=== PATIENT | male | born 1945 | race Caucasian/White ===

== ENCOUNTER 2016-08-15 07:04 | Emergency (ER) | payer OTHER ==
[2016-08-15] MEDS ORDERED: ASPIRIN PO STA (07:27)
[2016-08-15] MEDS ORDERED: NITROGLYCERIN SL PRN (07:27)
--- NOTE | 2016-08-15 07:35 | PROVIDER DOCUMENTATION ---
HPI-Chest Pain - General Chief Complaint: Chest Pain Stated Complaint: CP Time Seen by Provider: 08/15/16 07:07 Source: patient Allergies/Adverse Reactions: Patient Allergies Allergy/AdvReac Type Severity Reaction Status Date / Time No Known Allergies Allergy Verified 11/19/13 16:05 Home Medications: Home Medication List Medication Instructions Recorded Confirmed Last Taken Type Aspirin 81 mg PO DAILY 01/25/13 08/15/16 08/15/16 05:00 History Bupropion [Wellbutrin] 150 mg PO DAILY 01/25/13 08/15/16 08/15/16 05:00 History Meloxicam [Mobic] 7.5 mg PO DAILY 01/25/13 08/15/16 08/15/16 05:00 History Omeprazole 20 mg PO DAILY 01/25/13 08/15/16 08/15/16 05:00 History PRAVAstatin [Pravachol] 40 mg PO DAILY 01/25/13 08/15/16 08/15/16 05:00 History Bisacodyl [Dulcolax] 10 mg [place] QHS #2 supp 08/15/16 Unknown Rx Magnesium Citrate 295 ml PO ONCE #1 solution 08/15/16 Unknown Rx Multivitamin [Multivitamins] 1 cap PO DAILY 08/15/16 08/15/16 08/15/16 05:00 History Polyethylene Glycol 3350 [Miralax] 17 gm PO DAILY PRN PRN #90 08/15/16 Unknown Rx powd.pack - History of Present Illness-CP Nature of Presenting Problem: Pt awoke with chest pain, "pressure like a vise" on his chest 8 at 5:30 AM that went away on his ride in on the ambulance after about 1 hour. he has had ASA, but no nitroglycerin Review of Systems - Adult - REVIEW OF SYSTEMS - ADULT Constitutional: denies: chills, fever Eyes: denies: discharge, blurred vision Ears, Nose, Mouth & Throat: denies: ear discharge, sinus problem, throat swelling Cardiovascular: reports: chest pain. denies: heart murmur, irregular heart rate , orthopnea, poor circulation Respiratory: denies: chronic cough, cough, shortness of breath Gastrointestinal: denies: abdominal pain, diarrhea, nausea, vomiting Genitourinary: denies: dysuria, hesitency, urinary retention, urgency Musculoskeletal: denies: bone pain, frequent leg cramps, joint swelling Integumentary: denies: itching, rash Neurological: denies: dizziness/vertigo, paresthesia, syncope Psychiatric: reports: no symptoms reported Endocrine: denies: goiter, cold intolerance, heat intolerance Hematologic/Lymphatic: denies: low blood count, lymphedema Allergic/Immunologic: denies: eczema, hay fever, hives Past History - Adult - PAST MEDICAL HISTORY-ADULT Review of Records: reports: Nursing Assessment Review, Medications Reviewed Cardiovascular: reports: hyperlipidemia Gastrointestinal: reports: GERD - PRIOR SURGERIES/PROCEDURES Surgical/Procedure History: reports: appendectomy, cholecystectomy, hernia repair, other (colon post due to rupture) - IMMUNIZATION STATUS Childhood Immunizations: See Nurse Assessment Flu Vaccine: See Nurse Assessment Physical Exam-General - CONSTITUTIONAL General Appearance: appears well, alert, no apparent distress - EYES Eyes: PERRL/EOMI, pink conjunctivae, fundi clear, no AV nicking - HEAD, EARS, NOSE, MOUTH & THROAT HENMT: normocephalic/atraumatic, moist mucous membranes, normal ENT inspection - NECK Neck: non-tender, full range of motion, supple, normal inspection - RESPIRATORY Respiratory: chest non-tender, lungs clear, normal breath sounds, no pleuratic chest pain, no respiratory distress, no accessory muscle use - CARDIOVASCULAR Cardiovascular: normal peripheral pulses, regular rate, rhythm, no edema, no gallop, no JVD, no murmur - CHEST (BREASTS) Chest/Breast: no tenderness - GASTROINTESTINAL (ABDOMEN) Abdominal Exam: normal bowel sounds, non tender, soft, no organomegaly - LYMPHATIC Lymphatic: no adenopathy - MUSCULOSKELETAL Back Exam: normal inspection, no CVA tenderness, no vertebral tenderness Extremity: normal range of motion, non-tender, normal gait - SKIN Integumentary: normal color, normal turgor, warm/dry - PSYCHIATRIC Psych/Mental Status: normal mood/affect, normal thought content, normal thought process, oriented x 3 Progress - PLAN OF CARE/RESULTS Progress/Plan/Lab Results: Pt continued to have episodic severe stomach/chest pain that would disappear after GI cocktail, or nothing after only a minute. he admits to constipation maybe a BM every 2-4 days and never daily for years. No obvious constipation on abdominal film Laboratory Tests 08/15/16 08/15/16 08/15/16 07:24 07:24 07:24 WBC RBC Hgb Hct MCV MCH MCHC RDW Std Deviation Plt Count MPV Immature Gran % (Auto) Neut % (Auto) Lymph % (Auto) [place] % (Auto) Eos % (Auto) Baso % (Auto) Immature Gran # (Auto) Neut # (Auto) Lymph # (Auto) [place] # (Auto) Eos # (Auto) Baso # (Auto) PT 11.2 INR 1.10 PTT (Actin FS) 28.5 D-Dimer 0.25 Sodium 140 Potassium 3.8 Chloride 103 Carbon Dioxide 22 L Anion Gap 15 BUN 16 Creatinine 1.0 Estimated GFR/1.73 m2 > 60 BUN/Creatinine Ratio 16 Glucose 117 H Calculated Osmolality 282 Calcium 8.8 Magnesium 1.9 Total Bilirubin 0.87 AST 17 ALT 15 Alkaline Phosphatase 103 Creatine Kinase Troponin T Wsr-U-Hzgkwxhkdbd Pept Total Protein 7.1 Albumin 3.7 Globulin 3.4 Albumin/Globulin Ratio 1.1 08/15/16 08/15/16 08/15/16 07:24 07:24 07:24 WBC RBC Hgb Hct MCV MCH MCHC RDW Std Deviation Plt Count MPV Immature Gran % (Auto) Neut % (Auto) Lymph % (Auto) [place] % (Auto) Eos % (Auto) Baso % (Auto) Immature Gran # (Auto) Neut # (Auto) Lymph # (Auto) [place] # (Auto) Eos # (Auto) Baso # (Auto) PT INR PTT (Actin FS) D-Dimer Sodium Potassium Chloride Carbon Dioxide Anion Gap BUN Creatinine Estimated GFR/1.73 m2 BUN/Creatinine Ratio Glucose Calculated Osmolality Calcium Magnesium Total Bilirubin AST ALT Alkaline Phosphatase Creatine Kinase 117 Troponin T < 0.010 Koa-G-Ktzibhrctix Pept 125 Total Protein Albumin Globulin Albumin/Globulin Ratio 08/15/16 08/15/16 08/15/16 07:24 10:26 10:26 WBC 13.24 H RBC 4.50 L Hgb 13.7 L Hct 41.2 L MCV 91.6 MCH 30.4 MCHC 33.3 RDW Std Deviation 13.9 Plt Count 381 MPV 9.7 Immature Gran % (Auto) 0.2 Neut % (Auto) 72.6 Lymph % (Auto) 15.0 L [place] % (Auto) 8.4 Eos % (Auto) 3.5 Baso % (Auto) 0.3 Immature Gran # (Auto) 0.02 Neut # (Auto) 9.61 H Lymph # (Auto) 1.99 Lea # (Auto) 1.11 H Eos # (Auto) 0.47 Baso # (Auto) 0.04 PT INR PTT (Actin FS) D-Dimer Sodium Potassium Chloride Carbon Dioxide Anion Gap BUN Creatinine Estimated GFR/1.73 m2 BUN/Creatinine Ratio Glucose Calculated Osmolality Calcium Magnesium Total Bilirubin AST ALT Alkaline Phosphatase Creatine Kinase 121 Troponin T 0.084 D Caq-Y-Rvygpkjkwnk Pept Total Protein Albumin Globulin Albumin/Globulin Ratio Orders Category Date Time Status Cardiac Monitoring DIRECTED Care 08/15/16 07:27 Active Saline Loc NOW Care 08/15/16 07:27 Active ABDOMEN FLAT/UPRIGHT [RAD] Stat Exams 08/15/16 11:50 Taken CHEST-2 VIEWS [RAD] Stat Exams 08/15/16 07:27 Draft CBC WITH ELECTRONIC DIFF [HEME] Stat Lab 08/15/16 07:24 Completed CK PROFILE [SP CHEM] Stat Lab 08/15/16 07:24 Completed CK PROFILE [SP CHEM] Stat Lab 08/15/16 10:26 Completed COMPREHENSIVE METABOLIC PANEL [CHEM] Stat Lab 08/15/16 07:24 Completed D-DIMER [CHEM] Stat Lab 08/15/16 07:24 Completed MAGNESIUM [CHEM] Stat Lab 08/15/16 07:24 Completed PRO B-NATRIURETIC PEPTIDE Stat Lab 08/15/16 07:24 Completed PROTIME WITH INR [COAG] Stat Lab 08/15/16 07:24 Completed PTT [COAG] Stat Lab 08/15/16 07:24 Completed TROPONIN T Stat Lab 08/15/16 07:24 Completed TROPONIN T Stat Lab 08/15/16 10:26 Completed Aspirin Med 08/15/16 07:27 Discontinued 325 mg PO STAT STA Lido/Yun Alk/Al&mg Hydrox [G.i. Cocktail] Med 08/15/16 12:23 Discontinued 30 ml .ROUTE .STK-MED ONE Lido/Yun Alk/Al&mg Hydrox [G.i. Cocktail] Med 08/15/16 12:22 Discontinued 30 ml PO NOW ONE Nitroglycerin Sl [Nitroglycerin] Med 08/15/16 07:27 Active 0.4 mg SL Q5M PRN PRN EKG [EKG] Stat Ther 08/15/16 07:27 Draft EKG [EKG] Stat Ther 08/15/16 10:20 Draft Vital Signs Temp Pulse Resp BP Pulse Ox 08/15/16 10:32 78 23 138/78 95 08/15/16 08:10 78 21 138/78 95 08/15/16 07:09 98.0 F 85 20 144/72 96 No Known Allergies Allergy (Verified 11/19/13 16:05) Aspirin 81 mg PO DAILY 01/25/13 Bupropion [Wellbutrin] 150 mg PO DAILY 01/25/13 Meloxicam [Mobic] 7.5 mg PO DAILY 01/25/13 Omeprazole 20 mg PO DAILY 01/25/13 PRAVAstatin [Pravachol] 40 mg PO DAILY 01/25/13 Multivitamin [Multivitamins] 1 cap PO DAILY 08/15/16 Laboratory 08/15/16 08/15/16 08/15/16 10:26 10:26 07:24 WBC 13.24 H RBC 4.50 L Hgb 13.7 L Hct 41.2 L MCV 91.6 MCH 30.4 MCHC 33.3 RDW Std Deviation 13.9 Plt Count 381 MPV 9.7 Immature Gran % (Auto) 0.2 Neut % (Auto) 72.6 Lymph % (Auto) 15.0 L [place] % (Auto) 8.4 Eos % (Auto) 3.5 Baso % (Auto) 0.3 Immature Gran # (Auto) 0.02 Neut # (Auto) 9.61 H Lymph # (Auto) 1.99 Lea # (Auto) 1.11 H Eos # (Auto) 0.47 Baso # (Auto) 0.04 PT INR PTT (Actin FS) D-Dimer Sodium Potassium Chloride Carbon Dioxide Anion Gap BUN Creatinine Estimated GFR/1.73 m2 BUN/Creatinine Ratio Glucose Calculated Osmolality Calcium Magnesium Total Bilirubin AST ALT Alkaline Phosphatase Creatine Kinase 121 Troponin T 0.084 D Zbl-P-Zmujkdbprsm Pept Total Protein Albumin Globulin Albumin/Globulin Ratio 08/15/16 08/15/16 08/15/16 07:24 07:24 07:24 WBC RBC Hgb Hct MCV MCH MCHC RDW Std Deviation Plt Count MPV Immature Gran % (Auto) Neut % (Auto) Lymph % (Auto) [place] % (Auto) Eos % (Auto) Baso % (Auto) Immature Gran # (Auto) Neut # (Auto) Lymph # (Auto) [place] # (Auto) Eos # (Auto) Baso # (Auto) PT INR PTT (Actin FS) D-Dimer Sodium Potassium Chloride Carbon Dioxide Anion Gap BUN Creatinine Estimated GFR/1.73 m2 BUN/Creatinine Ratio Glucose Calculated Osmolality Calcium Magnesium Total Bilirubin AST ALT Alkaline Phosphatase Creatine Kinase 117 Troponin T < 0.010 Nny-H-Hieepachfxs Pept 125 Total Protein Albumin Globulin Albumin/Globulin Ratio 08/15/16 08/15/16 08/15/16 07:24 07:24 07:24 WBC RBC Hgb Hct MCV MCH MCHC RDW Std Deviation Plt Count MPV Immature Gran % (Auto) Neut % (Auto) Lymph % (Auto) [place] % (Auto) Eos % (Auto) Baso % (Auto) Immature Gran # (Auto) Neut # (Auto) Lymph # (Auto) [place] # (Auto) Eos # (Auto) Baso # (Auto) PT 11.2 INR 1.10 PTT (Actin FS) 28.5 D-Dimer 0.25 Sodium 140 Potassium 3.8 Chloride 103 Carbon Dioxide 22 L Anion Gap 15 BUN 16 Creatinine 1.0 Estimated GFR/1.73 m2 > 60 BUN/Creatinine Ratio 16 Glucose 117 H Calculated Osmolality 282 Calcium 8.8 Magnesium 1.9 Total Bilirubin 0.87 AST 17 ALT 15 Alkaline Phosphatase 103 Creatine Kinase Troponin T Flw-B-Ntmcaumnqro Pept Total Protein 7.1 Albumin 3.7 Globulin 3.4 Albumin/Globulin Ratio 1.1 Departure - Departure Time of Disposition Order: 13:01 DIAGNOSIS: Abdominal gas pain Constipation Qualifiers: Constipation type: unspecified constipation type Qualified Code(s): K59.00 - Constipation, unspecified Disposition: HOME 01 Certified Medical Emergency: Emergent Condition: Stable Additional Instructions: see you own doctor to arrange evaluation of you heart. In the meantime, try to stabilize your bowel pattern ED Follow Up Instructions: You have been treated by a care provider in the Emergency Department. These instructions are being provided to you so you can have an understanding of how to care for yourself upon discharge. Upon discharge from the Emergency Department, you are responsible for making arrangements for follow-up care by a physician of your choice. Take all prescribed medications as directed. Return to the Emergency Department immediately for any new or worsening symptoms. You may call the Physician Referral phone number at [phone] to obtain a list of Physicians who are taking new patients. Prescriptions: Bisacodyl [Dulcolax] 10 mg TN QHS #2 supp Magnesium Citrate 295 ml PO ONCE #1 solution Polyethylene Glycol 3350 [Miralax] 17 gm PO DAILY PRN PRN #90 powd.pack PRN Reason: Constipation Referrals: Oumou Riley MD [Primary Care Provider] -
[2016-08-15 07:58] LABS: AGAP 15; ALBUMIN 3.7 g/dL (3.5-5.0); ALKALINE PHOSPHATASE 103 U/L (32-122); BUN 16 mg/dL (8-22); CALCIUM 8.8 mg/dL (8.8-10.2); CHLORIDE 103 mmol/L (98-107); COSMO 282; GOT 17 U/L (10-34); GPT 15 U/L (10-44); MAGNESIUM 1.9 mg/dL (1.5-2.7); POTASSIUM 3.8 mmol/L (3.5-5.1); SODIUM 140 mmol/L (136-145); TCO2 22 mmol/L (25-35); TOTAL BILIRUBIN 0.87 mg/dL (0.20-1.00); TOTAL PROTEIN 7.1 g/dL (6.3-8.3)
[2016-08-15 08:01] LABS: INR 1.1; PROTIME 11.2 Seconds (9.2-11.7); PTT 28.5 Seconds (22.0-36.0)
--- NOTE | 2016-08-15 08:56 | ED EKG INTERP ---
EKG Interpretation - EKG Time of EKG reading by physician:: 07:09 EKG Read and Signed by:: William Alexander EKG Interpretation (*Must complete 3 of following elements*): Normal Rate: 82 Rhythm: nsr [place]: normal QRS: normal [place] Interval: normal ST Wave: normal
--- NOTE | 2016-08-15 08:58 | Diag Imaging Result Document ---
PROCEDURE NAME: CHEST-2 VIEWS - 08/15/2016 PA AND LATERAL RADIOGRAPHS OF THE CHEST: COMPARISON: 01/25/2013. FINDINGS: The lungs are grossly clear. There is no definite pleural fluid collection. Cardiac silhouette and central vasculature are grossly unremarkable. There is thoracic spondylosis. IMPRESSION: No definite acute chest pathology.
[2016-08-15 10:10] LABS: MANUAL DIFF NEEDED? NO
[2016-08-15 10:14] LABS: BASO% 0.3 % (0.0-0.8); EOS# 0.47 X1000 (0.0-0.7); EOS% 3.5 % (0.0-10.0); HEMATOCRIT 41.2 % (42.0-52.0); HEMOGLOBIN 13.7 g/dL (14.0-18.0); IMM GRAN# 0.02 X1000 (0.0-0.04); IMM GRAN% 0.2 % (0.0-0.5); LYMPH# 1.99 X1000 (1.2-3.4); MCH 30.4 PG (27-31); MCHC 33.3 g/dL (33-37); MCV 91.6 FL (81-99); MONO# 1.11 X1000 (0.11-0.59); MONO% 8.4 % (1.7-9.3); MPV 9.7 FL (7.4-10.4); NEUT% 72.6 % (42.2-75.2); PLT 381 X1000 (130-400)
--- NOTE | 2016-08-15 10:55 | ED EKG INTERP ---
EKG Interpretation - EKG Time of EKG reading by physician:: 10:24 EKG Read and Signed by:: William Alexander EKG Interpretation (*Must complete 3 of following elements*): Abnormal Rate: 79 Rhythm: NSR [place]: normal ST Wave: normal Comments: inferior infarct
--- NOTE | 2016-08-15 11:20 | EKG Report ---
Test Performed on : 08/15/2016 07:09:25 AM Test Reason : Chest Pain Blood Pressure : / mmHG Vent. Rate : 082 BPM Atrial Rate : 082 BPM P-R Int : 168 ms QRS Dur : 088 ms QT Int : 378 ms P-R-T Axes : 097 011 053 degrees QTc Int : 441 ms Normal sinus rhythm. Normal ECG When compared with ECG of 17-APR-2010 10:51, premature supraventricular complexes. are no longer present Unconfirmed Result
--- NOTE | 2016-08-15 11:22 | EKG Report ---
Test Performed on : 08/15/2016 10:24:50 AM Test Reason : REPEAT Blood Pressure : / mmHG Vent. Rate : 079 BPM Atrial Rate : 079 BPM P-R Int : 168 ms QRS Dur : 084 ms QT Int : 390 ms P-R-T Axes : 084 003 046 degrees QTc Int : 447 ms Normal sinus rhythm. Inferior infarct , age undetermined Abnormal ECG When compared with ECG of 15-AUG-2016 07:09, (Unconfirmed) No significant change was found Unconfirmed Result
--- NOTE | 2016-08-15 12:07 | ED EKG INTERP ---
EKG Interpretation - EKG Time of EKG reading by physician:: 11:46 EKG Read and Signed by:: William Alexander EKG Interpretation (*Must complete 3 of following elements*): Normal Rate: 82 Rhythm: nsr [place]: normal QRS: normal [place] Interval: normal ST Wave: normal
[2016-08-15] MEDS ORDERED: G.I. COCKTAIL PO ONE (12:22)
[2016-08-15] MEDS ORDERED: G.I. COCKTAIL ONE (12:23)
--- NOTE | 2016-08-15 12:46 | ED EKG INTERP ---
EKG Interpretation - EKG Time of EKG reading by physician:: 12:17 EKG Read and Signed by:: William Alexander EKG Interpretation (*Must complete 3 of following elements*): Normal Rate: 84 Rhythm: sinus rhythm w/premature supraventricular complexes [place]: normal QRS: normal [place] Interval: normal ST Wave: normal
[2016-08-15 13:33] VITALS: BP 136/70
--- NOTE | 2016-08-15 13:41 | Diag Imaging Result Document ---
PROCEDURE NAME: ABDOMEN FLAT/UPRIGHT - 08/15/2016 X-RAY ABDOMEN, 2 VIEWS: COMPARISON: 01/25/2013. FINDINGS: Stable extensive hernia repair mesh. Stable cholecystectomy clips. No bowel obstruction or free air. IMPRESSION: No acute disease or change from prior.
--- NOTE | 2016-08-16 09:35 | EKG Report ---
Test Performed on : 08/15/2016 12:17:13 PM Test Reason : ED. Not ordered in [place] Blood Pressure : / mmHG Vent. Rate : 084 BPM Atrial Rate : 084 BPM P-R Int : 154 ms QRS Dur : 084 ms QT Int : 386 ms P-R-T Axes : 023 012 055 degrees QTc Int : 456 ms Sinus rhythm. with premature supraventricular complexes. Otherwise normal ECG When compared with ECG of 15-AUG-2016 12:16, (Unconfirmed) premature ventricular complexes. are no longer present premature supraventricular complexes. are now present Unconfirmed Result
--- NOTE | 2016-08-16 09:35 | EKG Report ---
Test Performed on : 08/15/2016 11:46:37 AM Test Reason : ED. Not ordered in [place] Blood Pressure : / mmHG Vent. Rate : 082 BPM Atrial Rate : 082 BPM P-R Int : 166 ms QRS Dur : 084 ms QT Int : 390 ms P-R-T Axes : 103 011 054 degrees QTc Int : 455 ms Normal sinus rhythm. Normal ECG When compared with ECG of 15-AUG-2016 11:46, (Unconfirmed) No significant change was found Unconfirmed Result
== END 2016-08-15 13:57 | disposition home or self-care (01) ==
LOC: EDBD → ED 07:04
DX: R14.1 Gas pain (principal); K59.00 Constipation, unspecified; R94.31 Abnormal electrocardiogram [ECG] [EKG]; R07.89 Other chest pain; R10.9 Unspecified abdominal pain; E78.5 Hyperlipidemia, unspecified; K21.9 Gastro-esophageal reflux disease without esophagitis; Z79.82 Long term (current) use of aspirin; Z79.899 Other long term (current) drug therapy
CPT/HCPCS: 71020; 74020; 80053; 82550; 83735; 83880; 84484; 85025; 85379; 85610; 85730; 93005

== ENCOUNTER 2018-09-14 15:55 | Inpatient (IN) ==
[2018-09-14 16:28] LABS: BASO# 0.06 X1000 (0.0-0.2); BASO% 0.5 % (0.0-0.8); EOS# 0.27 X1000 (0.0-0.7); EOS% 2.2 % (0.0-10.0); HEMATOCRIT 43.6 % (42.0-52.0); HEMOGLOBIN 14.9 g/dL (14.0-18.0); IMM GRAN# 0.04 X1000 (0.0-0.04); IMM GRAN% 0.3 % (0.0-0.5); LYMPH# 1.79 X1000 (1.2-3.4); LYMPH% 14.8 % (20.5-51.1); MCH 32.5 PG (27-31); MCHC 34.2 g/dL (33-37); MCV 95.2 FL (81-99); MONO# 1.14 X1000 (0.11-0.59); MONO% 9.4 % (1.7-9.3); MPV 9.4 FL (7.4-10.4); NEUT# 8.82 X1000 (1.4-6.5); NEUT% 72.8 % (42.2-75.2); PLT 331 X1000 (130-400); RBC 4.58 XMIL (4.7-6.1); RDW 13.7 % (11.5-14.5); WBC 12.12 X1000 (4.8-10.8)
[2018-09-14 16:46] LABS: AGAP 10; ALBUMIN 4.3 g/dL (3.5-5.0); ALKALINE PHOSPHATASE 135 U/L (32-122); BUN 20 mg/dL (8-22); CALCIUM 9.3 mg/dL (8.8-10.2); CHLORIDE 103 mmol/L (98-107); COSMO 287; CREATININE 1.1 mg/dL (0.7-1.2); ESTIMATED GFR > 60; GLUCOSE 150 mg/dL (70-104); GOT 16 U/L (10-34); GPT 24 U/L (10-44); POTASSIUM 4.3 mmol/L (3.5-5.1); SODIUM 141 mmol/L (136-145); TCO2 28 mmol/L (25-35)
[2018-09-14 16:49] LABS: BILIRUBIN URINE NEGATIVE (NEGATIVE); BLOOD URINE 4+ (NEGATIVE); COLOR YELLOW; KETONE URINE 1+(Small) mg/dL (NEGATIVE); LEUKOCYTES URINE 1+ (NEGATIVE); NITRITE URINE NEGATIVE (NEGATIVE); PROTEIN URINE 2+(100 mg/dL) mg/dL (NEGATIVE); SP GRAVITY URINE 1.025; UROBILINOGEN URINE NORMAL
[2018-09-14 16:51] LABS: CLARITY VERY CLOUDY (CLEAR); URINE BACTERIA 1+ /HFP; URINE RBC TNTC /HPF (<10)
--- NOTE | 2018-09-14 17:07 | Diag Imaging Result Doc PS360 ---
CT RENAL STONE SEARCH - 09/14/2018 INDICATION: pain COMPARISON: None FINDINGS: There is an obstructing right UPJ stone. This measures about 11 x 6 mm. There is moderate right hydronephrosis. No hydronephrosis on the left side. There are several scattered small renal stones bilaterally measuring about 2 mm. There is a heterogeneous mass of the pancreatic head. This is poorly evaluated. This measures 4.3 x 4.1 cm in AP and lateral dimensions. There is atrophy of the pancreas. There are cholecystectomy clips. There is ventral hernia repair mesh. No bowel obstruction or inflammation. Urinary bladder, prostate, and rectum are normal. There are moderate degenerative changes of the spine. No acute or suspicious bony lesion. IMPRESSION: 1. Obstructing right UPJ stone. Small bilateral renal stones. 2. Highly suspicious mass of the pancreatic head. 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 Recommend a CT abdomen pelvis with intravenous contrast for confirmation. This exam was performed using automated exposure control, adjustment of mA or kV according to patient size, and/or use of iterative reconstruction technique Electronically signed by Danish Benavidez 09/14/2018 5:04 PM
[2018-09-14] MEDS ORDERED: MORPHINE IV ONE (18:23)
[2018-09-14] MEDS ORDERED: TORADOL IV ONE (18:23)
[2018-09-14] MEDS ORDERED: DILAUDID IV PRN (18:50)
[2018-09-14] MEDS ORDERED: PROTONIX IV SCH ×2 (19:00→23:00)
[2018-09-14] MEDS ORDERED: LEVAQUIN 500 MG/D5W 500 MG/100 ML IVPB IV SCH (19:00)
[2018-09-14] MEDS ORDERED: LOVENOX SUBQ SCH (19:00)
[2018-09-14] MEDS ORDERED: NS 1,000 ML IV SCH (19:00)
[2018-09-14] MEDS ORDERED: SODIUM CHLORIDE 0.9% INJ SCH ×2 (19:00→23:00)
--- NOTE | 2018-09-14 19:01 | PROVIDER DOCUMENTATION ---
This chart was entered by Iris Maguire Scribe, acting as scribe for Daniel Cummings CRNP. HPI-General Adult - General Chief Complaint: Flank Pain Stated Complaint: VOMITING / POSS KIDNEY STONE Time Seen by Provider: 09/14/18 18:10 Source: patient Allergies/Adverse Reactions: Patient Allergies Allergy/AdvReac Type Severity Reaction Status Date / Time No Known Allergies Allergy Verified 09/14/18 16:06 Home Medications: Home Medication List Medication Instructions Recorded Confirmed Last Taken Type Aspirin 81 mg PO DAILY 01/25/13 08/15/16 08/15/16 05:00 History Bupropion [Wellbutrin] 150 mg PO DAILY 01/25/13 08/15/16 08/15/16 05:00 History Meloxicam [Mobic] 7.5 mg PO DAILY 01/25/13 08/15/16 08/15/16 05:00 History Omeprazole 20 mg PO DAILY 01/25/13 08/15/16 08/15/16 05:00 History PRAVAstatin [Pravachol] 40 mg PO DAILY 01/25/13 08/15/16 08/15/16 05:00 History Bisacodyl [Dulcolax] 10 mg ME QHS #2 supp 08/15/16 Unknown Rx Magnesium Citrate 295 ml PO ONCE #1 solution 08/15/16 Unknown Rx Multivitamin [Multivitamins] 1 cap PO DAILY 08/15/16 08/15/16 08/15/16 05:00 History Polyethylene Glycol 3350 [Miralax] 17 gm PO DAILY PRN PRN #90 08/15/16 Unknown Rx powd.pack Sulfamethoxazole/Trimethoprim 2 ea PO BID #40 tab 03/07/18 Unknown Rx [Bactrim Ds Tablet] - History of Present Illness -Gen Adult Nature of Presenting Problems: pt is a 73 yr old male presenting with 1 day complaint of nausea, vomiting right groin pain radiating to RLQ, right flank, pt reports hx of kidney stones, last lithotripsy approx 4 weeks ago. pt followed by DR Riley and urologist in [facility], pt denies fever/chills Location of Pain/Injury: reports: abdomen Pain Radiation: reports: groin (right), flank (R) Quality of Pain: reports: sharp Severity: reports: severe Onset/Duration: reports: 24 hours ago Timing: reports: still present Context/Activities at Onset: reports: light activity Modifying Factors: improves with: other medication (hydrocodone without relief) Associated Symptoms: reports: back/neck pain, genitourinary problems, nausea, vomiting. denies: fever/chills Similar Symptoms Previously?: Yes Recently seen or treated by another doctor?: Yes (seen multiple times in past month for similar complaints) Review of Systems - Adult - REVIEW OF SYSTEMS - ADULT Constitutional: denies: chills, fever Eyes: reports: no symptoms reported Ears, Nose, Mouth & Throat: reports: no symptoms reported Cardiovascular: denies: chest pain, syncope Respiratory: denies: cough, shortness of breath Gastrointestinal: reports: abdominal pain, nausea, vomiting. denies: diarrhea Genitourinary: reports: flank pain. denies: hematuria Musculoskeletal: reports: back pain Integumentary: reports: no symptoms reported Neurological: denies: dizziness/vertigo, headache/migraines Psychiatric: reports: no symptoms reported Endocrine: reports: no symptoms reported Hematologic/Lymphatic: reports: no symptoms reported Allergic/Immunologic: reports: no symptoms reported All Other Systems: Reviewed and Negative Past History - Adult - PAST MEDICAL HISTORY-ADULT Review of Records: reports: Old Records Reviewed, Nursing Assessment Review, Medications Reviewed, Social history reviewed & non-contributory. Major Childhood Illnesses: reports: denies history Cardiovascular: reports: hyperlipidemia Respiratory: reports: denies history Gastrointestinal: reports: GERD Obstetrical/Gynecological: reports: denies history Genitourinary: reports: denies history Musculoskeletal: reports: denies history Neurological: reports: denies history Endocrine/Immune: reports: denies history Other Conditions: reports: denies history - PRIOR SURGERIES/PROCEDURES Surgical/Procedure History: reports: appendectomy, cholecystectomy, hernia repair, other (colon post due to rupture) - IMMUNIZATION STATUS Childhood Immunizations: See Nurse Assessment Flu Vaccine: See Nurse Assessment - FAMILY HISTORY Family History: reviewed, not pertinent - SOCIAL HISTORY Smoking: cigarettes, less than 1 pack/day Provider spent 3-5 mins advising pt. on dangers of tobacco.: Discussed manners to quit use, and f/u contacts for add'l counseling. Substance Use: denies Living Situation: family Physical Exam-General - PHYSICAL EXAM-ADULT Initial Vital Signs Reviewed: Yes - CONSTITUTIONAL General Appearance: alert, mild distress - EYES Eyes: PERRL/EOMI - HEAD, EARS, NOSE, MOUTH & THROAT HENMT: normocephalic/atraumatic, moist mucous membranes - NECK Neck: non-tender, full range of motion, supple, normal inspection - RESPIRATORY Respiratory: chest non-tender, lungs clear, normal breath sounds, no pleuratic chest pain, no respiratory distress, no accessory muscle use - CARDIOVASCULAR Cardiovascular: normal peripheral pulses, regular rate, rhythm - GASTROINTESTINAL (ABDOMEN) Abdominal Exam: normal bowel sounds, soft, tenderness (RLQ) - GENITOURINARY Rectal Exam: deferred - MUSCULOSKELETAL Back Exam: CVA tenderness (right). negative: decreased range of motion, abida tebral tenderness Extremity: normal range of motion, non-tender, normal gait, normal inspection - SKIN Integumentary: normal color, normal turgor, warm/dry - NEUROLOGIC Neurologic: grossly normal, no motor/sensory deficits - PSYCHIATRIC Psych/Mental Status: normal mood/affect Progress - PLAN OF CARE/RESULTS Progress/Plan/Lab Results: Vital Signs - 8 hr 09/14/18 16:02 Temperature 97.6 F Pulse Rate 73 Respiratory Rate 20 Blood Pressure 150/75 O2 Sat by Pulse Oximetry 100 Laboratory Results - last 24 hr 09/14/18 09/14/18 09/14/18 16:07 16:16 16:16 WBC 12.12 H RBC 4.58 L Hgb 14.9 Hct 43.6 MCV 95.2 MCH 32.5 H MCHC 34.2 RDW Std Deviation 13.7 Plt Count 331 MPV 9.4 Immature Gran % (Auto) 0.3 Neut % (Auto) 72.8 Lymph % (Auto) 14.8 L Gove % (Auto) 9.4 H Eos % (Auto) 2.2 Baso % (Auto) 0.5 Immature Gran # (Auto) 0.04 Neut # (Auto) 8.82 H Lymph # (Auto) 1.79 Gove # (Auto) 1.14 H Eos # (Auto) 0.27 Baso # (Auto) 0.06 Sodium 141 Potassium 4.3 Chloride 103 Carbon Dioxide 28 Anion Gap 10 BUN 20 Creatinine 1.1 Estimated GFR/1.73 m2 > 60 BUN/Creatinine Ratio 18 Glucose 150 H Calculated Osmolality 287 Calcium 9.3 Total Bilirubin 0.40 AST 16 ALT 24 Alkaline Phosphatase 135 H Total Protein 8.0 Albumin 4.3 Globulin 4.0 Albumin/Globulin Ratio 1.0 Urine Source CATH Urine Color YELLOW Urine Clarity VERY CLOUDY A Urine pH 5.0 Ur Specific [place] 1.025 Urine Protein 2+(100 mg/dL) A Urine Ketones 1+(Small) A Urine Blood 4+ Urine Nitrite NEGATIVE Urine Bilirubin NEGATIVE Urine Urobilinogen NORMAL Urine Microscopic RBC TNTC A Urine WBC 1+ A Urine Microscopic WBC 10-20 A Urine Bacteria 1+ Urine Glucose TRACE(50 mg/dL) A Orders Category Date Time Status CT RENAL STONE SEARCH [CT] Stat Exams 09/14/18 16:09 Completed CBC WITH DIFF [HEME] Stat Lab 09/14/18 16:16 Completed CMP [COMPREHENSIVE METABOLIC PANEL] [CHEM] Stat Lab 09/14/18 16:16 Completed URINE CULTURE [RM] Routine Lab 09/14/18 16:51 Ordered ua [URINALYSIS PL W/POSS RFLX CULT] [URINALYSIS] Stat Lab 09/14/18 16:07 Completed Ketorolac [Toradol] Med 09/14/18 18:23 Discontinued 30 mg IV NOW ONE Morphine Med 09/14/18 18:23 Discontinued 4 mg IV NOW ONE Result Diagrams: 09/14/18 16:16 09/14/18 16:16 - CONSULTS/PCP/HOSPITALIST Notification #1 *Consult/PCP/Hospitalist*: Dr Riley Time Discussed: 18:30 Reason/Comments: plan of care for pt admit Consult Disposition: Admit (admit and transfer to [facility]) #2 Consult: Dr Matt Ontiveros Discussed: 18:32 Reason/Comments: will follow up in hospital-pt is being admitted to Main Consult Disposition: other (will see at [facility]) Departure - Departure Date of Disposition Decision: 09/14/18 Time of Disposition Decision: 19:00 DIAGNOSIS: Hydronephrosis with renal calculous obstruction Disposition: ADMITTED INPATIENT 09 Certified Medical Emergency: Emergent Condition: Stable Referrals and Follow-Ups: Oumou Riley MD [Primary Care Provider] - - Critical Care Note This patient required my direct & personal management of CC.: No Attestation - Physician/ JOVANY Attestation Patient care was provided by Advanced Practice Provider:: Yes Advanced Practice Provider:: Daniel Cummings Advanced Practice Provider documentation review:: The Mid-level provider documentation, treatment plan and medical decision making was reviewed by the physician who agrees with all treatment and medical decision making by the MLP. The physician spent face to face time with patient:: No Advanced Practice Provider documentation review:: Supervising physician onsite and consulted in the evaluation and care of this patient. The physician did not have a face to face encounter with the patient. This chart was documented by the indicated scribe, (Iris Maguire, Lico) and accurately reflects the services I performed and decisions made by Zoila napier Terry L., CRNP, as attested by the provider's signature.
[2018-09-14] MEDS ORDERED: ZOFRAN IV ONE (19:20)
--- NOTE | 2018-09-14 21:52 | HISTORY AND PHYSICAL ---
CHIEF COMPLAINT: Right renal colicky pain since 1 day. HISTORY OF PRESENT ILLNESS: He is a 73-year-old white male basically with known history of kidney stones under the care of Dr. Castelan in [facility] who came to [facility] with 1-day history of renal colicky pain. The patient was seen a month ago as a followup of abnormal CT. It has been reported a cystic mass in the head of the pancreas. He is totally asymptomatic. No weight loss. I did a CA19-9, which is normal. Normal LFTs. The patient was given options to monitor in [address] If any changes in the size, consider biopsy. In the meantime, he had a right flank pain seen in the [facility]. An x-ray showed right UPJ obstruction with moderate hydronephrosis and mass in the head of the pancreas. Basically, he has been transferred to [facility] for lithotripsy and double-J stent. I discussed with Dr. Palencia, and arrangements were made to be transferred to [facility]. PAST MEDICAL HISTORY: Depression with anxiety, type 2 diabetes, metabolic syndrome, acid reflux disease, hyperlipidemia, incisional hernia, kidney stones, rib fractures on the right fourth rib and right L1-L2 transverse fractures in the past, osteoarthritis. PAST SURGICAL HISTORY: Right cataract surgery, cholecystectomy, status post diverticular perforation, colectomy with colostomy reversal complicated by wound dehiscence by Dr. Aljeo. MEDICATIONS: Aspirin, Wellbutrin 150 once daily, metformin 500 p.o. b.i.d., Mobic 15 daily, Prilosec 20 mg daily, pravastatin 40 daily, Spiriva inhalation daily. ALLERGIES: Not known. SOCIAL HISTORY: , 1 child. Lives in [place]. Retired. Used to smoke for 45 years. Socially drinks alcohol. FAMILY HISTORY: Father , age was not known. Mom of cervical cancer. HEALTH MAINTENANCE: Influenza vaccine 2018, pneumococcal 15. Last physical August 2017. Colonoscopy 2009. REVIEW OF SYSTEMS: HEENT: No headache, no vision problem. No earache. No sore throat. Neck: No goiter. No lymphadenopathy. No bruit. Cardiopulmonary: No chest pain, shortness of breath, PND, orthopnea. Genitourinary: Right flank pain as described. No weight loss. No abdominal pain. No back pain. Neurologic Exam: No focal symptoms, weakness. PHYSICAL EXAMINATION: VITAL SIGNS: Temperature is 98 degrees. Vitals are stable. 5 feet 10, 180 pounds. HEENT: Atraumatic, normocephalic. Pupils equal, reactive to light. TMs are normal. Nose and throat within normal limits. NECK: Supple. No lymphadenopathy. No goiter. CHEST: Bilateral air entry. HEART: Sounds are regular. ABDOMEN: Belly is soft, obese, nontender and good bowel sounds. Mostly tender in the right flank area. NEUROLOGICAL EXAM: Nonfocal. INVESTIGATIONS: CBC: White cell count 12, hematocrit 43, platelets 331,000. SMA 7: Sodium 140, potassium 4.3, chloride 103, BUN 20, creatinine 1.1, glucose 150. LFTs were normal. Urinalysis is positive for blood and infection. CT scan: Renal stone search is obstructing right UPJ stone. Bilateral renal stone. Pancreatic mass. Recommended CT with contrast. ASSESSMENT AND PLAN: 1. A 73-year-old white male admitted to the hospital with right flank pain due to ureteropelvic junction obstruction stone with moderate hydronephrosis and multiple stones in the past. Plan is IV fluids, IV pain control with Dilaudid, strain the urine, add Flomax and IV antibiotics with Levaquin and urology consult medical consultant. 2. Incidental pancreatic mass for the last 2 months and CA19-9 is normal. We will discuss about the repeat CT with contrast and also consider endoscopy ultrasound-guided biopsy. 3. Reconcile home medicines. Waiting, will be transferred out from [facility] to the [facility] and will follow up. cc: Oziel Riley MD
[2018-09-14] MEDS: NS 1,000 ML IV SCH (23:26)
[2018-09-15] MEDS: DILAUDID IV PRN ×4 (04:49→21:15)
[2018-09-15 07:50] LABS: BASO# 0.04 X1000 (0.0-0.2); BASO% 0.3 % (0.0-0.8); EOS# 0.22 X1000 (0.0-0.7); EOS% 1.8 % (0.0-10.0); HEMATOCRIT 38.7 % (42.0-52.0); IMM GRAN# 0.02 X1000 (0.0-0.04); IMM GRAN% 0.2 % (0.0-0.5); LYMPH# 2.09 X1000 (1.2-3.4); LYMPH% 17.5 % (20.5-51.1); MCH 32.3 PG (27-31); MCHC 33.6 g/dL (33-37); MONO# 0.98 X1000 (0.11-0.59); MONO% 8.2 % (1.7-9.3); MPV 9.4 FL (7.4-10.4); NEUT# 8.56 X1000 (1.4-6.5); PLT 269 X1000 (130-400); RBC 4.03 XMIL (4.7-6.1); RDW 13.5 % (11.5-14.5); WBC 11.91 X1000 (4.8-10.8)
[2018-09-15 08:35] LABS: AGAP 9; BUN 25 mg/dL (8-22); CALCIUM 8.7 mg/dL (8.8-10.2); CHLORIDE 107 mmol/L (98-107); COSMO 289; CREATININE 1.1 mg/dL (0.7-1.2); ESTIMATED GFR > 60; GLUCOSE 125 mg/dL (70-104); POTASSIUM 3.9 mmol/L (3.5-5.1); SODIUM 142 mmol/L (136-145); TCO2 26 mmol/L (25-35)
[2018-09-15] MEDS: FLOMAX PO SCH ×2 (08:59→21:17)
[2018-09-15] MEDS: NS 1,000 ML IV SCH ×2 (09:03→13:26)
[2018-09-15 09:06] LABS: URINE SOURCE CLEAN CATCH
--- NOTE | 2018-09-15 13:36 | CONSULTATION ---
DATE OF CONSULTATION: 09/15/2018 HISTORY OF PRESENT ILLNESS: This 73-year-old male with a long history of renal lithiasis developed severe right flank pain. Evaluation revealed a 7 x 11 mm stone at the right ureteropelvic junction. There was mild hydronephrosis. The patient states he has a long history of kidney stones and has had shockwave lithotripsy x2 of other right renal stones. He states this was done in [place]. The patient denies any other type of urologic surgery. He states he is having some problems voiding with a slow stream and having to push to initiate voiding. He is not taking any kind of medication for his prostate. The patient states he is not having any pain at present. He states that he received pain medicine not too long ago. PAST MEDICAL HISTORY: 1. A pancreatic mass that is currently being evaluated. Laboratory evaluation reveal it is probably benign. 2. Gastroesophageal reflux disease. 3. Arthritis. 4. Depression. 5. Obesity. CURRENT MEDICATIONS: Documented on the chart. PAST SURGICAL HISTORY: 1. Exploratory laparotomy for perforated diverticulum with removal of a portion of the large bowel with a diverting colostomy placed. This was subsequently taken down. 2. Repair of incisional hernia. 3. Appendectomy. 4. Cholecystectomy. 5. Cataract surgery. SOCIAL HISTORY: Cigarettes: A pack a day for over 50 years. He is trying to quit. ETOH use social. ALLERGIES: No known drug allergies. REVIEW OF SYSTEMS: Usually in good health. He denies any chest pains, recent pulmonary or bowel problems. He denies any problems with diabetes. PHYSICAL EXAMINATION: General: An obese, age apparent, normally developed, white male, oriented in all ways and cooperative. HEENT: Normal for age. Lungs: Clear. Cardiovascular: Regular rate and rhythm. Abdomen: Obese soft, nontender. No hepatosplenomegaly or masses. Normal bowel sounds. Back: Mild right CVA tenderness. : Normal male. Meatus is normal. Both testes are down and palpably normal. There are no inguinal hernias. Rectal: Deferred until surgery. Extremities: No clubbing, cyanosis, or edema. Neuro: No focal deficits. LABORATORY EVALUATION: He has a white count of 11.9, hemoglobin 13, hematocrit 38.7, platelets are 269,000. Serum electrolytes are normal. BUN 20. Creatinine 1.1. Urinalysis had too numerous to count red cells. Urine for culture and sensitivity is pending. CT stone search is as noted in the HPI. IMPRESSION: 1. Obstructing right ureteropelvic junction stone. 2. Enlarged prostate with obstructive voiding. RECOMMEND: Extracorporeal shockwave lithotripsy on when the machine is available. If the stone does not appear well fragmented will place a right double-J stent to allow dilation of the ureter that would facilitate ureteroscopy and laser lithotripsy of the stone from the ureter. Flomax 0.4 mg b.i.d. The planned procedure, benefits versus risks, possible complications, including, but not limited to, bleeding, infection, not being able to break up the stone, need for the double-J stent, need for further surgery was discussed. He seems to understand and desires to proceed. cc: MD Oziel Tavarez MD
[2018-09-15] MEDS ORDERED: SODIUM CHLORIDE 0.9% INJ SCH (19:00)
[2018-09-15] MEDS: PROTONIX IV SCH ×3 (19:16→21:35)
[2018-09-15] MEDS: LOVENOX SUBQ SCH (21:16)
[2018-09-15] MEDS: LEVAQUIN 500 MG/D5W 500 MG/100 ML IVPB IV SCH (21:17)
--- NOTE | 2018-09-15 22:08 | PROGRESS NOTE ---
DATE: 09/15/2018 SUBJECTIVE: The patient's right flank pain going to the groin, pain is better. Appreciate Dr. Palencia' consult. OBJECTIVE: On exam, temperature is 98 degrees, pulse 78, vital signs are stable. HEENT exam within normal limits. Neck is supple. Chest is clear. Heart sounds are regular. Belly is soft, nontender. Good bowel sounds. Incisional hernia noted. Neurologic exam nonfocal. LABORATORY DATA: White cell count 11.9, hematocrit 38, platelets 269,000. SMA 7 is normal. Urine is very cloudy. Urine cultures so far negative. ASSESSMENT AND PLAN: 1. Right-sided pyelonephritis due to kidney stone disease. Continue on intravenous fluids, intravenous Levaquin. Flomax. Urology consult. Dr. Palencia is planning for lithotripsy on . Pain control with Dilaudid. 2. Diet: Full liquid diet. 3. We will reconcile home medications. 4. Type 2 diabetes, on insulin coverage. 5. Abnormal CT, basically a lesion in the head of the pancreas. It has been detected. Last CT scan currently asymptomatic. Normal liver function tests. Follow up on CA19-9. Once he gets better, I am going to make arrangements to do the biopsy of the lesion by endoscopy. I discussed the plan of care with the family, agreeable. Continue present treatment. Level of documentation is 25 minutes. cc: Oziel Riley MD
[2018-09-16] MEDS: DILAUDID IV PRN ×7 (02:41→22:35)
[2018-09-16] MEDS: HUMULIN R SUBQ SCH ×4 (06:08→20:22)
[2018-09-16] MEDS: NS 1,000 ML IV SCH ×2 (06:09→20:22)
[2018-09-16] MEDS: WELLBUTRIN XL PO SCH (09:28)
[2018-09-16] MEDS: FLOMAX PO SCH ×3 (09:28→20:22)
[2018-09-16] MEDS: PRAVACHOL PO SCH (09:28)
[2018-09-16] MEDS: THERA M PLUS PO SCH (09:29)
[2018-09-16] MEDS: LOVENOX SUBQ SCH ×2 (19:42→20:23)
[2018-09-16] MEDS: LEVAQUIN 500 MG/D5W 500 MG/100 ML IVPB IV SCH (19:42)
[2018-09-16] MEDS: PROTONIX IV SCH (19:42)
--- NOTE | 2018-09-16 19:59 | PROGRESS NOTE ---
DATE: 09/16/2018 SUBJECTIVE: The patient is still in a little bit of pain and adequately controlled. OBJECTIVE: Vital signs: Temperature 97 degrees, pulse 79, blood pressure 134/64. HEENT Exam: Within normal limits. Neck: Supple. Chest: Clear. Cardiovascular: Heart sounds are regular. Abdomen: Belly is soft, nontender with multiple scars present. LABORATORY DATA: Blood sugar is 214. CA19-9 is 25. Urine cultures are negative. ASSESSMENT AND PLAN: 1. Right kidney stone, ureteropelvic junction obstruction waiting for lithotripsy in the morning and n.p.o. after midnight. Continue hydromorphone. IV antibiotics with Levaquin. 2. Pancreatic mass. CA19-9 is normal. Once he gets better, we will arrange outpatient endoscopy, ultrasound and biopsy. LEVEL OF DOCUMENTATION: 25 minutes. cc: Oziel Riley MD
[2018-09-17] MEDS: NS 1,000 ML IV SCH ×2 (01:00→18:08)
[2018-09-17] MEDS: DILAUDID IV PRN ×4 (05:46→20:00)
[2018-09-17] MEDS: HUMULIN R SUBQ SCH ×4 (05:53→20:01)
--- NOTE | 2018-09-17 12:44 | Diag Imaging Result Doc PS360 ---
EXAM: MRI ABDOMEN W/WO CONTRAST HISTORY: Evaluation of Panccretic Mass TECHNIQUE: MRI abdomen with and without contrast. COMPARISON: None. FINDINGS: Axial and coronal images obtained in multiple sequences. These are followed the post contrasted images. There is a mass in the pancreatic head measuring 1.4 x 1.8 x 1.1 cm. The periphery is somewhat irregular. Mild dilatation to the pancreatic duct measuring 4 mm in diameter. Normal common bile duct. The gallbladder has been removed. No focal normality to the liver, spleen, adrenal glands, or kidneys. No aortic aneurysm. No bowel obstruction. There is at least a small hiatal hernia. Trace pleural fluid. IMPRESSION: Pancreatic mass suspicious for carcinoma. Electronically signed by Federico Holm 09/17/2018 12:42 PM
[2018-09-17] MEDS ORDERED: DIPRIVAN 1% ONE (13:52)
[2018-09-17] MEDS ORDERED: XYLOCAINE-MPF 2% ONE (15:17)
[2018-09-17] MEDS ORDERED: DECADRON ONE (15:17)
[2018-09-17] MEDS ORDERED: ZOFRAN ONE (15:17)
[2018-09-17] MEDS ORDERED: MANNITOL ONE (15:17)
[2018-09-17] MEDS: DILAUDID ONE ×4 (16:03→16:17)
--- NOTE | 2018-09-17 16:40 | OPERATIVE NOTE ---
PROCEDURE DATE: 09/17/2018 SURGEON: Francisco Palencia MD PREOPERATIVE DIAGNOSIS: Right proximal ureteral stone with moderate obstruction. POSTOPERATIVE DIAGNOSIS: Right proximal ureteral stone with moderate obstruction. PROCEDURE PERFORMED: Extracorporeal shockwave lithotripsy of the right proximal ureteral stone. ANESTHESIA: General via laryngeal mask. FINDINGS: An approximate 6 x 7 mm stone in the right proximal ureter. INDICATION FOR PROCEDURE: This 73-year-old male with long history of renal lithiasis developed severe right flank pain. Evaluation revealed a right proximal ureteral stone. DESCRIPTION OF PROCEDURE: After informed consent was obtained the patient and him receiving IV antibiotics, he was taken the main OR, placed in the supine position. General anesthesia via laryngeal mask was achieved. He was then placed in a proper position for extracorporeal shockwave lithotripsy of the right proximal stone. The stone received 3000 shocks at a frequency of 120 per minute. The energy level was started at 1 and ramped to 9. He received 12.5 g of mannitol at the start of the case. At completion, the stone was well fragmented. Total fluoroscopy time was 2 minutes and 9 seconds. Estimated blood loss zero. He was taken to the recovery room in good condition. cc: MD Oziel Tavarez MD
[2018-09-17] MEDS: PRAVACHOL PO SCH (17:30)
[2018-09-17] MEDS: WELLBUTRIN XL PO SCH ×2 (17:35→18:11)
[2018-09-17] MEDS: THERA M PLUS PO SCH (17:40)
[2018-09-17] MEDS: FLOMAX PO SCH ×2 (18:07→20:00)
--- NOTE | 2018-09-17 19:50 | PROGRESS NOTE ---
DATE: 09/17/2018 SUBJECTIVE: The patient's pain is slightly coming back. is at bedside. OBJECTIVE: Vital signs: Temperature is 98.4 degrees. Vitals are stable. HEENT Exam: Within normal limits. Neck: Supple. Chest: Clear. Heart: Sounds are regular. Abdomen: Soft, nontender. Neurological: No neurological deficits. ASSESSMENT AND PLAN: 1. Right kidney stone ureteropelvic junction obstruction waiting for lithotripsy. Continue present treatment for IV antibiotics. 2. Pancreatic mass. Schedule for MRI of the abdomen and CA19-9 is negative. Followup urine cultures were negative, and based on the MRI findings, further recommendations will be followed. LEVEL OF DOCUMENTATION: 25 minutes. cc: Oziel Riley MD
[2018-09-17] MEDS: LOVENOX SUBQ SCH (20:00)
[2018-09-17] MEDS: LEVAQUIN 500 MG/D5W 500 MG/100 ML IVPB IV SCH (20:00)
[2018-09-17] MEDS: PROTONIX IV SCH (20:01)
[2018-09-18] MEDS: NS 1,000 ML IV SCH (06:28)
[2018-09-18] MEDS: HUMULIN R SUBQ SCH (06:31)
[2018-09-18 08:05] VITALS: BP 130/66
[2018-09-18] MEDS: THERA M PLUS PO SCH (10:04)
[2018-09-18] MEDS: FLOMAX PO SCH (10:04)
[2018-09-18] MEDS: PRAVACHOL PO SCH (10:04)
[2018-09-18] MEDS: WELLBUTRIN XL PO SCH (10:04)
--- NOTE | 2018-09-19 11:49 | DISCHARGE SUMMARY ---
ADMISSION DATE: 09/14/2018 DISCHARGE DATE: 09/18/2018 DISCHARGING DIAGNOSIS: Right renal colicky pain due to 6 mm right ureteropelvic junction kidney stone. SECONDARY DIAGNOSES: 1. Cystic pancreatic mass, etiology to be determined. CA19-9 x2 were normal, less than 25. 2. Depression with anxiety. 3. Type 2 diabetes. 4. Metabolic syndrome. 5. Acid reflux disease. 6. Hyperlipidemia. 7. Incisional hernia in the right side of the abdomen. 8. History of kidney stones. 9. Osteoarthritis. CONSULTS: Dr. Palencia. PROCEDURES: Lithotripsy of right kidney stone. BRIEF HISTORY: Please see the H and P that was done on 09/14/2018. In brief, he is a 71-year-old white male basically admitted to the hospital from [place] with right renal colicky pain, started 1 day, with a 6 mm stone at the UPJ with obstruction with moderate hydronephrosis. HOSPITAL COURSE: Patient was given IV fluids, IV pain medicines, along with Flomax and strained the urine. He was advised to take lemonade without any oxalate products. The patient also has incidental finding of pancreatic mass, which is asymptomatic. The patient had repeat CA19-9 x2 which were normal. MRI of the abdomen showed a cystic mass in the head of the pancreas. He has normal LFTs. Findings were discussed with the patient. I am going to arrange outpatient endoscopy and ultrasound biopsy to unravel the nature of the mass. The patient had a lithotripsy done of right kidney stone and his symptoms are much improved. The patient is discharged home in a stable condition. LABS: White cell count 11.9, hematocrit 38, platelet 269,000. SMA-7: Sodium 142, potassium 3.9, BUN 25, creatinine 1.1, glucose 125. CA19-9 is 25. Urine cultures are negative. Renal CT scan: Obstructing right UPJ obstruction, measuring about 11 x 6 mm stone, bilateral renal stones, pancreatic head mass. MRI of the abdomen: Pancreatic mass in the head, 1.4/1.8 cm, somewhat irregular dilated pancreatic duct, small hiatal hernia. DISCHARGING INSTRUCTIONS: 1. Wellbutrin 150 daily. 2. Aspirin 81 mg daily. 3. Prilosec 20 mg daily. 4. Mobic 15 daily. 5. Multivitamin 1 tablet daily. 6. Metformin 500 p.o. b.i.d. 7. Pravastatin 40 daily. 8. Lemonade. Avoid oxalate products. FOLLOWUP: Follow up in my office next week. Outpatient endoscopic ultrasound biopsy of the pancreatic mass discussed with the patient. cc: MD Dr. Slime Davis
== END 2018-09-18 10:31 | disposition home or self-care (01) | DRG 691 ==
LOC: P.ED 15:55 → 3N 21:53
PROVIDERS: ADMIT Internal Medicine; ATTEND Internal Medicine
PROC: UR.ESWL (2018-09-17 15:00)
CPT/HCPCS: 74176; 74183; 80048; 80053; 81001; 82948; 85025; 86301; 87088; 96365; 96372; 96375; 99285; A9270; A9579; C9113; J1100; J1170; J1650; J1885; J1956; J2150; J2405; J7030; S0164; XXXXX

== ENCOUNTER 2019-02-20 22:38 | Inpatient (IN) ==
[2019-02-20] MEDS ORDERED: ZOFRAN IV ONE (22:56)
[2019-02-20] MEDS ORDERED: CARDIZEM IV ONE (23:10)
[2019-02-20] MEDS ORDERED: NS 1,000 ML IV ONE (23:11)
--- NOTE | 2019-02-20 23:22 | EKG Report ---
Test Performed on : 02/20/2019 11:04:46 PM Test Reason : post op complaints Blood Pressure : / mmHG Vent. Rate : 160 BPM Atrial Rate : 197 BPM P-R Int : 000 ms QRS Dur : 082 ms QT Int : 280 ms P-R-T Axes : 000 002 155 degrees QTc Int : 456 ms Atrial fibrillation. with rapid ventricular response. with premature ventricular or aberrantly conduc devon complexes. Possible Lateral infarct , age undetermined Inferior-posterior infarct , possibly acute ACUTE LA / STEMI Consider right ventricular involvement in acute inferior infarct Abnormal ECG When compared with ECG of 15-AUG-2016 12:17, Significant changes have occurred Unconfirmed Result
[2019-02-20 23:49] LABS: HEMATOCRIT 28.5 % (42.0-52.0); HEMOGLOBIN 9.2 g/dL (14.0-18.0); MCH 33.1 PG (27-31); MCHC 32.3 g/dL (33-37); MCV 102.5 FL (81-99); RBC 2.78 XMIL (4.7-6.1); WBC 32.35 X1000 (4.8-10.8)
[2019-02-20 23:50] LABS: BASO# 0.04 X1000 (0.0-0.2); BASO% 0.1 % (0.0-0.8); LYMPH# 0.94 X1000 (1.2-3.4); LYMPH% 2.9 % (20.5-51.1); MONO# 0.45 X1000 (0.11-0.59); MONO% 1.4 % (1.7-9.3); MPV 9.4 FL (7.4-10.4); PLT 409 X1000 (130-400); RDW 14.7 % (11.5-14.5)
[2019-02-20 23:55] LABS: INR 1.59; PROTIME 19.2 Seconds (11.0-16.0); PTT 32.8 Seconds (22.3-41.8)
[2019-02-21] MEDS ORDERED: ZOSYN 4.5 GM in NS 100 ML IV ONE ×2
[2019-02-21 00:04] LABS: ESTIMATED GFR > 60
[2019-02-21 00:07] LABS: AGAP 20; ALB/GLOB RATIO 1.7; ALBUMIN 4.1 g/dL (3.5-5.0); ALKALINE PHOSPHATASE 132 U/L (32-122); AMYLASE 21 U/L (20-200); BUN 25 mg/dL (8-22); CALCIUM 9.2 mg/dL (8.8-10.2); CHLORIDE 99 mmol/L (98-107); COSMO 276; GLUCOSE 133 mg/dL (70-104); GOT 27 U/L (10-34); GPT 69 U/L (10-44); LIPASE 3 U/L (13-60); POTASSIUM 3.5 mmol/L (3.5-5.1); SODIUM 135 mmol/L (136-145); TCO2 16 mmol/L (25-35); TOTAL PROTEIN 6.5 g/dL (6.3-8.3)
[2019-02-21 00:29] LABS: LYMPHS 6 % (21-51); MONO 2 % (1-9); SEGS 92 % (42-75)
[2019-02-21] MEDS: CARDIZEM 125 MG/D5W 125 MG/125 ML IVPB IV SCH ×3 (00:35→20:44)
[2019-02-21] MEDS ORDERED: LOPRESSOR IV ONE (00:44)
[2019-02-21] MEDS ORDERED: NS 1,000 ML IV ONE ×2 (02:41)
--- NOTE | 2019-02-21 02:51 | PROVIDER DOCUMENTATION ---
This chart was entered by Elgin Paul Scribe, acting as scribe for Vanessa Harmon MD. HPI-General Adult - General Chief Complaint: Nausea/Vomiting Stated Complaint: post op complaint Time Seen by Provider: 02/20/19 22:50 Source: patient, family, longterm records, old records Allergies/Adverse Reactions: Patient Allergies Allergy/AdvReac Type Severity Reaction Status Date / Time Iodinated Contrast Media Allergy Unknown Verified 02/21/19 00:11 [Iodinated Contrast- Oral and IV Dye] Home Medications: Home Medication List Medication Instructions Recorded Confirmed Last Taken Type Bupropion [Wellbutrin] 150 mg PO DAILY 01/25/13 02/19/19 08/15/16 05:00 History Omeprazole 20 mg PO DAILY 01/25/13 02/19/19 08/15/16 05:00 History Multivitamin [Multivitamins] 1 cap PO DAILY 08/15/16 02/19/19 08/15/16 05:00 History Metformin [Glucophage] 500 mg PO BID 09/14/18 02/19/19 Unknown History PRAVAstatin [Pravachol] 40 mg PO DAILY 09/14/18 02/19/19 Unknown History Dronabinol 2 tab PO BID 02/19/19 02/19/19 Unknown History Lipase/Protease/Amylase [Creon Dr 2 tab PO TID 02/19/19 02/19/19 Unknown History 36,000 Units Capsule] Megestrol Acetate 40 mg PO BID 02/19/19 02/19/19 Unknown History Metoclopramide [Reglan] 10 mg PO TID 02/19/19 02/19/19 1 Day Ago History ~02/18/19 Montelukast [Singulair] 10 mg PO HS 02/19/19 02/19/19 Unknown History Ondansetron HCl [Zofran] 4 mg PO Q8HR PRN 02/19/19 02/19/19 Unknown History Oxycodone HCl/Acetaminophen 1 tab PO TID PRN 02/19/19 02/19/19 Unknown History [Percocet 10-325 mg Tablet] Prednisone 20 mg PO QAM 02/19/19 02/19/19 Unknown History Ranitidine [Zantac] 150 mg PO QHS 02/19/19 02/19/19 Unknown History - History of Present Illness -Gen Adult Nature of Presenting Problems: 73 y/o M presents to the ED via EMS from a rehab facility due to nausea and vomiting. Patient has been in the rehab facility since due to having a Whipple procedure at [facility] in [place]. According to patient's family he had the procedure due to pancreatic cancer. Patient was seen here yesterday due to his jtube not working correctly. When he was here Dr Tsai came to the ED and flushed the jtube. reports that patient had a 101.1 temp a few hours ago. Patient reports a productive green and brown cough today. Patient has a known history of atrial fibrillation according to hospital records from [facility]. Severity: reports: mild Onset/Duration: reports: 1-3 hours ago Timing: reports: still present Context/Activities at Onset: reports: none Modifying Factors: improves with: nothing Associated Symptoms: reports: cough, fever/chills, nausea, vomiting Similar Symptoms Previously?: No Recently seen or treated by another doctor?: Yes Review of Systems - Adult - REVIEW OF SYSTEMS - ADULT Constitutional: reports: chills, fever Eyes: reports: no symptoms reported Ears, Nose, Mouth & Throat: reports: no symptoms reported Cardiovascular: denies: chest pain, palpitations Respiratory: reports: cough (productive). denies: shortness of breath, wheezing Gastrointestinal: reports: nausea, vomiting. denies: diarrhea Genitourinary: denies: dysuria, frequency Musculoskeletal: reports: no symptoms reported Integumentary: reports: no symptoms reported Neurological: denies: dizziness/vertigo, headache/migraines Psychiatric: reports: no symptoms reported Endocrine: reports: no symptoms reported Hematologic/Lymphatic: reports: no symptoms reported Allergic/Immunologic: reports: no symptoms reported All Other Systems: Reviewed and Negative Past History - Adult - PAST MEDICAL HISTORY-ADULT Review of Records: reports: Old Records Reviewed, Nursing Assessment Review, Medications Reviewed Major Childhood Illnesses: reports: denies history Cardiovascular: reports: A-Fib, hyperlipidemia Respiratory: reports: denies history Gastrointestinal: reports: GERD Obstetrical/Gynecological: reports: denies history Genitourinary: reports: denies history Musculoskeletal: reports: denies history Neurological: reports: denies history Endocrine/Immune: reports: denies history Other Conditions: reports: denies history - PRIOR SURGERIES/PROCEDURES Surgical/Procedure History: reports: appendectomy, cholecystectomy, hernia repair, other (colon post due to rupture; Whipple 02/10/19) - IMMUNIZATION STATUS Childhood Immunizations: See Nurse Assessment Flu Vaccine: See Nurse Assessment - FAMILY HISTORY Family History: reviewed, not pertinent Physical Exam-General - PHYSICAL EXAM-ADULT Initial Vital Signs Reviewed: Yes - CONSTITUTIONAL General Appearance: alert, other (appears weak) - EYES Eyes: PERRL/EOMI - HEAD, EARS, NOSE, MOUTH & THROAT HENMT: normocephalic/atraumatic - NECK Neck: full range of motion, supple, normal inspection - RESPIRATORY Respiratory: lungs clear, no respiratory distress, no accessory muscle use, decreased breath sounds, increased rate - CARDIOVASCULAR Cardiovascular: normal peripheral pulses, tachycardia, irregularly irregular - GASTROINTESTINAL (ABDOMEN) Abdominal Exam: non tender, soft, other (jtube present left side of abdomen; mulitple quoc present from recent whipple procedure, no drainage; multiple well healed scars on abdomen). negative: distended - MUSCULOSKELETAL Back Exam: normal inspection Extremity: normal range of motion, non-tender - SKIN Integumentary: normal color, warm/dry - NEUROLOGIC Neurologic: grossly normal - PSYCHIATRIC Psych/Mental Status: normal mood/affect, oriented x 3 Progress - PLAN OF CARE/RESULTS Progress/Plan/Lab Results: Vital Signs - 8 hr 02/20/19 22:50 Temperature 97.7 F Pulse Rate 131 H Respiratory Rate 20 Blood Pressure 121/75 O2 Sat by Pulse Oximetry 95 Orders Category Date Time Status Ondansetron [Zofran] Med 02/20/19 22:56 Discontinued 4 mg IV NOW ONE Patient afebrile upon arrival but showing afib with RVR and WBC to 32k. CT chest showing right PNA and pneumobilia and pneumoperitoneum likely 2/2 to recent surgery. Family would really like tos mitul here in [place]. Spoke to Dr Head who asked me to contact the surgeon onc all for the ipple surgeon at [facility]. Spoke directly with Charlie the surgeon who performed the whipple and we reviewed the labs and CT findings. He states that he is ok with him staying here and to continue with vanc and zosyn and start the patient on TPN. He stated that he is available at any time should there be any further questions. Discussed with Dr Head these discussions and he accepted patient for admission. Further orders to be placed by their team. Result Diagrams: 02/20/19 22:10 02/20/19 22:10 - EKG 1 Time of EKG reading by physician:: 23:05 EKG Read and Signed by:: Vanessa Harmon EKG Interpretation (*Must complete 3 of following elements*): Abnormal Rate: 160 Rhythm: afib with RVR Gillham: normal ST Wave: non-specific ST changes 2 Time of EKG reading by physician:: 02:17 EKG Read and Signed by:: Vanessa Harmon EKG Interpretation (*Must complete 3 of following elements*): Abnormal Rate: 112 Rhythm: Afib with RVR Gillham: normal ST Wave: non-specific ST changes Prior EKG Comparison: changes noted (improving) - CT/MRI 1 CT Study: Abdomen, Pelvis, Thorax (moderate right pneumonia, pneumobilia, pneumoperitoneum likely 2/2 to recent surgery) - CONSULTS/PCP/HOSPITALIST Notification #1 *Consult/PCP/Hospitalist*: Dr Head Time Discussed: 02:28 (Call surgeon in [facility] if ok to stay here will admit) #2 [facility] Time Discussed: 02:35 (Ok to stay here, wants vanc and zosyn and to start patient on TPN. Can call for any further questions) Time Discussed: 02:42 Reason/Comments: Dr Head Consult Disposition: Admit Departure - Departure Date of Disposition Decision: 02/21/19 Time of Disposition Decision: 02:42 DIAGNOSIS: Pancreatic cancer, Sepsis, Atrial fibrillation with RVR, Pneumonia involving right lung, Anemia Disposition: ADMITTED INPATIENT 09 Certified Medical Emergency: Emergent Condition: Stable - Critical Care Note This patient required my direct & personal management of CC.: Yes Total Time (mins): 75 Critical Care Statement: This patient required my direct personal management to treat or rule out processes, the absence of which, could potentiallly result in sudden, clinically significant life or limb threatening deterioration. Attestation - Physician/ JOVANY Attestation Patient care was provided by Advanced Practice Provider:: No The physician spent face to face time with patient:: Yes Advanced Practice Provider documentation review:: Supervising physician onsite and consulted in the evaluation and care of this patient. The physician did have a face to face encounter with the patient. This chart was documented by the indicated scribe, (Elgin Paul Scribe) and accurately reflects the services I performed and decisions made by me, Vanessa Harmon MD, as attested by the provider's signature.
--- NOTE | 2019-02-21 02:59 | EKG Report ---
Test Performed on : 02/21/2019 02:17:23 AM Test Reason : post op complaints Blood Pressure : / mmHG Vent. Rate : 112 BPM Atrial Rate : 102 BPM P-R Int : 000 ms QRS Dur : 082 ms QT Int : 342 ms P-R-T Axes : 000 025 067 degrees QTc Int : 466 ms Atrial fibrillation. with rapid ventricular response. with premature ventricular or aberrantly conduc devon complexes. Possible Inferior infarct (cited on or before 20-FEB-2019) Abnormal ECG When compared with ECG of 20-FEB-2019 23:04, (Unconfirmed) ST no longer depressed in Anterolateral leads Nonspecific T wave abnormality no longer evident in Inferior leads T wave inversion no longer evident in Anterolateral leads Unconfirmed Result
[2019-02-21 03:22] LABS: URINE SOURCE CLEAN CATCH
[2019-02-21 03:30] LABS: BILIRUBIN URINE NEGATIVE (NEGATIVE); BLOOD URINE NEGATIVE (NEGATIVE); COLOR YELLOW; GLUCOSE URINE NEGATIVE (NEGATIVE); KETONE URINE TRACE mg/dL (NEGATIVE); LEUKOCYTES URINE NEGATIVE (NEGATIVE); NITRITE URINE NEGATIVE (NEGATIVE); PH URINE 5.5; PROTEIN URINE 30 mg/dL (NEGATIVE); SP GRAVITY URINE 1.043; TURBIDITY URINE CLEAR (CLEAR); UR EPITHELIAL CELLS <10 /HPF (<10); URINE BACTERIA NEGATIVE /HPF; URINE RBC <10 /HPF (<10); URINE WBC <10 /HPF (<10); UROBILINOGEN URINE NORMAL (NORMAL)
[2019-02-21 03:45] LABS: URINE YEAST NONE SEEN
[2019-02-21 03:48] LABS: URINE CASTS GRANULAR PRESENT; URINE CRYSTALS NONE SEEN; URINE SMALL ROUND CELLS NONE SEEN
--- NOTE | 2019-02-21 04:05 | HISTORY AND PHYSICAL ---
PRIMARY CARE PHYSICIAN: Dr. Riley. CHIEF COMPLAINT: Fever, chills, nausea, vomiting, abdominal discomfort x2 days. HISTORY OF PRESENTING ILLNESS: This is a 73-year-old male with a history of diabetes mellitus type 2, GERD, pancreatic mass, who is status post Whipple procedure, who is currently in rehab at [facility] in [place]. While he was there he states over the past several days he was having nausea, vomiting, abdominal pain. Was also having fever and chills. He was brought to the emergency department. He had imaging done which did show right-sided pneumonia and also pneumoperitoneum. His case was discussed with General Surgery by ER physician at [facility] who states that patient is stable to remain here. The patient was evaluated and will be admitted to ICU for further management. While patient was in the ED he also went into atrial fibrillation with rapid ventricular response and started on Cardizem drip. PAST MEDICAL HISTORY: Includes pancreatic mass, diabetes mellitus type 2, GERD. PAST SURGICAL HISTORY: Whipple procedure, cholecystectomy, colectomy. ALLERGIES: No known drug allergies. CURRENT MEDICATIONS: He does not recall and nursing staff will reconcile from the records at the shelter/rehab facility. SOCIAL HISTORY: He is a former smoker. History of alcohol abuse in the past. Denies any illicit drug use. FAMILY HISTORY: No history of coronary artery disease. REVIEW OF SYSTEMS: Fourteen point review of system as listed in HPI. Other systems negative. PHYSICAL EXAMINATION: GENERAL: Cooperative, friendly male. He is resting more comfortably now. VITAL SIGNS: Temperature 97.7 degrees, pulse 131, respirations 20, blood pressure 121/75. HEENT: Atraumatic, normocephalic. Extraocular movements intact. PERRLA. NECK: No masses. CHEST: Rhonchi. CARDIOVASCULAR: Irregular. ABDOMEN: Soft. Mild diffuse tenderness. EXTREMITIES: No edema. NEUROLOGIC: He is awake, alert, oriented x3. GENITOURINARY: No bladder distention. SKIN: Warm. LABORATORIES AND STUDIES: WBCs 32.35, hemoglobin 9.2, hematocrit 28.5, platelets 409,000. Sodium 135, potassium 3.5, chloride 99, CO2 of 16, BUN is 25, creatinine is 1.0, glucose 133. Plasma lactate 3.2. CT of the chest, abdomen and pelvis shows right-sided pneumonia and pneumoperitoneum. ASSESSMENT: This is a 73-year-old male with a history of diabetes mellitus type 2, gastroesophageal reflux disease, pancreatic mass, status post Whipple procedure, currently was at [facility] for rehab. While he was there he was having fever, chills, nausea, vomiting for the past 2 days and also having abdominal discomfort. He was brought to the emergency department here. He had imaging done which did show a right-sided pneumonia and pneumoperitoneum. His case was discussed with general surgeon who did the Whipple procedure and as per the surgeon the patient is stable to remain here for treatment. Subsequently, patient will be admitted to ICU for further management. 1. Right-sided pneumonia. 2. Pneumoperitoneum status post recent Whipple procedure. 3. Diabetes mellitus type 2. 4. Gastroesophageal reflux disease. 5. Atrial fibrillation with rapid ventricular response. PLAN: 1. We will admit patient to ICU. 2. We will check blood cultures. Start patient on IV antibiotics. 3. We will hold off using his J-tube for now and possibly start him on TPN. 4. Continue patient on his PPI. 5. We will continue with Cardizem drip and consult Cardiology. 6. We will put patient on DVT prophylaxis with SCD. 7. We will continue to follow, and reassess and make further recommendation based on patient's clinical course. cc: MD Oziel Celis MD
[2019-02-21] MEDS ORDERED: VANCOMYCIN IV PER PHARMACY MISC SCH ×2 (04:19)
[2019-02-21] MEDS: ZOFRAN IV PRN ×2 (04:54→11:30)
[2019-02-21] MEDS: ZOSYN 3.375 GM in NS 50 ML IV SCH ×4 (04:56→21:40)
[2019-02-21] MEDS: NS 1,000 ML IV SCH ×3 (04:57→17:25)
[2019-02-21] MEDS: HUMULIN R SUBQ SCH ×4 (06:07→21:00)
[2019-02-21] MEDS ORDERED: VANCOMYCIN 1 GM/NS 1 GM/250 ML IVPB IV ONE ×2 (07:00)
--- NOTE | 2019-02-21 07:18 | Diag Imaging Result Doc PS360 ---
EXAM: CHEST-PORTABLE 02/20/2019 HISTORY: fever, pancreatic cancer, afib TECHNIQUE: AP portable at 1118 COMMENT: There is platelike atelectasis in the lingula which was not present on 08/15/2016. Otherwise the appearance of the chest has not changed significantly. There is a Port-A-Cath on the left with its tip in the right innominate vein. IMPRESSION: Left upper lobe atelectasis. Electronically signed by Lorenzo Concepcion 02/21/2019 7:16 AM
--- NOTE | 2019-02-21 08:20 | Diag Imaging Result Doc PS360 ---
EXAM: CT THORAX/ABD/PELVIS W/CON 02/21/2019 HISTORY: WBC 32k, fever, pancreatic cancer, h/o whipple TECHNIQUE: This exam was performed using automated exposure control, adjustment of mA or kV according to patient size, and/or use of iterative reconstruction technique. COMMENT: The current study is compared with the previous noncontrast abdominal CT pelvic study of 09/14/2018. Thorax: There are no previous thoracic studies. There are patchy alveolar opacities present in the posterior right upper lobe, and the right lower lobe primarily in the posterior base and superior segment. There is some apparent atelectasis in the left lower lobe. Some of the basilar opacities may have been present on the previous examination of the abdomen dated 09/14/2018. There is a small nodule present in the left upper lobe on image 57 measuring 5 mm in AP dimension. There is another similar sized nodule present on image 70 also in the left upper lobe. Neither of these nodules were in portions of the long covered on the previous examination. There is a fairly dense nodule in the right middle lobe on image 75. This may be a granuloma although it is not clearly calcified. There are some coronary calcifications. There is a 16 mm node adjacent to the esophagus in the subcarinal region on the right. There is a small hiatal hernia. There is a 13 mm right paratracheal node. There are spondylotic changes in the thoracic spine. No acute bony abnormalities are demonstrated. ABDOMEN: There are some atherosclerotic calcifications in the aorta and its branches. The mesenteric and renal arteries are patent. There is mild dilatation of the infrarenal abdominal aorta to a maximum AP diameter of 2.6 cm. This is increased slightly from 2.5 cm at the time the previous study. By history there has been a Whipple procedure since the previous examination and there has been resection of the pancreatic head and distal stomach. There is gas in the biliary ducts particularly in the left hepatic lobe. There are some vascular calcifications present in the right kidney. There are also apparent stones present in the lower pole of the left collecting system and posteriorly in the lower pole on the right. There is some slight periportal edema in the liver. No definite masses are present. There has apparently been choledocho jejunostomy. There is no evidence of hydronephrosis or mass in the kidneys. The portal vein is patent. There may be occlusion of the superior mesenteric vein between images 59 and the main portal vein around image 48. There are surgical skin clips in the upper abdomen transversely. There is contrast in the colon. The small bowel is not distended. There is a gastrostomy tube. The tip of the tube is present in the jejunum. 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 This was not the case at the time the previous study. There has been previous appendectomy. There is some gas in the urinary bladder which may be due to recent instrumentation. There is contrast and fecal debris in the rectum. No free fluid is present. There is no evidence of significant adenopathy. There are degenerative changes in the lumbar spine without evidence of acute bony abnormality. IMPRESSION: 1. Bronchopneumonia. Nonspecific pulmonary nodules. 2. Nonspecific mediastinal adenopathy. 3. 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 4. Gas in the urinary bladder of uncertain significance. Other nonacute findings as described above. Electronically signed by Lorenzo Concepcion 02/21/2019 8:17 AM
--- NOTE | 2019-02-21 12:06 | PROGRESS NOTE ---
DATE: 02/21/2019 Mr. Summers is a 73-year-old, white gentleman who had a Whipple surgery at [facility] for a pancreatic mass and following that, he was at rehab at [facility]. Dr. Cardona was ready to start feeding him through the PEG tube. However, he got sicker. He had a right lower lobe pneumonia. He has pneumoperitoneum related to the surgery. He had atrial fibrillation with rapid ventricular rate yesterday. His vital signs otherwise are stable. We checked him for flu test and it is negative. BNP is 926. Blood sugar 133. Electrolytes normal. White count was 32.35, hemoglobin 9.2, hematocrit 28.5. He is on sepsis protocol. He is on IV piperacillin 3.375 g every 6 hours as well as vancomycin for pneumonia. We will get a cardiology consult for AF with rapid ventricular rate and a pulmonary consult with Dr. Lares for pneumonia. -4 cc: MD Oziel Wade MD
[2019-02-21] MEDS: MORPHINE IV PRN (15:36)
[2019-02-21] MEDS ORDERED: VITAMIN K SUBQ ONE (16:40)
--- NOTE | 2019-02-21 17:01 | CONSULTATION ---
DATE OF CONSULTATION: 02/21/2019 IMPRESSION: 1. Atrial fibrillation with rapid ventricular rate on presentation. Heart rate now better controlled on intravenous Cardizem. 2. Right-sided pneumonia. 3. Recent Whipple procedure for removal of a pancreatic mass which proved to be malignant. 4. Type 2 diabetes mellitus. 5. Gastroesophageal reflux disease. RECOMMENDATIONS: 1. Continue intravenous Cardizem for rate control. 2. Initiate Lovenox 1 mg/kg subcu q.12 as tolerated. 3. Echocardiography. 4. If atrial fibrillation persists, will consider initiation of antiarrhythmic therapy to try and medically convert patient back to sinus rhythm. HISTORY: This 73-year-old white male with past history of type 2 diabetes mellitus and fairly recent Whipple procedure for pancreatic mass which proved to be malignant. This was done about 10 days ago at [facility] in [place]. He has been recuperating for the last couple days at [facility] in [place]. He has been having some nausea, vomiting, abdominal discomfort as well as some fever and chills. He was brought to the emergency room and found to have radiographic evidence of right-sided pneumonia. There was pneumoperitoneum as well reported. This was felt to be related to recent abdominal surgery. He was also noted to be an atrial fibrillation with rapid ventricular rate. He was started on intravenous Cardizem, admitted to the intensive care unit and started on parental antibiotics. Cardiology consultation was requested regarding atrial fibrillation. He is not aware of any previous cardiac problems. He has some awareness of his heart racing. There has been no chest pain. PAST MEDICAL HISTORY: 1. Type 2 diabetes mellitus. 2. Gastroesophageal reflux disease. 3. Pancreatic cancer. Patient is status post recent Whipple procedure. PAST SURGICAL HISTORY: Also includes cholecystectomy and partial colectomy. ALLERGIES: No known drug allergies. MEDICATIONS PRIOR TO ADMISSION: As listed. SOCIAL HISTORY: He is . He previously smoked cigarettes in the past. There is a past history of excess alcohol use as well. He denies any illicit drug use. FAMILY HISTORY: Negative for premature coronary disease. REVIEW OF SYSTEMS: Pulmonary: Noncontributory beyond history of present illness. Gastrointestinal: Noncontributory beyond history of present illness. Constitutional: Noncontributory beyond history of present illness. Remainder view of systems negative/noncontributory beyond history present illness with 14 total systems reviewed. PHYSICAL EXAMINATION: General: This is a pleasant, older white male in no distress on room air. Vital signs: Blood pressure 123/68, heart rate 110 and irregular with ECG monitor showing atrial fibrillation. Oxygen saturation 96%. HEENT: Extraocular movements appear intact. Mucous membranes moist. Neck: Supple without jugular distention. There are no carotid bruits. Chest: Clear to auscultation bilaterally. Cardiac: Reveals a irregular rate and rhythm without appreciable murmur or gallop. Abdomen: Soft. There is a gastrostomy tube in the left upper quadrant as well as recent incision with quoc in place. Extremities: Without edema. DATA: A 12-lead EKG demonstrates atrial fibrillation with ventricular rate response of 112 beats per minute. LABORATORY DATA: Includes a white blood cell count of 32.35, hematocrit 28.5, hemoglobin 9.2, platelet count 409,000. Pro time 19.2, INR 1.59, PTT 32.8. Sodium 135, potassium 3.5, chloride 99, BUN 25, creatinine 1.0, glucose 133. Troponin T 0.026. Followup troponin T 0.187. cc: MD Oziel Burdick MD
[2019-02-21] MEDS: LOVENOX SUBQ SCH (17:23)
--- NOTE | 2019-02-21 17:24 | PULMONOLOGY CONSULTATION ---
DATE: 02/21/2019 REQUESTING PHYSICIAN: Dr. Portillo. REASON FOR CONSULTATION: Sepsis and pneumonia. HISTORY OF PRESENT ILLNESS: Mr. Summers is a 73-year-old white male who recently underwent a pancreaticoduodenectomy at [facility] in [place]. He was recently transferred to a rehab facility at [facility] in [place]. He has been there for a less than 2 days by family report. The patient has a PEG/PEJ tube in position. He developed nausea and vomiting while at that facility. He has recently been evaluated at this facility for PEG tube/PEJ tube evaluation by Dr. Galvin after his tube got hung on a chair. He returned to the emergency room yesterday evening with fevers, cough, and atrial fibrillation. CT scan of the chest, abdomen and pelvis was performed. He has pulmonary infiltrates primarily in the right lung. He also has small bilateral pulmonary nodules of unknown significance. 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 PAST MEDICAL HISTORY/PROBLEM LIST: 1. Pancreatic cancer as per above. Family reports 2 of the lymph nodes removed during the surgery were positive for cancer. 2. Diabetes mellitus. 3. Gastroesophageal reflux disease. 4. Status post cholecystectomy. 5. Status post colon resection. 6. Status post hernia repair. SOCIAL HISTORY: The patient has a 35 pack-year history for tobacco, and stopped smoking earlier this year. Intake sheet indicates history of alcohol abuse in the past. FAMILY HISTORY: Noncontributory to current presentation. REVIEW OF SYSTEMS: Notable for cough, fatigue, fevers, generalized weakness. PHYSICAL EXAMINATION: General: Reveals a well-developed, well-nourished male resting comfortably and in no distress. Vital signs: BP 113/71, heart rate 103, respiratory rate 22, oxygen saturation 95%. HEENT: Pupils are equal and reactive. Oropharynx appears clear. Neck: Supple. Chest: Reveals coarse rhonchi bilaterally with crackles in both lung bases. Cardiac Exam: Rate irregular and regular rhythm. Abdomen: Soft with PEG/PEJ tube in place. It was placed to low intermittent suction during the examination and he had greater than 500 mL out of his stomach. Extremities: Without edema. LABORATORIES: CT scan of the thorax, abdomen and pelvis is reviewed. He does have significant amount of his PEG/PEJ tube coiled in his stomach with just the entrance into the jejunum. White blood count 32,000, hemoglobin 9.2, platelet count 409,000. Sodium 135, potassium 3.5, chloride 99, bicarbonate 16, anion gap 20, BUN 25, creatinine 1.0. IMPRESSION: A 73-year-old with 1. Bilateral aspiration pneumonia. 2. Nausea and vomiting. 3. Possible gastric outlet obstruction with recent surgery. 4. Leukocytosis. 5. Fevers. RECOMMENDATIONS: 1. Agree with broad-spectrum antibiotic coverage for aspiration pneumonia. 2. Initiate incentive spirometry for bronchial hygiene. We will delay significant nebulizer treatments with his atrial fibrillation. 3. Place percutaneous endoscopic gastrostomy tube to low intermittent suction pending improvement in gastric output. 4. We will initiate ProcalAmine/lipids as a new is a nutrition bridge. cc: MD Oziel Cardona MD
[2019-02-21] MEDS: CLINIMIX E 4.25%-5% SOLUTION 1,000 ML IV SCH (17:25)
[2019-02-21] MEDS: LIPOSYN 20% 250 ML IV SCH (17:45)
[2019-02-22] MEDS: ZOSYN 3.375 GM in NS 50 ML IV SCH ×4 (04:52→23:58)
[2019-02-22] MEDS: NS 1,000 ML IV SCH (04:52)
[2019-02-22] MEDS: LOVENOX SUBQ SCH ×3 (04:53→18:23)
[2019-02-22] MEDS: CLINIMIX E 4.25%-5% SOLUTION 1,000 ML IV SCH ×3 (04:53→18:51)
[2019-02-22 06:15] LABS: BASO# 0.02 X1000 (0.0-0.2); BASO% 0.1 % (0.0-0.8); HEMOGLOBIN 8.3 g/dL (14.0-18.0); LYMPH# 1.02 X1000 (1.2-3.4); LYMPH% 7.4 % (20.5-51.1); MCH 33.2 PG (27-31); MCHC 30.7 g/dL (33-37); MONO# 0.75 X1000 (0.11-0.59); MONO% 5.4 % (1.7-9.3); MPV 9.8 FL (7.4-10.4); PLT 359 X1000 (130-400); RDW 14.5 % (11.5-14.5); WBC 13.77 X1000 (4.8-10.8)
[2019-02-22] MEDS: HUMULIN R SUBQ SCH ×5 (06:15→19:36)
[2019-02-22 06:30] LABS: AGAP 13; BUN 14 mg/dL (8-22); CALCIUM 8.6 mg/dL (8.8-10.2); CHLORIDE 97 mmol/L (98-107); COSMO 273; CREATININE 0.8 mg/dL (0.7-1.2); ESTIMATED GFR > 60; GLUCOSE 373 mg/dL (70-104); POTASSIUM 5.2 mmol/L (3.5-5.1); SODIUM 128 mmol/L (136-145); TCO2 18 mmol/L (25-35)
[2019-02-22 06:32] LABS: MAGNESIUM 2.3 mg/dL (1.5-2.7); PHOSPHORUS 5.2 mg/dL (2.7-4.5)
--- NOTE | 2019-02-22 06:57 | Diag Imaging Result Doc PS360 ---
EXAM: CHEST-PORTABLE HISTORY: abnormal exam TECHNIQUE: Portable chest single view COMPARISON: 02/20/2019 FINDINGS: The lungs are well expanded. No change in the left portacatheter. No pneumothorax. There are infiltrates in the mid right lung. Likely scarring in the left base. No pleural effusions identified. IMPRESSION: Right lung infiltrates. Electronically signed by Federico Holm 02/22/2019 6:54 AM
[2019-02-22] MEDS: VANCOMYCIN 1,600 MG in NS 250 ML IV SCH (07:39)
[2019-02-22] MEDS: CARDIZEM 125 MG/D5W 125 MG/125 ML IVPB IV SCH ×2 (08:42→21:52)
--- NOTE | 2019-02-22 08:42 | PULMONOLOGY PROGRESS NOTE ---
DATE: 02/22/2019 SUBJECTIVE: The patient is awake, alert, and conversant. He reports he feels better than yesterday. He has some mild abdominal pain with decreased nausea. OBJECTIVE: Vital Signs: He has had 750 mL out from his PEG tube. He has been afebrile for the last 24 hours. Blood pressure 120/77, heart rate 104, respiratory rate 22, oxygen saturation 97%. HEENT: Pupils are equal and reactive. Oropharynx appears clear. Neck is supple. Chest reveals crackles and rhonchi in both lung bases. Cardiac Examination: S1, S2. Abdomen is mildly tender with palpation. No significant guarding. Extremities are without edema. Laboratory Data: Two blood cultures are positive for gram-negative rods. Chest x-ray reveals infiltrate at the right mid lung field and base. White blood count 13.77, hemoglobin 8.3, platelet count 359,000. Sodium 128, potassium 5.2, chloride 97, bicarbonate 18, BUN 14, creatinine 0.8. IMPRESSION: A 73-year-old with: 1. Bilateral aspiration pneumonia. 2. Nausea and vomiting, possibly related to gastric outlet obstruction. 3. Leukocytosis with improvement following initiation of antibiotics. 4. Gram-negative bacteremia. It is not clear if this is from a lung source or from an abdominal source. PLAN: 1. Continue broad-spectrum antibiotics for aspiration pneumonia. 2. Continue bronchial hygiene. 3. Consider Gastrografin study. 4. Continue ProcalAmine/lipids as a nutrition bridge. 5. We will discuss Gastrografin study with Dr. Riley. cc: MD Oziel Cardona MD
[2019-02-22 10:06] LABS: EOS 2 % (1-10); LYMPHS 6 % (21-51); SEGS 90 % (42-75)
[2019-02-22] MEDS: MORPHINE IV PRN (11:47)
--- NOTE | 2019-02-22 14:45 | PROGRESS NOTE ---
DATE: 02/22/2019 SUBJECTIVE: The patient continues without shortness of breath, chest discomfort, or palpitations. He remains in atrial fibrillation with fairly well controlled rate. He has some mild abdominal discomfort and nausea. He is still not taking oral intake yet. OBJECTIVE: Blood pressure 136/71, heart rate 105 and irregular, with ECG monitor showing atrial fibrillation, oxygen saturation 94%. There is no significant jugular venous distention. Chest is clear to auscultation anteriorly. Cardiac Examination: Reveals an irregular rate and rhythm without appreciable murmur or gallop. Extremities: Without edema. Laboratory Data: Includes a white blood cell count of 13.77, hematocrit 27.0, hemoglobin 8.3, platelet count 359,000. Sodium 128, potassium 5.2, chloride 97, carbon dioxide 18, BUN 14, creatinine 0.8, glucose 373. IMPRESSION: 1. Atrial fibrillation. Heart rate controlled reasonably well on intravenous Cardizem. 2. Right-sided pneumonia. 3. Recent Whipple procedure for removal of pancreatic mass which proved to be malignant. 4. Type 2 diabetes mellitus. 5. Gastroesophageal reflux disease. RECOMMENDATIONS: 1. Continue intravenous Cardizem for rate control. 2. Continue Lovenox 1 mg/kg subcutaneously q.12 as tolerated. 3. Follow up echocardiography. 4. As patient recovers, if atrial fibrillation persists, may consider initiation of antiarrhythmic therapy and possible cardioversion. cc: MD Oziel Burdick MD
[2019-02-22] MEDS: LIPOSYN 20% 250 ML IV SCH ×2 (15:31→18:23)
--- NOTE | 2019-02-22 15:31 | ECHO REPORT ---
ORDER DATE: 02/21/2019 ECHOCARDIOGRAPHIC MEASUREMENTS: 1. Interventricular septum 1.0 2. Left ventricular posterior wall 1.0. 3. Diastolic diameter 5.4 4. Left atrium 4. 5. Aorta 3.8. SUMMARY: 1. Pulmonic valve was normal. 2. There is trace pulmonary regurgitation. 3. Aortic valve leaflets are trileaflet. 4. Mitral valve leaflets are normal. 5. There is mild mitral annular calcification. 6. Mild tricuspid regurgitation. 7. Peak velocity across the tricuspid valve was 3.2 m/sec. 8. Pulmonary artery systolic pressure of 50 mmHg. 9. Peak velocity across the aortic valve less than 2 m/sec. 10. By Doppler studies there is no aortic stenosis or regurgitation. 11. Atrial fibrillation was noted. Peak velocity across the aortic valve was less than 2 m/sec. There is no aortic stenosis or regurgitation. 12. Normal left ventricular cavity size. Estimated ejection fraction off 60%. 13. There is no pericardial effusion or obvious intracardiac mass or thrombus seen. 14. Anterior echo-free space suggestive of pericardial fat pad noted. cc: MD Francisco Logan MD Jagan Reddy, MD
--- NOTE | 2019-02-22 17:08 | GENERAL SURGERY CONSULTATION ---
DATE: 02/22/2019 REASON FOR CONSULTATION: Feeding tube dysfunction. HISTORY OF PRESENT ILLNESS: This is a 73-year-old male who recently underwent a Whipple procedure for pancreatic cancer. This was done in [place] by Dr. Ramirez at [facility]. He was discharged last , 02/18. He went to rehab on that date. The next day, on 02/19 his gastrojejunostomy tube had inadvertently been pulled out most of the way. He presented to our emergency room and I evaluated him in the emergency room. A tube study revealed that the tip of the tube was still in the stomach. I then was able to manipulate the tube back into the stomach and blew up the balloons in an intraluminal position. He was not in any distress. He was not having any significant pain or vomiting and he was sent back to rehab. Apparently, the next day he began developing multiple episodes of nausea and vomiting, fever and shortness of breath. He was brought back to our emergency room and found to have pneumonia, probable aspiration. His feeding tube was hooked back up to suction here and a large amount was drained from the stomach. PAST MEDICAL HISTORY: Pancreatic cancer, type 2 diabetes, gastroesophageal reflux disease, new onset atrial fibrillation with RVR here in our hospital. PAST SURGICAL HISTORY: Whipple, partial colectomy. ALLERGIES: No known drug allergies. SOCIAL HISTORY: He is a former smoker and history of alcohol abuse, but none currently. No illicit drug use. FAMILY HISTORY: Reviewed and noncontributory. CURRENT MEDICATIONS: Clinimix, Cardizem, Lovenox, liposin, regular insulin, vancomycin, morphine, Zofran, and Zosyn. ALLERGIES: Iodinated contrast media. REVIEW OF SYSTEMS: Ten systems reviewed and negative except as noted above. PHYSICAL EXAMINATION: Vital Signs: Temperature 98.9 degrees, pulse 91, respirations 21, blood pressure 133/68, O2 saturation 97%. General: He is a somewhat sickly-appearing male who looks his stated age, but in no acute distress. HEENT: Normocephalic, atraumatic. Extraocular muscles intact. Pupils equal, round, reactive to light. Sclerae anicteric. Mucous membranes are somewhat dry. Neck: Supple. No thyromegaly. CV: Regular rate and rhythm. Respiratory: Bilateral breath sounds. No work of breathing. GI: Soft. Appropriately tender. Nondistended. Incision is clean, dry, and intact. G-tube is intact without drainage around it. There is bilious drainage in the canister. Musculoskeletal: Moves all extremities equally and well. Skin: Warm and dry. No rash. LABORATORY: White blood cell count 13,000, hemoglobin 8, hematocrit 27. Electrolytes reviewed, notable for sodium of 128, potassium 5.2, chloride 97, CO2 18, BUN 14, creatinine 0.8. IMAGING: CT of abdomen and pelvis was reviewed. He does have some bronchopneumonia. He has postsurgical changes of the Whipple operation. The gastrojejunostomy tube is coiled in the stomach and the tip does extend into the lumen of the jejunum. Chest x-ray today shows right lung infiltrates. ASSESSMENT AND PLAN: A 73-year-old male status post Whipple, now with aspiration pneumonia. This is complicated by dysfunctional GJ tube. Currently it appears to be draining well. We will continue this drainage overnight. I plan to get an upper GI small bowel follow-through study tomorrow to evaluate for any distal obstruction and gastric outlet obstruction. cc: MD Oziel Bingham MD
--- NOTE | 2019-02-22 23:24 | PROGRESS NOTE ---
DATE: 02/22/2019 LEVEL 3 DOCUMENTATION SUBJECTIVE: This is a 73-year-old white male admitted to ICU. Interval history was reviewed. I spoke to the patient's daughter and the . He just came back from [facility] after being through surgery by Dr. Ramirez. Obviously, the jejunostomy tube was tangled up came partially out and I did request Dr. Galvin to see the patient in the Emergency Room. Obviously, the tube was pushed in and he was transferred back to the rehabilitation. He was readmitted with nausea and vomiting, and aspiration pneumonia, on sepsis protocol. He was also in atrial fibrillation. I did review the intraoperative reports from [facility] from his . He had a Whipple procedure followed by double-lumen jejunostomy and gastrostomy tube. Appreciated Dr. Patricia's and Dr. Galvin's input. The patient complains of dryness of the mouth. A popsicle was given. Chest x- ray was improving. The patient has an NG tube hooked up with the jejunostomy tube, draining copious amount of bile. Obviously it is being obstructed. In the meantime, the patient was given bronchial toilet. Appreciate the consultants' workups. Past medical history and past surgical history were reviewed. Medications were reviewed. ALLERGIES: IODINE CONTRAST MEDICINE. OBJECTIVE: Vital signs: Temperature 97 degrees, pulse 82 A-fib, vitals are stable, oxygen saturation 95% on room air. HEENT: Exam within normal limits. Neck: Supple. Chest: Has crackles. Heart: Heart sounds irregular. Abdomen: Soft with jejunostomy and gastrostomy tubes, 2 lumen, was seen. Extremities: Antithrombotic stockings. Neurologic: No obvious deficits. Investigations: White cell count came down to 13.7, hematocrit 37, platelets 359. Sodium 138, potassium 5.2, BUN 14, creatinine 0.8, glucose 373. Liver function tests were normal. Cardiac enzymes: troponin was positive. ProBNP is normal. Plasma lactate is coming down. Urinalysis is clear. 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 Echocardiogram report shows ejection fraction of 60%. Atrial fibrillation noted. ASSESSMENT AND PLAN: 1. Altered mental status due to delirium, stable. 2. Sepsis with gram-negative rods in the aspiration pneumonia. Plan is for IV vancomycin and Zosyn. 3. Atrial fibrillation. Appears to be chronic. Rate controlled along with anticoagulation as per Dr. Espinosa. 4. Nutrition. Continue on with TPN with Port-A-Cath. 5. Pancreatic cancer status post Whipple procedure with 3 out of 30 lymph nodes positive. Previous chemotherapy was given by Dr. Ramirez. 6. Gastric outlet obstruction. Gastrostomy tube. Discussed with Dr. Lares. Continue on low ball intermittent suction. Dr. Galvin is planning to do a GI series with barium swallow tomorrow. Based on that, further recommendations will be followed. 7. Check labs. Continue patient on NPO. 8. Based on these tests, I would communicate with Dr. Ramirez. 9. Positive troponin. We will continue monitor. Currently no chest pain. Level of documentation: 35 minutes. cc: Oziel Riley MD MTDD
[2019-02-23] MEDS: HUMULIN R SUBQ SCH ×7 (00:16→23:15)
[2019-02-23] MEDS: MORPHINE IV PRN (01:43)
[2019-02-23] MEDS: LOVENOX SUBQ SCH ×2 (04:44→17:38)
[2019-02-23] MEDS: ZOSYN 3.375 GM in NS 50 ML IV SCH ×5 (04:44→22:58)
[2019-02-23 05:34] LABS: BASO# 0.03 X1000 (0.0-0.2); BASO% 0.2 % (0.0-0.8); EOS# 0.21 X1000 (0.0-0.7); EOS% 1.6 % (0.0-10.0); HEMOGLOBIN 9.4 g/dL (14.0-18.0); IMM GRAN# 0.09 X1000 (0.0-0.04); IMM GRAN% 0.7 % (0.0-0.5); LYMPH# 1.43 X1000 (1.2-3.4); LYMPH% 11.1 % (20.5-51.1); MCH 32.6 PG (27-31); MCHC 32.4 g/dL (33-37); MCV 100.7 FL (81-99); MONO# 1.32 X1000 (0.11-0.59); MONO% 10.3 % (1.7-9.3); MPV 9.3 FL (7.4-10.4); NEUT# 9.79 X1000 (1.4-6.5); NEUT% 76.1 % (42.2-75.2); PLT 379 X1000 (130-400); RBC 2.88 XMIL (4.7-6.1); WBC 12.87 X1000 (4.8-10.8)
[2019-02-23 06:16] LABS: AGAP 16; ALB/GLOB RATIO 0.9; ALBUMIN 3.1 g/dL (3.5-5.0); ALKALINE PHOSPHATASE 115 U/L (32-122); BUN 11 mg/dL (8-22); CALCIUM 8.6 mg/dL (8.8-10.2); CHLORIDE 98 mmol/L (98-107); COSMO 265; CREATININE 0.6 mg/dL (0.7-1.2); ESTIMATED GFR > 60; GLUCOSE 160 mg/dL (70-104); GOT 17 U/L (10-34); GPT 33 U/L (10-44); POTASSIUM 2.9 mmol/L (3.5-5.1); SODIUM 131 mmol/L (136-145); TCO2 17 mmol/L (25-35); TOTAL BILIRUBIN 0.55 mg/dL (0.20-1.00); TOTAL PROTEIN 6.7 g/dL (6.3-8.3)
--- NOTE | 2019-02-23 07:38 | Diag Imaging Result Doc PS360 ---
EXAM: CHEST-1 VIEW INDICATION: SOB TECHNIQUE: One view COMPARISON: 02/22/2019 FINDINGS: The left chest port is in stable position. The right perihilar consolidation is approximately stable. Linear opacity at the left lower lung zone suggesting scarring versus atelectasis is unchanged. No new consolidation is identified. Cardiac silhouette is stable. IMPRESSION: Stable chest. Electronically signed by Jonny Madrid 02/23/2019 7:36 AM
[2019-02-23] MEDS ORDERED: MAGNESIUM SULFATE 2 GM/S.W.I. 2 GM/50 ML IVPB IV ONE (07:41)
[2019-02-23] MEDS ORDERED: CALCIUM GLUCONATE 1 GM in NS 50 ML IV ONE (07:41)
--- NOTE | 2019-02-23 09:04 | Diag Imaging Result Doc PS360 ---
EXAM: GI SERIES WITH BA SWALLOW 02/23/2019 HISTORY: nausea/vomiting TECHNIQUE: Upper GI series with water-soluble contrast, seven images, one minute 19 seconds fluoroscopy time, 1879 cGy. COMMENT: The patient was able to swallow water soluble contrast without difficulty. There is no evidence of extravasation of contrast. There is rapid emptying of the stomach into the Devin-en-Y loop, however this was dependent on gravity. There is contrast seen in the colon however this is probably residual contrast from the previous study on 02/19/2019. IMPRESSION: No evidence of extravasation or anastomotic stricture. Electronically signed by Lorenzo Concepcion 02/23/2019 9:01 AM
[2019-02-23] MEDS: VANCOMYCIN 1,600 MG in NS 250 ML IV SCH (09:38)
[2019-02-23] MEDS: POTASSIUM CHLORIDE 60 MEQ in NS 500 ML IV SCH ×2 (09:38→17:32)
[2019-02-23] MEDS: CLINIMIX E 4.25%-5% SOLUTION 1,000 ML IV SCH ×2 (10:00→23:09)
--- NOTE | 2019-02-23 14:39 | Diag Imaging Result Doc PS360 ---
EXAM: SMALL BOWEL SERIES ONLY 02/23/2019 HISTORY: evaluate for distal obstruction TECHNIQUE: Four images. Small bowel barium was injected through the patient's jejunostomy tube. COMMENT: There is opacification of the entire colon which was not the case at the time of the previous upper GI series performed at 0841. There was some residual contrast in the colon at that time however there are portions of the descending colon which were not opacified previously and there is clearly more contrast in the rectum. There is no evidence of small bowel dilatation or mucosal fold thickening. There is contrast in the afferent loop and biliary tree. IMPRESSION: No evidence of obstruction. Electronically signed by Lorenzo Concepcion 02/23/2019 2:37 PM
[2019-02-23] MEDS: CARDIZEM 125 MG/D5W 125 MG/125 ML IVPB IV SCH (15:47)
--- NOTE | 2019-02-23 16:17 | GENERAL SURGERY PROGRESS NOTE ---
DATE: 02/23/2019 SUBJECTIVE: The patient denies abdominal pain or nausea or vomiting. OBJECTIVE: Vital Signs: He is afebrile. Vital signs are stable. General: He is awake, alert, no acute distress. Gastrointestinal: Soft, nontender, nondistended. His gastrostomy is draining the contrast from earlier today. IMAGING: The upper GI series and small bowel follow-through show rapid transit from the esophagus to the stomach to the small bowel and flow of contrast into the colon without any obvious obstructing points. ASSESSMENT AND PLAN: A 73-year-old male status post Whipple now with delayed gastric emptying and aspiration pneumonia. For the time being, we will try clamping his NG tube with trials of 6 hours of clamping and then 6 hours of gravity drainage. If he tolerates the clamping trials, we will begin to leave it clamped tomorrow and let him start drinking a liquid diet. If he does not tolerate this then we will need to consult Gastroenterology to redirect the tip of the jejunostomy portion of the tube down into the jejunum with a gastrostomy drainage part still in the stomach. cc: MD Oziel Bingham MD
[2019-02-23] MEDS ORDERED: POTASSIUM CHLORIDE 60 MEQ in NS 500 ML IV SCH (17:00)
[2019-02-23] MEDS: LIPOSYN 20% 250 ML IV SCH (17:21)
--- NOTE | 2019-02-23 18:40 | PROGRESS NOTE ---
DATE: 02/23/2019 SUBJECTIVE: Patient continues without chest discomfort, shortness of breath, or palpitations. He continues in atrial fibrillation with controlled rate on IV Cardizem. He is not yet taking oral intake due to abdominal process. OBJECTIVE: Vital signs: Blood pressure 93/76, heart rate 107 and irregular with ECG monitor showing atrial fibrillation. Neck: There is no significant jugular venous distention. Chest: Clear to auscultation bilaterally. Cardiac Exam: Reveals an irregular rate and rhythm without appreciable murmur or gallop. There is no evidence of peripheral edema. LABORATORY DATA: Includes a white blood cell count of 12.87, hematocrit 29.0, hemoglobin 9.4, platelet count 379,000. Sodium 131, potassium 2.9, chloride 98, carbon dioxide 17, BUN 11, creatinine 0.6. IMPRESSION: 1. Atrial fibrillation. Heart rate reasonably controlled on intravenous Cardizem. 2. Right-sided pneumonia. 3. Status post recent Whipple procedure for removal of pancreatic mass which proved to be malignant. 4. Type 2 diabetes mellitus. 5. Gastroesophageal reflux disease. RECOMMENDATIONS: 1. Continue to manage with rate control and anticoagulation, pending clinical improvement in noncardiac processes. Toward this end, we will continue intravenous Cardizem for rate control and subcutaneous Lovenox. 2. As patient recovers, if atrial fibrillation persists, make consideration of AJNELLE/cardioversion. cc: MD Oziel Burdick MD
--- NOTE | 2019-02-23 20:55 | PROGRESS NOTE ---
DATE: 02/23/2019 SUBJECTIVE: Last night patient had some shortness of breath requiring oxygen and Lasix. Symptoms are resolved. He is on CPAP machine. Patient had upper GI small-bowel followthrough series, no evidence of obstruction noted. Appreciated Dr. Espinosa as well as Dr. Nabil Galvin. The patient is taking ice chips. He had a good bowel movements and passing gas. He denies of any chest pain, shortness of breath. EXAMINATION: Is afebrile, vitals are stable.HEENT: Within normal limits. Neck: Supple. Chest: Is bilateral air entry. Heart: Sounds are regular. Belly: Is soft, nontender. Bowel sounds are hyperactive. No peripheral edema. LABS: White cell count 12.8, hematocrit 29, platelets 379,000. Sodium 131, potassium 2.9, BUN 11, creatinine 0.6, glucose 160. Troponin was positive. CK is negative. Urine cultures are negative. Blood cultures are positive for Enterobacter aerogenes. Small-bowel follow no evidence of obstruction. Upper GI with barium swallow, no evidence of extravasation of anastomotic stricture and chest x-ray, left-sided port, right consolidation stable. ASSESSMENT AND PLAN: 1. Delirium is stable. 2. Gastric outlet obstruction now obviously is clearing up and continue on clamping, repeat after 4 hours with low wall intermittent suction. 3. Continue on NPO. 4. Nutrition through the Port-A-Cath with IV TPN. 5. Atrial fibrillation, rate well controlled on Lovenox. 6. Pancreatic cancer status post Whipple procedure stable. 7. Hypokalemia. Replace electrolytes with potassium, magnesium and calcium. 8. Enterobacter sepsis and continue on IV Zosyn and vancomycin, follow up on culture and sensitivity and will repeat the labs in the morning and will follow up. LEVEL OF DOCUMENTATION: 35 minutes. cc: Oziel Riley MD MTDD
--- NOTE | 2019-02-23 21:01 | PULMONOLOGY PROGRESS NOTE ---
DATE: 02/23/2019 SUBJECTIVE: The patient is awake, alert, and conversant. He feels a little better today than yesterday. He has been afebrile for the last 24 hours. Blood pressure 122/67, heart rate 79, respiratory rate 19, oxygen saturation 98%.HEENT: Pupils are equal and reactive. Oropharynx is clear. Neck: Supple. Chest: Reveals crackles in both lung bases. Cardiac: S1-S2. Abdomen: Soft. Extremities: Without edema. LABORATORIES: White blood count 12.87, hemoglobin 9.4, platelet count 379,000. Sodium 131, potassium 2.9, chloride 98, bicarbonate 17, BUN 11, creatinine 0.6. There is no new microbiology data. Upper GI with barium swallow revealed no evidence of extravasation or stricture. Chest x- ray reveals right perihilar/basilar infiltrate with minimal change at the left base. IMPRESSION: 73-year-old with 1. Bilateral aspiration pneumonia. 2. Gram-negative bacteremia. 3. Pancreatic cancer status post resection. 4. Hypoxemic respiratory failure. PLAN: 1. Continue bronchial hygiene. 2. Continue current antibiotic regimen. 3. Continue Cardizem for rate control of atrial fibrillation. cc: MD Oziel Cardona MD
[2019-02-24] MEDS: HUMULIN R SUBQ SCH ×6 (03:32→23:20)
[2019-02-24] MEDS: ZOSYN 3.375 GM in NS 50 ML IV SCH ×4 (03:34→21:19)
[2019-02-24] MEDS: LOVENOX SUBQ SCH ×2 (04:39→16:46)
[2019-02-24 06:24] LABS: BASO% 0.9 % (0.0-0.8); EOS# 0.29 X1000 (0.0-0.7); EOS% 2.5 % (0.0-10.0); HEMATOCRIT 30.7 % (42.0-52.0); HEMOGLOBIN 9.7 g/dL (14.0-18.0); IMM GRAN# 0.18 X1000 (0.0-0.04); IMM GRAN% 1.5 % (0.0-0.5); LYMPH# 1.55 X1000 (1.2-3.4); LYMPH% 13.2 % (20.5-51.1); MCH 33.2 PG (27-31); MCHC 31.6 g/dL (33-37); MCV 105.1 FL (81-99); MONO# 1.41 X1000 (0.11-0.59); MPV 9.5 FL (7.4-10.4); NEUT# 8.19 X1000 (1.4-6.5); NEUT% 69.9 % (42.2-75.2); PLT 384 X1000 (130-400); RBC 2.92 XMIL (4.7-6.1); RDW 14.6 % (11.5-14.5); WBC 11.72 X1000 (4.8-10.8)
[2019-02-24 06:26] LABS: AGAP 15; BUN 12 mg/dL (8-22); CALCIUM 8.3 mg/dL (8.8-10.2); CHLORIDE 105 mmol/L (98-107); COSMO 278; CREATININE 0.6 mg/dL (0.7-1.2); ESTIMATED GFR > 60; GLUCOSE 176 mg/dL (70-104); SODIUM 137 mmol/L (136-145); TCO2 17 mmol/L (25-35)
--- NOTE | 2019-02-24 07:16 | Diag Imaging Result Doc PS360 ---
EXAM: CHEST-1 VIEW 02/24/2019 HISTORY: SOB TECHNIQUE: AP portable at 0541 COMMENT: There is slightly increased alveolar opacity in the right upper lobe particularly along the minor fissure. The lungs are actually slightly better expanded than on 02/23/2019 and the platelike atelectasis present previously in the left base has improved. IMPRESSION: Worsened right upper lobe pneumonia. Electronically signed by Lorenzo Concepcion 02/24/2019 7:13 AM
[2019-02-24 07:18] LABS: EOS 2 % (1-10); LYMPHS 13 % (21-51); MONO 12 % (1-9); SEGS 73 % (42-75)
[2019-02-24] MEDS: VANCOMYCIN 1,600 MG in NS 250 ML IV SCH (08:11)
--- NOTE | 2019-02-24 09:59 | GENERAL SURGERY PROGRESS NOTE ---
DATE: 02/24/2019 SUBJECTIVE: The patient denies abdominal pain, nausea, or vomiting. The nurses report that while his tube was open to drainage overnight, it had 500 mL out. It was then clamped from 03:00 to 09:00 this morning. Since 9:00 in the morning, it has drained another 300 mL over the last 15 minutes. OBJECTIVE: He is afebrile, pulse 85, respiratory rate 25, O2 saturation 99%, and blood pressure 134/73. Urine output 2000 in 25 mL. Two bowel movements were recorded yesterday.General: He is awake and alert in no acute distress. Gastrointestinal: Soft, nondistended. Incision is clean, dry, and intact without erythema. LABORATORY: White blood cell count 11 and hemoglobin 9.7. Electrolytes reviewed and stable. IMAGING: His chest x-ray shows worsening right upper lobe pneumonia. ASSESSMENT AND PLAN: A 73-year-old male status post Whipple for pancreatic cancer now readmitted with aspiration pneumonia, gram-negative bacteremia, and feeding tube dysfunction with delayed gastric emptying. In regards to the feeding tube and his GI function, I do not think he is ready for oral intake or for tube feeds. The jejunal portion of the feeding tube is probably not in the jejunum far enough to reliably feed his small bowel. Therefore, I would suggest consulting Gastroenterology to attempt replacement of the jejunal limb. We could then vent his stomach while feeding the distal jejunum. cc: MD Oziel Bingham MD
[2019-02-24] MEDS: CLINIMIX E 4.25%-5% SOLUTION 1,000 ML IV SCH ×2 (11:35→22:21)
[2019-02-24] MEDS: LIPOSYN 20% 250 ML IV SCH (15:48)
[2019-02-24] MEDS: CARDIZEM 125 MG/D5W 125 MG/125 ML IVPB IV SCH (16:46)
[2019-02-24] MEDS: REGLAN IV SCH (19:30)
[2019-02-24] MEDS: ZOFRAN IV PRN (21:17)
--- NOTE | 2019-02-24 21:17 | PROGRESS NOTE ---
DATE: 02/24/2019 SUBJECTIVE: The patient is a little better, but still, gastrostomy tube was clamped and released, copious gastric secretions coming out. There was no evidence of obstruction. Obviously ileus. I spoke to Dr. Galvin. He might need to discuss the issue with Dr. Alcazar in [place]. Chest x- ray worsening. OBJECTIVE: Temperature is 97 degrees. Vitals are stable. Irregular heart sounds. Belly is soft, nontender. He had a good bowel movement yesterday. LABORATORY DATA: Blood culture is Enterobacter aerogenes which is sensitive to Zosyn. ASSESSMENT AND PLAN: 1. Aspiration pneumonia due to Enterobacter sepsis. Continue on IV vancomycin and Zosyn. 2. Continue TPN nutrition. 3. Hold the food. 4. Atrial fibrillation, on Cardizem drip and Lovenox as per Dr. Francisco Espinosa. 5. Electrolytes were normal. 6. Repeat the blood workup and chest x-ray in the morning, and consider using IV Reglan 10 mg IV q.6. 7. Metastatic prostate cancer, positive lymph nodes. Stable after Whipple's resection. 8. If no improvement, I am going to discuss with Dr. Alcazar at [facility] and will follow up. LEVEL OF DOCUMENTATION: 25 minutes. cc: Oziel Riley MD
[2019-02-24] MEDS: MORPHINE IV PRN (22:20)
[2019-02-25] MEDS: REGLAN IV SCH ×4 (01:05→20:13)
[2019-02-25] MEDS: MORPHINE IV PRN (03:10)
[2019-02-25] MEDS: ZOSYN 3.375 GM in NS 50 ML IV SCH ×4 (03:35→22:50)
[2019-02-25] MEDS: LOVENOX SUBQ SCH (04:45)
[2019-02-25] MEDS: CLINIMIX E 4.25%-5% SOLUTION 1,000 ML IV SCH ×2 (06:08→14:51)
[2019-02-25] MEDS: HUMULIN R SUBQ SCH ×5 (06:09→21:14)
--- NOTE | 2019-02-25 06:34 | PULMONOLOGY PROGRESS NOTE ---
DATE: 02/24/2019 SUBJECTIVE: The patient is awake and alert. He has some cough, but clinically feels better. OBJECTIVE: Vital Signs: The patient has been afebrile for the last 24 hours. BP 133/73, heart rate 115, respiratory rate 22, oxygen saturation 97% on 2 L per nasal cannula. HEENT: Pupils are equal and reactive. Oropharynx appears clear. Neck: Supple. Chest: Reveals rhonchi bilaterally. Cardiac: S1, S2. Abdomen: Mildly distended with increased tympany. Extremities: Without edema. LABORATORIES: Chest x-ray reveals slight increased infiltrate in the right upper lobe. White blood count 11.7, hemoglobin 9.7, platelet count 384,000. Sodium 137, potassium 4.0, chloride 105, bicarbonate 17, BUN 12, creatinine 0.6. Glucose 155. White blood count 11.7, hemoglobin 9.7, platelet count 384,000. IMPRESSION: A 73-year-old status post pancreaticoduodenectomy with 1. Aspiration pneumonia. 2. Acute hypoxemic respiratory failure. 3. Protein calorie malnutrition. 4. Misplacement of his PEG/PEJ tube. RECOMMENDATIONS: 1. Continue bronchial hygiene. Encourage patient to get out of bed at least twice a day. 2. Continue antibiotics. 3. Continue Clinimix and lipids. 4. Agree with General surgery. He might benefit from a GI evaluation for possible correct placement of his PEG/PEJ tube. cc: MD Oziel Cardona MD
--- NOTE | 2019-02-25 06:54 | Diag Imaging Result Doc PS360 ---
CHEST-1 VIEW - 02/25/2019 INDICATION: SOB COMPARISON: 02/24/2019 FINDINGS: Stable left chest port. There is slight worsening in the multifocal infiltrate about the right hilum. The left lung is fairly clear. Heart size is normal. No pneumothorax or pleural effusion. IMPRESSION: Slight worsening multifocal infiltrate about the right hilum consistent with bronchopneumonia. Electronically signed by Danish Benavidez 02/25/2019 6:51 AM
[2019-02-25 07:07] LABS: BASO% 0.8 % (0.0-0.8); EOS# 0.47 X1000 (0.0-0.7); EOS% 3.5 % (0.0-10.0); HEMATOCRIT 32.3 % (42.0-52.0); HEMOGLOBIN 10.4 g/dL (14.0-18.0); IMM GRAN# 0.26 X1000 (0.0-0.04); LYMPH# 2.14 X1000 (1.2-3.4); LYMPH% 16.1 % (20.5-51.1); MCH 32.8 PG (27-31); MCHC 32.2 g/dL (33-37); MCV 101.9 FL (81-99); MONO# 1.54 X1000 (0.11-0.59); MONO% 11.6 % (1.7-9.3); MPV 9.5 FL (7.4-10.4); NEUT# 8.79 X1000 (1.4-6.5); PLT 431 X1000 (130-400); RBC 3.17 XMIL (4.7-6.1); RDW 14.7 % (11.5-14.5)
[2019-02-25 07:23] LABS: MAGNESIUM 2.1 mg/dL (1.5-2.7); PHOSPHORUS 2.8 mg/dL (2.7-4.5)
[2019-02-25 07:26] LABS: AGAP 14; BUN 16 mg/dL (8-22); CHLORIDE 99 mmol/L (98-107); COSMO 271; CREATININE 0.6 mg/dL (0.7-1.2); ESTIMATED GFR > 60; GLUCOSE 157 mg/dL (70-104); POTASSIUM 3.4 mmol/L (3.5-5.1); SODIUM 133 mmol/L (136-145); TCO2 20 mmol/L (25-35)
[2019-02-25] MEDS: VANCOMYCIN 1,600 MG in NS 250 ML IV SCH ×2 (08:35→20:13)
[2019-02-25] MEDS: POTASSIUM CHLORIDE 20 MEQ/SWI 20 MEQ/100 ML IVPB IV SCH ×2 (08:39→09:57)
[2019-02-25] MEDS ORDERED: OFIRMEV 1000 MG/ISOTONIC SOLN 1,000 MG/100 ML BOTTLE IV PRN (09:32)
[2019-02-25] MEDS: PROTONIX IV SCH (10:55)
[2019-02-25] MEDS: SODIUM CHLORIDE 0.9% INJ SCH (10:55)
--- NOTE | 2019-02-25 11:19 | Diag Imaging Result Doc PS360 ---
KUB ABDOMEN - 02/25/2019 INDICATION: identify the position of Jejunal tube COMPARISON: 02/23/2019 FINDINGS: There is a jejunostomy tube in good position in the jejunum. This was confirmed by contrast injection. There is some residual contrast throughout the colon and rectum. No visible obstruction or free air. There are numerous surgical clips and skin quoc. IMPRESSION: Jejunostomy tube is in good position. Electronically signed by Danish Benavidez 02/25/2019 11:16 AM
--- NOTE | 2019-02-25 13:16 | GENERAL SURGERY PROGRESS NOTE ---
DATE: 02/25/2019 SUBJECTIVE: The patient is doing okay this morning. He denies any worsening or new abdominal pain, nausea, vomiting, chest pain, or shortness of breath overnight. He reports 2 bowel movements yesterday. OBJECTIVE: Vital signs: He is afebrile, pulse 104, O2 saturation 100%, blood pressure 132/70, respiratory rate 18. Urine output adequate. Gastrostomy drainage is 1450 mL. General: He is awake, alert, oriented x3. No acute distress. Respiratory: No increased work of breathing. Gastrointestinal: Soft, nondistended, nontender. Incision is clean, dry, and intact. G-tube is intact. LABORATORY DATA: White blood cell count 71935, hemoglobin 10, hematocrit 32. Electrolytes reviewed and unremarkable. ASSESSMENT AND PLAN: A 73-year-old male status post Whipple for pancreatic cancer with feeding tube, with partial feeding tube dislodgement, delayed gastric emptying, aspiration pneumonia and gram-negative bacteremia. I have spoken with Dr. Ferris, who I believe will talk to Dr. Rockwell about repositioning the jejunal portion of the tube down the jejunum and leaving the gastric portion of the tube in the stomach so that we can feed his small bowel and drain his stomach. He is not ready for oral intake yet given the high drainage from the stomach. cc: MD Oziel Bingham MD
[2019-02-25 13:19] LABS: INR 1.11; PROTIME 14.5 Seconds (11.0-16.0)
[2019-02-25] MEDS ORDERED: NS 250 ML ONE (13:35)
--- NOTE | 2019-02-25 14:39 | Diag Imaging Result Doc PS360 ---
EXAM: CHEST-PORTABLE HISTORY: PICC line placement TECHNIQUE: Chest single view COMPARISON: 5:33 AM FINDINGS: Interval placement of a right-sided PICC line. The tip overlies the distal superior vena cava just above the right atrium. No other interval change. IMPRESSION: Right-sided PICC line in good position. Electronically signed by Federico Holm 02/25/2019 2:37 PM
--- NOTE | 2019-02-25 14:42 | GASTROENTEROLOGY CONSULTATION ---
DATE: 02/25/2019 PRIMARY CARE PHYSICIAN: Dr. Riley. SURGEON: Dr. Jonny Alcazar at [facility] in [place]. REASON FOR CONSULTATION: Unable to tolerate p.o. HISTORY OF PRESENT ILLNESS: Mr. Summers is a 73-year-old male who was admitted on 02/19/2019 after developing nausea, vomiting, and abdominal discomfort, along with fever and chills for the last 2 days. The patient was recently diagnosed with a pancreatic head mass, and had Whipple surgery done by Dr. Jonny Alcazar a little over 2 weeks ago, on 02/10/2019 at [facility] in [place]. He stayed in the hospital for 8 to 9 days, and was discharged to [facility] rehab facility in [place]. He had a PEG J-tube placed during the surgery to help him feed. According to the patient's family, the patient started having nausea, vomiting, and abdominal pain over several days, which worsened, and he developed fever and chills, and brought to the emergency room. In the ER, they contacted Dr. Jonny Alcazar at [facility], and according to the reports, the patient was not accepted at [facility], and was kept in [facility] for further workup. During the admission, the patient continued to have poor oral intake and nausea and vomiting. He was diagnosed with atrial fibrillation with RVR, and was put on Cardizem drip, and he was diagnosed with bronchopneumonia and was started on antibiotics. 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 There was evidence of gas in the biliary ducts, particularly in the left hepatic lobe. There were some apparent stones within the lower pole of the left collecting system, and posteriorly in the lower pole of the right. There has been a choledochal jejunostomy noted. The contrast was seen in the colon. The small bowel was not distended. There was evidence of gastrostomy tube, and the tip of the tube was present in the jejunum. There was also evidence of a small hiatal hernia noted on the imaging. Because of his persistent symptoms, he had an upper GI barium study, which showed no evidence of any extravasation or anastomotic stricture. He was able to swallow the barium down. On 02/23/2019, he had another imaging, which showed that the small bowel barium was injected through the patient's jejunostomy tube, and on that study, there was evidence of contrast in the entire colon, and there was some residual contrast in the colon, with contrast transitioning all the way to the rectum was noted, and there was no evidence of any small bowel dilation or mucosal fold thickening noted. The patient does have a history of chronic type 2 diabetes. Gastroenterology was consulted for further management, including trying to reposition the J-tube to help improve the patient's oral intake. PAST MEDICAL HISTORY: Pancreatic cancer status post Whipple on 02/10/2019, type 2 diabetes, GERD. PAST SURGICAL HISTORY: Whipple surgery on 02/10/2019, cholecystectomy, colectomy was done more than 10 years ago after his colon burst from what appeared to be constipation. ALLERGIES: No known drug allergies. SOCIAL HISTORY: He is a former smoker. History of alcohol abuse in the past. Denies any illicit drug abuse. He has a very supportive present at bedside. FAMILY HISTORY: Noncontributory. MEDICATIONS: Medications in the hospital include Clinimix at 75 mL/hour, Cardizem drip, Lovenox 70 mg subcutaneously every 12 hours, Humulin R, potassium chloride, fat emulsion, Reglan 10 mg IV every 6 hours started yesterday, Tylenol 1000 mg IV every 6 hours as needed, Zofran, Protonix once daily which I started, vancomycin per pharmacy IV, and Zosyn IV every 6 hours. He is currently n.p.o. He is on Clinimix and fat emulsion. REVIEW OF SYSTEMS: Review of systems was limited, and most was obtained from the records and the patient's at bedside. The patient was only able to answer a few questions. He denies any vomiting blood or passing blood in the stools. PHYSICAL EXAMINATION: Vital Signs: Temperature of 98.5, pulse rate of 93, respiratory rate 20, blood pressure 141/69, saturating 100% on nasal cannula. Body weight of 160 pounds 8 ounces. BMI 23 kg/m2. General: Moderately built, moderately nourished, lying in bed in no acute distress. HEENT: Mild pallor. No icterus. Pupils equal, reactive to light. Nasal cannula in place. Neck: Supple. Abdomen: He has a feeding tube at the left upper quadrant. He has healing scar from recent surgery. Abdomen: Soft. Mild discomfort in the pelvic region. No rebound. Extremities: No cyanosis or clubbing. Neurologic: He is alert. He was able to answer some of my questions. IMAGING AND LABORATORY DATA: Hemoglobin and hematocrit are 10.4 and 32.3, white count 13.3, platelet count of 431,000. Sodium 133, potassium 3.4, chloride 99, bicarb 29, BUN of 16, creatinine 1.6, glucose of 137, calcium is 9. Phosphorus 2.8, magnesium 2.1. Total bilirubin is 0.55, AST 17, ALT 33, alkaline phosphatase is 115, total protein is 6.7, albumin 3.1. Urine culture is showing no growth. Flu screen negative for A and B. Blood culture, one showed Enterobacter erogenous, resistant to cefazolin, sensitive to Zosyn. The second blood culture also showed gram-negative rods. Further speciation is still pending. Chest x-ray showing slight worsening of multifocal infiltrate about the right hilum, consistent with bronchopneumonia. IMPRESSION AND PLAN: 1. Aspiration pneumonia due to Enterobacter and sepsis, with blood culture growing 2/2 gram- negative rods. He is on intravenous vancomycin and intravenous Zosyn per the primary care team. 2. Malnutrition. He is currently on Clinimix and lipid infusion. 3. Atrial fibrillation with rapid ventricular response. He is on Cardizem drip as he is unable to tolerate orally. 4. Anemia. Continue to watch for now. Transfuse as needed. 5. Pancreatic head cancer, status post Whipple surgery on 02/10/2019, complicated with abdominal pain, nausea, vomiting, aspiration pneumonia, and sepsis. Dr. Galvin is on board and following the patient. 6. Type 2 diabetes and possibility of gastroparesis. The patient is on Reglan intravenously every 6 hours. Will see if it helps him. There was no evidence of any bowel obstruction noted on imaging, and the contrast was able to make it to the rectum. 7. Will start the patient on gastrointestinal prophylaxis with proton pump inhibitor. 8. I will start him on bowel regimen with Dulcolax suppository. We will try to do the Gastrografin study through the jejunostomy part of the percutaneous endoscopic gastrostomy tube to confirm the positioning of the jejunostomy tube. If found to be misplaced, then we may pursue an esophagogastroduodenoscopy to do positioning of the tube. On last CT scan done on admission, the jejunostomy tube was in the jejunum. We will re-confirm the position either with Gastrografin study or repeat CT scan. The above plans were discussed with the patient and family at bedside and the nursing staff, and all questions were answered. Please call with any further questions. cc: MD Oziel Ma MD [facility]
[2019-02-25] MEDS: CARDIZEM 125 MG/D5W 125 MG/125 ML IVPB IV SCH (14:48)
[2019-02-25] MEDS: LIPOSYN 20% 250 ML IV SCH ×2 (14:54→15:58)
--- NOTE | 2019-02-25 19:14 | PROGRESS NOTE ---
DATE: 02/25/2019 SUBJECTIVE: The patient continues unable to take oral intake. He continues on IV diltiazem and subcutaneous Lovenox. He remains in atrial fibrillation with reasonably controlled heart rate. He denies any chest discomfort or shortness of breath. OBJECTIVE: Vital Signs: Blood pressure 140/62, heart rate 98 and irregular, oxygen saturation 98%. Neck: There is no significant jugular venous distention. Chest: Auscultation of the chest reveals a few scattered rhonchi. Cardiac: Irregular rate and rhythm without appreciable murmur or gallop. Abdomen: Distended. Extremities: Without edema. LABORATORY DATA: Includes a white blood cell count of 13.3, hematocrit 32.3, hemoglobin 10.4, platelet count 431,000. Sodium 133, potassium 3.4, chloride 99, carbon dioxide 20, BUN 16, creatinine 0.6, glucose 157. IMPRESSION: 1. Persistent atrial fibrillation in the setting of significant noncardiac illness. Patient remains unable to take oral intake. He continues asymptomatic from a cardiovascular standpoint. 2. Pneumonia. 3. Status post recent Whipple procedure for removal of pancreatic mass, which proved to be malignant. 4. Postoperative ileus, that is persistent. 5. Type 2 diabetes mellitus. 6. Gastroesophageal reflux disease. RECOMMENDATIONS: Continue management with rate control with intravenous Cardizem, and anticoagulation with subcutaneous Lovenox pending clinical improvement in noncardiac process. Once the patient improves and is able to take oral intake, may consider initiation of amiodarone orally, and ultimately plan for future cardioversion if atrial fibrillation persists. cc: MD Oziel Burdick MD
[2019-02-25] MEDS ORDERED: ATIVAN IV PRN (19:15)
[2019-02-25] MEDS: DULCOLAX PR SCH ×2 (20:13→21:17)
[2019-02-25] MEDS: AMBIEN PO PRN (20:13)
--- NOTE | 2019-02-25 21:01 | PULMONOLOGY PROGRESS NOTE ---
DATE: 02/25/2019 SUBJECTIVE: The patient is awake and alert. He has a fair cough effort. He denies shortness of breath. OBJECTIVE: vital signs: The patient has been afebrile for the last 24 hours. Blood pressure 124/70, heart rate 110, respiratory rate 21, oxygen saturation 99% on 2 L per nasal cannula. HEENT: Pupils are equal and reactive. Oropharynx appears clear. Neck: Supple. Chest: Reveals occasional rhonchi bilaterally. Cardiac: S1-S2. Abdomen: Soft. Extremities: Without edema. STUDIES: Chest x-ray reveals infiltrate in the right hilum which is slightly worse than on prior film. LABORATORIES: White blood count 13.3,000, hemoglobin 10.4, platelet count 431,000. IMPRESSION: A 73-year-old status post pancreaticoduodenectomy with: 1. Aspiration pneumonia. 2. Hypoxemic respiratory failure. 3. Protein-calorie malnutrition. PLAN: 1. Continue bronchial hygiene. He was encouraged to deep breathe and cough. He will use an incentive spirometry for assistance. 2. Continue antibiotics. 3. Continue Clinimix and lipids. 4. GI evaluation is pending to ensure proper placement of his PEJ/PEG tube. cc: MD Oziel Cardona MD
--- NOTE | 2019-02-25 22:01 | PROGRESS NOTE ---
DATE: 02/25/2019 SUBJECTIVE: The patient is out of bed. Intermittent shortness of breath. Continued atrial fibrillation. The patient has significant drainage from the gastrostomy tube. OBJECTIVE: On examination he is tachycardic. Vital signs are stable. Chest: Bilateral air entry. Heart sounds are regular. Belly is soft, nontender. No peripheral edema. No obvious neurological deficits. LABORATORY DATA: CBC: White cell count 13, hematocrit 32, platelets 431,000. PT/INR is normal. Sodium 133, potassium 3.4, chloride 99, BUN 16, creatinine 0.6, glucose 127. Cardiac enzymes were negative. ASSESSMENT AND PLAN: 1. Delirium is improving. 2. Status post port on the left side is not accessing. 3. Poor intravenous access. Peripherally inserted central catheter line ordered. 4. Atrial fibrillation with positive enzymes. Continue on Cardizem drip and Lovenox. 5. Gastric outlet obstruction, status post Whipple. I spoke to Dr. Aguilar this morning. He recommended continue on gravity for drainage and started on intravenous Reglan, and if things will not work will try to attempt a J-tube placement through endoscopy. 6. Enterobacter sepsis. Continue present antibiotics. 7. Hypokalemia. Replace the potassium. 8. Nutrition through total parenteral nutrition. Dr. Aguilar agreed for the present treatment. It takes a while to resolve the postoperative ileus. I spoke to the family what we have discussed with Dr. Aguilar and the plan of care. Continue present treatment. Level of documentation 25 minutes. cc: Oziel Riley MD
[2019-02-26] MEDS: HUMULIN R SUBQ SCH ×6 (01:15→23:00)
[2019-02-26] MEDS: REGLAN IV SCH ×4 (01:20→20:49)
[2019-02-26] MEDS: ZOSYN 3.375 GM in NS 50 ML IV SCH ×4 (03:21→21:41)
[2019-02-26] MEDS: CLINIMIX E 4.25%-5% SOLUTION 1,000 ML IV SCH ×3 (03:31→22:02)
[2019-02-26 06:24] LABS: BASO# 0.09 X1000 (0.0-0.2); BASO% 0.7 % (0.0-0.8); EOS# 0.51 X1000 (0.0-0.7); EOS% 4.1 % (0.0-10.0); HEMATOCRIT 29.7 % (42.0-52.0); HEMOGLOBIN 9.7 g/dL (14.0-18.0); IMM GRAN# 0.36 X1000 (0.0-0.04); IMM GRAN% 2.9 % (0.0-0.5); LYMPH# 1.33 X1000 (1.2-3.4); LYMPH% 10.7 % (20.5-51.1); MCH 33.6 PG (27-31); MCHC 32.7 g/dL (33-37); MCV 102.8 FL (81-99); MONO# 1.24 X1000 (0.11-0.59); MPV 9.5 FL (7.4-10.4); NEUT# 8.91 X1000 (1.4-6.5); NEUT% 71.6 % (42.2-75.2); PLT 424 X1000 (130-400); RBC 2.89 XMIL (4.7-6.1); RDW 14.7 % (11.5-14.5); WBC 12.44 X1000 (4.8-10.8)
[2019-02-26 06:52] LABS: AGAP 15; BUN 15 mg/dL (8-22); CALCIUM 8.8 mg/dL (8.8-10.2); CHLORIDE 101 mmol/L (98-107); COSMO 276; CREATININE 0.7 mg/dL (0.7-1.2); ESTIMATED GFR > 60; GLUCOSE 152 mg/dL (70-104); POTASSIUM 3.6 mmol/L (3.5-5.1); SODIUM 136 mmol/L (136-145); TCO2 20 mmol/L (25-35)
--- NOTE | 2019-02-26 07:00 | Diag Imaging Result Doc PS360 ---
EXAM: CHEST-1 VIEW HISTORY: SOB TECHNIQUE: Portable chest single view COMPARISON: 02/25/2019 FINDINGS: Poor inspiratory effort. No change in the right sided PICC line or left subclavian line. No pneumothoraces. There are infiltrates/pulmonary edema in the mid and lower lungs. No pleural effusions identified. IMPRESSION: Mild interval worsening Electronically signed by Federico Holm 02/26/2019 6:59 AM
[2019-02-26 07:33] LABS: EOS 5 % (1-10); LYMPHS 10 % (21-51); MONO 9 % (1-9); SEGS 76 % (42-75)
[2019-02-26] MEDS: CARDIZEM 125 MG/D5W 125 MG/125 ML IVPB IV SCH ×2 (08:04→21:42)
[2019-02-26] MEDS: VANCOMYCIN 1,600 MG in NS 250 ML IV SCH ×2 (08:04→20:51)
[2019-02-26] MEDS ORDERED: DIPRIVAN 1% ONE ×2 (09:29→09:55)
[2019-02-26] MEDS ORDERED: XYLOCAINE-MPF 2% ONE (09:29)
--- NOTE | 2019-02-26 10:35 | ENDOSCOPY OPERATIVE NOTE ---
[facility] ENDOSCOPY OPERATIVE NOTE , PATIENT: Blair Summers ADMISSION DATE: 02/26/2019 [facility]#: [id number] [facility] 1945 [id number] EGD PROCEDURE REPORT PROCEDURE DATE: 02/26/2019 SURGEON: Charly Rader MD STATUS: inpatient FORGEMAN HELPER: PREOPERATIVE DIAGNOSIS: The patient is a 73 yr old male here for an EGD due to Displaced percutaneou s gastro-jejunostomy tube. PROCEDURE PERFORMED: EGD, diagnostic with PEG replacement MEDICATIONS: Per Anesthesia TOPICAL ANESTHETIC: none CONSENT: The patient understands the risks and benefits of the procedure and understands that these r isks include, but are not limited to: sedation, allergic reaction, infection, perforation and/or bleeding. Alternative means of evaluation and treatment include, among others: physical exam, x-rays, and/or surgical intervention. The patient elects to proceed with this endoscopic procedure. HISORY AND PHYSICAL: 02/26/2019 function. Hand hygiene and appropriate measures for infection prevention was taken. After the risks, benefits and alternatives of the procedure were thoroughly explained, Informed consent was verified, confirmed and timeout was successfully executed by the treatment team. The patient was anesthetized with topical anesthesia and the [id number] ([id number]) endoscope was introduced through the mouth and advanced to the proximal jejunum. Retroflex ion was performed in the stomach and revealed no abnormalities. The gastroscope was then slowly withdrawn and removed. ESOPHAGUS: A Schatzki ring was found at the gastroesophageal junction and was widely open. STOMACH: Coiled jejunostomy tube found in stomach with copious amount of bilious fluid that was sucti on. Gastrojejunostomy anastomic ulcer was found that was not bleeding. Multiple unsuccessful attempts we re made to pass tube through the anastomosis using snare and rat tooth forceps, which was prohibited by looping in th e stomach. The decision was made with consultation with Dr. Galvin to replace J-tube with PEG tube. The jejunostomy tube was cut a 24Fr replacement PEG tube was passed over a guidewire successfully. Polysporin was applied around tu be. PEG placement was confirmed endoscopically.Balloon was inflated with 20 mL of sterile water and external bolster wa s advanced to 4 cm. JEJUNUM / ILEUM: The mucosa appeared normal in the jejunum and ileum. SPECIMENS REMOVED: No ADVERSE EVENTS: There were no complications. POSTOPERATIVE DIAGNOSIS: 1. Schatzki ring was found at the gastroesophageal junction 2. Coiled jejunostomy tube found in stomach with copious amount of bilious fluid that was suction. Gastrojejunostomy anastomic ulcer was found that was not bleeding. Multiple unsuccessful attempts were made to pass tu be through the anastomosis using snare and rat tooth forceps, which was prohibited by looping in the stomach. The d ecision was made with consultation with Dr. Galvin to replace J-tube with PEG tube. The jejunostomy tube was cut a 24 Fr replacement PEG tube was passed over a guidewire successfully. Polysporin was applied around tube. PEG placement wa s confirmed endoscopically.Balloon was inflated with 20 mL of sterile water and external bolster was advanced to 4 cm RECOMMENDATIONS: PEG tube ok to use for medications and enteral nutrition as per surgery and diet ician recommendations Recommend PPI BID for 3 months Will follow with you. REPEAT EXAM: Charly Rader MD eSigned: Charly Rader MD 02/26/2019 10:35 AM cc: PATIENT NAME: Blair Summers MR#: [id number]
[2019-02-26] MEDS: PROTONIX IV SCH (10:43)
[2019-02-26 11:04] LABS: ALLEN TEST YES; BE -3.2 mmoll (-3.0-3.0); BLOOD TYPE ARTERIAL; HCO3-(ACT) 22.4 mmoll (20.0-26.0); METHB 0.7 % (0.0-1.5); O2(CT) 13.5 mL/dL (15.0-23.0); PCO2(98.6) 25 mmHg (35-45); PO2(98.6) 88 mmHg (60-100); SAMPLE BLOOD; SAO2 95.7 % (95.0-100.0); pH(98.6) 7.49 (7.35-7.45)
[2019-02-26 11:06] LABS: MODALITY CANNULA
[2019-02-26] MEDS: LIPOSYN 20% 250 ML IV SCH (15:49)
[2019-02-26] MEDS ORDERED: BLISTEX MEDICATED BERRY LIP BALM TOP PRN (16:47)
--- NOTE | 2019-02-26 18:11 | PROGRESS NOTE ---
DATE: 02/26/2019 SUBJECTIVE: Appreciated GI input. Gastrostomy tube is not draining. Patient is going for EGD. He still drives. Some intermittent delirium. Still in atrial fibrillation. PHYSICAL EXAMINATION: Vital Signs: Temperature is 98. Vitals are stable, 2 L, 98%. HEENT: Within normal limits. Neck: Supple. Chest: Bilateral air entry. Cardiovascular: Heart sounds are irregular. Abdomen: Belly is soft. Decreased bowel sounds. Deisi were taken every other row. LABORATORY DATA: White cell count 12.4, hematocrit 29.7, platelets 424. ABG: pH of 7.49, pCO2 of 25, PO2 of 88. SMA 7 is normal. ProBNP is 887. Chest x-ray: Right upper lobe pneumonia. ASSESSMENT AND PLAN: 1. Intermittent delirium, stable. 2. Chronic atrial fibrillation, on diltiazem plus Lovenox. 3. Aspiration pneumonia with Enterobacter infection. Continue IV antibiotics. 4. Ileus, postoperative from Whipple procedure. Esophagogastroduodenoscopy showed findings. Continue IV proton pump inhibitor. Jejunostomy tube was coiled in the stomach, and obviously they cut the tube, and they put in a regular percutaneous endoscopic gastrostomy tube. 5. Continue IV Reglan. PICC line on the right side. Continue IV peripheral parenteral nutrition and follow up. LEVEL OF DOCUMENTATION: 35 minutes. cc: Oziel Riley MD
[2019-02-26] MEDS ORDERED: CATHFLO IV ONE (18:29)
[2019-02-26] MEDS ORDERED: STERILE WATER INJ. INJ ONE (18:29)
--- NOTE | 2019-02-26 18:46 | PROGRESS NOTE ---
DATE: 02/26/2019 SUBJECTIVE: Patient is status post upper GI endoscopy with removal of jejunostomy tube and replaced with PEG tube earlier today. He continues without chest discomfort or shortness of breath. He remains in atrial fibrillation with controlled rate on intravenous Cardizem. OBJECTIVE: Vital Signs: Blood pressure 133/77, heart rate 105 with ECG monitor showing atrial fibrillation. Oxygen saturation 98% on nasal cannula oxygen at 2 L/minute. Neck: There is no significant jugular venous distention. Chest: Clear to auscultation bilaterally. Cardiac Exam: Reveals an irregular rate and rhythm without appreciable murmur or gallop. There is no evidence of peripheral edema. LABORATORY DATA: Includes a white blood cell count of 12.44, hematocrit 29.7, hemoglobin 9.7, platelet count 424,000, sodium 136, potassium 3.6, chloride 101, carbon dioxide 20, BUN 15, creatinine 0.7. IMPRESSION: 1. Persistent atrial fibrillation. Heart rate controlled on intravenous Cardizem. 2. Right-sided pneumonia. 3. 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 Patient has had postoperative ileus versus bowel obstruction. 4. Type 2 diabetes mellitus. 5. Gastroesophageal reflux disease with Schatzki ring. RECOMMENDATIONS: 1. Continue to manage patient with rate control and anticoagulation pending clinical improvement in noncardiac issues. Toward this end, we will continue IV Cardizem for rate control and subcutaneous Lovenox as long as he is not able to take oral intake. 2. As patient recovers and if atrial fibrillation persists, we will consider merits of initiating antiarrhythmic therapy and possible JANELLE cardioversion. cc: MD Oziel Burdick MD
[2019-02-26] MEDS: DULCOLAX PR SCH ×2 (20:51→21:01)
[2019-02-26] MEDS: AMBIEN PO PRN (21:41)
[2019-02-27] MEDS: HUMULIN R SUBQ SCH ×7 (00:32→23:55)
[2019-02-27] MEDS: REGLAN IV SCH ×5 (02:10→20:17)
[2019-02-27] MEDS: ZOSYN 3.375 GM in NS 50 ML IV SCH ×4 (03:42→21:47)
[2019-02-27 05:07] LABS: ALLEN TEST YES; BE -2.4 mmoll (-3.0-3.0); BLOOD TYPE ARTERIAL; HCO3-(ACT) 23.1 mmoll (20.0-26.0); O2HB 97.3 % (95.0-99.0); PCO2(98.6) 23 mmHg (35-45); PO2(98.6) 150 mmHg (60-100); SAMPLE BLOOD; SAO2 97.4 % (95.0-100.0); pH(98.6) 7.53 (7.35-7.45)
[2019-02-27 05:09] LABS: MODALITY ROOM AIR
[2019-02-27] MEDS: CLINIMIX E 4.25%-5% SOLUTION 1,000 ML IV SCH ×3 (06:15→17:56)
[2019-02-27] MEDS: LOVENOX SUBQ SCH ×2 (06:26→17:56)
--- NOTE | 2019-02-27 07:23 | GENERAL SURGERY PROGRESS NOTE ---
DATE: 02/27/2019 SUBJECTIVE: Patient is doing about the same. The nursing staff reports no major issues. His G tube output has been minimal when they have been clamping it and unclamping it. He did pull out his PICC line yesterday. OBJECTIVE: Vital Signs: Patient is currently afebrile. His vital signs are stable. General: No acute distress. Cardiovascular: Regular rate and rhythm. Lungs: Grossly clear. Abdomen: Soft. Abdominal binder in place. Neurologic: The patient seems to be appropriate in response. ASSESSMENT AND PLAN: A 73-year-old, status post Whipple at outside facility, now with some degree of issues with feeding. Status post Whipple with some degree of gastroparesis. At this time, his gastric output has been minimal. We will try clear liquids with the nurses observing him. If his output seems to be high, we will stop. I discussed this with the nurses taking care of him. We will continue to follow. cc: MD Oziel Bailey MD
[2019-02-27] MEDS: PROTONIX IV SCH (07:45)
[2019-02-27] MEDS: SODIUM CHLORIDE 0.9% INJ SCH (07:45)
[2019-02-27] MEDS: VANCOMYCIN 1,600 MG in NS 250 ML IV SCH ×2 (08:40→22:38)
[2019-02-27] MEDS: CARDIZEM 125 MG/D5W 125 MG/125 ML IVPB IV SCH ×2 (11:01→20:20)
--- NOTE | 2019-02-27 12:56 | PROGRESS NOTE ---
DATE: 02/27/2019 SUBJECTIVE: Last night the patient was confused, pulled the PICC line out, and interval findings discussed with the family. The patient's confusion is better. Appreciated Dr. Jiménez's comments. Gastrostomy tube, minimal drainage. OBJECTIVE: Vitals: On exam still in atrial fibrillation, vitals are stable. HEENT: Within normal limits. Neck: Supple. Chest: Bilateral air entry. Cardiac: Irregular heart sounds. Abdomen: Soft. [place] were taken out. Neurologic: No neurological deficits. DIAGNOSTIC DATA: No labs were drawn today except blood gas on room air, pH is 7.53, pCO2 23, pO2 150 on room air. Blood sugars are normal. ASSESSMENT AND PLAN: 1. Delirium. Better discontinue Ambien. 2. Postoperative ileus, IV Reglan. EGD findings discussed. Continue IV PPI and minimal drainage. 3. Diet. Clear liquids. Continue nutrition through the TPN. 4. Atrial fibrillation, on Cardizem drip on Lovenox. Slowly change to the pills by mouth. 5. Aspiration pneumonia, with Enterobacter. Currently on vancomycin and Zosyn. Repeat the labs in the morning. 6. Discussed the plan of care with the caregiver. LEVEL OF DOCUMENTATION: 25 minutes. cc: Oziel Riley MD
[2019-02-27] MEDS: LIPOSYN 20% 250 ML IV SCH (16:15)
[2019-02-27] MEDS: DULCOLAX PR SCH (20:20)
[2019-02-28] MEDS: REGLAN IV SCH ×4 (02:05→20:44)
[2019-02-28] MEDS: ZOSYN 3.375 GM in NS 50 ML IV SCH ×6 (03:36→22:12)
[2019-02-28] MEDS: CLINIMIX E 4.25%-5% SOLUTION 1,000 ML IV SCH ×3 (03:36→20:45)
[2019-02-28] MEDS: HUMULIN R SUBQ SCH ×6 (03:39→23:30)
[2019-02-28] MEDS: LOVENOX SUBQ SCH ×2 (05:12→17:39)
[2019-02-28 06:29] LABS: HEMATOCRIT 37.6 % (42.0-52.0); HEMOGLOBIN 11.8 g/dL (14.0-18.0); MCH 32.3 PG (27-31); MCHC 31.4 g/dL (33-37); MPV 9.8 FL (7.4-10.4); RBC 3.65 XMIL (4.7-6.1); RDW 14.9 % (11.5-14.5); WBC 11.09 X1000 (4.8-10.8)
--- NOTE | 2019-02-28 06:41 | Diag Imaging Result Doc PS360 ---
EXAM: CHEST-1 VIEW HISTORY: SOB TECHNIQUE: Chest single view COMPARISON: 02/26/2019 FINDINGS: The lungs are well expanded. Interval improvement in the right lung infiltrates. No cardiomegaly. No pleural effusions identified. Left pacemaker. Right-sided PICC line has been removed. IMPRESSION: Interval improvement Electronically signed by Federico Holm 02/28/2019 6:38 AM
[2019-02-28 07:13] LABS: AGAP 16; ALB/GLOB RATIO 0.7; ALBUMIN 3.2 g/dL (3.5-5.0); ALKALINE PHOSPHATASE 162 U/L (32-122); BUN 14 mg/dL (8-22); CALCIUM 8.7 mg/dL (8.8-10.2); CHLORIDE 101 mmol/L (98-107); COSMO 272; CREATININE 0.8 mg/dL (0.7-1.2); ESTIMATED GFR > 60; GLUCOSE 127 mg/dL (70-104); GOT 22 U/L (10-34); GPT 33 U/L (10-44); POTASSIUM 3.4 mmol/L (3.5-5.1); SODIUM 135 mmol/L (136-145); TCO2 18 mmol/L (25-35); TOTAL BILIRUBIN 0.45 mg/dL (0.20-1.00); TOTAL PROTEIN 7.7 g/dL (6.3-8.3)
--- NOTE | 2019-02-28 07:30 | GENERAL SURGERY PROGRESS NOTE ---
DATE: 02/28/2019 SUBJECTIVE: The patient is doing okay. He tolerated his clear liquids. He did not have significant drainage out of his G-tube. OBJECTIVE: Vital Signs: The patient is currently afebrile. His vital signs are stable. General Examination: No acute distress. Cardiovascular: Regular rate and rhythm. Lungs: Grossly clear. Abdomen: Soft. Binder in place. ASSESSMENT AND PLAN: A 73-year-old gentleman status post Whipple at outside facility, now with some degree of gastroparesis. Gastroparesis. At this time, he seems to be tolerating his diet. We will advance him to full liquids and see how he does. We will continue current regimen of clamping the G-tube as needed. cc: MD Oziel Bailey MD
[2019-02-28] MEDS: PROTONIX IV SCH (07:49)
[2019-02-28] MEDS: SODIUM CHLORIDE 0.9% INJ SCH (07:49)
[2019-02-28] MEDS: POTASSIUM CHLORIDE 20 MEQ/SWI 20 MEQ/100 ML IVPB IV SCH ×2 (09:16→13:36)
[2019-02-28] MEDS: VANCOMYCIN 1,600 MG in NS 250 ML IV SCH ×2 (09:54→22:12)
[2019-02-28] MEDS: CARDIZEM 125 MG/D5W 125 MG/125 ML IVPB IV SCH (12:40)
--- NOTE | 2019-02-28 14:53 | PROGRESS NOTE ---
DATE: 02/28/2019 SUBJECTIVE: The patient is doing better. Delirium is improving, tolerating the diet very well and had passing gas. The gastrostomy tube no draining drain is noted. The right arm is diffusely swollen. OBJECTIVE: On exam irregular heart rate. Blood pressure is stable. HEENT exam within normal limits. Neck is supple. Chest is bilateral air entry and irregular heart sounds. Belly is soft, nontender. Bowel sounds are decreased. Port-A-Cath on the left side. Right arm diffusely swollen. INVESTIGATIONS: CBC: White cell count 11, hematocrit 37.6, platelets 433,000. Sodium 135, potassium 3.4, BUN 14, creatinine 0.8, glucose 127. Urine cultures are negative. Blood cultures Enterobacter aerogenes. Chest x-ray improving right upper lobe pneumonia. ASSESSMENT AND PLAN: 1. Right upper lobe pneumonia, improving. 2. Slowly advance the food, full liquid diet. 3. Continue G-tube with gravity. 4. Continue Clinimix through the Port-A-Cath. 5. Delirium is better. 6. Atrial fibrillation on Cardizem and Lovenox. 7. Discontinue Ambien. 8. Continue IV vancomycin and Zosyn. 9. Will continue to monitor progress and will slowly change to the anticoagulation by mouth. LEVEL OF DOCUMENTATION: 25 minutes. cc: Oziel Riley MD
[2019-02-28] MEDS: LIPOSYN 20% 250 ML IV SCH (15:36)
[2019-02-28] MEDS: DULCOLAX PR SCH (20:46)
[2019-03-01] MEDS: CARDIZEM 125 MG/D5W 125 MG/125 ML IVPB IV SCH ×2 (01:47→12:59)
[2019-03-01] MEDS: REGLAN IV SCH ×4 (01:47→20:07)
[2019-03-01] MEDS: ZOSYN 3.375 GM in NS 50 ML IV SCH ×4 (03:30→22:12)
[2019-03-01] MEDS: HUMULIN R SUBQ SCH ×5 (03:30→20:07)
[2019-03-01] MEDS: LOVENOX SUBQ SCH ×2 (04:32→16:20)
--- NOTE | 2019-03-01 06:28 | Diag Imaging Result Doc PS360 ---
EXAM: CHEST-1 VIEW HISTORY: SOB TECHNIQUE: Chest single view COMPARISON: 02/28/2019 FINDINGS: Dense infiltrate in the mid right lung. This is slightly more prominent. No cardiomegaly. No pulmonary edema. No pleural effusions identified. No change in the left subclavian portacatheter. IMPRESSION: Slight worsening in the right sided infiltrate Electronically signed by Federico Holm 03/01/2019 6:25 AM
[2019-03-01 07:07] LABS: HEMATOCRIT 30.7 % (42.0-52.0); HEMOGLOBIN 9.9 g/dL (14.0-18.0); MCH 34.5 PG (27-31); MCHC 32.2 g/dL (33-37); MPV 9.7 FL (7.4-10.4); RBC 2.87 XMIL (4.7-6.1); RDW 14.9 % (11.5-14.5); WBC 12.08 X1000 (4.8-10.8)
[2019-03-01 07:09] LABS: AGAP 14; ALB/GLOB RATIO 0.8; ALKALINE PHOSPHATASE 128 U/L (32-122); BUN 13 mg/dL (8-22); CALCIUM 8.5 mg/dL (8.8-10.2); CHLORIDE 105 mmol/L (98-107); COSMO 277; CREATININE 0.7 mg/dL (0.7-1.2); ESTIMATED GFR > 60; GLUCOSE 160 mg/dL (70-104); GOT 15 U/L (10-34); GPT 26 U/L (10-44); POTASSIUM 3.8 mmol/L (3.5-5.1); SODIUM 137 mmol/L (136-145); TCO2 18 mmol/L (25-35)
[2019-03-01] MEDS: SODIUM CHLORIDE 0.9% INJ SCH (08:19)
[2019-03-01] MEDS: PROTONIX IV SCH (08:19)
[2019-03-01] MEDS: CLINIMIX E 4.25%-5% SOLUTION 1,000 ML IV SCH (09:21)
[2019-03-01] MEDS: VANCOMYCIN 1,600 MG in NS 250 ML IV SCH ×2 (09:21→22:12)
--- NOTE | 2019-03-01 09:51 | GENERAL SURGERY PROGRESS NOTE ---
DATE: 03/01/2019 SUBJECTIVE: The patient is doing well. He denies nausea, vomiting, or abdominal pain. He has been tolerating his clamp trials of the NG tube. He has been drinking liquid diet. OBJECTIVE: He is afebrile. Pulse in the 90s. Blood pressure 127/51, O2 saturation 96%. G-tube output 150 mL yesterday. Oral intake 1440 mL.General: He is awake, alert, oriented x3. No acute distress. GI: Soft, nondistended, nontender. Incision is clean, dry, and intact. LABORATORY: White cell count 12, hemoglobin 9.9, hematocrit 30. Electrolytes reviewed and unremarkable. ASSESSMENT AND PLAN: A 73-year-old male status post Whipple for pancreatic cancer. He has had postoperative gastroparesis as well as aspiration pneumonia and gram-negative bacteremia. Overall, he appears to be improving. His GI function appears better. We will advance him to a soft diet and keep the G-tube clamped unless he gets sick. I will also order physical therapy. cc: MD Oziel Bingham MD
--- NOTE | 2019-03-01 14:15 | PROGRESS NOTE ---
DATE: 03/01/2019 SUBJECTIVE: The patient is resting in bed, alert and denied any nausea, vomiting, or abdominal pain. He said that he was happy with his PEG tube and was feeling much better. He has been able to tolerate his diet well. OBJECTIVE: Vital Signs: Temperature is 98.2 degrees, pulse is 77, respirations are 22, blood pressure is 129/59, oxygen saturation is 90% on room air. Weight 164.3 pounds, BMI 23.6 kg per meter square. General: He is alert and oriented x3, in no acute distress. HEENT: Pale conjunctivae. No icterus. PERRL. Neck: Supple. Lungs: Clear to auscultation in anterior and posterior beaulieu. Cardiac: Irregular rate and rhythm. No murmurs, rubs, or gallops heard on auscultation. Abdomen: Soft, nontender, nondistended. Has a PEG tube on the left lower quadrant. Active bowel sounds heard in all 4 quadrants. Extremities: No cyanosis, clubbing, edema noted in the upper extremities bilaterally. Pedal pulses 2+ present bilaterally. Neurological: Alert and oriented x3. IMAGING AND LABORATORY DATA: WBC is 12.8, RBCs 2.87, hemoglobin 9.9, hematocrit 30.7, platelet count is 393,000. PT is 14.5, INR is 1.11. Blood gases show pH is 7.53, pCO2 is 23, PO2 is 150, HC03 is 23.1. Sodium is 137, potassium is 3.8, chloride is 108, carbon dioxide is 18, anion gap is 14, BUN is 13, creatinine is 0.7, glucose is 160, calcium is 8.5. Total bilirubin is 0.40, AST is 15, ALT is 26, alkaline phosphatase 128. Chest x-ray showed slight worsening in the right- sided infiltrate. Abdominal x-ray showed jejunostomy tube is in good position. IMPRESSION AND PLAN: Pancreatic cancer Status post Whipple surgery Gastroparesis A-Fib Peg tube PLAN: Patient is able to tolerate his GI soft diet well, he is on clinamix and lipids per primary care team. We will continue with GI prophylaxis, antiemetics. Continue with the antibiotics per primary care team. Peg tube draining by gravity. His hemoglobin and hematocrit today was 9.9 and 30.7. We will continue to follow the plan of care of the primary team, monitor patients CBC and BMP. This plan was discussed with Dr. Rockwell and the patient, patient acknowledges understanding of the plan of care. Please call us with further questions or concerns. Dictated by KORINA Fontenot for Joaquin Rockwell MD cc: MD Oziel Ma MD I have seen the patient myself and agree with the above plan of care. Please call us with any further questions or concerns. MTDD
[2019-03-01] MEDS ORDERED: LOPRESSOR IV PRN (14:30)
[2019-03-01] MEDS: LIPOSYN 20% 250 ML IV SCH (15:34)
--- NOTE | 2019-03-01 19:27 | PROGRESS NOTE ---
DATE: 03/01/2019 SUBJECTIVE: The patient is doing much better. Minimal drainage, less than 50 from gastrostomy tube. Tolerating the diet very well using the port and passing gas and had good bowel movements. Family was at bedside. OBJECTIVE: She is still in atrial fibrillation. Vitals are stable. Belly is soft. Decreased bowel sounds. Condom catheter was placed. INVESTIGATIONS: White cell count 12, hematocrit 30, platelets 393,000. Sodium 137, potassium 3.8, chloride 105, BUN 13, creatinine 0.7, glucose 160. LFTs were normal. Urine cultures were negative. Blood cultures: Enterobacter. ASSESSMENT AND PLAN: 1. Chronic atrial fibrillation. Once he tolerates, we will change the medicines by mouth. Continue on Cardizem drip and Lovenox. 2. Pancreatic cancer status post Whipple. Gastroparesis improving. 3. Slowly advance the diet. 4. Aspiration pneumonia is better. Continue present IV antibiotics, and we will use the port since the edema on the right arm, and if he continues to improve, we will transfer to the stepdown unit tomorrow. LEVEL OF DOCUMENTATION: 25 minutes. cc: Oziel Riley MD
--- NOTE | 2019-03-01 19:37 | CARDIOLOGY PROGRESS NOTE ---
DATE: 03/01/2019 SUBJECTIVE: The patient seems to be doing well. He has no palpitations. He has tolerating oral intake. PHYSICAL EXAMINATION: Vital signs: The patient is afebrile. His heart rates are in the 70s to 90s. His blood pressure is 125/66. General: He is in no acute distress. Cardiovascular: He sounds to be in a regular rate and rhythm. He has no obvious murmurs. He has no S3. Extremities: He has no lower extremity edema. Chest: Sounds clear bilaterally. No increased work of breathing. PERTINENT DATA: His sodium 137, potassium 3.8, BUN 13, creatinine 0.7. His white count was 12, hematocrit 30.7. ASSESSMENT: Mr. Summers is a 73-year-old gentleman who presents subsequently following a Whipple. PLAN: We will discontinue the IV Cardizem and place him on oral medications. We will have p.r.n. Lopressor ordered for breakthrough. For now we will continue him on the subcutaneous Lovenox. cc: MD Oziel Tomlin MD
[2019-03-01] MEDS: CARDIZEM PO SCH (20:07)
[2019-03-01] MEDS: DULCOLAX PR SCH ×2 (20:07→20:12)
--- NOTE | 2019-03-01 21:09 | PULMONOLOGY PROGRESS NOTE ---
DATE: 03/01/2019 SUBJECTIVE: The patient is awake and alert. He denies shortness of breath. He has a relatively dry cough. He is tolerating some p.o. intake. He denies emesis. OBJECTIVE: Vital Signs: The patient has been afebrile for the last 24 hours. Blood pressure 128/61, heart rate 83, respiratory rate 19, oxygen saturation 97% on 2 L per nasal cannula. HEENT: Pupils are equal and reactive. Oropharynx appears clear. Neck: Is supple. Chest: Reveals occasional crackles at the right base. Cardiac exam: S1-S2. Abdomen: Is soft. Extremities: Are without edema. LABORATORIES: There is stable increased markings in the right perihilar region without significant change compared to yesterday. IMPRESSION: A 73-year-old, status post pancreaticoduodenectomy with 1. Aspiration pneumonia. 2. Hypoxemic respiratory failure. 3. Protein-calorie malnutrition. DISCUSSION: Overall patient continues to clinically improved. PLAN: 1. Continue bronchial hygiene. 2. Continue antibiotics. 3. Cautious p.o. intake. cc: MD Oziel Cardona MD
[2019-03-02] MEDS: CLINIMIX E 4.25%-5% SOLUTION 1,000 ML IV SCH ×2 (02:34→12:37)
[2019-03-02] MEDS: CARDIZEM PO SCH ×4 (02:41→20:25)
[2019-03-02] MEDS: REGLAN IV SCH ×4 (02:41→20:25)
[2019-03-02] MEDS: HUMULIN R SUBQ SCH ×7 (02:41→23:48)
[2019-03-02] MEDS: ZOSYN 3.375 GM in NS 50 ML IV SCH ×4 (04:07→22:47)
[2019-03-02] MEDS: LOVENOX SUBQ SCH ×2 (04:07→16:24)
[2019-03-02 07:04] LABS: HEMATOCRIT 29.7 % (42.0-52.0); HEMOGLOBIN 9.4 g/dL (14.0-18.0); MCH 33.8 PG (27-31); MCHC 31.6 g/dL (33-37); MCV 106.8 FL (81-99); MPV 9.8 FL (7.4-10.4); RBC 2.78 XMIL (4.7-6.1); RDW 14.9 % (11.5-14.5); WBC 13.6 X1000 (4.8-10.8)
[2019-03-02 07:08] LABS: AGAP 14; ALB/GLOB RATIO 0.5; ALBUMIN 2.5 g/dL (3.5-5.0); ALKALINE PHOSPHATASE 143 U/L (32-122); BUN 13 mg/dL (8-22); CALCIUM 8.3 mg/dL (8.8-10.2); CHLORIDE 106 mmol/L (98-107); COSMO 277; CREATININE 0.7 mg/dL (0.7-1.2); ESTIMATED GFR > 60; GLUCOSE 151 mg/dL (70-104); GOT 14 U/L (10-34); GPT 20 U/L (10-44); POTASSIUM 3.8 mmol/L (3.5-5.1); SODIUM 137 mmol/L (136-145); TCO2 17 mmol/L (25-35); TOTAL PROTEIN 7.1 g/dL (6.3-8.3)
--- NOTE | 2019-03-02 07:21 | Diag Imaging Result Doc PS360 ---
EXAM: CHEST-1 VIEW 03/02/2019 HISTORY: SOB TECHNIQUE: AP portable at 0532 COMMENT: There is alveolar opacity in the parahilar region of the right lung. This was also present on 03/01/2019. The inspiration is generally less optimal than on the previous study and the opacities are slightly worse in appearance. IMPRESSION: Right bronchopneumonia. Electronically signed by Lorenzo Concepcion 03/02/2019 7:19 AM
[2019-03-02] MEDS: SODIUM CHLORIDE 0.9% INJ SCH (08:22)
[2019-03-02] MEDS: PROTONIX IV SCH (08:22)
[2019-03-02] MEDS: LIPOSYN 20% 250 ML IV SCH (14:20)
[2019-03-02] MEDS: VANCOMYCIN 1,600 MG in NS 250 ML IV SCH (14:20)
--- NOTE | 2019-03-02 14:56 | GASTROENTEROLOGY PROGRESS NOTE ---
DATE: 03/02/2019 SUBJECTIVE: Patient was resting in bed. Family at the bedside, denied any nausea or vomiting, had one bowel movement today, and denied blood in the stools. He stated that he was tolerating his GI soft diet well. He was looking forward to do his exercises with the physical therapy team and was ready to go to the rehab. OBJECTIVE: Vital Signs: Temperature 98 degrees, pulse of 95, respirations of 20, blood pressure 124/68, oxygen saturation is 96% on room air. General: The patient is alert, oriented x3, and in no acute distress. The patient's weight is 157.5 pounds. BMI is 22.7 kg/m2. HEENT: Pale conjunctivae. No icterus. PERRL. Neck: Supple. Cardiovascular: Irregular rate and rhythm. No murmurs, rubs, or gallops heard on auscultation. Abdomen: Soft, nontender, nondistended. Has a PEG tube in the left lower quadrant. Active bowel sounds heard in all 4 quadrants. Extremities: No cyanosis, clubbing, but generalized edema noted in the upper extremities bilaterally. Pedal pulses 2+ present bilaterally. Neurological: Alert and oriented x3. IMAGING: Chest x-ray showed right bronchopneumonia. LABORATORY DATA: WBCs 13.60, RBCs 2.78, hemoglobin 9.4, hematocrit 29.7, platelet count is 391,000. Blood gases: PH is 7.53, pCO2 is 23, PO2 is 150, HC03 is 23.1. Sodium is 137, potassium is 3.8, chloride 106, carbon dioxide is 7, anion gap is 14, BUN is 13, creatinine is 0.7, glucose is 134, calcium is 8.3. Total bilirubin is 0.40, AST is 14, ALT is 20, alkaline phosphate is 143, and albumin is 2.4. IMPRESSION AND PLAN: Pancreatic cancer Status post Whipple surgery Gastroparesis Atrial fibrillation PEG tube PLAN: Patient is tolerating his diet well, he is still on intravenous fluids, Clinimix, and lipids as per his primary care team. Plan to continue GI prophylaxis PPI for 3 months for his gastroparesis, antiemetics, and antibiotics per PCP. PEG tube is draining by gravity. His hemoglobin today is 9.4, and hematocrit is 29.7, we will continue to monitor his CBC and BMP, and follow the plan of care per his PCP. This plan was discussed with Dr. Rader, patient and the family. The patient acknowledges understanding of the plan of care. Please call us with any further questions or concerns. Dictated by KORINA Fontenot for Charly Rader MD cc: Oziel Riley MD PHYSICIAN ATTESTATION: I have seen and examined the patient. I have discussed and reviewed the the note by Sharon HUI and agree with findings and plan as documented. In brief, Mr. Summers is a 73-year-old man who recently underwent Whipple surgery for pancreatic cancer admitted with intractable nausea, vomiting and high J-tube output after GEJ tube was dislodged. He has been treated for gastroparesis, AFIB, bacteremia, anemia, and pneumonia. GEJ was found coiled in his stomach and could not be advanced into his stomach. Therefore GEJ was replaced with a 24Fr PEG tube via EGD on 02/26. Since then, he has had significant improvement in symptoms. He is tolerating regular diet and having bowel movements without significant abdominal pain. No N/V/F, CP, rectal bleeding or SOB. He should continue PPI once daily and antiemetics prn. PEG should remain in place for at least 30 days to allow tract to mature before removal. Further post-operative recommendations as per surgical team. Will sign off. Please call with questions. MTDD
[2019-03-02] MEDS: DULCOLAX PR SCH (20:38)
--- NOTE | 2019-03-02 21:54 | GENERAL SURGERY PROGRESS NOTE ---
DATE: 03/02/2019 SUBJECTIVE: The patient is doing well. He denies abdominal pain, nausea, or vomiting. He is eating some and has had several bowel movements. OBJECTIVE: Vital Signs: He is afebrile. Vital signs are stable, although his heart rate has increased some into the low 100s. O2 saturation 99%. Urine output 2625 mL. Gastrointestinal: Soft, nontender, and nondistended. LABORATORY: White blood cell count 13, hemoglobin 9.4, hematocrit 29. Electrolytes reviewed and unremarkable. IMAGING: His chest x-ray shows right bronchopneumonia. ASSESSMENT AND PLAN: A 73-year-old male status post Whipple for pancreatic cancer, with postoperative delayed gastric emptying, atrial fibrillation, gastrostomy displacement, gram- negative bacteremia, and pneumonia. His gastrointestinal function appears to be improving. We are advancing his diet and keeping his gastrostomy tube clamped for now. Hopefully, we can wean him off the Clinimix soon. cc: MD Oziel Bingham MD
--- NOTE | 2019-03-03 00:49 | PROGRESS NOTE ---
DATE: 03/02/2019 SUBJECTIVE: The patient is improving, tolerating the diet very well. He has been in good spirits. Mental confusion is better. PHYSICAL EXAMINATION: Vital signs: Temperature is 99 degrees. Vitals are stable. HEENT: Within normal limits. Neck: Supple. Extremities: Right arm edema is improving. Chest: Bilateral air entry. Heart: Sounds are regular. Abdomen: Belly is soft, nontender. [place] were removed. Condom catheter was seen. INVESTIGATIONS: CBC: White cell count 13.6, hematocrit 29.7, platelets 391,000. Sodium 137, potassium 3.8, chloride 107, BUN 13, creatinine 0.7. Glucose 140, calcium 8.3. ASSESSMENT AND PLAN: 1. Gastroparesis, improving, status post gastrostomy tube. Advance the diet slowly. Wean off Lovenox, Cardizem, and TPN. Continue IV Reglan. 2. Aspiration pneumonia with Enterobacter, on vancomycin and Zosyn. Chest x-ray is improving. If he continues to improve we will transfer to the step-down tomorrow. LEVEL OF DOCUMENTATION: 25 minutes. cc: Oziel Riley MD
[2019-03-03] MEDS: CARDIZEM PO SCH ×2 (02:28→08:20)
[2019-03-03] MEDS: REGLAN IV SCH ×2 (02:28→08:20)
[2019-03-03] MEDS: CLINIMIX E 4.25%-5% SOLUTION 1,000 ML IV SCH ×3 (03:07→16:10)
[2019-03-03] MEDS: LOVENOX SUBQ SCH (04:05)
[2019-03-03] MEDS: ZOSYN 3.375 GM in NS 50 ML IV SCH ×3 (04:05→17:12)
[2019-03-03] MEDS: HUMULIN R SUBQ SCH ×4 (04:07→17:32)
--- NOTE | 2019-03-03 04:46 | PULMONOLOGY PROGRESS NOTE ---
DATE: 03/02/2019 SUBJECTIVE: The patient is awake and alert. He slept poorly last night, but otherwise is doing well. He is being mobilized with some assistance by Physical Therapy. OBJECTIVE: Vital Signs: The patient has been afebrile for the last 24 hours. Blood pressure is 135/63, heart rate is 104, respiratory rate is 23, oxygen saturation is 96% on room air. HEENT: Pupils are equal and reactive. Oropharynx appears clear. Neck: Supple. Abdomen: Soft with good bowel sounds. Extremities: Without edema. LABORATORY DATA: Chest x-ray reveals some persistent infiltrate in the right mid lung zone. White blood count is 13.6, hemoglobin is 9.4, platelet count is 391,000. Sodium is 137, potassium is 3.8, chloride is 106, bicarbonate is 17, BUN is 13, creatinine is 0.7. IMPRESSION: This is a 73-year-old status post pancreaticoduodenectomy for pancreatic cancer with: 1. Aspiration pneumonia. 2. Protein calorie malnutrition. 3. Weakness and generalized deconditioning. 4. The patient had hypoxemic respiratory failure, but this has resolved. PLAN: 1. Continue antibiotics. 2. Continue bronchial hygiene. 3. P.o. intake as tolerated. 4. Continue physical therapy. cc: MD Oziel Cardona MD
[2019-03-03] MEDS: VANCOMYCIN 1,600 MG in NS 250 ML IV SCH (08:21)
[2019-03-03] MEDS: PROTONIX IV SCH (08:21)
--- NOTE | 2019-03-03 15:12 | PULMONOLOGY PROGRESS NOTE ---
DATE: 03/03/2019 SUBJECTIVE: Patient is awake, alert, and conversant. He is tolerating some p.o. intake. He is without specific complaints. OBJECTIVE: Vital Signs: Patient has been afebrile for the last 24 hours. Blood pressure 132/59, heart rate 76, respiratory rate 27, oxygen saturation 98% on room air. HEENT: Pupils are equal and reactive. Oropharynx appears clear. Neck: Supple. Chest: Reveals good air entry bilaterally. Cardiac: S1, S2. Abdomen: Soft with good bowel sounds. Extremities: Without edema. LABORATORIES: No new chemistries or CBC today. IMPRESSION: A 73-year-old with: 1. Aspiration pneumonia. 2. Protein calorie malnutrition. 3. Generalized deconditioning. 4. Status post pancreaticoduodenectomy for pancreatic cancer. PLAN: 1. Anticipate transfer to the floor today. 2. Continue antibiotics. 3. Continue bronchial hygiene. 4. Follow up chest x-ray tomorrow as he will be [*]. cc: MD Oziel Cardona MD
[2019-03-03] MEDS ORDERED: XARELTO PO SCH (17:00)
--- NOTE | 2019-03-03 18:20 | GENERAL SURGERY PROGRESS NOTE ---
DATE: 03/03/2019 SUBJECTIVE: The patient denies abdominal pain, nausea, or vomiting. He continues to have bowel function. He is not requiring G-tube drainage. He is eating some. OBJECTIVE: Vital Signs: He is afebrile. Vital signs are stable. General: He is awake, alert, no acute distress. Gastrointestinal: Soft, nontender, nondistended. Incision healing well. ASSESSMENT AND PLAN: A 73-year-old male status post Whipple with delayed gastric emptying. This is much improved. We will continue to keep his G-tube clamped and flushed periodically. He can eat as tolerated and wean off the Clinimix as tolerated. cc: MD Oziel Bingham MD
--- NOTE | 2019-03-03 22:53 | PROGRESS NOTE ---
DATE: 03/03/2019 SUBJECTIVE: Patient is now taking a regular diet. He denies any chest discomfort or shortness of breath. He continues in atrial fibrillation with mildly elevated heart rate. OBJECTIVE: Blood pressure 126/57, heart rate 73 and irregular, oxygen saturation 99%. There is no significant jugular venous distention.Chest: Clear to auscultation bilaterally. Cardiac Exam: Reveals an irregular rate and rhythm without appreciable murmur or gallop. Extremities: There is no evidence of peripheral edema. LABORATORY DATA: Includes a white blood cell count 13.6, hematocrit 29.7, hemoglobin 9.4, platelet count 391,000. Sodium 137, potassium 3.8, chloride 106, BUN 13, carbon dioxide 17, creatinine 0.7. Glucose 151, albumin 2.5. IMPRESSION: 1. Persistent atrial fibrillation. Patient apparently developed atrial fibrillation prior to being discharged from [facility] and has no history of prior atrial fibrillation. He apparently has postoperative atrial fibrillation that is persistent. 2. Status post Whipple procedure and removal of pancreatic mass which proved to be malignant. Patient has had postoperative ileus which has now improved. 3. Recent suspected right-sided pneumonia. 4. Type 2 diabetes mellitus. 5. Gastroesophageal reflux disease with Schatzki's ring. RECOMMENDATIONS: 1. Continue to manage with rate control and anticoagulation as tolerated. 2. Add amiodarone 200 mg p.o. b.i.d. with intent to reduce dose to 200 mg daily at discharge and ultimately pursue cardioversion if atrial fibrillation persists after 1 month. 3. Transition subcutaneous Lovenox to Eliquis. 4. Resume Creon. cc: MD Oziel Burdick MD
[2019-03-04] MEDS: ZOSYN 3.375 GM in NS 50 ML IV SCH ×2 (00:03→05:09)
[2019-03-04] MEDS: HUMULIN R SUBQ SCH ×4 (00:06→08:39)
[2019-03-04] MEDS: DULCOLAX PR SCH (00:06)
[2019-03-04] MEDS: CORDARONE PO SCH ×2 (00:10→08:38)
--- NOTE | 2019-03-04 03:37 | PROGRESS NOTE ---
DATE: 03/03/2019 SUBJECTIVE: The patient is doing extremely well. He has been tolerating a diet very well. No nausea, no vomiting. Had good bowel movements. No chest pain, shortness of breath. He is anxious to get out of the ICU. PHYSICAL EXAMINATION: Vital signs: Temperature is 97 degrees, pulse 73. Vitals are stable. HEENT: Within normal limits. Neck: Supple. Chest: Bilateral air entry. Cardiovascular: Regular heart sounds. Abdomen: Belly is soft, nontender. [place] were taken out. Neurologic: No obvious deficits. INVESTIGATIONS: None reported. ASSESSMENT AND PLAN: 1. Atrial fibrillation, rate control. Started on Eliquis 5 mg p.o. b.i.d., Cordarone 200 p.o. b.i.d. 2. Slowly wean off Clinimix. 3. History of pancreatic cancer status post Whipple procedure, on Creon. 4. Enterobacter infection, on IV Zosyn. 5. Continue IV Reglan and Protonix, and transfer to the regular floor. Please see the order sheets. 6. Will discharge to the rehab tomorrow. LEVEL OF DOCUMENTATION: 25 minutes. cc: Oziel Riley MD
--- NOTE | 2019-03-04 03:41 | DISCHARGE SUMMARY ---
ADMISSION DATE: 02/21/2019 DISCHARGE DATE: 03/04/2019 DISCHARGING DIAGNOSES: 1. Acute respiratory failure due to aspiration pneumonia. 2. Gram-negative sepsis with Enterobacter aerogenes. 3. Altered mental status due to delirium due to metabolic encephalopathy. 4. Chronic atrial fibrillation. 5. Gastroparesis from recent Whipple surgery. 6. History of kidney stones. 7. Pancreatic cancer, three lymph nodes positive, status post Whipple procedure by Dr. Langley at [facility]. 8. Type 2 diabetes. 9. Osteoarthritis. 10. Acid reflux disease. 11. Incisional hernia on the right side of the abdomen. 12. Reactive depression. 13. Obstructive sleep apnea, on CPAP machine. 14.Right Foot drop on AFO CONSULTS: 1. Dr. Lares. 2. Dr. Galvin. 3. Dr. Francisco Espinosa, Cardiology. 4. Dr. Rader. PROCEDURES: 1. Peripherally inserted central catheter line on the right side. 2. History of port on the left side of the chest. 3. Esophagogastroduodenoscopy findings are anastomotic ulcers, no signs of bleeding noted. Unable to position the jejunostomy tube. 4. Replacement of double-barrel gastrojejunostomy tube with gastrostomy tube. BRIEF HISTORY: Please see the H P that was done by . In brief, he is a 73-year-old, white male, recently had Whipple procedure for pancreatic malignancy, had approximately 3 lymph nodes positive, followed by Port-A-Cath on the left side, and also gastrostomy and jejunostomy tube. Stayed at [facility], sent to rehab in [place]. Unfortunately, the GJ tube inadvertently became loose in rehab, and was seen in the ER on Friday by Dr. Galvin. He pushed back with the stitches and sent back to rehab. Since then, patient developed abdominal distention, nausea, vomiting, with aspiration pneumonia, and brought back to hospital. The patient was admitted in ICU, seen by Dr. Lares. I am going to summarize his problems as follows: 1. Intermittent mental confusion due to delirium due to metabolic encephalopathy, requiring Ativan as needed. 2. The patient developed extensive infiltrate in the right side of the lung. He had a prior CT of the chest, the abdomen, and pelvis done in the ER. Dr. Lares was consulted. The patient was started on IV vancomycin and Zosyn. He was requiring CPAP machine as needed. The patient maintained good oxygenation. He was placed on NPO, except ice chips. 3. Cardiac. He was in rapid atrial fibrillation. The patient was placed on IV Cardizem drip and Lovenox 70 mg subcutaneous q.12. Followup thyroid function tests and cardiac enzymes were negative. He did not have any significant chest pain. Echocardiography findings, ejection fraction 66%. Dr. Espinosa recommended to continue on rate control and Eliquis for stroke prevention. 4. The patient has persistent ileus, most likely postoperative, for which Dr. Galvin was consulted. The patient had a barium swallow with small bowel follow-through. No evidence of obstruction noted. EGD was done by Dr. Rader. Unfortunately, the jejunostomy tube is not in the afferent limb of the jejunum. It is protruding towards the stomach. He was unable to pass the jejunostomy to push it down, and Dr. Galvin and Dr. Rader took out the double-barrel GJ tube and simply placed a gastrostomy tube. The patient was given IV Reglan for ileus and Dulcolax, and slowly bile was getting less and less. 5. [place] were taken out. No signs of wound infection noted. 6. He started tolerating the diet very well. In the meantime, he was given IV TPN through the Port-A-Cath since he pulled the PICC line out. 7. Blood cultures are positive for Enterobacter for which he was given appropriate antibiotics with IV Zosyn and vancomycin. It is also sensitive to Levaquin . As he is tolerating the diet, we switched all of the IV medicines to p.o. He was able to walk to the bathroom. He was transferred out to the ICU in a stable condition. 8. Imaging studies as follows: Chest x-ray: Improving. 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 9. At the time of discharge, patient is stable. We will initiate vaccination protocol, flu and pneumonia prior to discharge. DISCHARGE INSTRUCTIONS: As follows: Wellbutrin 150 daily, Prilosec 20 mg daily, multivitamin 1 tablet daily, metformin 500 once daily, discontinue Pravachol, Megace 40 p.o. b.i.d., Creon capsule 2 tablets t.i.d., Reglan 10 t.i.d., discontinue Singulair, discontinue Percocet, Dulcolax as needed, Cordarone 200 p.o. b.i.d., Eliquis 5 mg p.o. b.i.d., Levaquin 500 daily for about 10 days. PLAN: The G-tube one flush as needed. Rehab in [place]. Follow up in our office, with other specialties, and also Dr. Langley at [facility]. cc: MD Sonido Davis MD William D. Denney, MD Jason R. Seale, MD Michael Kelso, MD MTDD
[2019-03-04] MEDS: CLINIMIX E 4.25%-5% SOLUTION 1,000 ML IV SCH (05:10)
[2019-03-04 07:34] VITALS: BP 124/75
[2019-03-04] MEDS ORDERED: CREON PO SCH (08:00)
[2019-03-04] MEDS ORDERED: PREVNAR 13 IM ONE (08:00)
[2019-03-04] MEDS: SODIUM CHLORIDE 0.9% INJ SCH (08:38)
[2019-03-04] MEDS: PROTONIX IV SCH (08:38)
[2019-03-04] MEDS ORDERED: ELIQUIS PO SCH (09:00)
[2019-03-04] MEDS ORDERED: BACTROBAN CREAM TOP ONE (09:34)
--- NOTE | 2019-03-04 10:21 | Diag Imaging Result Doc PS360 ---
EXAM: CHEST-PORTABLE HISTORY: abnormal exam TECHNIQUE: Portable chest COMPARISON: 03/02/2019 FINDINGS: The lungs are well expanded. The heart is not enlarged. The vessels are not distended. There are decreased infiltrates in the right lung. No effusion identified. No change in the left portacatheter. IMPRESSION: Interval improvement Electronically signed by Federico Holm 03/04/2019 10:19 AM
--- NOTE | 2019-03-04 14:16 | GASTROENTEROLOGY PROGRESS NOTE ---
DATE: 03/04/2019 SUBJECTIVE: Mr. Summers is a 73-year-old male. He is resting in bed, at the bedside, excited that he is getting to go to the rehab. He has denied nausea, vomiting, diarrhea or abdominal pain. OBJECTIVE: Vital Signs: Temperature is 97.7 degrees, pulse is 122, respirations 20, blood pressure is 124/75, oxygen saturation 98% on room air. General: He is alert, oriented x3, and in no acute distress. HEENT: Pale conjunctivae. No icterus. Neck: Supple. Lungs: Clear to auscultation, anterior and posterior. Cardiac: Irregular heart rate. No abnormal murmurs, rubs, or gallops heard on auscultation. Abdomen: Soft, nontender, nondistended. PEG tube on the left lower quadrant and surgical scars post Whipple surgery, dry and intact. Extremities: No clubbing, cyanosis, or edema noted. There are 2+ pedal pulses present bilaterally. Neurologic: Alert, oriented x3. LABS: WBC is 13.60, RBC is 2.78, hemoglobin is 9.4, hematocrit is 29.7, platelet count is 391. Coagulation: PT is 114.5, INR is 1.1. Blood gases: A pH is 7.53, pCO2 is 23, PO2 is 158, HCO3 is 23. Sodium is 137, potassium 3.8, chloride is 106, carbon dioxide is 17, anion gap is 14. BUN is 13, creatinine is 0.7. Urine culture showed no growth. Blood cultures on 02/20 showed Gram stain. Gram stain was gram-negative, rods present. IMAGING: Chest x-ray showed interval improvement. IMPRESSION: 1. Pancreatic cancer status post Whipple surgery. 2. Gastroparesis 3. Atrial fibrillation 4. Status post PEG tube. 4. Anemia. 5. Malnutrition. PLAN: The patient is tolerating his diet well. He is getting discharged and will be leaving for the rehab facility. We will continue the patient's GI prophylaxis. PPIs for 6 to 8 weeks. This plan was discussed with Dr. Rockwell. Start Bowel regimen if getting constipated. Please call us for any further questions or concerns. Continue to follow with Dr Jonny Alcazar for follow up care. Please call us if there are any problems with the feeding tube. Most likely we will be able to remove the tube in 4 weeks if continues to tolerate diet and medications orally. Dictated by KORINA Fontenot for Joqauin Rockwell MD cc: MD Oziel Ma MD Patient seen and examined myself. I agree with the above plan of care. I have discussed the above with the patient and his at bedside and all questions were answered. Please call us with any further questions. MTDD
[2019-03-04] MEDS ORDERED: XARELTO PO SCH (17:00)
== END 2019-03-04 11:00 | DRG 871 ==
LOC: SUPCPDRO → ED 22:38 → ICU 02-21 03:23 → SUATTDRO 02-21 03:23 → ICU 02-21 04:20 → 4N 03-03 09:56
PROVIDERS: ADMIT Internal Medicine; ATTEND Internal Medicine

== ENCOUNTER 2019-03-06 16:43 | Inpatient (IN) ==
[2019-03-06] MEDS ORDERED: ZOFRAN IV ONE (17:07)
[2019-03-06] MEDS ORDERED: ASPIRIN PO ONE (17:07)
[2019-03-06] MEDS ORDERED: NS 1,000 ML IV ONE (17:09)
--- NOTE | 2019-03-06 17:09 | PROVIDER DOCUMENTATION ---
HPI-Chest Pain - General Chief Complaint: Chest Pain Stated Complaint: sob Time Seen by Provider: 03/06/19 16:51 Source: patient Allergies/Adverse Reactions: Patient Allergies Allergy/AdvReac Type Severity Reaction Status Date / Time Iodinated Contrast Media Allergy Unknown Verified 02/21/19 00:11 [Iodinated Contrast- Oral and IV Dye] Home Medications: Home Medication List Medication Instructions Recorded Confirmed Last Taken Type Bupropion [Wellbutrin] 150 mg PO DAILY 01/25/13 02/19/19 08/15/16 05:00 History Omeprazole 20 mg PO DAILY 01/25/13 02/19/19 08/15/16 05:00 History Multivitamin [Multivitamins] 1 cap PO DAILY 08/15/16 02/19/19 08/15/16 05:00 History Metformin [Glucophage] 500 mg PO BID 09/14/18 02/19/19 Unknown History Lipase/Protease/Amylase [Creon Dr 2 tab PO TID 02/19/19 02/19/19 Unknown History 36,000 Units Capsule] Megestrol Acetate 40 mg PO BID 02/19/19 02/19/19 Unknown History Metoclopramide [Reglan] 10 mg PO TID 02/19/19 02/19/19 1 Day Ago History ~02/18/19 Amiodarone [Cordarone] 200 mg PO BID tab 03/03/19 Unknown Rx Apixaban [Eliquis] 5 mg PO BID tab 03/03/19 Unknown Rx Bisacodyl [Dulcolax] 10 mg AR QHS supp 03/03/19 Unknown Rx Levofloxacin [Levaquin] 500 mg PO DAILY #10 tab 03/03/19 Unknown Rx - History of Present Illness-CP Nature of Presenting Problem: 73 yr old M, hx of pancreatic cancer s/p Whipple procedure, with new dx of atrial fibrillation, presents after sudden onset central sharp chest pain that radiated into the back and lasted for about 20 minutes, with associated shortness of breath and nausea. The pt states it resolved and has not recurred since, but because of his recent surgery earlier this week, he was brought to the ED for further evaluation. The pt, and his and daughter at bedside, noted that he had one episode of emesis, that occurred BEFORE the pain started. He has not had any since. Location: reports: central Chest Pain Radiation: reports: back Quality of Pain: reports: sharp, stabbing Severity in ED: moderate Onset/Duration: 1 hour ago Timing: gone now Context/Activities at Onset: reports: light activity Associated Symptoms: reports: vomiting (before onset of pain) Aspirin Treatment Today: 325 mg x 1, provided by ED Similar Symptoms Previously?: No Recently Seen Here or By Another Healthcare Provider: Yes (recent discharge after Whipple) Review of Systems - Adult - REVIEW OF SYSTEMS - ADULT Constitutional: reports: no symptoms reported Eyes: reports: no symptoms reported Ears, Nose, Mouth & Throat: reports: no symptoms reported Cardiovascular: reports: chest pain Respiratory: reports: shortness of breath Gastrointestinal: reports: vomiting Genitourinary: reports: no symptoms reported Musculoskeletal: reports: no symptoms reported Integumentary: reports: no symptoms reported Past History - Adult - PAST MEDICAL HISTORY-ADULT Review of Records: reports: Nursing Assessment Review Major Childhood Illnesses: reports: denies history Cardiovascular: reports: A-Fib (new onset), hyperlipidemia Respiratory: reports: denies history Gastrointestinal: reports: cancer (pancreatic cancer), GERD Obstetrical/Gynecological: reports: denies history Genitourinary: reports: denies history Musculoskeletal: reports: denies history Neurological: reports: denies history Endocrine/Immune: reports: denies history Other Conditions: reports: denies history - PRIOR SURGERIES/PROCEDURES Surgical/Procedure History: reports: appendectomy, cholecystectomy, hernia repair, other (colon post due to rupture) - IMMUNIZATION STATUS Childhood Immunizations: See Nurse Assessment Flu Vaccine: See Nurse Assessment - FAMILY HISTORY Family History: reviewed, not pertinent Physical Exam-General - PHYSICAL EXAM-ADULT Initial Vital Signs Reviewed: Yes - CONSTITUTIONAL General Appearance: appears well, alert, no apparent distress - EYES Eyes: PERRL/EOMI - HEAD, EARS, NOSE, MOUTH & THROAT HENMT: normocephalic/atraumatic, moist mucous membranes - RESPIRATORY Respiratory: lungs clear, normal breath sounds - CARDIOVASCULAR Cardiovascular: regular rate, rhythm - GASTROINTESTINAL (ABDOMEN) Abdominal Exam: normal bowel sounds, non tender, soft, other (peg tube in place in left upper quadrant, draining yellowish-greenish fluid) - SKIN Integumentary: warm/dry - NEUROLOGIC Neurologic: grossly normal - PSYCHIATRIC Psych/Mental Status: normal mood/affect, oriented x 3 - HEART Score HEART Score: History: Moderately Suspicious HEART Score: ECG: Non-Specific Repolarization Disturbance/LBBB/PM HEART Score: Age: > or = 65 Years HEART Score: Risk Factors for Atherosclerotic Disease: 1 or 2 Risk Factors HEART Score: Troponin: < or = Normal Limit Total HEART Score:: 5 Progress - PLAN OF CARE/RESULTS Progress/Plan/Lab Results: Vital Signs - 8 hr 03/06/19 16:44 Temperature 98.5 F Pulse Rate 130 H Respiratory Rate 23 Blood Pressure 123/71 O2 Sat by Pulse Oximetry 100 Laboratory Results - last 24 hr 03/06/19 03/06/19 03/06/19 18:28 18:28 18:28 WBC 10.93 H RBC 3.08 L Hgb 9.8 L Hct 32.1 L MCV 104.2 H MCH 31.8 H MCHC 30.5 L RDW Std Deviation 14.7 H Plt Count 423 H MPV 9.2 Immature Gran % (Auto) 0.4 Neut % (Auto) 69.2 Lymph % (Auto) 17.8 L Carson % (Auto) 8.6 Eos % (Auto) 3.4 Baso % (Auto) 0.6 Immature Gran # (Auto) 0.04 Neut # (Auto) 7.56 H Lymph # (Auto) 1.95 Carson # (Auto) 0.94 H Eos # (Auto) 0.37 Baso # (Auto) 0.07 PT INR PTT (Actin FS) D-Dimer, Quantitative Sodium 136 Potassium 3.5 Chloride 103 Carbon Dioxide 21 L Anion Gap 12 BUN 13 Creatinine 0.8 Estimated GFR/1.73 m2 > 60 BUN/Creatinine Ratio 16 Glucose 100 Calculated Osmolality 272 Calcium 9.0 Magnesium Total Bilirubin 0.36 AST 23 ALT 23 Alkaline Phosphatase 128 H Creatine Kinase Troponin T Total Protein 7.4 Albumin 3.2 L Globulin 4.2 Albumin/Globulin Ratio 0.8 Plasma Lactate 2.3 H 03/06/19 03/06/19 03/06/19 18:28 18:28 21:19 WBC RBC Hgb Hct MCV MCH MCHC RDW Std Deviation Plt Count MPV Immature Gran % (Auto) Neut % (Auto) Lymph % (Auto) Carson % (Auto) Eos % (Auto) Baso % (Auto) Immature Gran # (Auto) Neut # (Auto) Lymph # (Auto) Carson # (Auto) Eos # (Auto) Baso # (Auto) PT 21.2 H INR 1.79 PTT (Actin FS) 35.7 D-Dimer, Quantitative 1.02 H Sodium Potassium Chloride Carbon Dioxide Anion Gap BUN Creatinine Estimated GFR/1.73 m2 BUN/Creatinine Ratio Glucose Calculated Osmolality Calcium Magnesium Total Bilirubin AST ALT Alkaline Phosphatase Creatine Kinase Troponin T < 0.010 Total Protein Albumin Globulin Albumin/Globulin Ratio Plasma Lactate 1.9 03/06/19 21:20 WBC RBC Hgb Hct MCV MCH MCHC RDW Std Deviation Plt Count MPV Immature Gran % (Auto) Neut % (Auto) Lymph % (Auto) Carson % (Auto) Eos % (Auto) Baso % (Auto) Immature Gran # (Auto) Neut # (Auto) Lymph # (Auto) Carson # (Auto) Eos # (Auto) Baso # (Auto) PT INR PTT (Actin FS) D-Dimer, Quantitative Sodium Potassium Chloride Carbon Dioxide Anion Gap BUN Creatinine Estimated GFR/1.73 m2 BUN/Creatinine Ratio Glucose Calculated Osmolality Calcium Magnesium 1.7 Total Bilirubin AST ALT Alkaline Phosphatase Creatine Kinase 67 Troponin T Total Protein Albumin Globulin Albumin/Globulin Ratio Plasma Lactate Orders Category Date Time Status [facility] Communication Order DIRECTED Care 03/06/19 17:11 Active Monitor Blood Pressure ORDERED Care 03/06/19 17:08 Active CHEST-2 VIEWS [RAD] Stat Exams 03/06/19 17:10 Completed CTA [CT ANGIOGRM PULMONARY ARTERIES] [CT] Stat Exams 03/06/19 19:07 Completed BLOOD CULTURE [BLDCUL] Stat Lab 03/06/19 21:47 Results CBC WITH ELECTRONIC DIFF [HEME] Stat Lab 03/06/19 18:28 Completed CK PROFILE [SP CHEM] Stat Lab 03/06/19 21:20 Completed COMPREHENSIVE METABOLIC PANEL [CHEM] Stat Lab 03/06/19 18:28 Completed D-DIMER [COAG] Stat Lab 03/06/19 18:28 Completed LACTATE, PLASMA [CHEM] Stat Lab 03/06/19 18:28 Completed LACTATE, PLASMA [CHEM] Stat Lab 03/06/19 21:19 Completed MAGNESIUM [CHEM] Stat Lab 03/06/19 21:20 Completed PROTIME WITH INR [COAG] Stat Lab 03/06/19 18:28 Completed PTT [COAG] Stat Lab 03/06/19 18:28 Completed TROPONIN T Stat Lab 03/06/19 18:28 Completed URINALYSIS W/POSS RFLX CULT [URINALYSIS] Stat Lab 03/06/19 22:53 Ordered 0.9% Sodium Chloride Inj [Ns] 1,000 ml Med 03/06/19 17:09 Discontinued IV 999 mls/hr Aspirin Med 03/06/19 17:07 Discontinued 325 mg PO NOW ONE Diltiazem [Cardizem] Med 03/06/19 17:11 Discontinued 10 mg IV NOW ONE Ondansetron [Zofran] Med 03/06/19 17:07 Discontinued 8 mg IV NOW ONE EKG [EKG] Stat Ther 03/06/19 21:24 Draft Pt's second EKG shows atrial flutter, given continue dysrrhythmia, may need IV medication to convert overnight. Discussed case with hospitalist, who agrees to admit. Result Diagrams: 03/06/19 18:28 03/06/19 18:28 - EKG 1 Time of EKG reading by physician:: 17:00 EKG Read and Signed by:: Carmelo Glasgow EKG Interpretation (*Must complete 3 of following elements*): Abnormal Rate: 127 Rhythm: atrial fibrillation [place]: normal ST Wave: non-specific ST changes Prior EKG Comparison: changes noted Comments: inferior-posterior infarct, age undetermined 2 Time of EKG reading by physician:: 21:55 EKG Read and Signed by:: Carmelo Glasgow EKG Interpretation (*Must complete 3 of following elements*): Abnormal Rate: 108 Rhythm: atrial flutter [place]: normal ST Wave: normal Prior EKG Comparison: changes noted - XRAY 1 XRAY Study: Chest Impression: See EMR Report XRAY Interpretation: pneumonia - CT/MRI 1 CT Study: Angiogram Impression: See EMR Report CT Results: no PE, bilateral pneumonia - CONSULTS/PCP/HOSPITALIST Notification #1 *Consult/PCP/Hospitalist*: Dr. Esparza Time Discussed: 22:00 Consult Disposition: Admit Departure - Departure Date of Disposition Decision: 03/06/19 Time of Disposition Decision: 22:54 DIAGNOSIS: Atrial flutter by electrocardiogram Disposition: ADMITTED INPATIENT 09 Certified Medical Emergency: Emergent Condition: Fair Referrals and Follow-Ups: Oumou Riley MD [Primary Care Provider] - - Critical Care Note This patient required my direct & personal management of CC.: No Attestation - Physician/ JOVANY Attestation Patient care was provided by Advanced Practice Provider:: No The physician spent face to face time with patient:: Yes Advanced Practice Provider documentation review:: Supervising physician onsite and consulted in the evaluation and care of this patient. The physician did have a face to face encounter with the patient.
[2019-03-06] MEDS ORDERED: CARDIZEM IV ONE (17:11)
--- NOTE | 2019-03-06 17:58 | Diag Imaging Result Doc PS360 ---
CHEST-2 VIEWS - 03/06/2019 INDICATION: Chest Pain COMPARISON: 03/04/2019 FINDINGS: Stable left chest port. Stable significant infiltrate in the right upper lobe. There has been improvement in the bilateral basilar infiltrates. Heart size remains normal. No pneumothorax or pleural effusion. IMPRESSION: Improvement from prior. Electronically signed by Danish Benavidez 03/06/2019 5:56 PM
[2019-03-06 18:48] LABS: BASO# 0.07 X1000 (0.0-0.2); BASO% 0.6 % (0.0-0.8); EOS# 0.37 X1000 (0.0-0.7); EOS% 3.4 % (0.0-10.0); HEMATOCRIT 32.1 % (42.0-52.0); HEMOGLOBIN 9.8 g/dL (14.0-18.0); IMM GRAN# 0.04 X1000 (0.0-0.04); IMM GRAN% 0.4 % (0.0-0.5); LYMPH# 1.95 X1000 (1.2-3.4); LYMPH% 17.8 % (20.5-51.1); MCH 31.8 PG (27-31); MCHC 30.5 g/dL (33-37); MCV 104.2 FL (81-99); MONO# 0.94 X1000 (0.11-0.59); MONO% 8.6 % (1.7-9.3); MPV 9.2 FL (7.4-10.4); NEUT# 7.56 X1000 (1.4-6.5); NEUT% 69.2 % (42.2-75.2); PLT 423 X1000 (130-400); RBC 3.08 XMIL (4.7-6.1); RDW 14.7 % (11.5-14.5); WBC 10.93 X1000 (4.8-10.8)
[2019-03-06 18:55] LABS: INR 1.79; PROTIME 21.2 Seconds (11.0-16.0)
[2019-03-06 18:56] LABS: PTT 35.7 Seconds (22.3-41.8)
[2019-03-06 19:10] LABS: AGAP 12; ALB/GLOB RATIO 0.8; ALBUMIN 3.2 g/dL (3.5-5.0); ALKALINE PHOSPHATASE 128 U/L (32-122); BUN 13 mg/dL (8-22); CHLORIDE 103 mmol/L (98-107); COSMO 272; CREATININE 0.8 mg/dL (0.7-1.2); ESTIMATED GFR > 60; GLUCOSE 100 mg/dL (70-104); GOT 23 U/L (10-34); GPT 23 U/L (10-44); POTASSIUM 3.5 mmol/L (3.5-5.1); SODIUM 136 mmol/L (136-145); TCO2 21 mmol/L (25-35); TOTAL BILIRUBIN 0.36 mg/dL (0.20-1.00); TOTAL PROTEIN 7.4 g/dL (6.3-8.3)
--- NOTE | 2019-03-06 20:44 | Diag Imaging Result Doc PS360 ---
CT ANGIOGRM PULMONARY ARTERIES - 03/06/2019 INDICATION: Elevated D-dimer TECHNIQUE: Axial CT images were obtained after administering intravenous contrast. Coronal MIP images were generated. COMPARISON: None FINDINGS: There is no pulmonary embolism. No adenopathy. Heart size is normal. Upper abdominal images are unremarkable. There is significant infiltrate in the right upper lobe and superior segment of the right lower lobe. There is also some hazy infiltrate throughout the lower lobes bilaterally. Airways are clear. No significant COPD. There is a left chest port in good position. There are moderate degenerative changes of the spine. No acute or suspicious bony lesion. IMPRESSION: Bilateral multilobar pneumonia. This exam was performed using automated exposure control, adjustment of mA or kV according to patient size, and/or use of iterative reconstruction technique Electronically signed by Danish Benavidez 03/06/2019 8:42 PM
--- NOTE | 2019-03-06 22:05 | EKG Report ---
Test Performed on : 03/06/2019 9:50:17 PM Test Reason : CP Blood Pressure : / mmHG Vent. Rate : 108 BPM Atrial Rate : 288 BPM P-R Int : 000 ms QRS Dur : 088 ms QT Int : 418 ms P-R-T Axes : 000 007 058 degrees QTc Int : 560 ms Atrial flutter. with variable AV block. Inferior infarct , age undetermined Prolonged QT Abnormal ECG When compared with ECG of 06-MAR-2019 16:55, (Unconfirmed) Previous ECG has undetermined rhythm, needs review Unconfirmed Result
[2019-03-06 22:30] LABS: MAGNESIUM 1.7 mg/dL (1.5-2.7)
[2019-03-06] MEDS ORDERED: CORDARONE PO ONE (23:00)
[2019-03-06] MEDS ORDERED: ZOSYN 3.375 GM in NS 50 ML IV SCH (23:00)
[2019-03-06] MEDS ORDERED: VANCOMYCIN IV PER PHARMACY MISC SCH ×2 (23:00→23:15)
[2019-03-06] MEDS ORDERED: TYLENOL PO PRN (23:06)
[2019-03-06] MEDS ORDERED: ZOFRAN IV PRN (23:06)
[2019-03-06 23:11] LABS: URINE SOURCE CLEAN CATCH
[2019-03-06 23:15] LABS: BILIRUBIN URINE NEGATIVE (NEGATIVE); BLOOD URINE NEGATIVE (NEGATIVE); COLOR YELLOW; GLUCOSE URINE NEGATIVE (NEGATIVE); KETONE URINE NEGATIVE (NEGATIVE); LEUKOCYTES URINE NEGATIVE (NEGATIVE); NITRITE URINE NEGATIVE (NEGATIVE); PROTEIN URINE TRACE mg/dL (NEGATIVE); SP GRAVITY URINE 1.046; TURBIDITY URINE CLEAR (CLEAR); UR EPITHELIAL CELLS <10 /HPF (<10); URINE BACTERIA NEGATIVE /HPF; URINE RBC <10 /HPF (<10); URINE WBC <10 /HPF (<10); UROBILINOGEN URINE NORMAL (NORMAL)
[2019-03-06] MEDS ORDERED: ATIVAN PO ONE (23:20)
[2019-03-07] MEDS ORDERED: VANCOMYCIN 1,900 MG in NS 500 ML IV ONE (01:00)
[2019-03-07] MEDS: NS 1,000 ML IV SCH ×2 (01:11→14:15)
[2019-03-07] MEDS: CARDIZEM 125 MG/D5W 125 MG/125 ML IVPB IV SCH ×2 (01:11→10:52)
[2019-03-07] MEDS: ZOSYN 3.375 GM in NS 50 ML IV SCH ×4 (01:34→21:26)
[2019-03-07] MEDS ORDERED: ELIQUIS PO SCH (01:42)
[2019-03-07] MEDS ORDERED: TYLENOL PO PRN (02:02)
[2019-03-07] MEDS ORDERED: NS NEB INH SCH (02:02)
[2019-03-07] MEDS ORDERED: MILK OF MAGNESIA PO PRN (02:02)
--- NOTE | 2019-03-07 02:55 | HISTORY AND PHYSICAL ---
CHIEF COMPLAINT: Chest pressure. HISTORY OF PRESENT ILLNESS: The patient is a 73-year-old male who just was in the hospital with his primary care, Dr. Riley, and discharged on the 04 of March. He was admitted with aspiration pneumonia. Noted to have gram-negative sepsis with Enterobacter aerogenes. He also was noted to be in atrial fibrillation. As noted, he unfortunately has recently undergone a Whipple procedure due to pancreatic malignancy and had a gastrotomy and jejunostomy tube. He was sent to rehab. The GJ tube became loose. He was seen in the ER by Dr. Galvin and returned to rehab. He then returned back to the hospital due to aspiration pneumonia. He was admitted to the ICU. Since going home, they note that he had been okay until today at which time he felt as though "a hot poker was poking through his chest." He has had a mild cough. No real fevers or chills. In the ER, his heart rate was 130. PAST MEDICAL HISTORY: Significant for recent aspiration pneumonia with gram-negative sepsis and Enterobacter, chronic atrial fibrillation, gastroparesis from recent Whipple surgery, history of kidney stones, history of pancreatic cancer with 3 nodes positive, status post Whipple procedure by Dr. Ramirez at [facility], history of type 2 diabetes, osteoarthritis, reflux, incisional hernia on the right side, reactive depression, obstructive sleep apnea currently on CPAP and right footdrop. REVIEW OF SYSTEMS: As noted above. Patient denies any fevers or chills. Notes that he has had a cough but nonproductive. Denies any headaches, blurry vision. Denies any focalized numbness, tingling or weakness. Denies any diarrhea, constipation, melena, hematochezia. FAMILY HISTORY: Noncontributory. SOCIAL HISTORY: He is a former smoker. Does have a history of alcohol abuse in the past. Denies any current alcohol. Denies any illicit substances. He has recently been in rehab secondary to his surgical procedure. PHYSICAL EXAMINATION: VITAL SIGNS: Reviewed. Temperature 98 degrees, pulse 120s to 130s, respiratory 23, BP 123/71, saturating 100% on room air. GENERAL: Patient is awake, alert, very pleasant. He is in no current respiratory distress. HEENT: Normocephalic. NECK: Supple. CARDIOVASCULAR: Irregular rate. Irregular rhythm. CHEST: Decreased but equal. No apparent crackles or wheezing. ABDOMEN: Soft, nondistended. He does have a PEG tube in the left upper quadrant. SKIN: Warm, dry. No rashes. NEUROLOGIC: He is awake, alert, oriented x3. He is in no current respiratory distress. ASSESSMENT: 1. Leukocytosis. White count 10.9, but it has been actually higher than that for the past year or two. 2. Atrial fibrillation, appears to be chronic per Dr. Riley's discharge summary although he is in rapid rate. Therefore, we are going to place him back on Cardizem. Continue his home medications. Restart his amiodarone. Certainly his pneumonia could be causing his rate to be more rapid. 3. Bilateral pneumonia. 4. Recent sepsis. 5. Chronic gastroparesis. 6. Diabetes. 7. Pancreatic cancer. 8. Obstructive sleep apnea. 9. Chronic reflux. PLAN: We will continue patient in the hospital. We are going to restart his vancomycin and Zosyn. We will place him on a Cardizem drip to get his heart rate back under control. We will convert back to p.o. when tolerated. Check blood cultures, sputum culture and we will follow. cc: Ervin Esparza MD
[2019-03-07] MEDS ORDERED: CREON PO SCH (03:45)
[2019-03-07 05:52] LABS: BASO# 0.05 X1000 (0.0-0.2); BASO% 0.5 % (0.0-0.8); EOS# 0.59 X1000 (0.0-0.7); EOS% 5.6 % (0.0-10.0); HEMATOCRIT 27.9 % (42.0-52.0); HEMOGLOBIN 8.6 g/dL (14.0-18.0); IMM GRAN# 0.03 X1000 (0.0-0.04); IMM GRAN% 0.3 % (0.0-0.5); LYMPH# 1.28 X1000 (1.2-3.4); LYMPH% 12.1 % (20.5-51.1); MCH 32.3 PG (27-31); MCHC 30.8 g/dL (33-37); MCV 104.9 FL (81-99); MONO% 6.6 % (1.7-9.3); MPV 8.5 FL (7.4-10.4); NEUT# 7.92 X1000 (1.4-6.5); NEUT% 74.9 % (42.2-75.2); PLT 361 X1000 (130-400); RBC 2.66 XMIL (4.7-6.1); RDW 14.5 % (11.5-14.5); WBC 10.57 X1000 (4.8-10.8)
[2019-03-07 06:18] LABS: AGAP 12; ALB/GLOB RATIO 0.7; ALBUMIN 2.6 g/dL (3.5-5.0); ALKALINE PHOSPHATASE 103 U/L (32-122); BUN 11 mg/dL (8-22); CALCIUM 8.2 mg/dL (8.8-10.2); CHLORIDE 108 mmol/L (98-107); COSMO 279; CREATININE 0.8 mg/dL (0.7-1.2); ESTIMATED GFR > 60; GLUCOSE 102 mg/dL (70-104); GOT 12 U/L (10-34); GPT 17 U/L (10-44); POTASSIUM 3.2 mmol/L (3.5-5.1); SODIUM 140 mmol/L (136-145); TCO2 20 mmol/L (25-35); TOTAL BILIRUBIN 0.34 mg/dL (0.20-1.00); TOTAL PROTEIN 6.1 g/dL (6.3-8.3)
[2019-03-07] MEDS: HUMALOG SUBQ SCH ×4 (07:00→21:26)
[2019-03-07] MEDS: CREON PO SCH ×3 (08:00→17:18)
[2019-03-07 08:37] LABS: INR 1.78; PROTIME 21.1 Seconds (11.0-16.0)
[2019-03-07] MEDS ORDERED: MEGACE PO SCH (09:00)
[2019-03-07] MEDS: REGLAN PO SCH ×3 (09:30→17:07)
[2019-03-07] MEDS: PRILOSEC PO SCH (09:30)
[2019-03-07] MEDS: CLARITIN PO SCH (09:30)
[2019-03-07] MEDS: CORDARONE PO SCH ×2 (09:31→21:26)
[2019-03-07] MEDS: MEGACE PO SCH ×2 (09:33→21:37)
[2019-03-07] MEDS: THERA M PLUS PO SCH (09:33)
[2019-03-07] MEDS: WELLBUTRIN PO SCH (09:34)
--- NOTE | 2019-03-07 16:36 | PROGRESS NOTE ---
DATE: 03/07/2019 SUBJECTIVE: A 73-year-old white gentleman admitted with chest pain which patient described as a sharp pain going across his chest. The pain was off and on. The patient also has a cough with scanty sputum production. He denied any high-grade fever. The patient did have some chills. Patient recently discharged from the hospital when he was admitted with aspiration pneumonia. The patient went to a [facility]. Patient does have a problem with constipation. No diarrhea, blood or mucus in the stool. Does have urinary frequency, urgency, but no dysuria or gross hematuria. Does have chronic abdominal pain. The patient recently had a Whipple surgery for pancreatic cancer. Does feel fatigued and tired. Unquantified weight loss. PAST MEDICAL HISTORY: Aspiration pneumonia, sepsis, atrial fibrillation, gastroparesis, history of kidney stone, diabetes, osteoarthritis, incisional hernia, reactive depression, obstructive sleep apnea, and right foot drop. OBJECTIVE: Vital signs: Blood pressure 113/59, pulse 70, respirations 18, temperature normal. Skin: Senile turgor. HEENT: Head atraumatic, normocephalic. [place] conjunctivae. Anicteric sclerae. Extraocular muscle movement normal. Fundus cannot be penetrated. Good oral hygiene. No tonsillopharyngeal congestion or exudate. Ears and nose benign. Neck: Supple. No JVD, thyromegaly, or lymphadenopathy. Chest: Bibasilar crepitation. No rales. Occasional wheezing. CVS: S1 and S2 heard. No gallop or thrill. Abdomen: Soft, globular. PEG tube is in place. Mild epigastric tenderness. No guarding or rigidity. Extremities: No cyanosis, clubbing. No acute DVT. 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 Answering questions fairly well. LABORATORY DATA: WBC count 10.57, hemoglobin 5.6, hematocrit 27.9, platelet count was 361,000. PT/INR 1.78. Patient's potassium was 3.2, BUN 11, creatinine 0.8. Cardiac isoenzymes were negative. TSH 5.43. CONSIDERATION: Patient's medical problems includes: 1. Atrial fibrillation with average ventricular response. 2. History of bilateral pneumonia. 3. Recent sepsis. 4. Gastroparesis. 5. Diabetes. 6. Pancreatic cancer and Whipple surgery. 7. Obstructive sleep apnea. PLAN: Plan is to continue IV antibiotics. IV hydration. Supplement potassium. Overall plan discussed with the patient and he is in agreement. cc: James Millan MD
[2019-03-07] MEDS: POTASSIUM CHLORIDE 20 MEQ/SWI 20 MEQ/100 ML IVPB IV SCH ×2 (17:17→21:26)
[2019-03-07] MEDS: DULCOLAX PR SCH ×2 (21:26→21:30)
[2019-03-07] MEDS: BENADRYL PO PRN (21:26)
[2019-03-08] MEDS: CARDIZEM 125 MG/D5W 125 MG/125 ML IVPB IV SCH (00:50)
[2019-03-08] MEDS: VANCOMYCIN 1,550 MG in NS 250 ML IV SCH (01:43)
[2019-03-08] MEDS: ZOSYN 3.375 GM in NS 50 ML IV SCH ×4 (01:45→20:26)
[2019-03-08] MEDS: NS 1,000 ML IV SCH (05:49)
[2019-03-08 06:18] LABS: BASO# 0.08 X1000 (0.0-0.2); BASO% 0.8 % (0.0-0.8); EOS# 0.85 X1000 (0.0-0.7); EOS% 8.4 % (0.0-10.0); HEMATOCRIT 26.1 % (42.0-52.0); HEMOGLOBIN 7.9 g/dL (14.0-18.0); IMM GRAN# 0.03 X1000 (0.0-0.04); IMM GRAN% 0.3 % (0.0-0.5); LYMPH# 1.42 X1000 (1.2-3.4); LYMPH% 14.1 % (20.5-51.1); MCH 31.9 PG (27-31); MCHC 30.3 g/dL (33-37); MCV 105.2 FL (81-99); MONO# 0.91 X1000 (0.11-0.59); MPV 9.2 FL (7.4-10.4); NEUT# 6.79 X1000 (1.4-6.5); NEUT% 67.4 % (42.2-75.2); PLT 309 X1000 (130-400); RBC 2.48 XMIL (4.7-6.1); RDW 14.9 % (11.5-14.5); WBC 10.08 X1000 (4.8-10.8)
[2019-03-08 06:47] LABS: AGAP 11; ALB/GLOB RATIO 0.7; ALBUMIN 2.7 g/dL (3.5-5.0); ALKALINE PHOSPHATASE 94 U/L (32-122); BUN 9 mg/dL (8-22); CALCIUM 8.3 mg/dL (8.8-10.2); CHLORIDE 110 mmol/L (98-107); COSMO 278; CREATININE 0.9 mg/dL (0.7-1.2); ESTIMATED GFR > 60; GLUCOSE 104 mg/dL (70-104); GOT 13 U/L (10-34); GPT 14 U/L (10-44); MAGNESIUM 1.7 mg/dL (1.5-2.7); POTASSIUM 3.7 mmol/L (3.5-5.1); SODIUM 140 mmol/L (136-145); TCO2 19 mmol/L (25-35); TOTAL BILIRUBIN 0.72 mg/dL (0.20-1.00); TOTAL PROTEIN 6.6 g/dL (6.3-8.3)
[2019-03-08] MEDS: HUMALOG SUBQ SCH ×4 (07:13→21:57)
[2019-03-08] MEDS: PRILOSEC PO SCH (07:14)
--- NOTE | 2019-03-08 07:55 | EKG Report ---
Test Performed on : 03/06/2019 4:55:16 PM Test Reason : ED. NO EKG ORDER FOR MUSE Blood Pressure : / mmHG Vent. Rate : 127 BPM Atrial Rate : 144 BPM P-R Int : 000 ms QRS Dur : 082 ms QT Int : 330 ms P-R-T Axes : 000 012 072 degrees QTc Int : 479 ms Atrial fibrillation. with rapid ventricular response. with premature ventricular or aberrantly conduc devon complexes. Inferior-posterior infarct (cited on or before 20-FEB-2019) Abnormal ECG When compared with ECG of 21-FEB-2019 02:17, (Unconfirmed) Nonspecific T wave abnormality now evident in Anterior leads Unconfirmed Result
[2019-03-08] MEDS: CLINIMIX E 4.25%-5% SOLUTION 1,000 ML IV SCH (09:15)
[2019-03-08] MEDS: MEGACE PO SCH ×2 (09:16→20:26)
[2019-03-08] MEDS: CLARITIN PO SCH (09:16)
[2019-03-08] MEDS: CORDARONE PO SCH ×2 (09:16→20:26)
[2019-03-08] MEDS: THERA M PLUS PO SCH (09:16)
[2019-03-08] MEDS: REGLAN PO SCH ×3 (09:16→17:49)
[2019-03-08] MEDS: CARDIZEM PO SCH ×2 (09:16→20:26)
[2019-03-08] MEDS: CREON PO SCH ×3 (09:17→17:49)
[2019-03-08] MEDS: ELIQUIS PO SCH ×2 (09:17→20:26)
[2019-03-08] MEDS: WELLBUTRIN PO SCH (09:17)
[2019-03-08] MEDS: BENADRYL PO PRN (20:26)
[2019-03-08] MEDS: DULCOLAX PR SCH (21:56)
[2019-03-09] MEDS: CLINIMIX E 4.25%-5% SOLUTION 1,000 ML IV SCH ×2 (00:20→17:27)
[2019-03-09] MEDS: VANCOMYCIN 1,550 MG in NS 250 ML IV SCH (00:20)
[2019-03-09] MEDS: ZOSYN 3.375 GM in NS 50 ML IV SCH ×4 (03:06→20:17)
--- NOTE | 2019-03-09 03:11 | PROGRESS NOTE ---
DATE: 03/08/2019 SUBJECTIVE: Interval history was reviewed. This is a 73-year-old white gentleman recently discharged on and came back Friday evening with chest pain. The patient was ruled out for PE. A CT scored multilobular pneumonia from the previous aspiration. PAST MEDICAL HISTORY: Reviewed. PAST SURGICAL HISTORY: Reviewed. MEDICINES: Reviewed. ALLERGIES: Iodinated contrast media.Vital Signs: Temperature is 98 degrees, he is in atrial fibrillation. Vitals are stable. HEENT: Within normal limits. Neck: Supple. Chest: Bilateral air entry. Heart: Regular heart sounds Abdomen: Soft, nontender. Gastrostomy tube in place. Extremities: No peripheral edema or cyanosis. Neurologic: No obvious neurological deficits. LABORATORY INVESTIGATIONS: CBC: White cell count 10, hematocrit 26, platelets 309,000. Sodium 140, potassium 3.7, chloride 110, BUN 9, creatinine 0.9, glucose 112. Cardiac enzymes were normal. IMAGING: Pulmonary arteriogram, bilateral multilobar pneumonia. ASSESSMENT AND PLAN: 1. Chronic atrial fibrillation, hematocrit is low. We will restart on Eliquis and continue on Cordarone. 2. Multilobular pneumonia. Aspiration from the previous medicine and plan is to continue IV Zosyn and vancomycin. 3. Status post Whipple procedure with ileus, improving. Continue on Pancrease. 4. Change the IV fluids to Clinimix. 5. Out of the bed with physical therapy. 6. Atrial fibrillation rate controlled with Cardizem 60 p.o. b.i.d., and slowly discontinue Cardizem drip, and out of the bed with physical therapy. We will continue to monitor over the next couple of days, and he will [facility] to the [facility] [place]. LEVEL OF DOCUMENTATION: 25 minutes. cc: Oziel Riley MD
[2019-03-09 05:47] LABS: BASO# 0.07 X1000 (0.0-0.2); BASO% 0.8 % (0.0-0.8); EOS# 0.68 X1000 (0.0-0.7); EOS% 7.9 % (0.0-10.0); HEMATOCRIT 25.8 % (42.0-52.0); HEMOGLOBIN 8.1 g/dL (14.0-18.0); IMM GRAN# 0.04 X1000 (0.0-0.04); IMM GRAN% 0.5 % (0.0-0.5); LYMPH# 1.57 X1000 (1.2-3.4); LYMPH% 18.2 % (20.5-51.1); MCH 32.3 PG (27-31); MCHC 31.4 g/dL (33-37); MCV 102.8 FL (81-99); MONO# 0.88 X1000 (0.11-0.59); MONO% 10.2 % (1.7-9.3); MPV 8.9 FL (7.4-10.4); NEUT# 5.39 X1000 (1.4-6.5); NEUT% 62.4 % (42.2-75.2); PLT 281 X1000 (130-400); RBC 2.51 XMIL (4.7-6.1); RDW 14.9 % (11.5-14.5); WBC 8.63 X1000 (4.8-10.8)
[2019-03-09] MEDS: PRILOSEC PO SCH (06:06)
[2019-03-09 06:10] LABS: AGAP 10; ALB/GLOB RATIO 0.7; ALBUMIN 2.6 g/dL (3.5-5.0); ALKALINE PHOSPHATASE 85 U/L (32-122); BUN 9 mg/dL (8-22); CALCIUM 8.2 mg/dL (8.8-10.2); CHLORIDE 109 mmol/L (98-107); COSMO 276; CREATININE 0.8 mg/dL (0.7-1.2); ESTIMATED GFR > 60; GLUCOSE 132 mg/dL (70-104); GOT 10 U/L (10-34); GPT 11 U/L (10-44); POTASSIUM 3.1 mmol/L (3.5-5.1); SODIUM 138 mmol/L (136-145); TCO2 19 mmol/L (25-35); TOTAL BILIRUBIN 0.69 mg/dL (0.20-1.00); TOTAL PROTEIN 6.5 g/dL (6.3-8.3)
[2019-03-09] MEDS: HUMALOG SUBQ SCH ×4 (06:37→22:38)
[2019-03-09 07:07] LABS: EOS 8 % (1-10); LYMPHS 20 % (21-51); MONO 10 % (1-9); SEGS 62 % (42-75)
[2019-03-09] MEDS ORDERED: KLOR-CON PO ONE (07:11)
[2019-03-09] MEDS ORDERED: NS 500 ML IV ONE (07:11)
--- NOTE | 2019-03-09 08:11 | Diag Imaging Result Doc PS360 ---
CHEST-2 VIEWS - 03/09/2019 INDICATION: pna COMPARISON: 03/06/2019 FINDINGS: Stable left chest port in good position. There has been significant improvement in the right upper lobe infiltrate/pneumonia. Stable hazy infiltrate in the left lung base. Heart size remains normal. No pneumothorax or significant pleural effusion. IMPRESSION: Improvement in the right upper lobe infiltrate/pneumonia. Electronically signed by Danish Benavidez 03/09/2019 8:08 AM
[2019-03-09] MEDS: REGLAN PO SCH ×3 (08:53→17:27)
[2019-03-09] MEDS: CLARITIN PO SCH (08:53)
[2019-03-09] MEDS: CARDIZEM PO SCH ×2 (08:53→20:18)
[2019-03-09] MEDS: THERA M PLUS PO SCH (08:53)
[2019-03-09] MEDS: ELIQUIS PO SCH ×2 (08:53→20:18)
[2019-03-09] MEDS: CORDARONE PO SCH ×2 (08:53→20:18)
[2019-03-09] MEDS: MEGACE PO SCH ×2 (09:37→20:18)
[2019-03-09] MEDS: WELLBUTRIN PO SCH (09:37)
[2019-03-09] MEDS: CREON PO SCH ×3 (11:28→17:27)
[2019-03-09] MEDS ORDERED: BLISTEX MEDICATED BERRY LIP BALM TOP PRN (14:38)
[2019-03-09] MEDS ORDERED: SODIUM CHLORIDE 0.9% INJ SCH (18:45)
[2019-03-09] MEDS: PROTONIX IV SCH (20:18)
[2019-03-09] MEDS: BENADRYL PO PRN (20:18)
[2019-03-09] MEDS: DULCOLAX PR SCH (20:19)
--- NOTE | 2019-03-09 21:01 | PROGRESS NOTE ---
DATE: 03/09/2019 SUBJECTIVE: The patient is slowly getting better. Going for chest x-ray. Ambulating with assistance. PHYSICAL EXAMINATION: Vital signs: Temperature is 98 degrees. Tachycardic. Vitals are stable. HEENT: Slightly pale. Neck: Supple. Port on the left side. Chest: Bilateral air entry. Abdomen: Belly is soft, nontender. Neurologic: No obvious deficits. INVESTIGATIONS: White cell count 8.6, hematocrit 25.8, platelets 281,000. SMA 7 is normal. Potassium 3.1. ASSESSMENT AND PLAN: 1. Anemia in light of anticoagulation and history of anastomotic ulcer. Transfuse a unit of packed red blood cells. 2. We will start IV proton pump inhibitor. 3. Continue on Clinimix. 4. Aspiration pneumonia. Continue IV vancomycin and Zosyn. Out of the bed with physical therapy. We will check the CBC in the morning. LEVEL OF DOCUMENTATION: 25 minutes. cc: Oziel Riley MD
[2019-03-10] MEDS: VANCOMYCIN 1,550 MG in NS 250 ML IV SCH (00:08)
[2019-03-10] MEDS: ZOSYN 3.375 GM in NS 50 ML IV SCH ×4 (02:57→20:16)
[2019-03-10 05:58] LABS: HEMOGLOBIN 9.6 g/dL (14.0-18.0); MCH 37.9 PG (27-31); MCHC 35.6 g/dL (33-37); MCV 106.7 FL (81-99); MPV 8.9 FL (7.4-10.4); RBC 2.53 XMIL (4.7-6.1); RDW 21.5 % (11.5-14.5); WBC 9.01 X1000 (4.8-10.8)
[2019-03-10] MEDS: PRILOSEC PO SCH (06:02)
[2019-03-10] MEDS: HUMALOG SUBQ SCH ×4 (06:41→20:17)
[2019-03-10] MEDS ORDERED: NS 500 ML IV ONE (07:14)
[2019-03-10] MEDS: WELLBUTRIN PO SCH (08:49)
[2019-03-10] MEDS: MEGACE PO SCH ×2 (08:50→20:17)
[2019-03-10] MEDS: REGLAN PO SCH ×3 (08:50→18:08)
[2019-03-10] MEDS: CARDIZEM PO SCH ×2 (08:50→20:17)
[2019-03-10] MEDS: CREON PO SCH ×3 (08:50→18:08)
[2019-03-10] MEDS: CLARITIN PO SCH (08:50)
[2019-03-10] MEDS: CORDARONE PO SCH ×2 (08:51→20:17)
[2019-03-10] MEDS: THERA M PLUS PO SCH (08:51)
[2019-03-10] MEDS: ELIQUIS PO SCH ×2 (09:07→20:17)
[2019-03-10] MEDS: CLINIMIX E 4.25%-5% SOLUTION 1,000 ML IV SCH (10:36)
[2019-03-10] MEDS: ATROVENT NEB INH PRN ×3 (11:31→19:39)
[2019-03-10] MEDS: XOPENEX NEB INH PRN ×3 (11:32→19:39)
[2019-03-10] MEDS: PROTONIX IV SCH (20:16)
[2019-03-10] MEDS: BENADRYL PO PRN (20:16)
[2019-03-10] MEDS: DULCOLAX PR SCH (20:17)
--- NOTE | 2019-03-10 21:28 | PROGRESS NOTE ---
DATE: 03/10/2019 SUBJECTIVE: Patient is a little better, anxious to go home. He had heme-positive stools, on anticoagulation. Previous EGD had some ulcers, and chest x-ray was yesterday was improving pneumonia. He has been ambulating very well. No other complaints. Still is in atrial fibrillation. OBJECTIVE: Vital Signs: Temperature is 98 degrees, blood pressure is stable, 98% in room air. HEENT: Exam within normal limits. Neck: Supple. No lymphadenopathy. Chest: Clear to auscultation. Heart: Sounds are regular. Abdomen: Belly is soft, nontender. Good bowel sounds. INVESTIGATIONS: CBC: White cell count 9, hematocrit 27, platelets 252,000. ASSESSMENT AND PLAN: 1. Anemia, heme-positive stools, on anticoagulation, with ulcers. Transfuse a unit of packed red blood cells. 2. Continue intravenous proton pump inhibitor and currently on Eliquis for atrial fibrillation, and Cordarone, and status post Whipple's. 3. Improved nutrition status with intravenous Clinimix and Creon. 4. Gastrostomy tube is stable. Will repeat the labs in the morning. 5. Aspiration pneumonia. Continue intravenous antibiotics. Chest x-ray is improving. 6. Plan to discharge on Friday if he is stable. LEVEL OF DOCUMENTATION: 25 minutes. cc: Oziel Riley MD
[2019-03-11] MEDS: VANCOMYCIN 1,850 MG in NS 500 ML IV SCH (01:30)
[2019-03-11] MEDS: CLINIMIX E 4.25%-5% SOLUTION 1,000 ML IV SCH ×2 (01:39→18:10)
[2019-03-11] MEDS: ZOSYN 3.375 GM in NS 50 ML IV SCH ×4 (03:47→20:33)
[2019-03-11] MEDS: HUMALOG SUBQ SCH ×3 (06:27→17:03)
[2019-03-11 06:33] LABS: BASO% 1.1 % (0.0-0.8); EOS# 0.44 X1000 (0.0-0.7); EOS% 4.9 % (0.0-10.0); HEMATOCRIT 32.6 % (42.0-52.0); HEMOGLOBIN 10.6 g/dL (14.0-18.0); IMM GRAN# 0.04 X1000 (0.0-0.04); IMM GRAN% 0.4 % (0.0-0.5); LYMPH# 2.03 X1000 (1.2-3.4); LYMPH% 22.7 % (20.5-51.1); MCH 31.6 PG (27-31); MCHC 32.5 g/dL (33-37); MCV 97.3 FL (81-99); MONO# 1.02 X1000 (0.11-0.59); MONO% 11.4 % (1.7-9.3); MPV 9.2 FL (7.4-10.4); NEUT# 5.33 X1000 (1.4-6.5); NEUT% 59.5 % (42.2-75.2); PLT 259 X1000 (130-400); RBC 3.35 XMIL (4.7-6.1); RDW 18.6 % (11.5-14.5); WBC 8.96 X1000 (4.8-10.8)
[2019-03-11 06:46] LABS: AGAP 12; BUN 9 mg/dL (8-22); CALCIUM 8.4 mg/dL (8.8-10.2); CHLORIDE 109 mmol/L (98-107); COSMO 277; CREATININE 0.8 mg/dL (0.7-1.2); ESTIMATED GFR > 60; GLUCOSE 120 mg/dL (70-104); POTASSIUM 3.2 mmol/L (3.5-5.1); SODIUM 139 mmol/L (136-145); TCO2 18 mmol/L (25-35)
[2019-03-11 06:54] LABS: BASO 1 % (0-1); EOS 3 % (1-10); LYMPHS 24 % (21-51); MONO 12 % (1-9); SEGS 60 % (42-75)
[2019-03-11] MEDS ORDERED: KLOR-CON PO ONE (07:25)
[2019-03-11] MEDS: XOPENEX NEB INH PRN ×4 (07:51→19:17)
[2019-03-11] MEDS: ATROVENT NEB INH PRN ×4 (07:51→19:17)
[2019-03-11] MEDS: CARDIZEM PO SCH ×2 (09:37→20:32)
[2019-03-11] MEDS: CORDARONE PO SCH ×2 (09:37→20:32)
[2019-03-11] MEDS: MEGACE PO SCH ×2 (09:37→20:32)
[2019-03-11] MEDS: REGLAN PO SCH ×3 (09:38→18:05)
[2019-03-11] MEDS: CLARITIN PO SCH (09:38)
[2019-03-11] MEDS: THERA M PLUS PO SCH (09:38)
[2019-03-11] MEDS: ELIQUIS PO SCH ×2 (09:38→20:32)
[2019-03-11] MEDS: WELLBUTRIN PO SCH (09:38)
[2019-03-11] MEDS: CREON PO SCH ×3 (09:39→18:05)
[2019-03-11] MEDS: BENADRYL PO PRN (20:32)
[2019-03-11] MEDS: PROTONIX IV SCH (20:32)
[2019-03-11] MEDS: DULCOLAX PR SCH (20:41)
--- NOTE | 2019-03-11 20:59 | PROGRESS NOTE ---
DATE: 03/11/2019 SUBJECTIVE: The patient is getting better, ambulating well, anxious to go back to rehab. He had anemia, heme-positive stools, not active bleeding. Hemodynamics were stable, and he has received 2 units of packed RBCs. OBJECTIVE: Vital signs: Temperature is 97 degrees, still atrial fibrillation and tachycardic. Vitals are stable. HEENT exam: Within normal limits. Chest: Clear. Cardiovascular: Irregular heart sounds. Abdomen: Belly is soft with a gastrostomy tube. Foot drop on the left side noted. LABORATORY DATA: White cell count 8.9, hematocrit 32.6, platelets 259,000. Sodium 139, potassium 3.2, chloride 109, BUN 9, creatinine 0.8, glucose 120. ASSESSMENT AND PLAN: 1. Anemia, heme-positive stools. We will continue on PPI. Status post 2 units of packed RBCs. 2. Aspiration pneumonia is improving on chest x-ray. Continue IV antibiotics. 3. Status post Whipple, stable. 4. Protein calorie malnutrition, IV Clinimix and Cardizem. 5. Hypokalemia. Replace the potassium and planning to discharge to the rehab in the morning. LEVEL OF DOCUMENTATION: 25 minutes. cc: Oziel Riley MD
--- NOTE | 2019-03-11 22:19 | DISCHARGE SUMMARY ---
ADMISSION DATE: 03/06/2019 DISCHARGE DATE: 03/12/2019 DISCHARGING DIAGNOSIS: Atypical chest pain. SECONDARY DIAGNOSES: 1. Bilateral aspiration pneumonia from Enterobacter aerogenes. 2. Chronic atrial fibrillation. 3. Gastroparesis from recent Whipple surgery, status post gastrostomy tube. History of kidney stones. 4. Stage III pancreatic cancer with positive lymph nodes. 5. Osteoarthritis. 6. Right foot drop on AFO. 7. Acid reflux disease with anastomotic ulcer. 8. Anemia heme-positive stools status post 2 units of packed RBCs. 9. Reactive depression. 10. Sleep apnea on CPAP machine. 11. Incisional hernia on the right side of the abdomen. BRIEF HISTORY: Please see the H and P that was done by the hospitalist. In brief, he is a 73- year-old white male recently discharged from the hospital after Whipple's procedure for stage III pancreatic cancer by Jonny Alcazar in [facility] and came back with chest pain, lasted 10 seconds. They thought he had a heart attack. EKG was unremarkable. The patient was negative for PE with bilateral aspiration pneumonitis from the previous admission. He had Enterobacter bacteremia sensitive to Levaquin. HOSPITAL COURSE: 1. The patient was ruled out for AR. Negative PE. Pain is better and it looks like a noncardiac. History of chronic atrial fibrillation basically rate control and on anticoagulation. 2. Anemia. Heme-positive stools requiring 2 units of packed RBCs. 3. Aspiration. Continue IV vancomycin and Zosyn. Slowly changed to Levaquin. 4. He has been tolerating the diet very well without any gastroparesis. Continue on Reglan. 5. Deconditioning. Out of the bed with physical therapy. He has a Port-A-Cath on the left side of the chest. LABS: At the time of discharge CBC: White cell count 8.9, hematocrit 32.6, platelets 259,000. Sodium 139, potassium 3.2, chloride 109, BUN 8, creatinine 0.6, glucose 120. DISCHARGE INSTRUCTIONS ARE FOLLOWS: The patient was given pneumococcal vaccine 03/04/2019, Wellbutrin 150 daily, Prilosec 40 mg daily, multivitamin 1 capsule daily, Megace 40 mg p.o. b.i.d., Creon capsule 2 tablets p.o. t.i.d., Reglan 10 mg t.i.d., Dulcolax as needed, Cordarone 200 p.o. b.i.d., Eliquis 5 mg p.o. b.i.d., Levaquin 500 daily, Cardizem 120 mg p.o. b.i.d. Monitoring blood sugars. He was on metformin and take care of the gastrostomy tube with repeated flushing and we will discharge to the [facility] in [place] tomorrow. cc: Oziel Riley MD MTDD
[2019-03-12] MEDS: ZOSYN 3.375 GM in NS 50 ML IV SCH ×2 (02:07→08:34)
[2019-03-12] MEDS: HUMALOG SUBQ SCH ×2 (02:07→06:51)
[2019-03-12] MEDS: VANCOMYCIN 1,850 MG in NS 500 ML IV SCH (02:39)
[2019-03-12 06:03] LABS: BASO# 0.11 X1000 (0.0-0.2); BASO% 1.1 % (0.0-0.8); EOS# 0.66 X1000 (0.0-0.7); EOS% 6.5 % (0.0-10.0); HEMATOCRIT 32.9 % (42.0-52.0); HEMOGLOBIN 10.7 g/dL (14.0-18.0); IMM GRAN# 0.06 X1000 (0.0-0.04); IMM GRAN% 0.6 % (0.0-0.5); LYMPH# 2.58 X1000 (1.2-3.4); LYMPH% 25.4 % (20.5-51.1); MCH 31.3 PG (27-31); MCHC 32.5 g/dL (33-37); MCV 96.2 FL (81-99); MONO# 1.27 X1000 (0.11-0.59); MONO% 12.5 % (1.7-9.3); NEUT# 5.46 X1000 (1.4-6.5); NEUT% 53.9 % (42.2-75.2); PLT 248 X1000 (130-400); RBC 3.42 XMIL (4.7-6.1); RDW 18.7 % (11.5-14.5); WBC 10.14 X1000 (4.8-10.8)
[2019-03-12 07:46] VITALS: BP 137/77
[2019-03-12] MEDS: ATROVENT NEB INH PRN (07:53)
[2019-03-12] MEDS: XOPENEX NEB INH PRN (07:53)
[2019-03-12] MEDS: CARDIZEM PO SCH (08:35)
[2019-03-12] MEDS: CLARITIN PO SCH (08:35)
[2019-03-12] MEDS: MEGACE PO SCH (08:35)
[2019-03-12] MEDS: WELLBUTRIN PO SCH (08:36)
[2019-03-12] MEDS: CREON PO SCH (08:36)
[2019-03-12] MEDS: THERA M PLUS PO SCH (08:36)
[2019-03-12] MEDS: REGLAN PO SCH (08:36)
[2019-03-12] MEDS: ELIQUIS PO SCH (08:36)
[2019-03-12] MEDS: CORDARONE PO SCH (08:36)
[2019-03-12] MEDS ORDERED: FLU VACCINE IM ONE (11:01)
== END 2019-03-12 11:20 | DRG 308 ==
LOC: ED 16:43 → EDIPHOLD 03-07 00:40 → 2N 03-07 12:59
PROVIDERS: ADMIT Internal Medicine; ATTEND Internal Medicine

== ENCOUNTER 2019-05-02 21:34 | Inpatient (IN) ==
--- NOTE | 2019-05-02 22:09 | PROVIDER DOCUMENTATION ---
HPI-General Adult - General Chief Complaint: GI Bleed Stated Complaint: vomiting blood Time Seen by Provider: 05/02/19 21:44 Source: patient Allergies/Adverse Reactions: Patient Allergies Allergy/AdvReac Type Severity Reaction Status Date / Time Iodinated Contrast Media Allergy Unknown Verified 02/21/19 00:11 [Iodinated Contrast- Oral and IV Dye] Home Medications: Home Medication List Medication Instructions Recorded Confirmed Last Taken Type Bupropion [Wellbutrin] 150 mg PO DAILY 01/25/13 05/02/19 08/15/16 05:00 History Multivitamin [Multivitamins] 1 cap PO DAILY 08/15/16 05/02/19 08/15/16 05:00 History Metformin [Glucophage] 500 mg PO BID 09/14/18 05/02/19 Unknown History Lipase/Protease/Amylase [Creon Dr 2 tab PO TID 02/19/19 05/02/19 Unknown History 36,000 Units Capsule] Megestrol Acetate 40 mg PO BID 02/19/19 05/02/19 Unknown History Metoclopramide [Reglan] 10 mg PO TID 02/19/19 05/02/19 1 Day Ago History ~02/18/19 Amiodarone [Cordarone] 200 mg PO BID tab 03/03/19 05/02/19 Unknown Rx Apixaban [Eliquis] 5 mg PO BID tab 03/03/19 05/02/19 Unknown Rx Bisacodyl [Dulcolax] 10 mg OH QHS supp 03/03/19 05/02/19 Unknown Rx Levofloxacin [Levaquin] 500 mg PO DAILY #10 tab 03/03/19 05/02/19 Unknown Rx Acetaminophen [Tylenol] 325 mg PO Q4H PRN PRN 03/06/19 05/02/19 Unknown History Loratadine 10 mg PO DAILY 03/06/19 05/02/19 Unknown History Ondansetron Odt [Zofran 4 mg Odt] 4 mg PO Q4H PRN PRN 03/06/19 05/02/19 Unknown History Mupirocin Ointment [Bactroban 1 applicatn TOP BID 03/07/19 05/02/19 Unknown History Ointment] Diltiazem HCl [Cardizem] 120 mg PO BID #60 tab 03/12/19 05/02/19 Unknown Rx Omeprazole 40 mg PO DAILY #30 capsule. 03/12/19 05/02/19 Unknown Rx - History of Present Illness -Gen Adult Nature of Presenting Problems: 73 yr old M, presenting with complaints of hemoptysis for the past few hours. The pt had a fall in home earlier today; was taken to an outside medical facility, and a CT scan of the chest revealed non-displaced fractures of the 12th rib, as well as possible non-displaced fractures of the 4th and 5th. The pt was discharged home and shortly after arriving home, started vomiting, and the contents were noted to be mixed with blood. His family become concerned and brought him in. He denies abdominal pain, chest pain or pain with inspiration. Onset/Duration: reports: 1-3 hours ago Associated Symptoms: reports: vomiting Similar Symptoms Previously?: No Recently seen or treated by another doctor?: Yes (was d/c from another ED some hours [employer] GR[employer]) Review of Systems - Adult - REVIEW OF SYSTEMS - ADULT Constitutional: reports: no symptoms reported Eyes: reports: no symptoms reported Ears, Nose, Mouth & Throat: reports: no symptoms reported Cardiovascular: reports: no symptoms reported Respiratory: reports: no symptoms reported Gastrointestinal: reports: hematemesis Genitourinary: reports: no symptoms reported Musculoskeletal: reports: no symptoms reported Integumentary: reports: no symptoms reported Neurological: reports: no symptoms reported Psychiatric: reports: no symptoms reported Past History - Adult - PAST MEDICAL HISTORY-ADULT Review of Records: reports: Old Records Reviewed, Nursing Assessment Review Major Childhood Illnesses: reports: denies history Cardiovascular: reports: A-Fib (new onset), hyperlipidemia Respiratory: reports: denies history Gastrointestinal: reports: cancer (pancreatic cancer), GERD Obstetrical/Gynecological: reports: denies history Genitourinary: reports: denies history Musculoskeletal: reports: denies history Neurological: reports: denies history Endocrine/Immune: reports: denies history Other Conditions: reports: denies history - PRIOR SURGERIES/PROCEDURES Surgical/Procedure History: reports: appendectomy, cholecystectomy, hernia repair, other (colon post due to rupture) - IMMUNIZATION STATUS Childhood Immunizations: See Nurse Assessment Flu Vaccine: See Nurse Assessment - FAMILY HISTORY Family History: reviewed, not pertinent - SOCIAL HISTORY Living Situation: family Physical Exam-General - PHYSICAL EXAM-ADULT Initial Vital Signs Reviewed: Yes - CONSTITUTIONAL General Appearance: alert, thin, other (very sleepy, will wake up and talk to if asked questions) - EYES Eyes: PERRL/EOMI - HEAD, EARS, NOSE, MOUTH & THROAT HENMT: normocephalic/atraumatic, moist mucous membranes - RESPIRATORY Respiratory: chest non-tender, lungs clear, normal breath sounds - CARDIOVASCULAR Cardiovascular: regular rate, rhythm - GASTROINTESTINAL (ABDOMEN) Abdominal Exam: normal bowel sounds, soft, tenderness (Pt denied tenderness on initial interview, but he expresses discomfort by moaning when I press on his abdomen with my stethoscope.) - GENITOURINARY Rectal Exam: normal rectal tone, hemorrhoids Hemoccult Exam: heme negative stool - MUSCULOSKELETAL Extremity: no pedal edema - PSYCHIATRIC Psych/Mental Status: normal mood/affect, oriented x 3 Progress - PLAN OF CARE/RESULTS Progress/Plan/Lab Results: Orders Category Date Time Status cxr [CHEST-2 VIEWS] [RAD] Stat Exams 05/02/19 22:02 Ordered CBC WITH ELECTRONIC DIFF [HEME] Stat Lab 05/02/19 22:01 Uncollected COMPREHENSIVE METABOLIC PANEL [CHEM] Stat Lab 05/02/19 22:[address] Chest from outside hospital shows non-displaced fracture of the 12th posteri or rib, and possible fractures on the 4th and 5th rib, right anterior. 1:14AM - CT Abd/Pelvis shows increasing bile duct dilation; hospitalist made aware, will start Zosyn per his recs and plan to admit for further monitoring. Result Diagrams: 05/02/19 22:09 05/02/19 22:09 - REASSESSMENT Reassessment #1 Time Reassessed: 23:45 (H/H are stable from 04/30 - spoke with GI who is ok with the pt having outpatient f/u to plan for endoscopy, based on stable H/H. CMP later results after discussion with GI and shows acute elevation in bilirubin, AST, ALT, Alk Phos; CT Abd/Pelvis from 04/30 shows colitis but no other acute abnormalities; no CT Abd/Pelvis was done at the outside hospital; will re-scan the pt here, and speak to hospitalist about the case further.) - XRAY 1 XRAY Study: Chest Impression: See EMR Report XRAY Interpretation: fractures appear stable to me; official read is pending - CT/MRI 1 CT Study: Abdomen, Pelvis Impression: See EMR Report Comparison with other Films: changes noted (compared to 04/30/2019, increasing bile duct dilation- correlates with almost five-fold increase in total bilirubin, as well as elevated AST, ALT, Alk Phos. No choledocholithiasis noted.) - CONSULTS/PCP/HOSPITALIST Notification #1 *Consult/PCP/Hospitalist*: Dr. Barone Consult Disposition: Admit Departure - Departure Date of Disposition Decision: 05/03/19 Time of Disposition Decision: 01:11 DIAGNOSIS: Total bilirubin, elevated Nausea & vomiting Qualifiers: Vomiting type: hematemesis Qualified Code(s): K92.0 - Hematemesis Disposition: ADMITTED INPATIENT 09 Certified Medical Emergency: Emergent Condition: Fair Referrals and Follow-Ups: Oumou Riley MD [Primary Care Provider] - - Critical Care Note This patient required my direct & personal management of CC.: No Attestation - Physician/ JOVANY Attestation Patient care was provided by Advanced Practice Provider:: No The physician spent face to face time with patient:: Yes Advanced Practice Provider documentation review:: Supervising physician onsite and consulted in the evaluation and care of this patient. The physician did have a face to face encounter with the patient.
[2019-05-02 22:26] LABS: BASO# 0.01 X1000 (0.0-0.2); BASO% 0.1 % (0.0-0.8); EOS# 0.01 X1000 (0.0-0.7); EOS% 0.1 % (0.0-10.0); HEMATOCRIT 37.1 % (42.0-52.0); HEMOGLOBIN 12.3 g/dL (14.0-18.0); IMM GRAN# 0.02 X1000 (0.0-0.04); IMM GRAN% 0.2 % (0.0-0.5); LYMPH% 9.4 % (20.5-51.1); MCH 32.2 PG (27-31); MCHC 33.2 g/dL (33-37); MCV 97.1 FL (81-99); MONO# 0.98 X1000 (0.11-0.59); MONO% 11.5 % (1.7-9.3); MPV 9.2 FL (7.4-10.4); NEUT# 6.67 X1000 (1.4-6.5); NEUT% 78.7 % (42.2-75.2); PLT 300 X1000 (130-400); RBC 3.82 XMIL (4.7-6.1); RDW 16.1 % (11.5-14.5); WBC 8.49 X1000 (4.8-10.8)
[2019-05-02] MEDS ORDERED: ZOFRAN IV ONE (22:30)
[2019-05-02] MEDS ORDERED: TORADOL IV ONE (22:30)
[2019-05-02 22:53] LABS: AGAP 18; ALB/GLOB RATIO 0.9; ALBUMIN 3.3 g/dL (3.5-5.0); ALKALINE PHOSPHATASE 580 U/L (32-122); BUN 6 mg/dL (8-22); CALCIUM 8.8 mg/dL (8.8-10.2); CHLORIDE 98 mmol/L (98-107); COSMO 276; CREATININE 0.7 mg/dL (0.7-1.2); ESTIMATED GFR > 60; GLUCOSE 122 mg/dL (70-104); GOT 360 U/L (10-34); GPT 199 U/L (10-44); POTASSIUM 3.1 mmol/L (3.5-5.1); SODIUM 139 mmol/L (136-145); TCO2 23 mmol/L (25-35); TOTAL PROTEIN 7.1 g/dL (6.3-8.3)
[2019-05-02] MEDS ORDERED: KLOR-CON PO ONE (23:27)
[2019-05-02] MEDS ORDERED: PROTONIX IV ONE (23:44)
[2019-05-02] MEDS ORDERED: SODIUM CHLORIDE 0.9% INJ ONE (23:44)
[2019-05-02] MEDS ORDERED: POTASSIUM CHLORIDE 10% LIQUID PO ONE (23:50)
[2019-05-03] MEDS ORDERED: LR 1,000 ML IV ONE (00:02)
[2019-05-03] MEDS ORDERED: POTASSIUM CHLORIDE 20 MEQ/SWI 20 MEQ/100 ML IVPB IV SCH (01:00)
[2019-05-03] MEDS ORDERED: ZOSYN 4.5 GM in NS 100 ML IV ONE (01:15)
--- NOTE | 2019-05-03 02:18 | HISTORY AND PHYSICAL ---
ADDENDUM: REASON FOR ADMISSION: Persistent nausea and vomiting of blood-stained emesis after recent discharge from [facility] today. The family reports the patient fell earlier in the morning and went to [facility] where he was found to have some broken ribs and sent home. On arrival home he started vomiting about 3 or 4 times with blood mixed with nonbilious emesis. Family reports the patient had no antecedent abdominal pain. No fever or chills. No altered mental status. Unfortunately I have not been able to get any history from him because he has also received IV opioid treatment. The patient's LFTs and bilirubin have gone from normal to high at 2.7. Bilirubin and transaminases are in the 300. CT scan done showed bile duct obstruction. By the way the patient has a history of stage III pancreatic cancer status post Whipple procedure just about 2 months ago. I have explained to the family the results and the patient will be admitted and empirically start on antibiotics. Because of risk of cholangitis I will get GI to see if stenting will be an amenable to biliary obstruction. I would recommend a right upper quadrant sonogram done for further anatomical evaluation of location of blockage. Otherwise treat the patient symptomatically. cc: Shawnee Barone MD
[2019-05-03] MEDS ORDERED: TYLENOL PR PRN (02:43)
[2019-05-03] MEDS ORDERED: MORPHINE IV PRN (02:48)
[2019-05-03] MEDS ORDERED: NS 1,000 ML IV SCH (03:00)
--- NOTE | 2019-05-03 03:43 | EKG Report ---
Test Performed on : 05/03/2019 02:40:46 AM Test Reason : sob Blood Pressure : / mmHG Vent. Rate : 113 BPM Atrial Rate : 113 BPM P-R Int : 158 ms QRS Dur : 094 ms QT Int : 366 ms P-R-T Axes : 099 -04 080 degrees QTc Int : 502 ms Sinus tachycardia. Inferior infarct (cited on or before 20-FEB-2019) Abnormal ECG When compared with ECG of 06-MAR-2019 21:50, (Unconfirmed) Sinus rhythm. has replaced Atrial flutter. Unconfirmed Result
[2019-05-03] MEDS ORDERED: ZOFRAN IV PRN (06:00)
[2019-05-03] MEDS: HUMULIN R SUBQ SCH ×4 (06:51→21:34)
--- NOTE | 2019-05-03 06:58 | Diag Imaging Result Doc PS360 ---
CT ABD/PELVIS W/IV CONT ONLY - 05/02/2019 INDICATION: Hemetemesis, abnormal LFTs COMPARISON: 04/30/2019 FINDINGS: There is some interstitial pulmonary edema with smooth intralobular septal thickening and some dependent atelectasis. There are couple stable tiny nodules in the lung bases. Heart size remains normal. Stable small hiatal hernia. Stable severe fatty liver. Stable benign dilation of the biliary collecting system and common bile duct. Stable cholecystectomy changes. Stable mild colitis of the hepatic flexure of the colon. Stable severe diverticulosis of the cecum. No bowel obstruction. No free air or drainable fluid collection. Urinary bladder, prostate, and rectum are normal. There are advanced degenerative changes of the spine. No acute or suspicious bony lesion. IMPRESSION: Stable right-sided colitis. Severe fatty change of the liver. Overall no change from prior. This exam was performed using automated exposure control, adjustment of mA or kV according to patient size, and/or use of iterative reconstruction technique Electronically signed by Danish Benavidez 05/03/2019 6:55 AM
--- NOTE | 2019-05-03 08:04 | Diag Imaging Result Doc PS360 ---
EXAM: CHEST-2 VIEWS INDICATION: Coughing up blood TECHNIQUE: 2 views COMPARISON: 04/30/2019 FINDINGS: The left chest port is in stable position. There is mild opacity at the right lung base suggesting possible vague consolidation. However, it is approximately stable. No new consolidation is identified. Cardiac silhouette is stable. IMPRESSION: Stable vague opacity at the right lung base. Electronically signed by Jonny Madrid 05/03/2019 8:01 AM
[2019-05-03 08:07] LABS: BASO# 0.02 X1000 (0.0-0.2); BASO% 0.2 % (0.0-0.8); EOS# 0.02 X1000 (0.0-0.7); EOS% 0.2 % (0.0-10.0); HEMATOCRIT 36.5 % (42.0-52.0); HEMOGLOBIN 12.2 g/dL (14.0-18.0); IMM GRAN# 0.02 X1000 (0.0-0.04); IMM GRAN% 0.2 % (0.0-0.5); LYMPH# 0.78 X1000 (1.2-3.4); LYMPH% 6.9 % (20.5-51.1); MCH 32.7 PG (27-31); MCHC 33.4 g/dL (33-37); MCV 97.9 FL (81-99); MONO# 1.07 X1000 (0.11-0.59); MONO% 9.5 % (1.7-9.3); MPV 9.7 FL (7.4-10.4); NEUT# 9.33 X1000 (1.4-6.5); PLT 252 X1000 (130-400); RBC 3.73 XMIL (4.7-6.1); RDW 16.4 % (11.5-14.5); WBC 11.24 X1000 (4.8-10.8)
[2019-05-03 08:20] LABS: INR 1.47; PROTIME 18.1 Seconds (11.0-16.0)
[2019-05-03 08:21] LABS: PTT 33.5 Seconds (22.3-41.8)
[2019-05-03 08:30] LABS: AGAP 15; ALB/GLOB RATIO 0.9; ALBUMIN 3.1 g/dL (3.5-5.0); ALKALINE PHOSPHATASE 541 U/L (32-122); BUN 5 mg/dL (8-22); CALCIUM 8.6 mg/dL (8.8-10.2); CHLORIDE 102 mmol/L (98-107); COSMO 277; CREATININE 0.7 mg/dL (0.7-1.2); ESTIMATED GFR > 60; GLUCOSE 106 mg/dL (70-104); GOT 317 U/L (10-34); GPT 219 U/L (10-44); MAGNESIUM 1.6 mg/dL (1.5-2.7); POTASSIUM 2.8 mmol/L (3.5-5.1); SODIUM 140 mmol/L (136-145); TCO2 23 mmol/L (25-35); TOTAL BILIRUBIN 3.39 mg/dL (0.20-1.00); TOTAL PROTEIN 6.7 g/dL (6.3-8.3)
[2019-05-03] MEDS: CLINIMIX E 4.25%-5% SOLUTION 1,000 ML IV SCH ×3 (11:08→23:38)
[2019-05-03] MEDS: ZOSYN 3.375 GM in NS 50 ML IV SCH ×3 (11:14→23:46)
--- NOTE | 2019-05-03 11:58 | GASTROENTEROLOGY CONSULTATION ---
DATE: 05/03/2019 REASON FOR CONSULT: Jaundice, Nausea, Vomiting. HISTORY OF PRESENT ILLNESS: Mr. Summers is a 73-year-old male who has a history of pancreatic cancer, status post Whipple surgery which was done by Dr. Jonny Alcazar at the [facility] on 02/10/2019 in [place] and had a PEG J-Tube placed. Patient was in the hospital for 8-9 days and was discharged to [facility] rehab facility. Patient had nausea, vomiting, abdominal pain along with fever and chills. He came to the ER and Dr. Alcazar was contacted, but he refused to accept the patient at [facility]. The patient was then admitted to [facility] on 02/19/2019. An endoscopy was done on 02/26, findings were Schatzki ring, coiled jejunostomy tube in the stomach with copious amount of bile and PEG/J was converted to PEG per Dr Rader. Surgery was consulted to replace the J- tube. His PEG was subsequently removed as he was tolerating oral diet well. Patient is back in the hospital after he was discharged from [facility] yesterday. Patient complained of persistent nausea, vomiting, and some blood in his emesis. The patient reports having a fall on Friday, and had gone [facility], where the found that he had some broken ribs, and was later sent home. When he was at home, he started vomiting. Family mentions that this has been going on for the last few weeks. Patient has denied any abdominal pain. Abdomen x-ray showed stable vague opacity at the right lung base. Abdomen and pelvis CT showed stable right-sided colitis, severe fatty changes of the liver. Abdomen U/S showed suggestion of advance hepatic steatosis, mildly dilated common bile duct and aortic atherosclerotic disease. He was noted to have elevated WBC and increasing Jaundice during this admission raising a question of possible biliary stricture. PAST MEDICAL HISTORY: Pancreatic cancer, status post Whipple surgery on 02/10/2019, type 2 diabetes, GERD, A-fib PAST SURGICAL HISTORY: Whipple surgery on 02/10/2019, cholecystectomy, colectomy 10 years ago after his colon burst from what appeared to be constipation. ALLERGIES: No known drug allergies. SOCIAL HISTORY: He is a former smoker. History of alcohol abuse in the past. Denies any illicit drugs. He is . Very supportive at bedside. FAMILY HISTORY: No significant GI malignancies. HOME MEDICATIONS: Wellbutrin 150 mg daily, multivitamin 1 capsule daily, metformin 500 mg twice a day, Megestrol acetate 40 mg twice a day, lipase protease amylase (that is Tennille DING) 36,000 units 2 tablets 3 times a day, Reglan 10 mg 3 times a day, Dulcolax 10 mg suppository at bedtime, amiodarone 200 mg twice a day, Eliquis 5 mg twice a day, levofloxacin 500 mg daily, acetaminophen 325 mg every 4 hours as needed, loratadine 10 mg p.o. daily, Zofran 4 mg p.o. every 4 hours as needed, Bactroban ointment 1 application topically twice a day, Prilosec 40 mg daily, Cardizem 120 mg twice a day. REVIEW OF SYSTEMS: As per HPI. Otherwise, 12-point review of systems is negative. PHYSICAL EXAMINATION: Vital Signs: Temperature 98.6 degrees, pulse 109, respirations 17, blood pressure 135/81, oxygen saturation is 98% on room air. His weight is 146 pounds, BMI is 20.9 kg/m2. General: He is alert, oriented x2, and in no acute distress. HEENT: Pale conjunctivae. No icterus. PERRL. Neck: Supple. Lungs: Clear to auscultation in the anterior beaulieu. Cardiovascular: The patient is tachycardic. Abdomen: Soft, nondistended, nontender. Surgical scars from previous Whipple procedure. Extremities: No clubbing, no cyanosis. Generalized edema in the lower extremities. Neurologic: Alert and oriented x2. Nonfocal. Cranial nerves II through XII are grossly intact. IMAGING AND LABORATORY DATA: WBCs 11.24, RBC 3.73, hemoglobin 12.2, hematocrit 36.5, platelet count 252,000. PT 18.1, INR 1.47. Sodium 140, potassium 2.8, chloride 102, carbon dioxide 23, anion gap 15, BUN 5, creatinine 0.7, glucose 106, calcium 8.6. Magnesium 1.6. Total bilirubin 3.39, AST 317, ALT 219, alkaline phosphatase 541, albumin is 3.1. Abdomen and pelvis CT showed stable right-sided colitis, severe fatty changes of the liver. Chest x-ray showed stable vague opacity at the right lung base. IMPRESSION AND PLAN: Nausea/Vomiting Fall Pancreatic cancer s/p Whipple procedure Jaundice ? Possible Biliary obstruction/stricture - may need further work up like ERCP/MRCP. Type II diabetes A-fib PLAN: Mr. Summers is a 73 year old male with the history of pancreatic cancer s/p whipple procedure, Gi has been consulted for worsening jaundice and to evaluate for possible biliary obstruction/stricture and nausea/vomiting.The patient is currently on a gastrointestinal prophylaxis 40 mg intravenously twice a day. He is receiving Clinimix for his nutrition. The patient is on antiemetic, Zofran, for his nausea and vomiting. Will need to draw blood cultures to evaluate for sepsis. The patient is on antibiotic, Zosyn. We will do an ERCP tomorrow with Dr. Ferris. Further plan of care will be based on the ERCP findings. Discussed the risks, benefits and alternatives of the procedure, patient and family acknowledged understanding of the plan of care. This plan was discussed with Dr. Rockwell. Thank you for your consult. Please call us for any further questions or concerns. Dictated by KORINA Fontenot for Joaquin Rockwell MD cc: MD Oziel Ma MD I have seen and examined the patient myself and I agree with the above plan of care. ERCP could be difficult in post Whipple anatomy and Dr Ferris is going to try it tomorrow. We also want to evaluate for possible post surgical anastomotic stricture at gastrojejunostomy site as patient has chronic persistent nausea and vomiting. There is a possibility of transferring the patient to [facility] if needed based on the above work up. I have discussed the above with the patient and family at bedside and all questions were answered. I also spoke with Dr Riley and Dr Ferris. Please call us with any further questions. MERLY
--- NOTE | 2019-05-03 13:00 | Diag Imaging Result Doc PS360 ---
EXAM: US ABDOMEN-COMPLETE INDICATION: nausea COMPARISON: None. FINDINGS: There has been a prior cholecystectomy. The common bile duct is dilated measuring up to 8.7 mm in diameter. At least in part, this may be due to postcholecystectomy status. The liver is very echogenic throughout suggesting hepatic steatosis. No discrete hepatic mass is identified. Portal venous flow is hepatopetal. The pancreas is largely obscured. There is aortic atherosclerotic disease. There is subaneurysmal ectasia of the mid aorta are measuring up to 2.1 cm. There are calcified granulomata in the spleen. The spleen is unremarkable, otherwise. The kidneys are grossly unremarkable. IMPRESSION: 1.Suggestion of advanced hepatic steatosis. 2.Mildly dilated common bile duct. 3.Aortic atherosclerotic disease. Electronically signed by Jonny Madrid 05/03/2019 12:58 PM
[2019-05-03] MEDS ORDERED: POTASSIUM CHLORIDE 40 MEQ/SWI 40 MEQ/100 ML IVPB IV ONE (18:17)
--- NOTE | 2019-05-03 19:04 | PROGRESS NOTE ---
DATE: 05/03/2019 SUBJECTIVE: A 73-year-old white male readmitted to the hospital with nausea, vomiting, obstructive jaundice. The patient was seen twice in the ER. He also has mild colitis in the right colon. The patient is losing weight and the family at bedside. PHYSICAL EXAMINATION: Temperature is 98 degrees, pulse 115, blood pressure is stable.HEENT: Within normal limits. Chest: Clear. Heart: Sounds are irregular. Abdomen: Belly is soft, scaphoid. Extremities: No peripheral edema, cyanosis. Neurologic: No obvious neurological deficits. INVESTIGATIONS: White cell count 11, hematocrit 36, platelets 252,000. PT 18, INR 1.7. Sodium 140, potassium 2.8, chloride 102. LFTs were going up. CT scan of the abdomen and pelvis reviewed. Bile duct is 8.9, and there is a possible obstruction there. ASSESSMENT AND PLAN: 1. Obstructive jaundice, new finding. ERCP schedule with Dr. Ferris. I spoke to him. 2. Continue IV Clinimix. 3. Hypokalemia. Replace the potassium. Currently IV Zosyn for impending ascending cholangitis. 4. Gastrointestinal prophylaxis with IV Protonix. 5. Zofran for nausea. 6. Repeat the labs in the morning and we will follow up. cc: Oziel Riley MD
[2019-05-03] MEDS: SODIUM CHLORIDE 0.9% INJ SCH (23:40)
[2019-05-03] MEDS: PROTONIX IV SCH (23:40)
[2019-05-03] MEDS: DULCOLAX PR SCH (23:42)
[2019-05-04] MEDS: ZOSYN 3.375 GM in NS 50 ML IV SCH ×3 (05:37→21:28)
[2019-05-04] MEDS: CLINIMIX E 4.25%-5% SOLUTION 1,000 ML IV SCH ×2 (05:37→15:47)
[2019-05-04] MEDS: HUMULIN R SUBQ SCH ×3 (06:57→16:21)
[2019-05-04 07:27] LABS: BASO# 0.03 X1000 (0.0-0.2); BASO% 0.4 % (0.0-0.8); EOS% 2.6 % (0.0-10.0); HEMATOCRIT 38.7 % (42.0-52.0); HEMOGLOBIN 13.1 g/dL (14.0-18.0); IMM GRAN# 0.02 X1000 (0.0-0.04); IMM GRAN% 0.3 % (0.0-0.5); LYMPH# 1.05 X1000 (1.2-3.4); LYMPH% 13.4 % (20.5-51.1); MCH 32.8 PG (27-31); MCHC 33.9 g/dL (33-37); MCV 96.8 FL (81-99); MONO# 0.74 X1000 (0.11-0.59); MONO% 9.4 % (1.7-9.3); MPV 9.3 FL (7.4-10.4); NEUT% 73.9 % (42.2-75.2); PLT 288 X1000 (130-400); RDW 16.4 % (11.5-14.5); WBC 7.84 X1000 (4.8-10.8)
[2019-05-04 07:48] LABS: AGAP 13; ALB/GLOB RATIO 0.7; ALBUMIN 2.9 g/dL (3.5-5.0); ALKALINE PHOSPHATASE 523 U/L (32-122); BUN 9 mg/dL (8-22); CALCIUM 8.4 mg/dL (8.8-10.2); CHLORIDE 102 mmol/L (98-107); COSMO 282; CREATININE 0.7 mg/dL (0.7-1.2); ESTIMATED GFR > 60; GLUCOSE 128 mg/dL (70-104); GOT 150 U/L (10-34); GPT 176 U/L (10-44); POTASSIUM 3.1 mmol/L (3.5-5.1); SODIUM 141 mmol/L (136-145); TCO2 26 mmol/L (25-35); TOTAL PROTEIN 6.9 g/dL (6.3-8.3)
[2019-05-04] MEDS ORDERED: POTASSIUM CHLORIDE 40 MEQ/SWI 40 MEQ/100 ML IVPB IV ONE (07:50)
--- NOTE | 2019-05-04 07:53 | HISTORY AND PHYSICAL ---
PRIMARY CARE PROVIDER: Dr. Jamilah Riley DATE AND TIME: 05/03/2019 at 0200. CHIEF COMPLAINT: Nausea and vomiting with hematemesis. HISTORY OF PRESENT ILLNESS: Mr. Summers is a 73-year-old male who has a history of pancreatic cancer, status post a Whipple procedure performed by Dr. Ramirez at [facility]. The patient has also had a PEG J-tube placed. He was recently admitted to our facility at the end of January 2019 for nausea, vomiting, abdominal pain. He was found to have a cold, had a J-tube in the stomach with copious amounts of bilious fluid. Surgery did replace his J- tube. The patient's family reports that yesterday at home that he does get up and ambulate with a walker, though has been more weak recently. She states that they were assisting him walking, though unfortunately he did fall and landed on his right side. They did take him to [facility] in [place], [place], for evaluation. They did perform CT studies and did diagnosis him with a nondisplaced 12th rib fracture, as well as possibly fractured 4th and 5th right ribs. He was sent home, though his family reports that after he got home he did begin to have hematemesis. Upon speaking with them further, they did report that over the past few weeks the patient has been having an increased amount of nausea and vomiting, though he did not have the hematemesis until today. They state that he has been having physical decline as well and that he has lost some weight and has become more weak. They states that normally he is able to ambulate with a walker with assistance and does pretty well, though he is even having difficulty ambulating at this time due to the increased weakness. The patient denies any abdominal pain. He denies any headache, dizziness, chest pain, shortness of breath or cough. He denies any diarrhea or hematochezia or melena. He denies any dysuria. He denies any numbness, tingling, or swelling in the extremities. The patient does have a footdrop on his right foot noted, though his states that this has been present for quite some time. The patient's overall appearance, the patient for his overall appearance does not appear to feel well. Skin color is slightly pale also. The patient was resting with his eyes closed in the ER stretcher, though was easily arousable with verbal stimulation. Once awoken, he is alert and oriented to person, place, time, and situation. He is able to follow commands. In the ER, he was noted to be just slightly anemic with a hemoglobin of 12.3, hematocrit 37.1, platelet count was 300,000. PT 18.1, INR is 1.47. He does have some mild hypokalemia with a potassium of 3.1, though his liver enzymes are elevated. His bilirubin is 2.7, though on April 30, just 2 days ago, it was 0.6. All his other liver enzymes are elevated as well. Given this, I did perform a CT abdomen and pelvis, which did show increasing biliary duct dilation. There was no choledocholithiasis or cholelithiasis identified. The radiologist did note to correlate for clinical evidence of biliary obstruction. Given this, the patient will be placed inpatient for admission for further treatment evaluation of biliary obstruction. REVIEW OF SYSTEMS: A 14-point review of systems was conducted with the patient and all were negative except for pertinent positives mentioned above in the HPI. PAST MEDICAL HISTORY: 1. History of pancreatic cancer, status post Whipple procedure by Dr. Ramirez at [facility] in [place], [place]. 2. Diabetes mellitus type 2. 3. Gastroesophageal reflux disease. 4. Paroxysmal atrial fibrillation. 5. History of kidney stones. 6. Osteoarthritis. 7. Depression. 8. Obstructive sleep apnea. 9. History of right footdrop. PAST SURGICAL HISTORY: 1. Status post recent Whipple procedure by Dr. Ramirez at [facility]. 2. Hernia repair. 3. J-tube placement. 4. Cholecystectomy. 5. Colon resection with initial colostomy placement, though this has since been reversed. SOCIAL HISTORY: The patient is a former smoker. In the past, he did occasionally drink alcohol though has not drank any alcohol in recent years. There is no known history of illicit drug use. He is , and his was present at bedside. FAMILY HISTORY: Positive for his mother having a history of ovarian cancer. His father had a history of cirrhosis of the liver. ALLERGIES: Patient has no known allergies. HOME MEDICATIONS: 1. Amiodarone 200 mg p.o. b.i.d. 2. Eliquis 5 mg p.o. b.i.d. 3. Dulcolax 10 mg per rectum every night at bedtime. 4. Wellbutrin 150 mg p.o. daily. 5. Cardizem 120 mg p.o. b.i.d. 6. Levaquin 500 mg p.o. daily. 7. Creon direct release 36,000 unit capsules at 2 capsules p.o. t.i.d. 8. Loratadine 10 mg p.o. daily. 9. Megestrol acetate 40 mg p.o. b.i.d. 10. Glucophage 500 mg p.o. b.i.d. 11. Reglan 10 mg p.o. t.i.d. 12. Multivitamin 1 capsule p.o. daily. 13. Bactroban ointment 1 application topically b.i.d. 14. Omeprazole 40 mg p.o. daily. 15. Zofran 4 mg ODT every 4 hours p.r.n. DIAGNOSTIC DATA: White blood cell count is 8490, hemoglobin 12.3, hematocrit 37.1, platelet count is 300,000. PT 18.1, INR 1.47, PTT is 33.5. Sodium 139, potassium 3.1, chloride 98, serum bicarbonate is 23, BUN 6, creatinine 0.7, glucose 122, calcium 8.8, total bilirubin is 2.7, AST 360, ALT 199, alkaline phosphatase is 580. EKG showed sinus tachycardia at a rate of 113 with a QTc of 502. Chest x-ray showed stable vague opacity in the right lung base. CT of the abdomen and pelvis with IV contrast only did show increasing biliary duct dilation. There was no choledocholithiasis or cholelithiasis identified. Correlate clinical evidence of biliary obstruction. Please see full CT report for detailed findings. PHYSICAL EXAMINATION: VITAL SIGNS: Temperature 98.8 degrees, heart rate 108, respirations 20, blood pressure 144/88, oxygen saturation is 97% on room air. GENERAL: Mr. Summers is a pleasant 73-year-old male who is resting in the ER stretcher with his eyes closed, but was easily arousable with verbal stimulation. Once awoken, he is alert and oriented to person, place, time, and situation. He is able to follow commands. HEENT: Head is atraumatic, normocephalic. Pupils are equal, round, reactive to light, were 3 mm bilaterally and brisk. Oral mucosa slightly dry. Oropharynx clear. NECK: Supple. Trachea midline. CARDIOVASCULAR: Patient has S1-S2 present. No murmurs, gallops, rubs appreciated with a regular rate and rhythm. PULMONARY: Patient has symmetrical chest expansion bilaterally. Lung sounds are clear to auscultation in bilateral full beaulieu. ABDOMEN: Soft, nondistended. He was nontender upon palpation. Bowel sounds are present in all 4 quadrants. EXTREMITIES: No cyanosis or edema noted. Pulse, motor, and sensory are intact in all extremities. Radial and pedal pulses were 2+ bilaterally. INTEGUMENTARY: The patient's skin color is slightly pale though is dry and intact. NEUROLOGICAL: The patient is alert and oriented to person, place, time, and situation. He is able to answer questions appropriately and follow commands. He does have some generalized weakness noted, though there are no other focal neurological deficits noted at this time. ASSESSMENT AND PLAN: 1. Biliary obstruction. For further evaluation of this, we will place the patient nothing by mouth and provide intravenous hydration. We will also place him with empiric antibiotic coverage of Zosyn. Blood cultures have been obtained as well. We will recheck a CMP in the morning. We have placed a consult with Gastroenterology. We will await their evaluation and further recommendations for management. 2. Nausea, vomiting. The patient was given antiemetics upon arrival to the emergency room. He has not had any further episodes of not nausea and vomiting since he has been here. Though Hemoccult stool was negative for any blood, if the patient does have a vomiting episode, we will try to obtain a Gastroccult specimen. 3. Fluid volume depletion. This is likely secondary to nausea and vomiting. We have ordered for gentle intravenous hydration. We will continue to follow. 4. Hypokalemia. The patient's potassium was 3.1. We have ordered for him to have 40 mEq of potassium intravenously. We will recheck his chemistries in the morning. 5. Diabetes mellitus. We have placed the patient on a patient specific sliding scale insulin. We will do pattern fingerstick blood sugars. We will continue to follow. 6. Recent fall with reported possible 4th and 5th rib fractures and a nondisplaced 12th rib fracture on the right. The patient is reporting no pain at this time, though we will implement incentive spirometry as well as frequent turn and cough and deep breathing and will provide as needed pain medicine. 7. History of pancreatic cancer, status post Whipple procedure. 8. History of atrial fibrillation. The patient is in sinus tachycardia at this time. We will continue to monitor this closely. The patient is nothing by mouth at this time until evaluated by Gastroenterology, though once he is able to tolerate oral medicines, we will need to start back his amiodarone and Cardizem. We are holding any anticoagulants at this time until he's evaluated by Gastroenterology in case he requires surgical intervention. 9. Deep vein thrombosis prophylaxis will be provided with sequential compression devices. The patient normally does take Eliquis for his history of atrial fibrillation, though this is being held until he's evaluated by Gastroenterology in case he requires surgical intervention. The patient has been placed on the surgical floor with telemetry. He will have vital signs every 4 hours. We will do strict intake and output, incentive spirometry. He will placed on aspiration precautions as well. He is nothing by mouth at this time. We will repeat a CBC and CMP in the morning. Further orders and recommendations pending hospital course, diagnostic studies, and physician evaluation. Dictated by KORINA Montes for Shawnee Barone MD cc: MD Oziel Verde MD MTDD
[2019-05-04] MEDS: PROTONIX IV SCH ×2 (10:04→21:28)
[2019-05-04] MEDS ORDERED: DIPRIVAN 1% ONE ×2 (11:54→11:58)
--- NOTE | 2019-05-04 20:10 | OPERATIVE NOTE ---
PROCEDURE DATE: 05/04/2019 PREOPERATIVE DIAGNOSIS: Jaundice status post Whipple. POSTOPERATIVE DIAGNOSIS: Devin-en-Y, unable to reach the ampullary area. PROCEDURE: Esophagogastroduodenoscopy. SURGEON: Dr. Rosanne Ferris. ANESTHESIA: IV sedation. DESCRIPTION OF PROCEDURE: After informed consent and adequate intravenous sedation, the scope was introduced into the esophagus. Normal stomach. Did not have any retained gastric contents. The anastomotic site is "wide open" without any ulceration or stenosis. The patient has 2 loops. Both loops I have entered as far as I could go, and I could not see/reach the ampullary area even with fluoroscopic assistance. The scope was withdrawn. The patient tolerated the procedure well without any immediate complications. cc: MD Oziel Estrella MD
[2019-05-04] MEDS: SODIUM CHLORIDE 0.9% INJ SCH (21:28)
[2019-05-05] MEDS: DULCOLAX PR SCH (00:36)
[2019-05-05] MEDS: HUMULIN R SUBQ SCH ×3 (00:37→11:42)
[2019-05-05] MEDS: CLINIMIX E 4.25%-5% SOLUTION 1,000 ML IV SCH ×2 (00:37→11:24)
[2019-05-05] MEDS: ZOSYN 3.375 GM in NS 50 ML IV SCH ×2 (02:48→11:27)
--- NOTE | 2019-05-05 05:56 | PROGRESS NOTE ---
DATE: 05/04/2019 SUBJECTIVE: The patient is going for ERCP today. Dr. Ferris spoke to him. It is going to be difficult after Whipple's procedure and he is going to attempt. PHYSICAL EXAMINATION: Vital signs: Temperature is 98 degrees, tachycardic, vitals are stable. HEENT: Within normal limits. Neck: Supple. Chest: Bilateral air entry. Heart: Sounds are regular, irregular. Abdomen: Belly is soft, scaphoid. INVESTIGATIONS: CBC: White cell count 7.8, hematocrit 38.7, platelets 288,000. Sodium 140, potassium 3.1, chloride 102. LFTs were going up. ASSESSMENT AND PLAN: 1. Obstructive jaundice. Attempted endoscopic retrograde cholangiopancreatography failed. 2. Will repeat the CA-19-9. Continue IV Clinimix. Replace the potassium. IV antibiotics with Zosyn. 3. Chronic atrial fibrillation. He is on amiodarone which is on hold and will also go back on apixaban because of atrial fibrillation, and reconcile some of his home medications. We will discuss with the family about the next plan of action, probably will transfer to [facility]. I will speak to Jonny Bailey. LEVEL OF DOCUMENTATION: 25 minutes. cc: Oziel Riley MD
[2019-05-05] MEDS ORDERED: WELLBUTRIN XL PO SCH (09:00)
[2019-05-05] MEDS ORDERED: MEGACE PO SCH (09:00)
[2019-05-05] MEDS ORDERED: ELIQUIS PO SCH (09:00)
[2019-05-05 10:54] VITALS: BP 141/88
[2019-05-05] MEDS: PROTONIX IV SCH (11:43)
[2019-05-05] MEDS: REGLAN PO SCH ×2 (11:43→13:10)
[2019-05-05] MEDS: CREON PO SCH ×2 (11:44→13:10)
--- NOTE | 2019-05-06 19:47 | DISCHARGE SUMMARY ---
ADMISSION DATE: 05/03/2019 DISCHARGE DATE: 05/05/2019 DISCHARGING DIAGNOSIS: Intractable nausea and vomiting due to obstructive jaundice at the nishi hepatis. SECONDARY DIAGNOSES: 1. Chronic atrial fibrillation. 2. Stage III pancreatic cancer, status post Whipple procedure and positive lymph nodes. 3. Right foot drop. 4. Anastomotic ulcer was healing. 5. Reactive depression. 6. Sleep apnea, on CPAP machine. 7. History of kidney stones. 8. Moderate protein-calorie malnutrition. CONSULTS: Dr. Ferris. PROCEDURES: ERCP. Findings were unable to reach the ampulla area due to prior Whipple procedure and Devin-en-Y loop. BRIEF HISTORY: Please see the H and P that was done by hospitalist. In brief, he is a 73-year- old white gentleman with pancreatic cancer, status post Whipple procedure by Jonny Alcazar at [facility] 2 months ago. Came in with intractable nausea and vomiting, associated with obstructive jaundice. He also had a mild colitis on the right side. The patient was given IV Zofran, IV Reglan, IV Clinimix. He has chronic atrial fibrillation. These findings were new. Dr. Ferris was unable to put a stent, and patient not able to tolerate the diet well. Repeat [id number]. At the request of the family, patient has been transferred to [facility] under Jonny Alcazar. LABORATORY DATA: At the time of discharge, the labs are as follows. CBC: White cell count 7.8, hematocrit 38, platelets 288,000. Sodium 140, potassium 3.1, chloride 102, BUN 9, creatinine 0.7, glucose 117. Bilirubin is consistently rising, 4.2. Elevated LFTs. TSH is normal. [id number] was 25 before. RADIOLOGY PROCEDURES: 1. Abdominal ultrasound: Advanced hepatic steatosis. Dilated common bile duct, 8 mm. Aortic atherosclerotic disease. 2. CT scan of the abdomen and pelvis: Stable right-sided colitis. Obstruction of common bile duct at the nishi hepatis. DISCHARGE INSTRUCTIONS FOLLOWS: 1. Transfer to [facility] under Jonny Alcazar. 2. Continue on Clinimix. 3. Wellbutrin 150 daily. 4. Multivitamin 1 capsule daily. 5. Megace 40 p.o. b.i.d. 6. Reglan 10 p.o. b.i.d. 7. Eliquis 5 mg p.o. b.i.d. 8. Prilosec 40 daily. 9. Discussed with the family and will follow up. cc: Oziel Riley MD
== END 2019-05-05 15:36 | disposition short-term general hospital (02) | DRG 444 ==
LOC: SUPCPDRO → ED 21:34 → 4N 05-03 03:02 → SUATTDRO 05-03 03:02
PROVIDERS: ADMIT Internal Medicine; ATTEND Internal Medicine

== ENCOUNTER 2019-05-19 14:13 | Inpatient (IN) ==
[2019-05-19 16:48] LABS: INR 1.27; PROTIME 16.1 Seconds (11.0-16.0)
[2019-05-19] MEDS ORDERED: REGLAN IM ONE (17:07)
[2019-05-19] MEDS ORDERED: REGLAN PO ONE (17:26)
[2019-05-19] MEDS ORDERED: ZOFRAN PO ONE (17:27)
[2019-05-19] MEDS: NS 1,000 ML IV SCH (18:04)
[2019-05-19] MEDS ORDERED: REGLAN PO SCH (21:00)
[2019-05-19] MEDS ORDERED: ZOFRAN PO SCH (21:00)
--- NOTE | 2019-05-19 22:25 | HISTORY AND PHYSICAL ---
CHIEF COMPLAINT: 1. Removal of the PICC line on the right side by the [facility]. 2. Intractable nausea. 3. Unable to swallow. 4. Oral thrush. 5. Pressure ulcer on the back. HISTORY OF PRESENT ILLNESS: He is a 73-year-old white gentleman who has been battling with stage III pancreatic cancer, status post Whipple procedure, positive lymph nodes with underlying atrial fibrillation, protein-calorie malnutrition. He recently had jaundice, appears to be obstructive on the CT. Subsequently he went to [facility]. Dr. Jonny Ramirez felt that there was no obstruction. It was thought to be amiodarone toxicity, which we stopped. As a result after stopping, liver function tests came back normal. He has also had bleeding per rectum. Eliquis has been stopped. The patient was sent home for the TPN to improve the nutrition. Weight is 149 pounds. Blood sugar is doing very well. He was not able to eat well despite Marinol and Megace. The patient's family was told he needs to improve nutrition and gait before he gets further palliative chemotherapy. This morning the PICC line was out. He was not able to swallow. Basically he came to the hospital for a PICC line for outpatient TPN, IV Diflucan and clotrimazole for oral thrush, and improve nutritional status. Also improve the gait per physical therapy. As a result, a hospital admission was warranted. PAST MEDICAL HISTORY: 1. History of stage III pancreatic cancer, status post Whipple procedure. 2. Diabetes, controlled with diet. 3. Acid reflux disease. 4. Persistent atrial fibrillation. 5. Kidney stones. 6. Depression. 7. Osteoarthritis. 8. Right footdrop. 9. Obstructive sleep apnea. PAST SURGICAL HISTORY: Status post Whipple, hernia repair, removal of J-tube, failed ERCP, cholecystectomy, colon resection with initially colostomy, repair of ventral hernia repair, Port-A- Cath on the left side of the chest. MEDICATIONS: Wellbutrin 150 daily; metformin 500 p.o. b.i.d.; Creon 2 tablets t.i.d.; Reglan 10 t.i.d.; loratadine 10 daily; Cardizem 120 p.o. b.i.d.; Prilosec 20 daily; Megace and Marinol. ALLERGIES: Reported to iodinated contrast. SOCIAL HISTORY: He has been . One daughter. Retired, lives in [place]. Stopped drinking alcohol. FAMILY HISTORY: Noncontributory. REVIEW OF SYSTEMS: No headache, no vision problems. Has trouble swallowing, thrush in the mouth. No neck pain. Cardiopulmonary: No chest pain, shortness of breath, PND or orthopnea. GI: Poor appetite, and bleeding per rectum. : No history of hesitancy or frequency. Slightly bedsore on the coccyx, stage I. Weakness in the right foot. No peripheral edema. No focal symptoms or weakness. PHYSICAL EXAMINATION: VITAL SIGNS: Temperature is 98.5 degrees, pulse 93, blood pressure 116/58. GENERAL: Five feet 10 inches, 149 pounds. HEENT: Exam within normal limits. Temporal wasting. Oral thrush noted. NECK: Supple. No lymphadenopathy. CHEST: Bilateral air entry. Port was seen on the left side of the chest. HEART: Sounds are regular. ABDOMEN: Belly is soft, scaphoid. EXTREMITIES: No peripheral edema. NEUROLOGIC: No obvious neurological deficits. INVESTIGATIONS: None reported. ASSESSMENT AND PLAN: 1. A 73-year-old white male admitted to the hospital with stage III pancreatic cancer with dysphagia, intractable nausea and vomiting. Plan is intravenous Diflucan, clotrimazole. 2. Nausea and vomiting. Zofran and Reglan. 3. Gastrointestinal prophylaxis with acid reducers. 4. Poor appetite. We will try Periactin. 5. Deconditioning. Assistance with physical therapy. 6. Chronic atrial fibrillation, not able to tolerate amiodarone. Eliquis on hold. 7. Type 2 diabetes, diet controlled. 8. Assistance with food eating with pureed diet. Dietary consult. 9. Peripherally inserted central catheter line on the right side for total parenteral nutrition for nourishment, until he improves the enteral feeding. In the meantime, continue intravenous fluids. 10. Discussed the plan of care with family. We will follow up. cc: Oziel Riley MD
[2019-05-19] MEDS: CALMOSEPTINE OINTMENT TOP PRN (23:07)
[2019-05-19] MEDS: MYCELEX TROCHE PO SCH (23:07)
[2019-05-19] MEDS: REGLAN PO SCH (23:08)
[2019-05-19] MEDS: LOVENOX SUBQ SCH (23:08)
[2019-05-19] MEDS: ZOFRAN PO SCH (23:08)
[2019-05-20] MEDS: MYCELEX TROCHE PO SCH ×4 (01:46→21:52)
[2019-05-20] MEDS: ZOFRAN PO SCH ×3 (06:58→22:01)
[2019-05-20] MEDS: REGLAN PO SCH ×3 (06:58→22:00)
[2019-05-20] MEDS: NS 1,000 ML IV SCH ×2 (06:58→17:21)
[2019-05-20] MEDS: PERIACTIN PO SCH ×3 (06:58→17:14)
[2019-05-20] MEDS ORDERED: REGLAN PO SCH (07:00)
[2019-05-20 07:29] LABS: BASO# 0.03 X1000 (0.0-0.2); BASO% 0.4 % (0.0-0.8); EOS# 0.14 X1000 (0.0-0.7); HEMATOCRIT 33.2 % (42.0-52.0); HEMOGLOBIN 10.4 g/dL (14.0-18.0); IMM GRAN# 0.05 X1000 (0.0-0.04); IMM GRAN% 0.7 % (0.0-0.5); LYMPH# 1.23 X1000 (1.2-3.4); LYMPH% 17.6 % (20.5-51.1); MCH 32.2 PG (27-31); MCHC 31.3 g/dL (33-37); MCV 102.8 FL (81-99); MONO# 0.67 X1000 (0.11-0.59); MONO% 9.6 % (1.7-9.3); MPV 8.9 FL (7.4-10.4); NEUT# 4.88 X1000 (1.4-6.5); NEUT% 69.7 % (42.2-75.2); PLT 400 X1000 (130-400); RBC 3.23 XMIL (4.7-6.1); RDW 14.9 % (11.5-14.5)
[2019-05-20 08:04] LABS: AGAP 15; ALB/GLOB RATIO 0.7; ALBUMIN 2.8 g/dL (3.5-5.0); ALKALINE PHOSPHATASE 499 U/L (32-122); BUN 12 mg/dL (8-22); C REACTIVE PROT QUANT 113.16 mg/L (0.00-5.00); CALCIUM 9.1 mg/dL (8.8-10.2); CHLORIDE 100 mmol/L (98-107); COSMO 273; CREATININE 0.7 mg/dL (0.7-1.2); ESTIMATED GFR > 60; GLUCOSE 87 mg/dL (70-104); GOT 47 U/L (10-34); GPT 96 U/L (10-44); POTASSIUM 3.4 mmol/L (3.5-5.1); SODIUM 137 mmol/L (136-145); TCO2 22 mmol/L (25-35); TOTAL BILIRUBIN 5.27 mg/dL (0.20-1.00)
[2019-05-20] MEDS: DIFLUCAN PO SCH (08:16)
[2019-05-20] MEDS: PRILOSEC PO SCH (08:16)
[2019-05-20] MEDS: CREON PO SCH ×3 (08:17→17:19)
[2019-05-20] MEDS: WELLBUTRIN XL PO SCH (08:17)
[2019-05-20] MEDS ORDERED: NS 250 ML ONE (10:44)
--- NOTE | 2019-05-20 11:56 | Diag Imaging Result Doc PS360 ---
EXAM: CHEST-PORTABLE 05/20/2019 HISTORY: for pic placement TECHNIQUE: AP portable upright at 1148 COMMENT: There is a left-sided Port-A-Cath with its tip in the superior vena cava and a PICC line with its tip slightly more inferiorly in the superior vena cava. There is slightly ill-defined opacity present in the right lower lobe which was probably present previously. There has been no appreciable change since 04/30/2019. IMPRESSION: Questionable atelectasis or pneumonia in the right lower lobe. Electronically signed by Lorenzo Concepcion 05/20/2019 11:54 AM
[2019-05-20] MEDS: LOVENOX SUBQ SCH (21:52)
--- NOTE | 2019-05-20 21:55 | PROGRESS NOTE ---
DATE: 05/20/2019 SUBJECTIVE: The patient is eating a little better. Waiting for PICC line and I was a little bit surprised about liver function tests. The patient stopped amiodarone and liver function test 05/12/2019, a week ago, normal LFTs. Bilirubin is normal. Today he has persistent elevation of LFTs. OBJECTIVE: On examination, he has had a bout of jaundice, tachycardic. Vitals are stable and chest is clear. Heart sounds are regular. Belly is soft, nontender. No obvious deficits other than footdrop. INVESTIGATIONS: CBC: White cell count 7, hematocrit 33, platelets 400,000. Sodium 137, potassium 3.4. Increased LFTs. ASSESSMENT AND PLAN: 1. Stage III pancreatic cancer. 2. Elevated liver functioin tests. 3. Protein-calorie malnutrition. 4. Intractable nausea and vomiting. 5. Stage I pressure ulcer on the coccyx. 6. Hypokalemia. PLAN OF CARE TODAY: 1. Periactin for appetite after PICC line we will start the TPN. 2. Reglan. 3. Physical therapy consult. 4. Dietary consult. 5. Persistent elevated liver function tests, probably from the obstructive even though Dr. Kerr, there is nothing he can do. We will continue to monitor. 6. Oral thrush on IV Diflucan. We will discuss with the family after the PICC line. LEVEL OF DOCUMENTATION: 35 minutes. cc: Oziel Riley MD MTDJose Manuel
[2019-05-21] MEDS: MYCELEX TROCHE PO SCH ×4 (01:28→21:34)
[2019-05-21] MEDS: NS 1,000 ML IV SCH (04:43)
[2019-05-21] MEDS: ZOFRAN PO SCH ×3 (06:10→21:34)
[2019-05-21] MEDS: PERIACTIN PO SCH ×3 (06:11→16:55)
[2019-05-21] MEDS: REGLAN PO SCH ×3 (06:11→21:34)
[2019-05-21] MEDS: WELLBUTRIN XL PO SCH (09:43)
[2019-05-21] MEDS: CREON PO SCH ×4 (09:43→16:55)
[2019-05-21] MEDS: PRILOSEC PO SCH (09:44)
[2019-05-21] MEDS: DIFLUCAN PO SCH (09:44)
[2019-05-21 14:44] LABS: AGAP 16; ALB/GLOB RATIO 0.6; ALBUMIN 2.7 g/dL (3.5-5.0); ALKALINE PHOSPHATASE 625 U/L (32-122); BUN 7 mg/dL (8-22); CALCIUM 9.1 mg/dL (8.8-10.2); CHLORIDE 102 mmol/L (98-107); COSMO 275; CREATININE 0.8 mg/dL (0.7-1.2); ESTIMATED GFR > 60; GLUCOSE 125 mg/dL (70-104); GOT 52 U/L (10-34); GPT 81 U/L (10-44); MAGNESIUM 1.8 mg/dL (1.5-2.7); PHOSPHORUS 3.6 mg/dL (2.7-4.5); POTASSIUM 3.3 mmol/L (3.5-5.1); SODIUM 138 mmol/L (136-145); TCO2 20 mmol/L (25-35); TOTAL BILIRUBIN 3.52 mg/dL (0.20-1.00); TOTAL PROTEIN 7.2 g/dL (6.3-8.3)
[2019-05-21] MEDS: TPN ELECTROLYTES IV SCH ×7 (18:09)
[2019-05-21] MEDS: POTASSIUM CHLORIDE IV SCH ×7 (18:09)
[2019-05-21] MEDS: [UNRECOGNIZED DRUG - OTHER] IV SCH ×7 (18:09)
[2019-05-21] MEDS: SODIUM CHLORIDE IV SCH ×7 (18:09)
--- NOTE | 2019-05-21 20:58 | PROGRESS NOTE ---
DATE: 05/21/2019 SUBJECTIVE: The patient had a PICC line on the left side. He wants to eat GI soft diet. He is going to the bathroom. He is extremely nauseous. I spoke to his this afternoon. He has elevated liver function tests as well as jaundice. Last week his liver function tests were almost normal. Anyhow, the family decided to keep him in the hospital to improve the nutrition status and physical therapy. He also has a pressure ulcer on the coccyx. REVIEW OF SYSTEMS: Nausea. OBJECTIVE: On exam, temperature is 98.4 degrees. He is tachycardic, irregular. Blood pressure 127/86. Chest is clear to auscultation. Irregular heart sounds. Belly is soft, nontender. No neurological deficits. LABORATORY DATA: Sodium 138, potassium 3.3, chloride 102, BUN 7, creatinine 0.8, glucose 125, total bilirubin now is coming down. Alkaline phosphate is high. ASSESSMENT AND PLAN: 1. Stage III pancreatic cancer, status post Whipple procedure. 2. Elevated CA19-9, 650. 3. Protein-calorie malnutrition. 4. Port-A-Cath on the left side. 5. Chronic atrial fibrillation. 6. Persistent nausea and vomiting. 7. Hypokalemia. 8. Plan: Initiate total parenteral nutrition, gastrointestinal soft diet. Periactin for appetite. Continue on Zofran and Reglan. 9. Patient advised to stop amiodarone due to liver toxicity. Eliquis was stopped due to gastrointestinal bleeding. 10. Stage I pressure ulcer. Wound consult. Continue barrier cream. 11. Prognosis is poor. Continue total parenteral nutrition, physical therapy and wound care. 12. Oral thrush is improving. 13. Diabetes, basically controlled with diet. 14. Continue on Creon for digestion. We will follow up. Level of documentation 25 minutes. cc: Oziel Riley MD
[2019-05-22] MEDS: ZOFRAN PO SCH ×5 (04:08→22:08)
[2019-05-22] MEDS: MYCELEX TROCHE PO SCH ×4 (04:08→22:08)
[2019-05-22] MEDS: REGLAN PO SCH ×4 (04:08→22:08)
[2019-05-22] MEDS: LOVENOX SUBQ SCH ×2 (04:09→22:11)
[2019-05-22] MEDS: PERIACTIN PO SCH ×3 (07:03→15:46)
[2019-05-22 07:59] LABS: AGAP 12; BUN 10 mg/dL (8-22); CALCIUM 8.9 mg/dL (8.8-10.2); CHLORIDE 105 mmol/L (98-107); CHOLESTEROL 149 mg/dL (0-200); COSMO 286; CREATININE 0.8 mg/dL (0.7-1.2); ESTIMATED GFR > 60; GLUCOSE 161 mg/dL (70-104); GOT 35 U/L (10-34); MAGNESIUM 1.9 mg/dL (1.5-2.7); PHOSPHORUS 2.7 mg/dL (2.7-4.5); POTASSIUM 3.3 mmol/L (3.5-5.1); PREALBUMIN 12.9 mg/dL (20-40); SODIUM 142 mmol/L (136-145); TCO2 25 mmol/L (25-35); TRIGLYCERIDES 75 mg/dL (39-160)
[2019-05-22] MEDS: WELLBUTRIN XL PO SCH (08:55)
[2019-05-22] MEDS: CREON PO SCH ×3 (08:55→17:37)
[2019-05-22] MEDS: PRILOSEC PO SCH (08:56)
[2019-05-22] MEDS: DIFLUCAN PO SCH (08:56)
[2019-05-22] MEDS ORDERED: KLOR-CON PO ONE (10:22)
[2019-05-22] MEDS: CREON PO PRN ×2 (13:45→17:36)
--- NOTE | 2019-05-22 14:12 | PROGRESS NOTE ---
DATE: 05/22/2019 SUBJECTIVE: Patient appears stable. He says he is cold, but otherwise has no specific complaints. He says his daughter brought him some pancakes and he was able to eat a few bites of that. He was able to ambulate in the laura by his report yesterday. OBJECTIVE: Afebrile, pulse 100, respirations 21, blood pressure 127/79, O2 saturation room air 100%. Weight is 144, which is down from 149 on admission. LABS: Show potassium 3.3, chloride 142, CO2 25, BUN 10, creatinine 0.8, magnesium 1.9. AST down slightly to 35. Prealbumin 12.9, triglycerides 75, cholesterol 149.CV: RRR. Lungs: Distant breath sounds fairly clear. Abdomen: Nondistended. Extremities: No calf tenderness, cords or edema. Cachectic-appearing. Neuro: Nonfocal. Cranial nerves intact. ASSESSMENT: 1. Stage III pancreatic cancer status post prior Whipple procedure. 2. Protein calorie malnutrition. 3. History of atrial fibrillation, currently seems to be in sinus rhythm. 4. Intractable nausea and vomiting, stable on Zofran. 5. Elevated liver function tests. 6. Stage I pressure ulcer. 7. Oral thrush. 8. Diet-controlled diabetes mellitus. 9. Hypokalemia. PLAN: Continue TPN and oral intake as he can tolerate. Continue Creon. Physical therapy is working with the patient. cc: MD Oziel Trinidad MD
[2019-05-22] MEDS: TPN ELECTROLYTES IV SCH ×7 (17:28)
[2019-05-22] MEDS: [UNRECOGNIZED DRUG - OTHER] IV SCH ×7 (17:28)
[2019-05-22] MEDS: POTASSIUM CHLORIDE IV SCH ×7 (17:28)
[2019-05-22] MEDS: SODIUM CHLORIDE IV SCH ×7 (17:28)
[2019-05-23] MEDS: MYCELEX TROCHE PO SCH ×4 (05:26→21:20)
[2019-05-23] MEDS: REGLAN PO SCH ×3 (06:28→22:00)
[2019-05-23] MEDS: PERIACTIN PO SCH ×3 (06:28→15:28)
[2019-05-23] MEDS: ZOFRAN PO SCH ×3 (06:28→22:00)
[2019-05-23 07:39] LABS: AGAP 12; BUN 13 mg/dL (8-22); CALCIUM 8.9 mg/dL (8.8-10.2); CHLORIDE 104 mmol/L (98-107); COSMO 282; CREATININE 0.6 mg/dL (0.7-1.2); ESTIMATED GFR > 60; GLUCOSE 173 mg/dL (70-104); MAGNESIUM 1.9 mg/dL (1.5-2.7); PHOSPHORUS 2.5 mg/dL (2.7-4.5); POTASSIUM 3.9 mmol/L (3.5-5.1); SODIUM 139 mmol/L (136-145); TCO2 23 mmol/L (25-35)
[2019-05-23] MEDS: CREON PO PRN ×2 (08:47→12:29)
[2019-05-23] MEDS: PRILOSEC PO SCH (08:47)
[2019-05-23] MEDS: WELLBUTRIN XL PO SCH (08:47)
[2019-05-23] MEDS: DIFLUCAN PO SCH (08:47)
[2019-05-23] MEDS: CREON PO SCH ×3 (08:48→17:41)
--- NOTE | 2019-05-23 12:02 | PROGRESS NOTE ---
DATE: 05/23/2019 SUBJECTIVE: The patient says he has had a good day overall. He is able to eat his breakfast well. No major pain. OBJECTIVE: Vital signs: Afebrile, pulse 100, respirations 19, blood pressure 138/95, O2 saturation on room air 99 percent. CV: RRR. Lungs: Clear. Abdomen: Mild distention. Extremities: No calf tenderness, cords or edema. Some jaundice is noted. HEENT: Poor dentition. Neurologic: Cranial nerves are intact. He moves all extremities well. Follows commands. Alert and oriented x3. Cachectic appearing. DIAGNOSTIC DATA: Sodium 139, potassium 3.9, chloride 104, CO2 23, BUN 13, creatinine 0.6, blood sugars high of 100s to low 200s, calcium 8.9, magnesium 1.9. ASSESSMENT: 1. Stage III pancreatic cancer, status post prior Whipple procedure. 2. Protein calorie malnutrition. 3. History of atrial fibrillation, currently in sinus rhythm. 4. Intractable nausea and vomiting, stable on Zofran scheduled. 5. Elevated LFTs. 6. Stage I pressure ulcer. 7. Oral thrush, on medication. 8. Diet-controlled diabetes mellitus. 9. Hypokalemia, repleted. PLAN: Continue TPN, as much oral intake as he can tolerate and Creon. Physical Therapy continues to help with the patient's care. Continue present treatment. cc: MD Oziel Trinidad MD
[2019-05-23] MEDS: SODIUM CHLORIDE IV SCH ×7 (17:41)
[2019-05-23] MEDS: [UNRECOGNIZED DRUG - OTHER] IV SCH ×7 (17:41)
[2019-05-23] MEDS: POTASSIUM CHLORIDE IV SCH ×7 (17:41)
[2019-05-23] MEDS: TPN ELECTROLYTES IV SCH ×7 (17:41)
[2019-05-23] MEDS: LOVENOX SUBQ SCH (21:20)
[2019-05-24] MEDS: MYCELEX TROCHE PO SCH ×4 (02:22→19:58)
[2019-05-24] MEDS: ZOFRAN PO SCH ×3 (06:06→22:04)
[2019-05-24] MEDS: REGLAN PO SCH ×3 (06:06→22:04)
[2019-05-24] MEDS: PERIACTIN PO SCH ×4 (06:06→17:46)
[2019-05-24 07:48] LABS: AGAP 11; BUN 13 mg/dL (8-22); CALCIUM 8.8 mg/dL (8.8-10.2); CHLORIDE 102 mmol/L (98-107); COSMO 278; CREATININE 0.7 mg/dL (0.7-1.2); ESTIMATED GFR > 60; GLUCOSE 167 mg/dL (70-104); MAGNESIUM 1.9 mg/dL (1.5-2.7); PHOSPHORUS 2.2 mg/dL (2.7-4.5); POTASSIUM 3.9 mmol/L (3.5-5.1); SODIUM 137 mmol/L (136-145); TCO2 24 mmol/L (25-35)
[2019-05-24] MEDS: CREON PO SCH ×3 (11:37→17:47)
[2019-05-24] MEDS: CREON PO PRN ×2 (11:38→17:48)
[2019-05-24] MEDS: DIFLUCAN PO SCH (11:39)
[2019-05-24] MEDS: WELLBUTRIN XL PO SCH (11:39)
[2019-05-24] MEDS: PRILOSEC PO SCH (11:39)
[2019-05-24] MEDS ORDERED: LIPOSYN 20% 500 ML IV ONE (14:00)
[2019-05-24] MEDS: POTASSIUM CHLORIDE IV SCH ×8 (17:48)
[2019-05-24] MEDS: TPN ELECTROLYTES IV SCH ×8 (17:48)
[2019-05-24] MEDS: [UNRECOGNIZED DRUG - OTHER] IV SCH ×8 (17:48)
[2019-05-24] MEDS: SODIUM CHLORIDE IV SCH ×8 (17:48)
[2019-05-24] MEDS: TYLENOL PO PRN (20:33)
--- NOTE | 2019-05-24 21:35 | PROGRESS NOTE ---
DATE: 05/24/2019 SUBJECTIVE: The patient is anxious to go home. Events noted. PICC line was placed on the left side. Currently on TPN. Elevated liver function tests, which was abnormal compared to a week ago. Oral thrush is getting better. He said he is eating a little fair. PHYSICAL EXAM: Vital Signs: He has a temperature of 102.6 degrees. He is tachycardic. Vitals are stable. HEENT: Within normal limits. Neck: Supple. Chest: Bilateral air entry. Heart: Irregular heart sounds. Abdomen: Belly is soft, nontender. Extremities/Neurologic: No obvious deficits other than footdrop on the right side. INVESTIGATIONS: SMA 7 is normal. LFTs are pending. Prealbumin 12.9. ASSESSMENT AND PLAN: 1. Oral thrush is improving. 2. Out of the bed with Physical Therapy. 3. Port on the left side. 4. PICC line on the left side. 5. Stage III pancreatic cancer. 6. Right footdrop. 7. Chronic atrial fibrillation. 8. Lower gastrointestinal bleeding. Plan is we will get a chest x-ray and urine culture. Repeat the CMP and CA-19-9 in the morning. Continue present treatment. We will discuss with the family based on these tests. LEVEL OF DOCUMENTATION: 25 minutes. cc: Oziel Riley MD
--- NOTE | 2019-05-24 21:45 | Diag Imaging Result Doc PS360 ---
EXAM: CHEST-1 VIEW - 05/24/2019 HISTORY: SOB TECHNIQUE: Portable chest one view COMPARISON: 05/20/2019 FINDINGS: Heart size appears within normal limits. There is stable mild prominence of lower lung interstitial markings. There is no dense consolidation, pleural effusion, or pneumothorax identified. Central venous catheter and PICC remain. IMPRESSION: Stable mild prominence of lower lung interstitial markings. Electronically signed by Tc Esqueda 05/24/2019 9:43 PM
[2019-05-24] MEDS: LOVENOX SUBQ SCH (22:04)
[2019-05-24 22:41] LABS: URINE SOURCE CLEAN CATCH
[2019-05-24 23:26] LABS: BILIRUBIN URINE MODERATE (NEGATIVE); BLOOD URINE NEGATIVE (NEGATIVE); COLOR YELLOW; GLUCOSE URINE NEGATIVE (NEGATIVE); KETONE URINE NEGATIVE (NEGATIVE); LEUKOCYTES URINE NEGATIVE (NEGATIVE); NITRITE URINE NEGATIVE (NEGATIVE); PH URINE 7.5; PROTEIN URINE TRACE mg/dL (NEGATIVE); SP GRAVITY URINE 1.021; TURBIDITY URINE CLEAR (CLEAR); UROBILINOGEN URINE >12 mg/dL (NORMAL)
[2019-05-25 00:09] LABS: UR EPITHELIAL CELLS <10 /HPF (<10); URINE BACTERIA NEGATIVE /HPF; URINE RBC <10 /HPF (<10); URINE WBC <10 /HPF (<10)
[2019-05-25 00:33] LABS: URINE CASTS NONE SEEN; URINE CRYSTALS NONE SEEN; URINE SMALL ROUND CELLS NONE SEEN; URINE YEAST NONE SEEN
[2019-05-25] MEDS: MYCELEX TROCHE PO SCH ×4 (01:52→22:38)
[2019-05-25] MEDS: REGLAN PO SCH ×3 (06:03→22:38)
[2019-05-25] MEDS: ZOFRAN PO SCH ×3 (06:03→22:38)
[2019-05-25] MEDS: PERIACTIN PO SCH ×3 (06:03→16:27)
[2019-05-25 07:42] LABS: BASO# 0.04 X1000 (0.0-0.2); BASO% 0.3 % (0.0-0.8); EOS# 0.25 X1000 (0.0-0.7); EOS% 1.6 % (0.0-10.0); HEMATOCRIT 31.9 % (42.0-52.0); HEMOGLOBIN 9.8 g/dL (14.0-18.0); IMM GRAN% 1.3 % (0.0-0.5); LYMPH# 1.79 X1000 (1.2-3.4); LYMPH% 11.5 % (20.5-51.1); MCHC 30.7 g/dL (33-37); MCV 107.4 FL (81-99); MONO# 1.04 X1000 (0.11-0.59); MONO% 6.7 % (1.7-9.3); MPV 8.9 FL (7.4-10.4); NEUT# 12.31 X1000 (1.4-6.5); NEUT% 78.6 % (42.2-75.2); PLT 318 X1000 (130-400); RBC 2.97 XMIL (4.7-6.1); RDW 15.9 % (11.5-14.5); WBC 15.63 X1000 (4.8-10.8)
[2019-05-25 08:13] LABS: AGAP 13; ALB/GLOB RATIO 0.7; ALBUMIN 2.9 g/dL (3.5-5.0); ALKALINE PHOSPHATASE 701 U/L (32-122); BUN 15 mg/dL (8-22); CALCIUM 8.7 mg/dL (8.8-10.2); CHLORIDE 105 mmol/L (98-107); COSMO 284; CREATININE 0.7 mg/dL (0.7-1.2); ESTIMATED GFR > 60; GLUCOSE 172 mg/dL (70-104); GOT 107 U/L (10-34); GPT 132 U/L (10-44); PHOSPHORUS 2.7 mg/dL (2.7-4.5); POTASSIUM 3.8 mmol/L (3.5-5.1); SODIUM 140 mmol/L (136-145); TCO2 22 mmol/L (25-35); TOTAL BILIRUBIN 4.79 mg/dL (0.20-1.00); TOTAL PROTEIN 7.1 g/dL (6.3-8.3)
[2019-05-25 08:35] LABS: BANDS 6 % (0-1); EOS 2 % (1-10); LYMPHS 12 % (21-51); SEGS 78 % (42-75)
[2019-05-25] MEDS: CREON PO SCH ×4 (10:21→16:28)
[2019-05-25] MEDS: WELLBUTRIN XL PO SCH (10:22)
[2019-05-25] MEDS: PRILOSEC PO SCH (10:22)
[2019-05-25] MEDS: DIFLUCAN PO SCH (10:22)
[2019-05-25] MEDS: CREON PO PRN (12:32)
[2019-05-25] MEDS: TYLENOL PO PRN (13:22)
--- NOTE | 2019-05-25 15:49 | PROGRESS NOTE ---
DATE: 05/25/2019 SUBJECTIVE: The patient had a fever of 102. Panculture workup done. He is ambulating with physical therapy twice and his appetite is poor. EXAMINATION: Vital Signs: Low-grade fever. Tachycardic. Vitals are stable. HEENT Exam: Temporal wasting, jaundice noted. Neck: Supple. Chest: Bilateral air entry. Heart: Distant heart sounds. Abdomen: Belly is soft, nontender. Neurologic: No obvious deficits except footdrop. He is weak. INVESTIGATIONS: White cell count 15, hematocrit 31.9, platelets 318,000. Sodium 140, potassium 3.8, chloride 105, and BUN is 15, creatinine 0.7, glucose 172. Elevated LFTs. Blood cultures pending and will also get urine culture. Chest x-ray stable. ASSESSMENT AND PLAN: 1. Stage III pancreatic cancer. 2. Obstructive jaundice. 3. Chronic atrial fibrillation. 4. Protein calorie malnutrition. 5. Fever. PLAN: 1. Plan is PICC line on the left side. Continue TPN. 2. Encouraged to eat by mouth. Periactin for appetite. 3. Oral thrush on Diflucan. 4. Deep venous thrombosis prophylaxis with Lovenox and continue antiemetics with Zofran and Reglan. Continue PT. We will hold the discharge until the fever workup on progress. I spoke to the patient's . The patient is reluctant to stay in the hospital. Family agreed to keep him over [facility] until there is a known source of fever. LEVEL OF DOCUMENTATION: Level of documentation 25 minutes. cc: Oziel Riley MD
[2019-05-25] MEDS: LOVENOX SUBQ SCH (22:37)
[2019-05-26] MEDS: MYCELEX TROCHE PO SCH ×4 (02:09→23:40)
[2019-05-26] MEDS: ZOFRAN PO SCH ×3 (06:28→23:40)
[2019-05-26] MEDS: PERIACTIN PO SCH ×3 (06:28→15:49)
[2019-05-26] MEDS: REGLAN PO SCH ×3 (06:28→23:40)
[2019-05-26 08:00] LABS: AGAP 10; BUN 16 mg/dL (8-22); CALCIUM 8.7 mg/dL (8.8-10.2); CHLORIDE 103 mmol/L (98-107); COSMO 281; CREATININE 0.7 mg/dL (0.7-1.2); ESTIMATED GFR > 60; GLUCOSE 235 mg/dL (70-104); MAGNESIUM 1.9 mg/dL (1.5-2.7); POTASSIUM 3.7 mmol/L (3.5-5.1); SODIUM 136 mmol/L (136-145); TCO2 23 mmol/L (25-35)
[2019-05-26] MEDS: PRILOSEC PO SCH (09:56)
[2019-05-26] MEDS: CREON PO SCH ×3 (09:56→16:32)
[2019-05-26] MEDS: DIFLUCAN PO SCH (09:57)
[2019-05-26] MEDS: WELLBUTRIN XL PO SCH (09:57)
--- NOTE | 2019-05-26 10:39 | PROGRESS NOTE ---
DATE: 05/26/2019 SUBJECTIVE: The patient has no new complaints. He says he does get up about every 2 hours to go to the bathroom. That may be from his IV fluids. Liver enzymes are still elevated. I did order a hepatic profile just to check. His oral thrush seems to be getting better. OBJECTIVE: Vitals: Temperature is better at 98 degrees Fahrenheit, pulse 123 and irregularly irregular, blood pressure 112/71, respirations 19. HEENT: Normocephalic. EOMs intact. PERRLA. Throat clear. Lungs: Sound clear to auscultation and percussion without rhonchi, rales, or wheezes. Heart: Irregularly irregular without murmurs, gallops, or friction rubs. Abdomen: Soft. Active bowel sounds. No organomegaly or tenderness at this point. Neurological: Intact grossly. Skin: Patient is jaundiced. LABORATORY: White count 15,630, hemoglobin 9.8 and was done yesterday. No CBC today. Electrolytes essentially normal. Blood sugar 235. Liver function tests were elevated yesterday. He did not have any ordered today. Yesterday his total bilirubin was 4.79, AST 107, ALT 132, alkaline phosphatase 701. ASSESSMENT: 1. Stage III pancreatic cancer. 2. Chronic atrial fibrillation. 3. Febrile illness. So far, cultures negative. PLAN: Continue support. cc: MD Oziel Belcher Jr, MD
[2019-05-26] MEDS: CALMOSEPTINE OINTMENT TOP PRN (16:33)
[2019-05-26] MEDS: [UNRECOGNIZED DRUG - OTHER] IV SCH ×16 (17:17→17:21)
[2019-05-26] MEDS: POTASSIUM CHLORIDE IV SCH ×16 (17:17→17:21)
[2019-05-26] MEDS: TPN ELECTROLYTES IV SCH ×16 (17:17→17:21)
[2019-05-26] MEDS: SODIUM CHLORIDE IV SCH ×16 (17:17→17:21)
[2019-05-26] MEDS: LOVENOX SUBQ SCH (23:40)
[2019-05-27] MEDS: MYCELEX TROCHE PO SCH ×5 (04:31→21:20)
[2019-05-27] MEDS: PERIACTIN PO SCH ×3 (06:40→15:47)
[2019-05-27] MEDS: ZOFRAN PO SCH ×3 (06:40→23:00)
[2019-05-27] MEDS: REGLAN PO SCH ×3 (06:40→23:00)
[2019-05-27 07:19] LABS: BASO# 0.13 X1000 (0.0-0.2); BASO% 1.1 % (0.0-0.8); EOS% 2.6 % (0.0-10.0); HEMATOCRIT 30.8 % (42.0-52.0); HEMOGLOBIN 9.5 g/dL (14.0-18.0); IMM GRAN# 0.22 X1000 (0.0-0.04); IMM GRAN% 1.9 % (0.0-0.5); LYMPH# 2.24 X1000 (1.2-3.4); LYMPH% 19.5 % (20.5-51.1); MCH 33.5 PG (27-31); MCHC 30.8 g/dL (33-37); MCV 108.5 FL (81-99); MONO# 0.83 X1000 (0.11-0.59); MONO% 7.2 % (1.7-9.3); NEUT# 7.78 X1000 (1.4-6.5); NEUT% 67.7 % (42.2-75.2); PLT 346 X1000 (130-400); RBC 2.84 XMIL (4.7-6.1); RDW 16.2 % (11.5-14.5)
[2019-05-27 07:43] LABS: AGAP 13; BUN 17 mg/dL (8-22); CHLORIDE 101 mmol/L (98-107); CHOLESTEROL 142 mg/dL (0-200); COSMO 279; CREATININE 0.7 mg/dL (0.7-1.2); ESTIMATED GFR > 60; GLUCOSE 201 mg/dL (70-104); GOT 36 U/L (10-34); MAGNESIUM 1.9 mg/dL (1.5-2.7); PHOSPHORUS 2.7 mg/dL (2.7-4.5); POTASSIUM 3.9 mmol/L (3.5-5.1); SODIUM 136 mmol/L (136-145); TCO2 22 mmol/L (25-35); TRIGLYCERIDES 103 mg/dL (39-160)
[2019-05-27] MEDS: CREON PO SCH ×3 (08:34→16:44)
[2019-05-27] MEDS: DIFLUCAN PO SCH (08:34)
[2019-05-27] MEDS: PRILOSEC PO SCH (08:34)
[2019-05-27] MEDS: WELLBUTRIN XL PO SCH (08:35)
[2019-05-27 08:36] LABS: HEPATITIS PROFILE ACUTE SEE COMMENTS
[2019-05-27] MEDS ORDERED: HUMALOG SUBQ SCH (09:00)
[2019-05-27 09:09] LABS: PREALBUMIN 15.2 mg/dL (20-40)
[2019-05-27] MEDS: HUMALOG SUBQ SCH ×2 (14:11→17:43)
[2019-05-27 14:12] LABS: ALB/GLOB RATIO 0.6; ALBUMIN 2.9 g/dL (3.5-5.0); DIRECT BILIRUBIN 1.8 mg/dL (0.00-0.20); TOTAL BILIRUBIN 2.91 mg/dL (0.20-1.00); TOTAL PROTEIN 7.5 g/dL (6.3-8.3)
[2019-05-27] MEDS: TYLENOL PO PRN (15:43)
[2019-05-27] MEDS: [UNRECOGNIZED DRUG - OTHER] IV SCH ×8 (17:13)
[2019-05-27] MEDS: SODIUM CHLORIDE IV SCH ×8 (17:13)
[2019-05-27] MEDS: TPN ELECTROLYTES IV SCH ×8 (17:13)
[2019-05-27] MEDS: POTASSIUM CHLORIDE IV SCH ×8 (17:13)
--- NOTE | 2019-05-27 19:04 | PROGRESS NOTE ---
DATE: 05/27/2019 SUBJECTIVE: Fever was down and panculture workup so far negative. The patient is anxious to go home. His is saying he needs to get stronger in terms of physical therapy and eating before he comes home. OBJECTIVE: Vitals: Stable. Afebrile. Slightly jaundiced. Neck: Supple. Chest: Clear. Irregular heart sounds. Belly is soft, nontender, scaphoid. Right foot drop noted. INVESTIGATIONS: White cell count 11, hematocrit 30.8, platelets 346,000. SMA 7 is normal. Glucose 322. LFTs are coming down. Hepatitis panel was negative. Prealbumin 15.2. ASSESSMENT AND PLAN: 1. Fever. Panculture workup is negative. No ascending cholangitis. 2. Oral thrush. On clotrimazole and Diflucan. 3. Type 2 diabetes. We will follow up on sliding scale with protocol. 4. Depression. On Wellbutrin. 5. Poor appetite. On Periactin. 6. Deep venous thrombosis prophylaxis with Lovenox. 7. Continue on TPN with PICC line on the left side, Port-A-Cath on the left side, nausea medicine of Reglan. Continue on Prilosec and Creon capsule. Follow up on LFTs, were coming down. If it continues to improve, we will discharge and will follow up. LEVEL OF DOCUMENTATION: 25 minutes. cc: Oziel Riley MD
[2019-05-27] MEDS: LOVENOX SUBQ SCH (21:20)
[2019-05-28] MEDS: HUMALOG SUBQ SCH ×7 (03:29→20:53)
[2019-05-28] MEDS: MYCELEX TROCHE PO SCH ×4 (03:31→20:53)
[2019-05-28] MEDS: PERIACTIN PO SCH ×3 (06:47→16:06)
[2019-05-28] MEDS: REGLAN PO SCH ×3 (06:48→22:15)
[2019-05-28] MEDS: ZOFRAN PO SCH ×3 (06:48→22:15)
[2019-05-28 07:42] LABS: BASO% 0.9 % (0.0-0.8); EOS# 0.28 X1000 (0.0-0.7); EOS% 2.6 % (0.0-10.0); HEMATOCRIT 31.6 % (42.0-52.0); HEMOGLOBIN 9.6 g/dL (14.0-18.0); IMM GRAN# 0.22 X1000 (0.0-0.04); LYMPH# 2.07 X1000 (1.2-3.4); LYMPH% 18.9 % (20.5-51.1); MCH 33.1 PG (27-31); MCHC 30.4 g/dL (33-37); MONO% 6.4 % (1.7-9.3); MPV 9.1 FL (7.4-10.4); NEUT# 7.58 X1000 (1.4-6.5); NEUT% 69.2 % (42.2-75.2); PLT 365 X1000 (130-400); RDW 16.3 % (11.5-14.5); WBC 10.95 X1000 (4.8-10.8)
[2019-05-28 07:55] LABS: AGAP 11; BUN 17 mg/dL (8-22); CALCIUM 9.2 mg/dL (8.8-10.2); CHLORIDE 100 mmol/L (98-107); CHOLESTEROL 150 mg/dL (0-200); COSMO 275; CREATININE 0.7 mg/dL (0.7-1.2); ESTIMATED GFR > 60; GLUCOSE 159 mg/dL (70-104); GOT 34 U/L (10-34); MAGNESIUM 1.8 mg/dL (1.5-2.7); PHOSPHORUS 2.7 mg/dL (2.7-4.5); POTASSIUM 3.9 mmol/L (3.5-5.1); SODIUM 135 mmol/L (136-145); TCO2 24 mmol/L (25-35); TRIGLYCERIDES 104 mg/dL (39-160)
[2019-05-28 08:10] LABS: ALB/GLOB RATIO 0.9; ALBUMIN 3.3 g/dL (3.5-5.0); DIRECT BILIRUBIN 1.6 mg/dL (0.00-0.20); TOTAL BILIRUBIN 2.58 mg/dL (0.20-1.00)
[2019-05-28 08:45] LABS: PREALBUMIN 17.1 mg/dL (20-40)
[2019-05-28] MEDS: DIFLUCAN PO SCH (09:15)
[2019-05-28] MEDS: PRILOSEC PO SCH (09:15)
[2019-05-28] MEDS: WELLBUTRIN XL PO SCH (09:15)
[2019-05-28] MEDS: CREON PO SCH ×3 (10:41→16:06)
[2019-05-28] MEDS ORDERED: LIPOSYN 20% 250 ML IV ONE (14:00)
[2019-05-28] MEDS: POTASSIUM CHLORIDE IV SCH ×8 (17:35)
[2019-05-28] MEDS: TPN ELECTROLYTES IV SCH ×8 (17:35)
[2019-05-28] MEDS: SODIUM CHLORIDE IV SCH ×8 (17:35)
[2019-05-28] MEDS: [UNRECOGNIZED DRUG - OTHER] IV SCH ×8 (17:35)
--- NOTE | 2019-05-28 19:41 | PROGRESS NOTE ---
DATE: 05/28/2019 SUBJECTIVE: The patient is ambulating well. Blood sugars doing well. Eating is better and on TPN and no fever. OBJECTIVE: Vital signs: Temperature is 98 degrees, pulse is 80. Vitals are stable. HEENT Exam: Mild jaundice. Temporal wasting. Chest: Clear. Cardiovascular: Irregular heart sounds. Abdomen: Belly is soft, nontender, scaphoid. Neurologic: No other neurological changes. INVESTIGATIONS: White cell count 10, hematocrit 31, platelets 365,000. SMA 7 is normal. Jaundice levels were coming down. ASSESSMENT AND PLAN: 1. Elevated liver function tests, stable, off of amiodarone, maybe mild obstruction. 2. Stage III pancreatic cancer, stable. 3. Gastrointestinal prophylaxis, deep venous thrombosis prophylaxis as per order sheet. 4. Peripherally inserted central catheter line on the left side with total parenteral nutrition. 5. Encourage eating as well as ambulation over the weekend and continue to monitor. LEVEL OF DOCUMENTATION: 25 minutes. cc: Oziel Riley MD
[2019-05-28] MEDS: LOVENOX SUBQ SCH (22:15)
[2019-05-28] MEDS: TYLENOL PO PRN (22:15)
[2019-05-29] MEDS: HUMALOG SUBQ SCH ×6 (01:56→22:03)
[2019-05-29] MEDS: MYCELEX TROCHE PO SCH ×4 (01:57→22:02)
[2019-05-29] MEDS: PERIACTIN PO SCH ×3 (06:02→16:05)
[2019-05-29] MEDS: ZOFRAN PO SCH ×3 (06:02→22:02)
[2019-05-29] MEDS: REGLAN PO SCH ×3 (06:02→22:02)
[2019-05-29 07:49] LABS: EOS# 0.32 X1000 (0.0-0.7); EOS% 3.2 % (0.0-10.0); HEMATOCRIT 31.1 % (42.0-52.0); HEMOGLOBIN 9.7 g/dL (14.0-18.0); IMM GRAN# 0.18 X1000 (0.0-0.04); IMM GRAN% 1.8 % (0.0-0.5); LYMPH# 2.03 X1000 (1.2-3.4); LYMPH% 20.4 % (20.5-51.1); MCH 34.2 PG (27-31); MCHC 31.2 g/dL (33-37); MCV 109.5 FL (81-99); MONO# 0.75 X1000 (0.11-0.59); MONO% 7.5 % (1.7-9.3); NEUT# 6.57 X1000 (1.4-6.5); NEUT% 66.1 % (42.2-75.2); PLT 363 X1000 (130-400); RBC 2.84 XMIL (4.7-6.1); RDW 16.7 % (11.5-14.5); WBC 9.95 X1000 (4.8-10.8)
[2019-05-29 08:04] LABS: AGAP 10; BUN 17 mg/dL (8-22); CALCIUM 9.1 mg/dL (8.8-10.2); CHLORIDE 102 mmol/L (98-107); COSMO 282; CREATININE 0.8 mg/dL (0.7-1.2); ESTIMATED GFR > 60; GLUCOSE 181 mg/dL (70-104); MAGNESIUM 1.9 mg/dL (1.5-2.7); SODIUM 138 mmol/L (136-145); TCO2 26 mmol/L (25-35)
[2019-05-29 08:21] LABS: ALB/GLOB RATIO 0.8; ALBUMIN 3.2 g/dL (3.5-5.0); DIRECT BILIRUBIN 1.4 mg/dL (0.00-0.20); TOTAL BILIRUBIN 2.34 mg/dL (0.20-1.00); TOTAL PROTEIN 7.1 g/dL (6.3-8.3)
[2019-05-29] MEDS: CREON PO SCH ×4 (09:25→18:37)
[2019-05-29] MEDS: DIFLUCAN PO SCH (09:25)
[2019-05-29] MEDS: WELLBUTRIN XL PO SCH (09:25)
[2019-05-29] MEDS: PRILOSEC PO SCH (09:25)
--- NOTE | 2019-05-29 14:49 | PROGRESS NOTE ---
DATE: 05/29/2019 The patient is doing better. Waiting for physical therapy. REVIEW OF SYSTEMS: None reported. Eating slowly improving. PHYSICAL EXAMINATION: Temperature is 98 degrees, tachycardic. Vitals are stable. HEENT: No jaundice. Oral thrush is improving. Chest: Clear. Heart: Irregular heart sounds. Abdomen: Belly is soft, nontender. INVESTIGATIONS: CBC: White cell count 9.9, hematocrit 31, platelets 363,000. SMA 7 is normal and LFTs were coming down except alkaline phosphatase. ASSESSMENT AND PLAN: 1. Dysphagia improving on Diflucan. 2. Poor appetite on Periactin. 3. Diabetes control sliding scale. 4. Aggressive physical therapy. Continue on nutrition support, TPN. 5. Obstructive jaundice, stable off Cordarone. 6. Chronic atrial fibrillation stable. Continue present treatment with ambulation and hopefully we will discuss with the family about disposition. LEVEL OF DOCUMENTATION: 25 minutes. cc: Oziel Riley MD MTDD
[2019-05-29] MEDS: SODIUM CHLORIDE IV SCH ×8 (17:36)
[2019-05-29] MEDS: POTASSIUM CHLORIDE IV SCH ×8 (17:36)
[2019-05-29] MEDS: TPN ELECTROLYTES IV SCH ×8 (17:36)
[2019-05-29] MEDS: [UNRECOGNIZED DRUG - OTHER] IV SCH ×8 (17:36)
[2019-05-29] MEDS: LOVENOX SUBQ SCH (22:03)
[2019-05-29] MEDS: TYLENOL PO PRN (22:04)
[2019-05-30] MEDS: MYCELEX TROCHE PO SCH ×4 (01:30→20:29)
[2019-05-30] MEDS: HUMALOG SUBQ SCH ×6 (01:30→20:29)
[2019-05-30] MEDS: TYLENOL PO PRN (06:25)
[2019-05-30] MEDS: PERIACTIN PO SCH ×3 (06:25→15:03)
[2019-05-30] MEDS: ZOFRAN PO SCH ×3 (06:25→22:46)
[2019-05-30] MEDS: REGLAN PO SCH ×3 (06:25→22:46)
[2019-05-30 07:51] LABS: AGAP 12; BUN 19 mg/dL (8-22); CALCIUM 9.4 mg/dL (8.8-10.2); CHLORIDE 100 mmol/L (98-107); COSMO 276; CREATININE 0.7 mg/dL (0.7-1.2); ESTIMATED GFR > 60; GLUCOSE 166 mg/dL (70-104); MAGNESIUM 1.8 mg/dL (1.5-2.7); PHOSPHORUS 3.2 mg/dL (2.7-4.5); POTASSIUM 4.1 mmol/L (3.5-5.1); SODIUM 135 mmol/L (136-145); TCO2 23 mmol/L (25-35)
[2019-05-30 08:00] LABS: ALB/GLOB RATIO 0.9; ALBUMIN 3.2 g/dL (3.5-5.0); DIRECT BILIRUBIN 4.4 mg/dL (0.00-0.20); TOTAL BILIRUBIN 5.27 mg/dL (0.20-1.00); TOTAL PROTEIN 6.8 g/dL (6.3-8.3)
[2019-05-30] MEDS: PRILOSEC PO SCH (08:52)
[2019-05-30] MEDS: WELLBUTRIN XL PO SCH (08:52)
[2019-05-30] MEDS: DIFLUCAN PO SCH (08:52)
[2019-05-30] MEDS: CREON PO SCH ×3 (08:52→17:29)
--- NOTE | 2019-05-30 13:21 | PROGRESS NOTE ---
DATE: 05/30/2019 SUBJECTIVE: The patient is eating better, slowly and steadily. Still has jaundice. No abdominal pain. PHYSICAL EXAMINATION: Vital Signs: Temperature is 98.5 degrees, pulse 112, blood pressure 120/59, weight 146 pounds. HEENT: Temporal wasting noted. Jaundice. Neck: Supple. Chest: Bilateral air entry. Heart: Irregular heart sounds. Abdomen: Belly is soft, nontender. LABORATORY DATA: SMA-12 findings discussed. Sodium 135, potassium 4.1, chloride 100, glucose 164. Total bilirubin 5.2. LFTs were high. ASSESSMENT AND PLAN: 1. Chronic atrial fibrillation, stable. 2. Stage III pancreatic cancer. 3. Obstructive jaundice. 4. Protein calorie malnutrition, currently on intravenous total parenteral nutrition and Periactin. 5. Depression, on Wellbutrin. Continue physical therapy. If the jaundice level goes back to 10, will rescan again. It is most likely obstruction. Despite stopping taking Cordarone, he still has jaundice. Hepatitis panel was negative. Discussed the plan of care with family, and continue to monitor. LEVEL OF DOCUMENTATION: 25 minutes. cc: Oziel Riley MD
[2019-05-30] MEDS: TPN ELECTROLYTES IV SCH ×7 (18:05)
[2019-05-30] MEDS: [UNRECOGNIZED DRUG - OTHER] IV SCH ×7 (18:05)
[2019-05-30] MEDS: SODIUM CHLORIDE IV SCH ×7 (18:05)
[2019-05-30] MEDS: POTASSIUM CHLORIDE IV SCH ×7 (18:05)
[2019-05-30] MEDS: LOVENOX SUBQ SCH (22:46)
[2019-05-31] MEDS: HUMALOG SUBQ SCH ×6 (00:28→21:58)
[2019-05-31] MEDS: MYCELEX TROCHE PO SCH ×4 (01:22→21:57)
[2019-05-31] MEDS: REGLAN PO SCH ×4 (06:06→23:29)
[2019-05-31] MEDS: ZOFRAN PO SCH ×4 (06:06→23:29)
[2019-05-31] MEDS: PERIACTIN PO SCH ×3 (06:06→15:22)
[2019-05-31] MEDS: TYLENOL PO PRN (06:09)
[2019-05-31 07:29] LABS: AGAP 13; BUN 20 mg/dL (8-22); CALCIUM 9.2 mg/dL (8.8-10.2); CHLORIDE 100 mmol/L (98-107); COSMO 279; CREATININE 0.8 mg/dL (0.7-1.2); ESTIMATED GFR > 60; GLUCOSE 182 mg/dL (70-104); PHOSPHORUS 2.7 mg/dL (2.7-4.5); SODIUM 136 mmol/L (136-145); TCO2 23 mmol/L (25-35)
[2019-05-31 07:40] LABS: ALB/GLOB RATIO 0.8; DIRECT BILIRUBIN 6.2 mg/dL (0.00-0.20); TOTAL BILIRUBIN 7.39 mg/dL (0.20-1.00); TOTAL PROTEIN 6.8 g/dL (6.3-8.3)
[2019-05-31] MEDS: DIFLUCAN PO SCH (09:04)
[2019-05-31] MEDS: WELLBUTRIN XL PO SCH (09:04)
[2019-05-31] MEDS: CREON PO SCH ×3 (09:04→17:26)
[2019-05-31] MEDS: PRILOSEC PO SCH (09:04)
[2019-05-31] MEDS ORDERED: LIPOSYN 20% 250 ML IV SCH (14:00)
[2019-05-31] MEDS: POTASSIUM CHLORIDE IV SCH ×7 (17:27)
[2019-05-31] MEDS: [UNRECOGNIZED DRUG - OTHER] IV SCH ×7 (17:27)
[2019-05-31] MEDS: TPN ELECTROLYTES IV SCH ×7 (17:27)
[2019-05-31] MEDS: SODIUM CHLORIDE IV SCH ×7 (17:27)
--- NOTE | 2019-05-31 21:56 | PROGRESS NOTE ---
DATE: 05/31/2019 SUBJECTIVE: The patient continues to have more jaundice, feeble, eating fair. Weight has not changed a whole lot. I spoke to dietitian yesterday. We are going to stop the lipids. OBJECTIVE: Vital signs: Temperature is 98 degrees. Tachycardic. Vitals are stable. Temporal wasting noted, jaundice. Chest: Clear. Cardiovascular: Irregular heart sounds. Abdomen: Belly is soft, nontender. Extremities: Right footdrop noted. INVESTIGATIONS: SMA7 is normal. LFTs were slowly creeping up. ASSESSMENT AND PLAN: 1. Elevated liver function tests despite stopping amiodarone and lipids. Continue to see the trend, and he has a peripherally inserted central catheter line on the left side and a Port-A- Cath on the left side for pancreatic cancer stage III, and if it does not come down, consider repeat the scan and CA19-9. 2. Continue GI prophylaxis and deep venous thrombosis prophylaxis as per order sheet. 3. Oral thrush is improving. 4. Diabetes stable on sliding scale with insulin coverage. We will discuss the plan of care. Probably if he does not improve, consider palliative care consult. LEVEL OF DOCUMENTATION: 25 minutes. cc: Oziel Riley MD
[2019-05-31] MEDS: LOVENOX SUBQ SCH (21:58)
[2019-06-01] MEDS: MYCELEX TROCHE PO SCH ×2 (01:22→08:15)
[2019-06-01] MEDS: HUMALOG SUBQ SCH ×6 (01:22→22:12)
[2019-06-01] MEDS: TYLENOL PO PRN (02:45)
[2019-06-01] MEDS: PERIACTIN PO SCH ×3 (06:12→16:25)
[2019-06-01] MEDS: ZOFRAN PO SCH ×3 (06:12→22:12)
[2019-06-01] MEDS: REGLAN PO SCH ×3 (06:12→22:12)
[2019-06-01 06:45] LABS: AGAP 10; BUN 22 mg/dL (8-22); CALCIUM 9.1 mg/dL (8.8-10.2); CHLORIDE 99 mmol/L (98-107); COSMO 272; CREATININE 0.8 mg/dL (0.7-1.2); ESTIMATED GFR > 60; GLUCOSE 173 mg/dL (70-104); MAGNESIUM 2.1 mg/dL (1.5-2.7); PHOSPHORUS 3.1 mg/dL (2.7-4.5); POTASSIUM 3.7 mmol/L (3.5-5.1); SODIUM 132 mmol/L (136-145); TCO2 23 mmol/L (25-35)
[2019-06-01 06:48] LABS: ALB/GLOB RATIO 0.9; ALBUMIN 3.1 g/dL (3.5-5.0); DIRECT BILIRUBIN 4.7 mg/dL (0.00-0.20); TOTAL BILIRUBIN 6.37 mg/dL (0.20-1.00); TOTAL PROTEIN 6.7 g/dL (6.3-8.3)
[2019-06-01] MEDS: CREON PO SCH ×3 (08:15→18:24)
[2019-06-01] MEDS: DIFLUCAN PO SCH (08:16)
[2019-06-01] MEDS: WELLBUTRIN XL PO SCH (08:16)
[2019-06-01] MEDS: PRILOSEC PO SCH (08:16)
[2019-06-01] MEDS: SODIUM CHLORIDE IV SCH ×7 (18:25)
[2019-06-01] MEDS: TPN ELECTROLYTES IV SCH ×7 (18:25)
[2019-06-01] MEDS: POTASSIUM CHLORIDE IV SCH ×7 (18:25)
[2019-06-01] MEDS: [UNRECOGNIZED DRUG - OTHER] IV SCH ×7 (18:25)
--- NOTE | 2019-06-01 19:52 | PROGRESS NOTE ---
DATE: 06/01/2019 SUBJECTIVE: The patient is doing better, and I spoke to the dietitian to stop lipids because of elevated LFTs. He is still having jaundice, dark urine. He is eating well with assistance. PHYSICAL EXAMINATION: Vital Signs: Temperature is 97.6, pulse 86, blood pressure 101/62, 100% on room air. HEENT: Temporal wasting, jaundice. Chest: Clear. Cardiovascular: Irregular heart sounds. Abdomen: Belly is soft and nontender. LABS: SMA 7: Sodium 132, glucose 173. LFTs were high. ASSESSMENT AND PLAN: 1. Obstructive jaundice status post Whipple procedure and stage III pancreatic cancer. Three lymph nodes positive. 2. Port-A-Cath on the left side. 3. Peripherally inserted central catheter line on the left side. 4. Calorie malnutrition, on IV total parenteral nutrition. 5. Elevated liver function tests. Hold the lipids. They are waxing and waning. If they continue rising after stopping amiodarone and lipids with underlying fatty liver, consider repeating a scan and CA-19-9. Continue out of the bed with physical therapy. 6. Oral thrush, improving. We will discontinue the clotrimazole and continue on Diflucan. 7. Diabetes, on insulin sliding scale with insulin coverage. 8. For nausea, Reglan and Zofran as needed. 9. Poor appetite, on Periactin. 10. Deep venous thrombosis prophylaxis with Lovenox. No signs of GI bleeding noted. LEVEL OF DOCUMENTATION: Twenty-five minutes. cc: Oziel Riley MD
[2019-06-01] MEDS: LOVENOX SUBQ SCH (22:12)
[2019-06-02] MEDS: HUMALOG SUBQ SCH ×6 (02:18→22:57)
[2019-06-02] MEDS: PERIACTIN PO SCH ×3 (06:52→17:15)
[2019-06-02] MEDS: REGLAN PO SCH ×3 (06:52→22:56)
[2019-06-02] MEDS: ZOFRAN PO SCH ×3 (06:52→22:56)
[2019-06-02 07:34] LABS: ALB/GLOB RATIO 0.7; DIRECT BILIRUBIN 3.8 mg/dL (0.00-0.20); TOTAL BILIRUBIN 5.51 mg/dL (0.20-1.00); TOTAL PROTEIN 7.2 g/dL (6.3-8.3)
[2019-06-02 07:37] LABS: AGAP 9; BUN 20 mg/dL (8-22); CALCIUM 8.8 mg/dL (8.8-10.2); CHLORIDE 101 mmol/L (98-107); CHOLESTEROL 160 mg/dL (0-200); COSMO 279; CREATININE 0.7 mg/dL (0.7-1.2); ESTIMATED GFR > 60; GLUCOSE 205 mg/dL (70-104); GOT 42 U/L (10-34); PHOSPHORUS 2.9 mg/dL (2.7-4.5); POTASSIUM 4.1 mmol/L (3.5-5.1); PREALBUMIN 17.9 mg/dL (20-40); SODIUM 135 mmol/L (136-145); TCO2 25 mmol/L (25-35); TRIGLYCERIDES 135 mg/dL (39-160)
[2019-06-02] MEDS: DIFLUCAN PO SCH (09:20)
[2019-06-02] MEDS: PRILOSEC PO SCH (09:20)
[2019-06-02] MEDS: WELLBUTRIN XL PO SCH (09:20)
[2019-06-02] MEDS: CREON PO SCH ×3 (09:20→17:15)
--- NOTE | 2019-06-02 09:45 | EKG Report ---
Test Performed on : 06/02/2019 09:30:43 AM Test Reason : Tachycardia Blood Pressure : / mmHG Vent. Rate : 119 BPM Atrial Rate : 125 BPM P-R Int : 096 ms QRS Dur : 088 ms QT Int : 360 ms P-R-T Axes : 000 022 075 degrees QTc Int : 506 ms Sinus tachycardia. with short [place] Inferior infarct (cited on or before 20-FEB-2019) Abnormal ECG When compared with ECG of 03-MAY-2019 02:40, (Unconfirmed) [place] interval has decreased ST no longer depressed in Inferior leads ST no longer depressed in Anterolateral leads Confirmed by Jason PRICE, Mat Sevilla ([id number]) on 06/07/2019 9:24:37 AM
--- NOTE | 2019-06-02 09:46 | PROGRESS NOTE ---
DATE: 06/02/2019 SUBJECTIVE: The patient complains of having abdominal discomfort, but denies having any other acute complaints. OBJECTIVE: Vital 97.8 degrees, pulse 131 beats per minute, respiratory rate 18 per minute, blood pressure 127/75, pulse oximetry 100 percent on room air. General alert and awake. He does appear to be very weak. HEENT: Scleral icterus noted. Cardiovascular system: First and second heart sounds are audible with tachycardia. Respiratory system: Bilateral lung air entry is moderately decreased but there are no rales or rhonchi present on auscultation. Gastrointestinal System: Abdomen is soft and nondistended. It is moderately tender on deep palpation in upper abdomen. No viscera are palpable and normal bowel sounds present. Musculoskeletal system: No deformities are present. DIAGNOSTIC DATA: CBC shows hemoglobin of 9.7, hematocrit 31.1 with MCV of 109.5. Rest of the CBC is nondiagnostic. Chemistry showed a total bilirubin of 5.51, AST 42, ALT 60, and alkaline phosphatase 499. Glucose levels were found to be 205. Rest of the comprehensive metabolic panel is nondiagnostic. PT is 16.1 and INR 1.27. IMPRESSION: 1. This is a 74-year-old gentleman who has history of stage III pancreatic cancer status post Whipple's procedure and has protein calorie malnutrition. He has a elevated alkaline phosphatase with a total bilirubin of 5.51 with possible obstructive jaundice. He also has recent history of oral thrush that appears to have improved. 2. Tachycardia of unknown etiology. PLAN: The patient will be continued on supportive care and I am going to start him on normal saline IV fluids at 100 mL/h. We will obtain GI consultation to evaluate for possible obstructive jaundice and also start him on metoprolol 50 mg orally twice daily for his tachycardia. We will obtain ECG to evaluate the underlying rhythm. He also has diabetes for which he will continue with lispro insulin as per protocol. Further recommendations will be given as per hospital course. cc: MD Oziel Zacarias MD
[2019-06-02] MEDS: LOPRESSOR PO SCH ×2 (10:58→22:56)
[2019-06-02] MEDS: TYLENOL PO PRN (17:15)
[2019-06-02] MEDS: POTASSIUM CHLORIDE IV SCH ×7 (17:16)
[2019-06-02] MEDS: SODIUM CHLORIDE IV SCH ×7 (17:16)
[2019-06-02] MEDS: TPN ELECTROLYTES IV SCH ×7 (17:16)
[2019-06-02] MEDS: [UNRECOGNIZED DRUG - OTHER] IV SCH ×7 (17:16)
[2019-06-02] MEDS: LOVENOX SUBQ SCH (22:57)
[2019-06-03] MEDS: TYLENOL PO PRN ×3 (00:25→21:13)
--- NOTE | 2019-06-03 00:36 | GASTROENTEROLOGY CONSULTATION ---
DATE: 06/02/2019 REASON FOR CONSULTATION: Abnormalities. HISTORY OF PRESENT ILLNESS: Mr. Blair Summers is a 74-year-old gentleman with past medical history of stage III pancreatic cancer status post Whipple, atrial fibrillation, noninsulin-dependent diabetes, sleep apnea, who presented on 05/19 after his right upper extremity PICC line came out. On presentation, he was diagnosed with thrush, pressure ulcer on his back and some dysphagia. He was treated with IV amiodarone for atrial fibrillation, IV Diflucan and antiemetics for nausea, vomiting and placed on TPN. During the course of this hospitalization, his bilirubin has fluctuated between 2.3 and as high as 7 on 05/31/2019, now downtrending. AST and ALT have fluctuated as well from the 30s to 60s, as high 115 AST and ALT on 05/30, alkaline phosphatase as well has climbed from 499 up to 737 on 05/30 and now 500 again. The patient denies any nausea or vomiting, itching, confusion. His right-sided abdominal pain is unchanged and chronic, likely secondary to his cancer history. He has had multiple bowel movements without any rectal bleeding. Given the concern of amiodarone causing his abnormalities, this was discontinued. He was previously hospitalized at [facility] earlier this month because of concern of biliary obstruction and had a workup there that was negative. REVIEW OF SYSTEMS: As per HPI, otherwise 12-point review of systems negative. The patient reports weight loss and poor appetite since he is unable to taste food. PAST MEDICAL HISTORY: As per HPI. Other history includes GERD, atrial fibrillation, kidney stones, depression, osteoarthritis, right footdrop. PAST SURGICAL HISTORY: Whipple, hernia repair, removal of J-tube, failed ERCP, cholecystectomy, colon resection with initially a colostomy, repair of ventral hernia, Port-A-Cath of the left chest. MEDICATIONS: Wellbutrin, metformin, Creon, Reglan, loratadine, Cardizem, Prilosec, Megace and Marinol. ALLERGIES: Contrast. FAMILY HISTORY: Reviewed and noncontributory. SOCIAL HISTORY: Previous drinking alcohol, stopped. Nonsmoker. No drug use. PHYSICAL EXAMINATION: Vital Signs: Temperature 97.6 degrees, heart rate 78, respiratory rate 20, blood pressure 103/50, O2 saturation 100% on room air. General: Patient is awake, alert, oriented, chronically ill-appearing, in no acute distress. HEENT: Mild scleral icterus. Moist mucous membranes. Extraocular motor intact. Neck: Supple. No lymphadenopathy. Cardiac: Regular rate and rhythm. No murmurs, rubs, or gallops. Lungs: Clear to auscultation bilaterally. Abdomen: Surgical scars noted. Soft. Bowel sounds are present. Nontender to palpation. Extremities: No clubbing, cyanosis, or edema. Neurologic: Moving all extremities symmetrically. Skin: Mild jaundice. LABS: No CBC recently, last on 05/29/2019 showed a white count of 9.9, hemoglobin 9.7, platelets of 363,000. Today, sodium 135, potassium 4.1, chloride of 101, bicarb 25, BUN of 20, creatinine 0.7. Glucose 205, total bilirubin 5.5, which has downtrended over the last couple days, direct bilirubin 3.8, AST of 42, ALT of 60, alkaline phosphatase of 499, total protein 7.2, albumin 3.0, pre-albumin of 17.9. Triglycerides 135, cholesterol 60. IMAGING: Chest x-ray 05/24/2019 shows stable mild prominence of lower lung interstitial markings. Abdominal ultrasound on 05/03/2019 showed advanced hepatic steatosis, mildly dilated common bile duct, aortic atherosclerotic disease. Triglycerides 135, cholesterol 60. ASSESSMENT AND PLAN: Mr. Blair Summers is a 73-year-old gentleman with history of pancreatic cancer status post Whipple and chemotherapy. He has not had chemotherapy since prior to his surgery back in January. He does have a history of atrial fibrillation requiring amiodarone treatment and dysphagia on TPN currently for protein calorie malnutrition. Gastroenterology has been consulted for abnormal liver function tests, which have fluctuated since admission, however, have been downtrending the last 3 to 4 days. I suspect this may be related to amiodarone use, which is discontinued. He has continued to tolerate TPN. Triglycerides are within normal limits. We will monitor for now. He has been previously evaluated for biliary obstruction earlier this month when he presented here with abnormal LFTs. Other possibilities include worsening fatty liver. He does not appear to have acute liver failure. We will continue to monitor his LFTs. If the LFTs start to rise again, we will consider MRCP. # Abnormal LFTs # History of pancreatic cancer # Protein calorie malnutrition # Anemia # Fatty liver # NIDDM2 # AMELIA Thank you for this consult. We will follow with you. Please call with any questions or concerns. cc: MD MERLY Davis
[2019-06-03] MEDS: HUMALOG SUBQ SCH ×6 (01:26→21:00)
[2019-06-03] MEDS: REGLAN PO SCH ×3 (06:19→21:08)
[2019-06-03] MEDS: ZOFRAN PO SCH ×3 (06:19→21:07)
[2019-06-03] MEDS: PERIACTIN PO SCH ×3 (06:19→16:09)
[2019-06-03 08:26] LABS: AGAP 11; BUN 23 mg/dL (8-22); CALCIUM 9.2 mg/dL (8.8-10.2); CHLORIDE 102 mmol/L (98-107); COSMO 283; CREATININE 0.8 mg/dL (0.7-1.2); ESTIMATED GFR > 60; GLUCOSE 161 mg/dL (70-104); POTASSIUM 4.3 mmol/L (3.5-5.1); SODIUM 138 mmol/L (136-145); TCO2 25 mmol/L (25-35)
[2019-06-03] MEDS: CREON PO SCH ×3 (08:57→16:18)
[2019-06-03] MEDS: WELLBUTRIN XL PO SCH (08:58)
[2019-06-03] MEDS: DIFLUCAN PO SCH (08:58)
[2019-06-03] MEDS: LOPRESSOR PO SCH ×2 (08:58→21:07)
[2019-06-03] MEDS: PRILOSEC PO SCH (08:58)
[2019-06-03 09:37] LABS: ALB/GLOB RATIO 0.8; ALBUMIN 3.1 g/dL (3.5-5.0); DIRECT BILIRUBIN 3.9 mg/dL (0.00-0.20); TOTAL BILIRUBIN 5.52 mg/dL (0.20-1.00); TOTAL PROTEIN 7.1 g/dL (6.3-8.3)
--- NOTE | 2019-06-03 10:54 | GASTROENTEROLOGY PROGRESS NOTE ---
DATE: 06/03/2019 SUBJECTIVE: Mr. Summers is a 74-year-old, male. He is resting in bed. The patient has denied abdominal pain but c/o nausea and vomiting. OBJECTIVE: Vital Signs: Temperature 98 degrees, pulse 72, respirations 16, blood pressure 111/64, oxygen saturation 99% on room air. The patient's weight is 150 pounds, BMI is 21.0 kg/m2. General: He is alert, oriented x3, and in no acute distress. HEENT: Pale conjunctivae. Scleral icterus. PERRL. Neck: Supple. Lungs: Clear to auscultation in the anterior beaulieu. Cardiovascular: Regular rate and rhythm. Abdomen: Soft, nontender, nondistended. Active bowel sounds heard in all 4 quadrants. Surgical scar from the Whipple procedure. Extremities: No clubbing, no cyanosis, no edema. Pedal pulses 2+ present bilaterally. Neurologic: He is alert and oriented x3. LABORATORY DATA: The patient's labs are from 05/29/2019. His WBC is 9.95, RBC is 2.84, hemoglobin 9.7, hematocrit 31.1, platelet count is 363,000. Sodium 138, potassium 4.3, chloride 102, carbon dioxide 25, anion gap 11, BUN 23, creatinine 0.8, glucose 161, calcium 9.2. Phosphorus 3.0, magnesium 2.0. Total bilirubin 5.52, AST 47, ALT 58, alkaline phosphatase 527, albumin is 3.1. IMPRESSION AND PLAN: Elevated LFT's Biliary obstruction Fatty Liver Nausea and vomiting Atrial Fibrillation Pancreatic cancer s/p Whipple procedure and chemo Protein Calorie malnutrition Type II diabetes PLAN: Mr. Summers is 74 year old male with the history of pancreatic caner s/p Whipple procedure and chemotherapy. GI is following him for his elevated liver enzymes and biliary obstruction. The patient is currently on TPN at 69 mL/h for his nutrition. For his bowel regimen we have started him on Miralax 17 g daily. The patient was on gastrointestinal prophylaxis Prilosec, we will d/c prilosec and start him on protonix 40 mg IV daily.. He is receiving Creon 72,000 three times a day and 36,000 PRN PO as needed for his pancreatitis. For his nausea and vomiting, he is on Zofran 8 mg by mouth 3 times a day and Reglan 10 mg by mouth 3 times a day. We will monitor the patient for side effects of tardive dyskinesia. An MRCP was ordered today, the study was limited due to excessive patient motion which obscures the distal CBD, but the CBD is somewhat dilated similar to the previous CT, evidence of prior surgery and no definite recurrent mass or new lymphadenopathy identified. We will continue to monitor the patient's liver function tests and provide supportive care to the patient. This plan was discussed with Dr. Rockwell. Please call us for any further questions or concerns. Dictated by KORINA Fontenot for Joaquin Rockwell MD cc: MD Oziel Ma MD I have seen and examined the patient myself and I agree with the above plan of care. I have discussed the above with the patient and all questions were answered. Please call us with any further questions. MTDD
[2019-06-03] MEDS ORDERED: LIPOSYN 20% 250 ML IV SCH (14:00)
[2019-06-03] MEDS: PROTONIX IV SCH (16:09)
[2019-06-03] MEDS: SODIUM CHLORIDE 0.9% INJ SCH (16:09)
--- NOTE | 2019-06-03 16:54 | Diag Imaging Result Doc PS360 ---
EXAM: MRI MRCP (ABD W/O CONTRAST) INDICATION: Obstructive jaundice TECHNIQUE: COMPARISON: MRI dated 09/17/[address] dated 05/03/2019 FINDINGS: There is excessive motion artifact on several of the sequences, which limits spatial resolution. The distal common bile duct is obscured due to the motion artifact. However, there is ductal dilatation that appears stable as compared to the recent CT. There are postsurgical changes in the upper abdomen involving the stomach, pancreatic head, and there has been a prior cholecystectomy. This may be from a previous Whipple procedure. This has been done since the previous study. No new lymphadenopathy is appreciated. No discrete liver mass is appreciated. The spleen, adrenal glands, and kidneys are grossly unremarkable. IMPRESSION: 1.Limited study due to excessive patient motion, which obscures the distal common bile duct. However, the common bile duct is somewhat dilated similar to the previous CT. 2.Evidence of prior surgery since the previous MRI, likely a Whipple procedure. 3.No definite recurrent mass or new lymphadenopathy is identified as imaged. Electronically signed by Jonny Madrid 06/03/2019 4:52 PM
[2019-06-03] MEDS: SODIUM CHLORIDE IV SCH ×7 (17:06)
[2019-06-03] MEDS: TPN ELECTROLYTES IV SCH ×7 (17:06)
[2019-06-03] MEDS: [UNRECOGNIZED DRUG - OTHER] IV SCH ×7 (17:06)
[2019-06-03] MEDS: POTASSIUM CHLORIDE IV SCH ×7 (17:06)
--- NOTE | 2019-06-03 20:10 | PROGRESS NOTE ---
DATE: 06/03/2019 SUBJECTIVE: The patient is getting better. Appreciated GI consult and he is eating better, walking with assistance. PHYSICAL EXAMINATION: Temperature is 98 degrees. Vitals are stable. Slightly jaundice.Neck: Supple. Chest: Clear. Heart: Sounds are irregular. Abdomen: Belly is soft nontender. INVESTIGATIONS: Persistent elevated LFTs. ASSESSMENT AND PLAN: 1. Persistent elevated liver function tests. Repeat MRCP and hold on lipids. This could be from the fatty liver. 2. Oral thrush is improving. If he continues to get better, we will discharge in the morning. We will discuss with the family for disposition. LEVEL OF DOCUMENTATION: 25 minutes. cc: Oziel Riley MD
[2019-06-03] MEDS: LOVENOX SUBQ SCH (21:08)
[2019-06-04] MEDS: ZOFRAN PO SCH ×4 (05:19→22:09)
[2019-06-04] MEDS: REGLAN PO SCH ×4 (05:19→22:09)
[2019-06-04] MEDS: HUMALOG SUBQ SCH ×5 (05:20→21:05)
[2019-06-04] MEDS: PERIACTIN PO SCH ×3 (06:46→16:36)
[2019-06-04 07:42] LABS: AGAP 11; BUN 24 mg/dL (8-22); CALCIUM 9.1 mg/dL (8.8-10.2); CHLORIDE 103 mmol/L (98-107); COSMO 284; CREATININE 0.8 mg/dL (0.7-1.2); ESTIMATED GFR > 60; GLUCOSE 175 mg/dL (70-104); POTASSIUM 3.8 mmol/L (3.5-5.1); SODIUM 138 mmol/L (136-145); TCO2 24 mmol/L (25-35)
[2019-06-04] MEDS: MIRALAX PO SCH (08:38)
[2019-06-04] MEDS: DIFLUCAN PO SCH (08:38)
[2019-06-04] MEDS: LOPRESSOR PO SCH ×3 (08:38→21:06)
[2019-06-04] MEDS: WELLBUTRIN XL PO SCH (08:38)
[2019-06-04] MEDS: CREON PO SCH ×3 (08:39→16:47)
[2019-06-04 10:26] LABS: ALB/GLOB RATIO 0.7; DIRECT BILIRUBIN 9.8 mg/dL (0.00-0.20); TOTAL PROTEIN 7.2 g/dL (6.3-8.3)
--- NOTE | 2019-06-04 12:53 | GASTROENTEROLOGY PROGRESS NOTE ---
DATE: 06/04/2019 SUBJECTIVE: Mr. Summers is a 74-year-old male, resting in bed. His is at his bedside. The patient has denied any complaints of abdominal pain. He did mention that he feels nauseated but he has denied any vomiting. OBJECTIVE: Vital Signs: Temperature 98.3 degrees, pulse is 81, respirations 18, blood pressure 108/50, oxygen saturation is 100% on room air. The patient's weight is 146 pounds. BMI is 21.0 kg/m2. General: He is alert, oriented x3, and in no acute distress. HEENT: Pale conjunctivae. Sclerae icterus. PERRL. Neck: Supple. Lungs: Clear to auscultation in the anterior beaulieu. Cardiovascular: Regular rate and rhythm. Abdomen: Soft, nontender, nondistended. Active bowel sounds heard in all 4 quadrants. Surgical scars from Whipple procedure noted. Extremities: No clubbing, no cyanosis, no edema. Pedal pulses 2+ present bilaterally. Neurologic: He is alert, oriented x3. LABORATORY DATA: Chemistry: Sodium 138, potassium 3.8, chloride 103, carbon dioxide 24, anion gap 11, BUN 24, creatinine is 0.8, glucose is 175, calcium 9.1. Phosphorus 3.1, magnesium 2.0. Total bilirubin is 12, AST 71, ALT 76, alkaline phosphatase is 544, albumin is 3.0, ammonia is 45. IMPRESSION AND PLAN: 1. Elevated liver function tests. 2. Biliary obstruction. 3. Fatty liver. 4. Nausea and vomiting. 5. Atrial fibrillation. 6. Pancreatic cancer s/p Whipple procedure and chemotherapy. 7. Protein calorie malnutrition. 8. Type 2 diabetes. PLAN: Mr. Summers is a 77-year-old male with a history of pancreatic cancer status post Whipple procedure and chemotherapy. GI is following him for his elevated liver enzymes and biliary obstruction. An MRCP was done yesterday, but the study was limited due to the excessive patient movement, the CBD was somewhat dilated, similar to the previous CT. We have ordered an ultrasound of the abdomen today. The patient's liver function tests are all elevated. His total bilirubin is 12.0, AST 71, ALT 76, and alkaline phosphatase is 544. We have also ordered a hepatitis panel. The previous hepatitis profile that was done on 05/26/2019 had been nonreactive. For his nutrition, patient is currently on TPN at 69 mL/hour. He is receiving GI prophylaxis, Protonix 40 mg IV daily. The patient is on a bowel regimen, MiraLAX 17 g, and for his pancreatitis, the patient is receiving Creon 72,000 three times a day and Creon 36,000 p.o. as needed. For his nausea and vomiting, patient is on Zofran 8 mg 3 times a day and also on Reglan 10 mg 3 times a day. We will continue to monitor the patient for the side effects of tardive dyskinesia. We will continue to monitor the patient's liver function tests, provide supportive care to the patient and follow the plan of care per PCP. This plan was discussed with Dr. Rader. Please call us for any further questions or concerns. Dictated by KORINA Fontenot for Charly Rader MD cc: Oziel Riley MD Physician Attestation I have seen and examined the patient. I have discussed and reviewed the note by Sharon HUI and agree with findings and plan as documented. He continues to have elevated ALFs without evidence of acute liver failure with cholestatic pattern. May be drug effect, intrahepatic cholestasis, infiltrative process. Will obtain abdominal US since MRCP was limited. There was no evidence CBD stone seen. Will check hepatitis panel. Continue TPN for now. MTDD
--- NOTE | 2019-06-04 15:11 | Diag Imaging Result Doc PS360 ---
EXAM: US ABDOMEN-COMPLETE 06/04/2019 HISTORY: Obstructive jaundice and r/o CBD TECHNIQUE: Abdominal ultrasound COMMENT: The spleen and kidneys are unremarkable. The liver is slightly hyperechoic. There is antegrade flow in the portal vein. There is no evidence of biliary dilatation the common bile duct measuring 5 mm. The aorta, inferior vena cava, and pancreas are not well demonstrated. The gallbladder is surgically absent. IMPRESSION: Hepatic steatosis. No evidence of biliary obstruction. Electronically signed by Lorenzo Concepcion 06/04/2019 3:09 PM
[2019-06-04 16:04] LABS: URINE SOURCE CLEAN CATCH
[2019-06-04 16:08] LABS: BILIRUBIN URINE LARGE (NEGATIVE); BLOOD URINE NEGATIVE (NEGATIVE); COLOR YELLOW; GLUCOSE URINE NEGATIVE (NEGATIVE); KETONE URINE NEGATIVE (NEGATIVE); LEUKOCYTES URINE NEGATIVE (NEGATIVE); NITRITE URINE NEGATIVE (NEGATIVE); PH URINE 6.5; PROTEIN URINE TRACE mg/dL (NEGATIVE); SP GRAVITY URINE 1.017; TURBIDITY URINE HAZY (CLEAR); UROBILINOGEN URINE 6 mg/dL (NORMAL)
[2019-06-04 16:16] LABS: UR EPITHELIAL CELLS <10 /HPF (<10); URINE BACTERIA NEGATIVE /HPF; URINE RBC <10 /HPF (<10); URINE WBC <10 /HPF (<10)
[2019-06-04 16:29] LABS: URINE CASTS NONE SEEN; URINE CRYSTALS CA OXALATE PRESENT; URINE YEAST NONE SEEN
[2019-06-04] MEDS: PROTONIX IV SCH (16:36)
[2019-06-04] MEDS: SODIUM CHLORIDE 0.9% INJ SCH (16:36)
[2019-06-04] MEDS: TYLENOL PO PRN (16:46)
[2019-06-04] MEDS: POTASSIUM CHLORIDE IV SCH ×7 (17:01)
[2019-06-04] MEDS: TPN ELECTROLYTES IV SCH ×7 (17:01)
[2019-06-04] MEDS: SODIUM CHLORIDE IV SCH ×7 (17:01)
[2019-06-04] MEDS: [UNRECOGNIZED DRUG - OTHER] IV SCH ×7 (17:01)
--- NOTE | 2019-06-04 20:10 | PROGRESS NOTE ---
DATE: 06/04/2019 SUBJECTIVE: The patient is depressed. Family is concerned about jaundice creeping up and he was a little bit confused last night. He is not getting any lipids. PHYSICAL EXAMINATION: Vital signs: Temperature is 97 degrees. Vitals are stable. General: He is jaundiced. Chest: Clear. Heart: Irregular heart sounds. Abdomen: Belly is soft, nontender. Neurologic: No asterixis. Nonfocal exam. LABS: SMA 12: Glucose 255, bilirubin has gone up to 12. Elevated LFTs. ASSESSMENT: 1. Obstructive jaundice pattern. Hepatic profile is negative. Fatty liver changes noted. Off lipids. Off Cordarone. No definite obstruction noted on either magnetic resonance cholangiopancreatography or abdominal ultrasound. 2. Stage III pancreatic cancer. 3. Protein-calorie malnutrition. Plan of care is continue on the patient on the peripherally inserted central catheter line on the left side. He has a port. Out of the bed with physical therapy. Repeat ammonia level, CA19-9, and check the labs on a daily basis. 4. Oral thrush is improving. We will stop the Diflucan. 5. Depression, on bupropion. 6. Deep venous thrombosis and gastrointestinal prophylaxis with Lovenox and proton pump inhibitor. 7. Will follow up. LEVEL OF DOCUMENTATION: 25 minutes. cc: Oziel Riley MD
[2019-06-04] MEDS: LOVENOX SUBQ SCH (21:06)
[2019-06-05] MEDS: HUMALOG SUBQ SCH ×6 (01:23→20:19)
[2019-06-05] MEDS: PERIACTIN PO SCH ×3 (06:12→18:13)
[2019-06-05] MEDS: ZOFRAN PO SCH ×3 (06:12→23:44)
[2019-06-05] MEDS: REGLAN PO SCH ×3 (06:12→23:44)
[2019-06-05 08:00] LABS: PHOSPHORUS 2.7 mg/dL (2.7-4.5)
[2019-06-05 08:01] LABS: AGAP 14; ALB/GLOB RATIO 0.7; ALKALINE PHOSPHATASE 531 U/L (32-122); BUN 20 mg/dL (8-22); CALCIUM 8.9 mg/dL (8.8-10.2); CHLORIDE 104 mmol/L (98-107); COSMO 286; CREATININE 0.8 mg/dL (0.7-1.2); ESTIMATED GFR > 60; GLUCOSE 179 mg/dL (70-104); GOT 49 U/L (10-34); GPT 73 U/L (10-44); POTASSIUM 3.7 mmol/L (3.5-5.1); SODIUM 140 mmol/L (136-145); TCO2 22 mmol/L (25-35); TOTAL BILIRUBIN 13.76 mg/dL (0.20-1.00); TOTAL PROTEIN 7.4 g/dL (6.3-8.3)
[2019-06-05 08:17] LABS: PREALBUMIN 17.2 mg/dL (20-40)
[2019-06-05] MEDS: MIRALAX PO SCH (08:30)
[2019-06-05] MEDS: WELLBUTRIN XL PO SCH (08:30)
[2019-06-05] MEDS: LOPRESSOR PO SCH ×3 (08:30→20:20)
[2019-06-05] MEDS: CREON PO SCH ×3 (08:30→18:13)
[2019-06-05 10:53] LABS: HEPATITIS PROFILE ACUTE SEE COMMENTS
--- NOTE | 2019-06-05 12:50 | PROGRESS NOTE ---
DATE: 06/05/2019 SUBJECTIVE: Mr. Summers has onset of jaundice with a bilirubin of 13.76, mild elevation in the alkaline phosphatase with some elevation in the ALT, AST. Alkaline phosphatase is 531. Blood sugar was 162. Electrolytes normal. BUN 20, creatinine 1.8. He is severely jaundiced, has some itching. He has stage III pancreatic cancer. At present, vital signs are stable. He has mild protein caloric malnutrition. He is on IV TPN, Reglan, Humalog. Overall condition is stable. We will probably put him on cholestyramine twice a day. cc: MD Oziel Wade MD
[2019-06-05] MEDS: SODIUM CHLORIDE 0.9% INJ SCH (15:03)
[2019-06-05] MEDS: PROTONIX IV SCH (15:03)
[2019-06-05] MEDS: [UNRECOGNIZED DRUG - OTHER] IV SCH ×7 (18:13)
[2019-06-05] MEDS: TPN ELECTROLYTES IV SCH ×7 (18:13)
[2019-06-05] MEDS: POTASSIUM CHLORIDE IV SCH ×7 (18:13)
[2019-06-05] MEDS: SODIUM CHLORIDE IV SCH ×7 (18:13)
[2019-06-05] MEDS: LOVENOX SUBQ SCH ×2 (20:18→23:43)
[2019-06-06] MEDS: HUMALOG SUBQ SCH ×6 (01:15→21:19)
[2019-06-06] MEDS: PERIACTIN PO SCH ×4 (05:27→16:25)
[2019-06-06] MEDS: ZOFRAN PO SCH ×5 (05:27→21:25)
[2019-06-06] MEDS: REGLAN PO SCH ×5 (05:27→21:23)
[2019-06-06] MEDS: CREON PO SCH ×3 (08:27→16:24)
[2019-06-06] MEDS: WELLBUTRIN XL PO SCH (08:29)
[2019-06-06] MEDS: LOPRESSOR PO SCH ×2 (08:29→21:21)
[2019-06-06] MEDS: QUESTRAN PO SCH (08:30)
[2019-06-06] MEDS: MIRALAX PO SCH (08:31)
[2019-06-06 10:33] LABS: AGAP 10; ALB/GLOB RATIO 0.7; ALKALINE PHOSPHATASE 474 U/L (32-122); BUN 20 mg/dL (8-22); CALCIUM 8.7 mg/dL (8.8-10.2); CHLORIDE 102 mmol/L (98-107); COSMO 276; CREATININE 0.8 mg/dL (0.7-1.2); ESTIMATED GFR > 60; GLUCOSE 192 mg/dL (70-104); GOT 52 U/L (10-34); GPT 65 U/L (10-44); PHOSPHORUS 3.5 mg/dL (2.7-4.5); POTASSIUM 4.1 mmol/L (3.5-5.1); SODIUM 134 mmol/L (136-145); TCO2 22 mmol/L (25-35); TOTAL BILIRUBIN 10.58 mg/dL (0.20-1.00); TOTAL PROTEIN 7.2 g/dL (6.3-8.3)
[2019-06-06] MEDS: PROTONIX IV SCH (13:43)
[2019-06-06] MEDS: POTASSIUM CHLORIDE IV SCH ×7 (18:58)
[2019-06-06] MEDS: [UNRECOGNIZED DRUG - OTHER] IV SCH ×7 (18:58)
[2019-06-06] MEDS: TPN ELECTROLYTES IV SCH ×7 (18:58)
[2019-06-06] MEDS: SODIUM CHLORIDE IV SCH ×7 (18:58)
[2019-06-06] MEDS: LOVENOX SUBQ SCH (21:20)
[2019-06-07] MEDS: HUMALOG SUBQ SCH ×6 (01:41→21:02)
--- NOTE | 2019-06-07 04:15 | PROGRESS NOTE ---
DATE: 06/06/2019 Mr. Summers has obstructive jaundice. There is no obstruction. His glucose was 205. His CA19-9 is 204 (normal level is less than 35). His vital signs are stable. -9 cc: MD Oziel Wade MD
[2019-06-07] MEDS: PERIACTIN PO SCH ×3 (06:10→17:31)
[2019-06-07] MEDS: REGLAN PO SCH ×3 (06:10→22:04)
[2019-06-07] MEDS: ZOFRAN PO SCH ×3 (06:10→22:04)
[2019-06-07 08:36] LABS: AGAP 10; BUN 20 mg/dL (8-22); CALCIUM 8.5 mg/dL (8.8-10.2); CHLORIDE 103 mmol/L (98-107); CHOLESTEROL 184 mg/dL (0-200); COSMO 279; CREATININE 0.8 mg/dL (0.7-1.2); ESTIMATED GFR > 60; GLUCOSE 146 mg/dL (70-104); GOT 59 U/L (10-34); PHOSPHORUS 2.8 mg/dL (2.7-4.5); POTASSIUM 3.7 mmol/L (3.5-5.1); SODIUM 137 mmol/L (136-145); TCO2 24 mmol/L (25-35); TRIGLYCERIDES 144 mg/dL (39-160)
[2019-06-07 08:50] LABS: PREALBUMIN 15.6 mg/dL (20-40)
[2019-06-07] MEDS: MIRALAX PO SCH (09:01)
[2019-06-07] MEDS: CREON PO SCH ×3 (09:02→17:32)
[2019-06-07] MEDS: LOPRESSOR PO SCH ×2 (09:03→22:04)
[2019-06-07] MEDS: WELLBUTRIN XL PO SCH (09:03)
[2019-06-07] MEDS: QUESTRAN PO SCH (09:07)
--- NOTE | 2019-06-07 11:10 | GASTROENTEROLOGY PROGRESS NOTE ---
DATE: 06/07/2019 SUBJECTIVE: Mr. Summers is a 74-year-old, male, sitting at the side of the bed and having his breakfast. His was at his bedside. The patient denies any complaints of abdominal pain, nausea, or vomiting. OBJECTIVE: Vital Signs: Temperature 98.3 degrees, pulse 83, respirations 18, blood pressure 106/52, oxygen saturation 100% on room air. The patient's weight is 142 pounds, BMI is 20.5 kg/m2. General: He is alert and oriented x3, and in no acute distress. HEENT: Pale conjunctivae. Scleral icterus. TASIA. Neck: Supple. Lungs: Clear to auscultation in the anterior beaulieu. Cardiovascular: Regular rate and rhythm. Abdomen: Soft, nontender, nondistended. Active bowel sounds heard in all 4 quadrants. Surgical scars from Whipple procedure noted. Extremities: No clubbing, no cyanosis, no edema. Pedal pulses 2+ present bilaterally. Neurologic: Alert and oriented x3. LABORATORY DATA: The patient has no current hematology. His chemistries are sodium 137, potassium 3.7, chloride 103, carbon dioxide 24, anion gap 10, BUN 20, creatinine 0.8, glucose 146, calcium 8.5. Phosphorus 2.6, magnesium is 2.0. AST is 59. His hepatitis panel done on 06/04/2019 showed that it was nonreactive. The patient had an ultrasound done on 06/04/2019, and it showed hepatic steatosis, but no evidence of biliary obstruction. IMPRESSION AND PLAN: Elevated liver enzymes: ? Fatty liver related to TPN, medications induced like Amiodarone vs Infiltrative process Jaundice Fatty liver Nausea and vomiting Diabetes Pancreatic cancer s/p whipple procedure and chemotherapy Diabetes type II Atrial fibrillation PLAN: Mr. Summers is a 77-year-old, male with a history of pancreatic cancer, status post Whipple procedure and chemotherapy. GI is following him for his elevated liver enzymes and Jaundice. An ultrasound of the abdomen was done on 06/04/2019, and it showed that he has hepatic steatosis, but no evidence of biliary obstruction. His hepatitis panel also was nonreactive. The patient's liver function test, AST is still elevated. The patient is currently receiving Creon 36,000 as needed, and Creon 72,000 three times a day for his pancreatitis. The patient has denied any bowel movements today. For his bowel regimen, he is on MiraLAX 17 grams daily. He is receiving GI prophylaxis, Protonix 40 mg IV daily. The patient's diabetes is managed by Humalog on a sliding scale. For his nausea and vomiting, he is receiving Zofran and Reglan, and we will continue to monitor the side effects of tardive dyskinesia. We will continue to monitor the patient, and follow the plan of care per PCP. This plan was discussed with Dr. Rockwell. Please call us for any of further questions or concerns. Dictated by KORINA Fontenot for Joaquin Rockwell MD cc: MD Oziel Ma MD I have seen and examined the patient myself and I agree with the above plan of care. I have discussed the above with the patient and all questions were answered. May need Liver biopsy if continues to have elevated liver enzymes. Please call us with any further questions. MTDD
[2019-06-07] MEDS: PROTONIX IV SCH (14:20)
[2019-06-07] MEDS: LOVENOX SUBQ SCH (22:04)
[2019-06-07] MEDS: TYLENOL PO PRN (23:19)
[2019-06-08] MEDS: HUMALOG SUBQ SCH ×5 (01:48→22:54)
--- NOTE | 2019-06-08 04:58 | PROGRESS NOTE ---
DATE: 06/07/2019 SUBJECTIVE: The patient is a little better eating well. Able to walk with assistance. He still has jaundice. OBJECTIVE: Chest is clear. Heart sounds are regular. Belly is soft and nontender. ASSESSMENT AND PLAN: 1. Elevated LFTs, appears to be hepatitis picture. Fatty liver. There is no obstruction with MRCP or ultrasound. 2. This could be related to TPN. Encouraged the patient to eat as much as he can by mouth, and discontinue TPN. Follow CMP. 3. I spoke to the family at bedside. CA-19-9 is coming down. Continue the physical therapy. We will hold the lipids and TPN. We will check the labs in the morning. If they continue to go down, we will advance the GI soft diet with Ensure. We will follow up. LEVEL OF DOCUMENTATION: 25 minutes. cc: Oziel Riley MD
[2019-06-08] MEDS: REGLAN PO SCH ×3 (06:13→22:55)
[2019-06-08] MEDS: PERIACTIN PO SCH ×3 (06:13→17:31)
[2019-06-08] MEDS: ZOFRAN PO SCH ×3 (06:13→22:55)
[2019-06-08 08:45] LABS: MAGNESIUM 2.1 mg/dL (1.5-2.7); PHOSPHORUS 3.7 mg/dL (2.7-4.5)
[2019-06-08 09:16] LABS: AGAP 16; ALB/GLOB RATIO 0.8; ALBUMIN 3.1 g/dL (3.5-5.0); ALKALINE PHOSPHATASE 572 U/L (32-122); BUN 20 mg/dL (8-22); CHLORIDE 100 mmol/L (98-107); COSMO 277; CREATININE 0.9 mg/dL (0.7-1.2); ESTIMATED GFR > 60; GLUCOSE 103 mg/dL (70-104); GOT 75 U/L (10-34); GPT 70 U/L (10-44); POTASSIUM 4.1 mmol/L (3.5-5.1); SODIUM 137 mmol/L (136-145); TCO2 21 mmol/L (25-35); TOTAL BILIRUBIN 16.14 mg/dL (0.20-1.00); TOTAL PROTEIN 6.9 g/dL (6.3-8.3)
[2019-06-08] MEDS: MIRALAX PO SCH (09:49)
[2019-06-08] MEDS: QUESTRAN PO SCH (09:50)
[2019-06-08] MEDS: CREON PO SCH ×3 (09:51→17:32)
[2019-06-08] MEDS: WELLBUTRIN XL PO SCH (09:51)
[2019-06-08] MEDS: LOPRESSOR PO SCH ×2 (09:51→21:54)
[2019-06-08] MEDS: PROTONIX IV SCH (14:22)
--- NOTE | 2019-06-08 16:04 | GASTROENTEROLOGY PROGRESS NOTE ---
DATE: 06/08/2019 SUBJECTIVE: Mr. Summers is a 74-year-old male sitting on the side of the bed having his breakfast. is at the bedside. The patient has denied any nausea, vomiting, or abdominal pain. OBJECTIVE: Vital Signs: Temperature 98.5, pulse is 83, respirations 18, blood pressure 114/45, oxygen saturation is 100% on room air. The patient's weight is 145 pounds. BMI is 20.8 kg/m2. General: He is alert, oriented x3 and in no acute distress. HEENT: Pale conjunctivae. Sclera icterus. PERRL. Neck: Supple. Lungs: Clear to auscultation. Cardiovascular: Regular rate and rhythm. Abdomen: Soft, nontender, nondistended. Active bowel sounds heard in all four quadrants. The patient has some surgical scars from previous Whipple procedure. Extremities: No clubbing, no cyanosis, no edema. Pedal pulses 2+, present bilaterally. Neurologic: He is alert, oriented x3. LABS: No recent hematology. Chemistries are sodium 137, potassium 4.1, chloride 100, carbon dioxide 21, anion gap 60, BUN 20, creatinine 0.9, glucose 103, calcium 9.0, total bilirubin is 16.14, AST 75, ALT 70, alkaline phosphatase is 572. IMPRESSION AND PLAN: Cholestatic liver injury Fatty liver Atrial fibrillation Pancreatic cancer s/p Whipple procedure and chemo Type II diabetes PLAN: Mr. Summers is a 74-year-old male with a history of pancreatic cancer status post Whipple procedure and chemotherapy. GI is following him for his elevated liver functions and jaundice. The patient had an ultrasound on 06/04/2019 that showed that he has hepatic steatosis. No evidence of biliary obstruction. His hepatitis panels have been nonreactive. Liver function tests are elevated. The patient is currently on Creon 36,000 p.o. as needed and Creon 72,000 p.o. three times a day for his pancreatitis. The patient is on Protonix 40 mg IV daily. He is on a bowel regimen, MiraLAX daily. The patient is receiving antiemetics, Zofran and Reglan for his nausea and vomiting. We will continue to monitor the patient and follow the plan of care per PCP. This plan was discussed with Dr. Rader. Please call us for any further questions or concerns. Dictated by KORINA Fontenot for Charly Rader MD cc: Oziel Riley MD Physician Attestation I have seen and examined the patient. I have discussed and reviewed the note by Sharon HUI and agree with findings and plan as documented. He continues to have elevated ALFs without evidence of acute liver failure with cholestatic pattern. US was negative for biliary obstruction. May be due to DILI, intrahepatic cholestasis, infiltrative process, TPN. Mental status stable. Deep jaundice. I have reviewed current medications. Will make patient NPO and plan for percutaneous liver biopsy on MTD
[2019-06-08] MEDS: LOVENOX SUBQ SCH (22:55)
--- NOTE | 2019-06-09 00:29 | PROGRESS NOTE ---
DATE: 06/08/2019 SUBJECTIVE: The patient continues to have jaundice. TPN was stopped. He is eating well. He is assisting with physical therapy for ambulation. Family is at bedside. PHYSICAL EXAMINATION: Vital signs: Temperature is 98 degrees, pulse is 88, blood pressure is 106/53, saturation 100% on room air. General: Severely jaundiced. Neck: Supple. Chest: Clear. No obvious asterixis noted. INVESTIGATIONS: SMA 12, jaundice is gone up to 10 to 16, elevated LFTs. ASSESSMENT AND PLAN: Jaundice. No obstruction noted. Fatty liver, could be from TPN. Will discontinue and see the trend. Continue to eat with food. Continue physical therapy. Family agreed to see the trend before he goes home. Also, if he is no better, consider liver biopsy as per Dr. Rockwell. He had a PICC line on the left side. We will follow up. LEVEL OF DOCUMENTATION: Was 25 minutes. cc: Oziel Riley MD
[2019-06-09] MEDS: HUMALOG SUBQ SCH ×3 (06:02→21:27)
[2019-06-09] MEDS: ZOFRAN PO SCH ×3 (06:03→21:27)
[2019-06-09] MEDS: REGLAN PO SCH ×3 (06:03→21:27)
[2019-06-09] MEDS: PERIACTIN PO SCH ×3 (06:03→16:09)
[2019-06-09] MEDS: LOPRESSOR PO SCH ×2 (08:23→21:27)
[2019-06-09] MEDS: WELLBUTRIN XL PO SCH (08:23)
[2019-06-09] MEDS: CREON PO SCH ×3 (08:24→16:09)
[2019-06-09] MEDS: MIRALAX PO SCH (08:24)
[2019-06-09] MEDS: QUESTRAN PO SCH (08:24)
[2019-06-09 08:25] LABS: AGAP 13; ALB/GLOB RATIO 0.7; ALBUMIN 2.8 g/dL (3.5-5.0); ALKALINE PHOSPHATASE 528 U/L (32-122); BUN 21 mg/dL (8-22); CALCIUM 9.1 mg/dL (8.8-10.2); CHLORIDE 98 mmol/L (98-107); COSMO 272; CREATININE 0.9 mg/dL (0.7-1.2); DIRECT BILIRUBIN > 10.00 mg/dL (0.00-0.20); ESTIMATED GFR > 60; GLUCOSE 112 mg/dL (70-104); GOT 74 U/L (10-34); GPT 75 U/L (10-44); PHOSPHORUS 3.9 mg/dL (2.7-4.5); POTASSIUM 3.4 mmol/L (3.5-5.1); SODIUM 134 mmol/L (136-145); TCO2 23 mmol/L (25-35); TOTAL BILIRUBIN 15.57 mg/dL (0.20-1.00); TOTAL PROTEIN 6.9 g/dL (6.3-8.3)
[2019-06-09 09:58] LABS: INR 1.23; PROTIME 15.7 Seconds (11.0-16.0)
--- NOTE | 2019-06-09 12:08 | Diag Imaging Result Doc PS360 ---
EXAM: US LIVER BIOPSY W S/I 06/09/2019 HISTORY: abnormal LFTs TECHNIQUE: Ultrasound-guided liver biopsy COMMENT: The risks and benefits of the procedure including the possibility of bleeding, infection, or reaction to lidocaine was discussed with patient and his and they agreed to the procedure. Following sterile preparation the skin anteriorly and administration of 1% lidocaine to the skin and deeper soft tissues, an 18-gauge coaxial Temno core biopsy needle was employed to obtain three cores from the anterior left hepatic lobe. There are no immediate complications. IMPRESSION: Successful ultrasound-guided liver biopsy. Electronically signed by Lorenzo Concepcion 06/09/2019 12:06 PM
[2019-06-09] MEDS: TYLENOL PO PRN (13:49)
[2019-06-09] MEDS: SODIUM CHLORIDE 0.9% INJ SCH (13:50)
[2019-06-09] MEDS: PROTONIX IV SCH (13:50)
--- NOTE | 2019-06-09 14:01 | GASTROENTEROLOGY PROGRESS NOTE ---
DATE: 06/09/2019 SUBJECTIVE: Mr. Summers is a 74-year-old male resting in bed. The patient was getting ready to go for his liver biopsy. He has denied any nausea, vomiting, or abdominal pain. OBJECTIVE: Vital Signs: Temperature 97.5 degrees, pulse is 63, respirations 16, blood pressure 103/55, oxygen saturation is 99% on room air. The patient's weight is 148 pounds. BMI is 21.2 kg/m2. General: He is alert, oriented x3, and in no acute distress. HEENT: Pale conjunctivae. Scleral icterus. PERRL. Neck: Supple. Lungs: Clear to auscultation. Cardiovascular: Regular rate and rhythm. Abdomen: Soft, nontender, nondistended. Active bowel sounds heard in all 4 quadrants. Extremities: Active bowel sounds heard in all 4 quadrants. The patient has some surgical scars from the previous Whipple procedure. Extremities: No clubbing, no cyanosis, no edema. Pedal pulses 2+ present bilaterally. Neurologic: He is alert, oriented x3. LABORATORY DATA: The patient has no recent hematology. Chemistries are sodium 134, potassium 3.4, chloride 98, carbon dioxide 23, anion gap 13, BUN 21, creatinine 0.9, glucose is 112, calcium is 9.1, phosphorus is 3.9, magnesium is 2.0. Total bilirubin is 15.57, AST is 74, ALT 75, alkaline phosphatase is 528, albumin is 2.8. IMPRESSION AND PLAN: Cholestatic liver injury Fatty liver Atrial fibrillation Pancreatic cancer s/p Whipple procedure and chemo Type II diabetes PLAN: Ms. Summers is a 74-year-old male with a history of pancreatic cancer status post Whipple procedure and chemotherapy. GI is following him for his elevated liver function tests and jaundice. The patient is currently receiving Creon 36,000 p.o. p.r.n. and 72,000 p.o. 3 times a day. The patient is on Protonix 40 mg IV daily. The patient continues to have elevated liver function tests. Ultrasound-guided liver biopsy has been ordered for today. Awaiting the pathology report. We will continue to monitor the patient's liver functions test and follow the plan of care per PCP. This plan was discussed with Dr. Rader. Please call us for any further questions or concerns. Dictated by KORINA Fontenot for Charly Rader MD cc: Oziel Rilye MD Physician Attestation I have seen and examined the patient. I have discussed and reviewed the note by Sharon HUI and agree with findings and plan as documented. Worsening LFTs. Mental status stable. Awaiting liver biopsy. MTDD
[2019-06-10] MEDS: REGLAN PO SCH ×5 (00:27→23:30)
[2019-06-10] MEDS: ZOFRAN PO SCH ×5 (00:28→23:30)
--- NOTE | 2019-06-10 02:27 | PROGRESS NOTE ---
DATE: 06/09/2019 SUBJECTIVE: The patient has more jaundice. He is more positive, he is not depressed. He is walking well, but he has had a full jaundice from head-to-toe. Passing dark urine. EXAMINATION: Vitals: Stable. HEENT: Jaundiced. Chest: Bilateral air entry. Heart: Irregular heart sounds. Abdomen: Soft, nontender. INVESTIGATIONS: Potassium 3.4. Glucose 142, bilirubin 15. LFTs were high. ASSESSMENT AND PLAN: 1. Obstructive jaundice pattern, but no obstruction noted on MRCP and ultrasound. CA-19-9 is coming down. 2. Patient is getting a liver biopsy to rule out infiltrative disease. We stopped the TPN and lipids and follow up on the hepatic functions. The patient has scheduled for liver biopsy today and will discuss with the pathologist. Continue the eating by mouth and ambulation. We also stopped amiodarone that can cause the hepatitis. We will closely monitor his liver function tests. Discussed with the family. LEVEL OF DOCUMENTATION: Was 25 minutes. cc: Oziel Riley MD
[2019-06-10] MEDS: HUMALOG SUBQ SCH ×4 (06:31→21:46)
[2019-06-10] MEDS: PERIACTIN PO SCH ×3 (06:35→16:45)
[2019-06-10 07:54] LABS: AGAP 14; ALB/GLOB RATIO 0.6; ALBUMIN 2.9 g/dL (3.5-5.0); ALKALINE PHOSPHATASE 502 U/L (32-122); BUN 22 mg/dL (8-22); CALCIUM 8.8 mg/dL (8.8-10.2); CHLORIDE 100 mmol/L (98-107); COSMO 278; CREATININE 0.8 mg/dL (0.7-1.2); ESTIMATED GFR > 60; GLUCOSE 114 mg/dL (70-104); GOT 78 U/L (10-34); GPT 75 U/L (10-44); PHOSPHORUS 3.2 mg/dL (2.7-4.5); POTASSIUM 3.8 mmol/L (3.5-5.1); SODIUM 137 mmol/L (136-145); TCO2 23 mmol/L (25-35); TOTAL PROTEIN 7.4 g/dL (6.3-8.3)
[2019-06-10] MEDS: QUESTRAN PO SCH (09:21)
[2019-06-10] MEDS: CREON PO SCH ×3 (09:21→16:46)
[2019-06-10] MEDS: LOPRESSOR PO SCH ×2 (09:21→21:47)
[2019-06-10] MEDS: WELLBUTRIN XL PO SCH (09:21)
[2019-06-10] MEDS: MIRALAX PO SCH (09:21)
--- NOTE | 2019-06-10 10:55 | GASTROENTEROLOGY PROGRESS NOTE ---
DATE: 06/10/2019 SUBJECTIVE: Mr. Summers is a 74-year-old, male sitting in bed, having his breakfast, family at the bedside. The patient has denied any nausea, vomiting, abdominal pain. The patient was anxious to know what his biopsy results were. OBJECTIVE: Vital Signs: Temperature 97.8 degrees, pulse 91, respirations 19, blood pressure 104/50, oxygen saturation 99% on room. The patient's weight is 148 pounds. BMI is 21.2 kg/m2. General: He is alert, oriented x3, and in no acute distress. HEENT: Pale conjunctivae. Scleral icterus. PERRL. Neck: Supple. Lungs: Clear to auscultation. Cardiovascular: The patient is tachycardic. Abdomen: Soft, nontender, nondistended. Active bowel sounds heard in all 4 quadrants. Surgical scars from the previous Whipple procedure noted. Extremities: No clubbing, no cyanosis, no edema. Pedal pulses 2+ present bilaterally. Neurological: Alert and oriented x3. LABS: No new hematology. Chemistry: Sodium 137, potassium 3.8, chloride 100, carbon dioxide 23, anion gap 14, BUN 22, creatinine 0.8, glucose 114, calcium 8.8, phosphorus 3.2, magnesium 2.0. Total bilirubin is 13.30, AST 78, ALT 75, alkaline phosphatase is 502, albumin is 2.9. IMPRESSION AND PLAN: Elevated liver enzymes Jaundice Fatty liver Type II diabetes H/o pancreatic cancer PLAN: Mr. Summers is a 74-year-old, male with a history of pancreatic cancer, status post Whipple procedure. GI is following him for his elevated liver enzymes and jaundice. The patient had a liver biopsy done yesterday. The path report reveals intracellular and sinusoidal centrilobular cholestasis, patchy focal micro and macrovesicular steatosis in the centrilobular area. The patient is receiving Creon 36,000 p.r.n. and 72,000 p.o. 3 times a day for his pancreatitis. He is on GI prophylaxis, Protonix 40 mg IV daily. His liver enzymes are still elevated, today the total bilirubin was 13.30, AST 78, ALT 75, and alkaline phos 502. We will continue to monitor the patient and provide supportive care, and follow the plan of care per PCP. This plan was discussed with Dr. Rockwell. Please call us for any further questions or concerns. Dictated by KORINA Fontenot for Joaquin Rockwell MD cc: MD Oziel Ma MD I have seen and examined the patient myself and I agree with the above plan of care. We will start a trial of Ursodiol 300 mg BID for cholestatic jaundice and evaluate the response. Please call us with any further questions. MTDD
[2019-06-10] MEDS: SODIUM CHLORIDE 0.9% INJ SCH (13:25)
[2019-06-10] MEDS: PROTONIX IV SCH (13:25)
--- NOTE | 2019-06-11 00:10 | PROGRESS NOTE ---
DATE: 06/10/2019 SUBJECTIVE: The patient is getting better. Family is at bedside. He has cholestatic jaundice. No obstruction noted. Liver biopsy is done, discussed with Dr. Monzon. This looks like a fatty liver with cholestasis changes. No definitive infiltration noted. PHYSICAL EXAMINATION: Temperature is 97 degrees. Vitals are stable. Had jaundice. Neck: Supple. Chest: Clear, irregular heart sounds. The patient is out of the bed. INVESTIGATIONS: Bilirubin coming down, 13, prealbumin 15.6. ASSESSMENT AND PLAN: 1. Cholestatic jaundice. No obstruction. 2. Stage III pancreatic cancer. 3. Right foot drop. 4. Chronic atrial fibrillation, history of kidney stones. 5. I also spoke to Jonny raza. about his condition. He wants to discontinue TPN and continue to encourage eating by mouth and ambulation with outpatient home health care. PICC line on the left side. If continues trending down and eating well, consider palliative chemotherapy down the line. LEVEL OF DOCUMENTATION: 25 minutes. cc: Oziel Riley MD MTDD
[2019-06-11] MEDS: TYLENOL PO PRN (03:58)
[2019-06-11] MEDS: HUMALOG SUBQ SCH ×4 (06:23→20:42)
[2019-06-11] MEDS: PERIACTIN PO SCH ×4 (06:40→16:36)
[2019-06-11] MEDS: ZOFRAN PO SCH ×4 (06:40→20:43)
[2019-06-11] MEDS: REGLAN PO SCH ×4 (06:40→20:43)
[2019-06-11 07:59] LABS: AGAP 13; ALB/GLOB RATIO 0.7; ALBUMIN 2.9 g/dL (3.5-5.0); ALKALINE PHOSPHATASE 493 U/L (32-122); BUN 20 mg/dL (8-22); CHLORIDE 100 mmol/L (98-107); COSMO 277; CREATININE 0.9 mg/dL (0.7-1.2); ESTIMATED GFR > 60; GLUCOSE 106 mg/dL (70-104); GOT 83 U/L (10-34); GPT 80 U/L (10-44); MAGNESIUM 2.1 mg/dL (1.5-2.7); PHOSPHORUS 3.7 mg/dL (2.7-4.5); POTASSIUM 3.5 mmol/L (3.5-5.1); SODIUM 137 mmol/L (136-145); TCO2 24 mmol/L (25-35); TOTAL BILIRUBIN 11.56 mg/dL (0.20-1.00); TOTAL PROTEIN 7.3 g/dL (6.3-8.3)
[2019-06-11] MEDS: MIRALAX PO SCH (08:22)
[2019-06-11] MEDS: WELLBUTRIN XL PO SCH (08:22)
[2019-06-11] MEDS: LOPRESSOR PO SCH ×3 (08:22→20:43)
[2019-06-11] MEDS: CREON PO SCH ×3 (08:23→16:37)
[2019-06-11] MEDS: ACTIGALL PO SCH ×2 (08:23→20:43)
[2019-06-11] MEDS: QUESTRAN PO SCH (08:23)
--- NOTE | 2019-06-11 11:47 | GASTROENTEROLOGY PROGRESS NOTE ---
DATE: 06/11/2019 SUBJECTIVE: Mr. Summers is a 74-year-old male who is resting in bed, family at the bedside. The patient was excited about getting discharged and going to the rehab facility on Friday.. OBJECTIVE: Vital Signs: Temperature 97.9 degrees, pulse 83, respirations 19, blood pressure 105/52, oxygen saturation 98% on room air. The patient's weight is 147 pounds. BMI is 201.3 kg/m2. General: He is alert, oriented x3, and in no acute distress. HEENT: Pale conjunctivae, scleral icterus. PERRL. Neck: Supple. Lungs: Clear to auscultation. Cardiovascular: Regular rate and rhythm. Abdomen: Soft, nontender, nondistended. Active bowel sounds heard in all 4 quadrants. Extremities: No clubbing, no cyanosis, no edema. Pedal pulses 2+ bilaterally. Neurologic: Patient is alert, oriented x3. LABORATORY DATA: Patient does not have any recent hematology. His chemistries today are, sodium 137, potassium 3.5, chloride 100, carbon dioxide 24, anion gap 13, BUN 20, creatinine 0.9, glucose 106, calcium 9.0, phosphorus 3.7, magnesium 2.1. Total bilirubin 11.56, AST 83, ALT 80, alkaline phos 493, albumin 2.9. The patient's liver biopsy has shown intracellular and sinusoidal centrilobular cholestasis and patchy focal micro and macrovascular steatosis in the central lobular area. IMPRESSION AND PLAN: 1. Cholestatic liver injury. 2. Fatty liver. 3. Atrial fibrillation. 4. Pancreatic cancer s/p Whipple procedure and chemotherapy. 5. Type 2 diabetes. PLAN: Mr. Summers is a 74-year-old male with a history of pancreatic cancer status post Whipple procedure. GI has been following him for his elevated liver enzymes and jaundice. The patient's bilirubin has been trending down. Today, it is 11.56. The patient is on Creon 68979 units p.r.n. and 79083 units p.o. 3 times a day. The patient is on Protonix 40 mg IV daily. He is on insulin Humalog on sliding scale for his diabetes. As per his PCP, plan is to send him to [facility] rehab facility on Friday. We will continue to monitor the patient and follow the plan of care per primary care. This plan was discussed with Dr. Rader. Please call us for any further questions or concerns. Dictated by KORINA Fontenot for Charly Rader MD cc: Oziel Riley MD MTDD
[2019-06-11] MEDS: SODIUM CHLORIDE 0.9% INJ SCH (13:32)
[2019-06-11] MEDS: PROTONIX IV SCH (13:32)
--- NOTE | 2019-06-11 19:20 | PROGRESS NOTE ---
DATE: 06/11/2019 SUBJECTIVE: The patient is eating better, slowly able to get his strength back. REVIEW OF SYSTEMS: None reported. Jaundice slowly coming down. is at bedside. She wants to go back to rehab at [facility]. Paperwork is underway. PHYSICAL EXAM: Temperature is 97.9 degrees, pulse 99. Vitals are stable. Jaundice is clearing.Chest: Clear. Irregular heart sounds. Belly is soft, scaphoid. No neurologic deficits. INVESTIGATIONS: SMA 12, bilirubin is 11, elevated LFTs, liver biopsy, cholestatic jaundice. ASSESSMENT AND PLAN: 1. Cholestatic jaundice. No infiltrate process. No obstructive process. Most likely amiodarone induced which is stopped now increasing probably from total parenteral nutrition which is also stopped. Continue to monitor. 2. Increase the activity. 3. Chronic atrial fibrillation stable. 4. Stage III pancreatic cancer status post Whipple, CA-19-9 200 and family decided to go for skilled nursing. Will do the social director consult for rehab and will observe over the weekend. LEVEL OF DOCUMENTATION: 25 minutes. cc: Oziel Riley MD
[2019-06-12] MEDS: PERIACTIN PO SCH ×3 (06:17→16:24)
[2019-06-12] MEDS: ZOFRAN PO SCH ×3 (06:17→22:09)
[2019-06-12] MEDS: REGLAN PO SCH ×3 (06:17→22:09)
[2019-06-12] MEDS: HUMALOG SUBQ SCH ×4 (06:17→21:05)
[2019-06-12 08:30] LABS: AGAP 13; BUN 15 mg/dL (8-22); CALCIUM 8.7 mg/dL (8.8-10.2); CHLORIDE 100 mmol/L (98-107); CHOLESTEROL 198 mg/dL (0-200); COSMO 274; CREATININE 0.9 mg/dL (0.7-1.2); ESTIMATED GFR > 60; GLUCOSE 117 mg/dL (70-104); GOT 86 U/L (10-34); PHOSPHORUS 3.3 mg/dL (2.7-4.5); POTASSIUM 3.5 mmol/L (3.5-5.1); SODIUM 136 mmol/L (136-145); TCO2 23 mmol/L (25-35); TRIGLYCERIDES 175 mg/dL (39-160)
[2019-06-12] MEDS: ACTIGALL PO SCH ×2 (09:42→21:04)
[2019-06-12] MEDS: WELLBUTRIN XL PO SCH (09:42)
[2019-06-12] MEDS: LOPRESSOR PO SCH ×2 (09:42→21:04)
[2019-06-12] MEDS: QUESTRAN PO SCH (09:43)
[2019-06-12] MEDS: CREON PO SCH ×3 (09:43→16:24)
[2019-06-12] MEDS: MIRALAX PO SCH ×2 (09:43→09:47)
[2019-06-12 11:55] LABS: PREALBUMIN 14.7 mg/dL (20-40)
[2019-06-12] MEDS: PROTONIX IV SCH (14:01)
[2019-06-12] MEDS: SODIUM CHLORIDE 0.9% INJ SCH (14:01)
--- NOTE | 2019-06-12 14:58 | PROGRESS NOTE ---
DATE: 06/12/2019 Mr. Summers is doing fair. Complaining of vague pain in the left shoulder, more pain with movement. No local redness or trauma. No high-grade fever or chills. The patient does have jaundice. Oral intake is fair to poor. Admission history and physical noted. Past medical history and medications reviewed. The patient does have history of pancreatic cancer status post Whipple's procedure, diabetes mellitus, gastroesophageal reflux disease, persistent atrial fibrillation, kidney stone, osteoarthritis, right foot drop. His vital signs noted. Neck supple. No JVD.Lungs: Bibasilar crepitation. Heart: S1 and S2 heard. Abdomen: Soft. No distention. Bowel sounds present. Patient does have icteric skin. Movement of left shoulder minimally painful. Patient's problem includes cholestatic jaundice, chronic atrial fibrillation, left shoulder pain musculoskeletal, patient does have footdrop. LAB DATA: Done today potassium 3.5, sodium 136, bilirubin was not done. PLAN: Check appropriate labs. Continue rest of the treatment and supportive care. Overall plan discussed with patient and he is in agreement. cc: MD Oziel Wyman MD
[2019-06-13] MEDS: HUMALOG SUBQ SCH ×4 (06:00→21:28)
[2019-06-13] MEDS: REGLAN PO SCH ×4 (06:01→22:30)
[2019-06-13] MEDS: PERIACTIN PO SCH ×3 (06:01→17:00)
[2019-06-13] MEDS: ZOFRAN PO SCH ×4 (06:01→22:30)
[2019-06-13] MEDS: WELLBUTRIN XL PO SCH (09:07)
[2019-06-13] MEDS: ACTIGALL PO SCH ×2 (09:07→21:28)
[2019-06-13] MEDS: QUESTRAN PO SCH (09:08)
[2019-06-13] MEDS: MIRALAX PO SCH (09:08)
[2019-06-13] MEDS: CREON PO SCH ×3 (09:08→17:00)
[2019-06-13] MEDS: LOPRESSOR PO SCH ×2 (09:08→21:28)
--- NOTE | 2019-06-13 12:50 | PROGRESS NOTE ---
DATE: 06/13/2019 SUBJECTIVE: Mr. Summers is doing better. Oral intake is fair. Jaundice seems to be improving. Vague abdominal pain. The patient vomited once today. No runny nose, stuffy nose. Left shoulder pain is better. No high-grade fever or chills. OBJECTIVE: His vital signs noted. Neck: Supple. No JVD. Lungs: Bilateral good air entry present. CVS: S1 and S2 heard. Abdomen: Soft. Mild epigastric tenderness. No guarding or rigidity. Extremities: No cyanosis, clubbing. No acute DVT. 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 Able to move all 4 limbs. CONSIDERATION: 1. Patient does have a history of pancreatic cancer, status post Whipple procedure. 2. Cholestatic jaundice. 3. Chronic atrial fibrillation. 4. History of footdrop. PLAN: Overall, the patient seems to be doing better. The patient does have Reglan and Zofran for his nausea and vomiting, which we will continue. Laboratory data done yesterday reviewed. I am going to repeat blood work tomorrow to reevaluate his bilirubin. cc: MD Oziel Wyman MD
[2019-06-13] MEDS: SODIUM CHLORIDE 0.9% INJ SCH (14:24)
[2019-06-13] MEDS: TYLENOL PO PRN ×2 (14:24→21:28)
[2019-06-13] MEDS: PROTONIX IV SCH (14:24)
--- NOTE | 2019-06-13 17:41 | GASTROENTEROLOGY PROGRESS NOTE ---
DATE: 06/12/2019 SUBJECTIVE: Mr. Summers is a 74-year-old male resting in bed. Family at the bedside. The patient has denied any abdominal pain, nausea, or vomiting. He is able to tolerate his diet well. OBJECTIVE: Vital Signs: Temperature 97.9 degrees, pulse 80, respirations 21, blood pressure 110/56, oxygen saturation is 100% on room air. The patient's weight is 147 pounds. BMI is 21.3 kg/m2. General: He is alert, oriented x3, and in no acute distress. HEENT: Pale conjunctivae, Sclera icterus, PERRL. Neck: Supple. Lungs: Clear to auscultation. Cardiovascular: Regular rate and rhythm. Abdomen: Soft, nontender, nondistended. Active bowel sounds heard in all 4 quadrants. Extremities: No clubbing, no cyanosis, no edema. Pedal pulses 2+ present bilaterally. Neurologic: Alert and oriented x3. LABORATORIES: The patient has no new hematology. Chemistry with a sodium 136, potassium 3.5, chloride 100, carbon dioxide 23, anion gap 13, BUN 15, creatinine is 0.9, glucose is 117, calcium 8.7, phosphorus 3.3, magnesium 2.2, AST 86. IMPRESSION AND PLAN: Cholestatic livery injury Fatty liver Atrial fibrillation Pancreatic cancer s/p whipple procedure and chemo Type II diabetes PLAN: Mr. Summers is a 74-year-old male with a history of pancreatic cancer status post Whipple procedure. Gastroenterology is following him for his elevated liver enzymes and jaundice. The patient is currently on Creon 36,000 units p.r.n. and 72,000 units p.o. 3 times a day. The patient is on Protonix 40 mg IV. As per PCP patient will be going to [facility] rehab facility on Friday. We will continue to monitor the patient and follow the plan of care per primary care physician. This plan was discussed with Dr. Ferris. Please call us for any further questions or concerns. Dictated by KORINA Fontenot for Rosanne Ferris MD cc: MD Oziel Estrella MD [facility]OSPITALJose Manuel
--- NOTE | 2019-06-13 20:00 | GASTROENTEROLOGY PROGRESS NOTE ---
DATE: 06/13/2019 SUBJECTIVE: Mr. Summers is a 74-year-old male resting in bed. Family at the bedside. The patient was excited about going to the rehab tomorrow. He has denied any new problem. OBJECTIVE: Vital Signs: Temperature 97.3 degrees, pulse 91, respirations 19, blood pressure 104/57, oxygen saturation 100% on room air. Patient's weight is 148 pounds. BMI is 21.3 kg/m2. General: He is alert and oriented x3 and in no acute distress. HEENT: Pale conjunctivae. Sclera icterus. PERRL. Neck: Supple. Lungs: Clear to auscultation. Cardiovascular: Patient is tachycardic. Abdomen: Soft, nontender, nondistended. Active bowel sounds heard in all 4 quadrants. Extremities: No clubbing, no cyanosis, no edema. Pedal pulses 2+ present bilaterally. Neurologic: He is alert and oriented x3. LABORATORY DATA: The patient does not have any new hematology. Chemistries are from 06/12/2019. Sodium is 136, potassium is 3.5, chloride 100, carbon dioxide 23, anion gap 13, BUN 15, creatinine 0.9, glucose 117, calcium 8.7, phosphorus 3.3, magnesium 2, AST 86. IMPRESSION AND PLAN: Cholestatic liver injury Fatty liver Atrial fibrillation Pancreatic cancer s/p Whipple procedure and chemo Type II diabetes PLAN: Mr. Summers is a 74-year-old male with a history of pancreatic cancer status post Whipple procedure. GI is following him for his elevated liver enzymes. The patient is currently receiving Creon 36,000 units p.r.n. and 72,000 units p.o. 3 times a day. The patient is on Protonix 40 mg IV daily. The patient has been having positive bowel movements. As per PCP, the plan is to send the patient to Rehab Facility on Friday. We will continue to monitor the patient and follow the plan of care per PCP. This plan was discussed with Dr. Ferris. Please call us for any further questions or concerns. Dictated by KORINA Fontenot for Rosanne Ferris MD cc: MD Oziel Estrella MD [facility]OS[facility]ITALJose Manuel
[2019-06-14] MEDS: HUMALOG SUBQ SCH ×3 (05:59→11:43)
[2019-06-14] MEDS: ZOFRAN PO SCH (06:12)
[2019-06-14] MEDS: REGLAN PO SCH (06:12)
[2019-06-14] MEDS: PERIACTIN PO SCH ×2 (06:12→11:43)
[2019-06-14 07:27] VITALS: BP 98/53
[2019-06-14 07:43] LABS: BASO# 0.07 X1000 (0.0-0.2); BASO% 0.9 % (0.0-0.8); EOS% 3.7 % (0.0-10.0); HEMATOCRIT 29.9 % (42.0-52.0); HEMOGLOBIN 9.4 g/dL (14.0-18.0); IMM GRAN# 0.03 X1000 (0.0-0.04); IMM GRAN% 0.4 % (0.0-0.5); LYMPH% 18.6 % (20.5-51.1); MCH 40.7 PG (27-31); MCHC 31.4 g/dL (33-37); MCV 129.4 FL (81-99); MONO# 0.79 X1000 (0.11-0.59); MONO% 9.8 % (1.7-9.3); MPV 9.4 FL (7.4-10.4); NEUT# 5.37 X1000 (1.4-6.5); NEUT% 66.6 % (42.2-75.2); PLT 343 X1000 (130-400); RBC 2.31 XMIL (4.7-6.1); RDW 17.2 % (11.5-14.5); WBC 8.06 X1000 (4.8-10.8)
[2019-06-14 08:00] LABS: AGAP 12; ALB/GLOB RATIO 0.7; ALBUMIN 2.9 g/dL (3.5-5.0); ALKALINE PHOSPHATASE 564 U/L (32-122); BUN 13 mg/dL (8-22); CALCIUM 8.9 mg/dL (8.8-10.2); CHLORIDE 103 mmol/L (98-107); COSMO 272; CREATININE 0.7 mg/dL (0.7-1.2); ESTIMATED GFR > 60; GLUCOSE 98 mg/dL (70-104); GOT 89 U/L (10-34); GPT 90 U/L (10-44); MAGNESIUM 1.8 mg/dL (1.5-2.7); POTASSIUM 4.2 mmol/L (3.5-5.1); SODIUM 136 mmol/L (136-145); TCO2 21 mmol/L (25-35); TOTAL BILIRUBIN 10.93 mg/dL (0.20-1.00); TOTAL PROTEIN 6.9 g/dL (6.3-8.3)
[2019-06-14 08:05] LABS: EOS 3 % (1-10); LYMPHS 20 % (21-51); MONO 7 % (1-9); SEGS 69 % (42-75)
[2019-06-14 08:07] LABS: HYPOCHROM 2+
[2019-06-14] MEDS: WELLBUTRIN XL PO SCH (09:36)
[2019-06-14] MEDS: LOPRESSOR PO SCH (09:36)
[2019-06-14] MEDS: QUESTRAN PO SCH (09:37)
[2019-06-14] MEDS: CREON PO SCH ×2 (09:37→13:56)
[2019-06-14] MEDS: MIRALAX PO SCH (09:37)
[2019-06-14] MEDS: ACTIGALL PO SCH (09:37)
--- NOTE | 2019-06-14 11:07 | DISCHARGE SUMMARY ---
ADMISSION DATE: 05/19/2019 DISCHARGE DATE: 06/14/2019 DISCHARGING DIAGNOSIS: Obstructive jaundice due to fatty infiltration with TPN cholestatic jaundice. SECONDARY DIAGNOSES: 1. Stage III pancreatic cancer, status post Whipple procedure. 2. Type 2 diabetes, controlled with diet. 3. Acid reflux disease. 4. Persistent atrial fibrillation. 5. Kidney stones. 6. Depression. 7. Right footdrop. 8. Sleep apnea, better. CONSULTS: Dr. Ferris's group. PROCEDURES: 1. Liver biopsy, cholestatic jaundice, no tumor infiltration except for hepatic steatosis. 2. PICC line on the left side. 3. Port-A-Cath on the left side of the chest. BRIEF HISTORY: Please see the H and P that was done on 05/19/2019. In brief, he is a 73-year-old white gentleman with stage III pancreatic cancer status post Whipple's, who came in with jaundice and PICC line was pulled out. HOSPITAL COURSE: 1. The patient was not able to eat by mouth due to oral thrush and intractable nausea. The patient was given Diflucan, clotrimazole. 2. Continued Zofran and Reglan. 3. In the meantime, the patient requiring TPN and lipid profile. Not able to have an IV access since the PICC line was out on the right side by accidentally [facility] Nurse. 4. PICC line was placed on the left side of the arm and started on TPN and lipids. Since then, the patient has worsening of jaundice. As a part of the workup, there was no clear obstruction noted. 5. MRCP of the abdomen. Ultrasound did not show any dilatation of bile ducts. 6. Liver biopsy was done and showed cholestatic jaundice. Hepatitis profile was negative at this time. It is due to TPN load. After stopping the TPN and lipids, the jaundice level came down to 10. CA-19-9 was 200. 7. He has poor appetite for which the patient was given Periactin. 8. Deconditioning. Lost a lot of weight, 149 pounds. He got aggressive physical therapy. At the request of the family, the patient was transferred to [facility]. LABORATORY DATA: At the time of discharge are as follows: 1. CBC: White cell count 8, hematocrit 29, platelets 343,000. 2. Sodium 136, potassium 4.2, chloride 103, BUN 13, creatinine 0.7, glucose 104, magnesium 1.8, total bilirubin 10.9, direct bilirubin 8. LFTs still high. Prealbumin 14.7. 3. Liver biopsy showed cholestatic jaundice. 4. Abdominal ultrasound, hepatic steatosis. No evidence of biliary obstruction. 5. MRCP showed evidence of prior surgery. No definite recurrent mass or new lymphadenopathy noted. The patient is also depressed, requiring Wellbutrin. 6. Chronic atrial fibrillation requiring rate control with Cardizem and Eliquis low doses. The patient was up-to-date on flu vaccine, pneumococcal vaccine and tetanus. DISCHARGE INSTRUCTIONS: 1. Wellbutrin 150 daily. 2. Discontinue metformin. 3. Continue on sliding scale with insulin coverage. 4. Creon 1 capsule t.i.d. 5. Reglan 10 t.i.d. 6. Tylenol as needed for pain. 7. Loratadine 10 daily. 8. Zofran as needed for nausea. 9. Cardizem 30 mg t.i.d. 10. MiraLAX 17 g daily. 11. Eliquis 2.5 p.o. b.i.d. 12. Cyproheptadine or Periactin 4 mg t.i.d. The patient was advised not to take any amiodarone or TPN. Continue to eat by mouth and improve the appetite as well as gait training and will follow up. Keep the PICC line for the time being. cc: Oziel Riley MD MTDJose Manuel
--- NOTE | 2019-06-14 13:08 | GASTROENTEROLOGY PROGRESS NOTE ---
DATE: 06/14/2019 SUBJECTIVE: Mr. Summers is a 74-year-old, male. He was sitting in the chair. Family is at the bedside. The patient is ready to go to the rehab facility today. OBJECTIVE: Vital Signs: Temperature 98.1 degrees, pulse 81, respirations 19, blood pressure 98/53, oxygen saturation 100% on room air. The patient's weight is 148 pounds, BMI is 21.3 kg/m2. General: He is alert and oriented x3, and in no acute distress. HEENT: Pale conjunctivae. Scleral icterus. PERRL. Neck: Supple. Lungs: Clear to auscultation. Cardiovascular: Regular rate and rhythm. Abdomen: Soft, nontender, nondistended. Active bowel sounds heard in all 4 quadrants. Extremities: No clubbing, no cyanosis, no edema. Pedal pulses 2+ present bilaterally. Neurologic: He is alert and oriented x3. LABORATORY DATA: WBCs 8.06, RBC 2.31, hemoglobin 9.4, hematocrit is 29.9, platelet count is 343,000. Sodium is 136, potassium 4.2, chloride 103, carbon dioxide 21, anion gap 12, BUN 13, creatinine 0.7, glucose 98, calcium 8.9. Magnesium 1.8. Total bilirubin 10.93, AST 89, ALT 90, alkaline phosphatase is 564, albumin is 2.9. IMPRESSION AND PLAN: Jaundice Cholestatic liver injury likely related to TPN vs Amiodarone-No evidence of malignancy on Liver Biopsy. Anemia Type II diabetes History of pancreatic cancer s/p Whipple procedure and chemotherapy Malnutrition Hypoalbuminemia PLAN: Mr. Summers is a 74-year-old, male with a history of pancreatic cancer, status post Whipple procedure. GI is following him for his elevated liver enzymes. The patient's total bilirubin today is 10.93. It has been trending downward. The patient has discharge orders to go to the rehab facility. Watch CBC for now and transfuse as needed. We will follow him up as an outpatient in 4 to 6 weeks. This plan was discussed with Dr. Rockwell. Please call us for any further questions or concerns. Dictated by KORINA Fontenot for Joaquin Rockwell MD cc: MD Oziel Ma MD I have seen and examined the patient myself and I agree with the above plan of care. I have discussed the above plan of care with the patient and family at bedside and all questions were answered. Please call us with any further questions. MERLY
[2019-06-14] MEDS: PROTONIX IV SCH (13:56)
== END 2019-06-14 13:59 | DRG 641 ==
LOC: DIRADM → OBSVTOIN 14:13 → EDIPHOLD 16:00 → 2N 19:49 → EDIPHOLD 19:52 → 3N 21:05
PROVIDERS: ADMIT Internal Medicine; ATTEND Internal Medicine

== ENCOUNTER 2019-06-22 10:54 | Inpatient (IN) ==
[2019-06-22] MEDS ORDERED: NS 500 ML IV ONE (11:02)
[2019-06-22] MEDS: REGLAN PO SCH ×2 (12:46→16:30)
[2019-06-22] MEDS: ZOFRAN ODT PO SCH ×2 (12:46→16:30)
[2019-06-22] MEDS: CREON PO SCH ×2 (12:46→16:29)
[2019-06-22] MEDS: CARDIZEM PO SCH ×2 (15:19→22:25)
[2019-06-22] MEDS: PERIACTIN PO SCH (16:29)
[2019-06-22 18:56] LABS: HEMATOCRIT 24.5 % (42.0-52.0); HEMOGLOBIN 7.7 g/dL (14.0-18.0)
--- NOTE | 2019-06-22 21:06 | HISTORY AND PHYSICAL ---
CHIEF COMPLAINT: 1. Followup from the hospital. 2. Abnormal lab results. Patient had labs done at [facility]. Hemoglobin 7, hematocrit 22, and jaundice level did not come down with 15. HISTORY OF PRESENT ILLNESS: He is a 73-year-old white gentleman who has been suffering from stage III pancreatic cancer, status post Whipple procedure, right footdrop, kidney stones, recently discharged from the hospital, went to halfway in [place]. He had a PICC line on the left side. He has stopped taking TPN. Liver biopsy was negative except fatty liver. Despite, jaundice level continues to increasing. No confusion. He is extremely weak. Was brought in by wheelchair. He is also passing intermittent bleeding. He is on Eliquis. Basically admitted to the hospital for 23 hour observation for blood, 2 units. Family agreed upon. PAST MEDICAL HISTORY: 1. Stage III pancreatic cancer, status post Whipple procedure. 2. Type 2 diabetes. 3. Acid reflux disease. 4. Persistent atrial fibrillation. 5. Kidney stones. 6. Depression. 7. Osteoarthritis. 8. Right footdrop. PAST SURGICAL HISTORY: 1. Status post Whipple procedure. 2. Removal of J-tube. 3. Cholecystectomy. 4. Colon resection, with initial colostomy repair. 5. Ventral hernia repair. 6. Port-A-Cath on the left side. 7. PICC line on the left side. ALLERGIES: Reported to iodinated contrast. MEDICATIONS: 1. Wellbutrin 150 daily. 2. Creon 2 tablets t.i.d. 3. Reglan 10 t.i.d. 4. Loratadine 10 daily. 5. Zofran 8 mg t.i.d. 6. Prilosec 20 mg daily. 7. Periactin 4 mg t.i.d. 8. Eliquis 2.5 p.o. b.i.d. 9. MiraLAX 17 g daily. 10. Cardizem 30 p.o. t.i.d. SOCIAL HISTORY: He has been for 52 years, 1 daughter. Retired. Lives in [place]. Stopped drinking alcohol. Living Will. Reported Do Not Resuscitate. FAMILY HISTORY: Noncontributory. REVIEW OF SYSTEMS: Extremely weak, slowly walking, jaundice.Cardiopulmonary: No chest pain, shortness of breath. GI: Intermittent bleeding per rectum. Neurological: Weakness in the right foot. No other neurological symptoms or weakness. PHYSICAL EXAMINATION: VITAL SIGNS: Temperature is 97.3 degrees. Tachycardic. Vitals are stable. HEENT: Jaundice noted. Temporal wasting. NECK: Supple. CHEST: Bilateral air entry. HEART: Irregular heart sounds. He had a Port-A-Cath on the left side as well as PICC line. ABDOMEN: Belly is soft, scaphoid. : He is in diapers. NEUROLOGIC: Weakness and right foot drop. No other neurological deficits. INVESTIGATIONS: Hemoglobin 7, hematocrit 22. LFTs, obstructive jaundice, bilirubin 15. ASSESSMENT AND PLAN: A 74-year-old white gentleman admitted to the hospital with: 1. Symptomatic anemia, 2 units of packed red blood cells. 2. Obstructive jaundice, but there is no clear obstruction by magnetic resonance cholangiopancreatography, and ultrasound appears to be drug induced with amiodarone versus total parenteral nutrition. CA-19-9 is coming down. 3. Reconcile home medicines. 4. Repeat CBC and CMP in the morning. 5. Will discharge back to the rehab after blood transfusion. This is just a 23 hour observation. cc: Oziel Riley MD
[2019-06-22] MEDS: ELIQUIS PO SCH (22:25)
[2019-06-23] MEDS: PERIACTIN PO SCH ×3 (06:15→16:53)
[2019-06-23 07:48] LABS: BASO# 0.05 X1000 (0.0-0.2); BASO% 0.7 % (0.0-0.8); EOS# 0.16 X1000 (0.0-0.7); EOS% 2.3 % (0.0-10.0); HEMATOCRIT 26.4 % (42.0-52.0); HEMOGLOBIN 8.2 g/dL (14.0-18.0); IMM GRAN# 0.02 X1000 (0.0-0.04); IMM GRAN% 0.3 % (0.0-0.5); LYMPH# 1.15 X1000 (1.2-3.4); LYMPH% 16.9 % (20.5-51.1); MCH 39.4 PG (27-31); MCHC 31.1 g/dL (33-37); MCV 126.9 FL (81-99); MONO# 0.52 X1000 (0.11-0.59); MONO% 7.6 % (1.7-9.3); MPV 8.6 FL (7.4-10.4); NEUT# 4.92 X1000 (1.4-6.5); NEUT% 72.2 % (42.2-75.2); PLT 330 X1000 (130-400); RBC 2.08 XMIL (4.7-6.1); RDW 14.2 % (11.5-14.5); WBC 6.82 X1000 (4.8-10.8)
[2019-06-23 08:37] LABS: AGAP 9; ALB/GLOB RATIO 0.7; ALBUMIN 2.7 g/dL (3.5-5.0); ALKALINE PHOSPHATASE 499 U/L (32-122); BUN 7 mg/dL (8-22); CALCIUM 8.7 mg/dL (8.8-10.2); CHLORIDE 104 mmol/L (98-107); COSMO 276; CREATININE 0.7 mg/dL (0.7-1.2); ESTIMATED GFR > 60; GLUCOSE 108 mg/dL (70-104); GOT 52 U/L (10-34); GPT 54 U/L (10-44); POTASSIUM 3.4 mmol/L (3.5-5.1); SODIUM 139 mmol/L (136-145); TCO2 26 mmol/L (25-35); TOTAL BILIRUBIN 11.19 mg/dL (0.20-1.00); TOTAL PROTEIN 6.8 g/dL (6.3-8.3)
[2019-06-23 08:39] LABS: BANDS 2 % (0-1); LYMPHS 18 % (21-51); MONO 4 % (1-9); SEGS 74 % (42-75)
[2019-06-23] MEDS: MIRALAX PO SCH (08:41)
[2019-06-23] MEDS: WELLBUTRIN PO SCH (08:41)
[2019-06-23] MEDS: CLARITIN PO SCH (08:41)
[2019-06-23] MEDS: CARDIZEM PO SCH ×4 (08:41→21:58)
[2019-06-23] MEDS: ELIQUIS PO SCH ×2 (08:41→21:58)
[2019-06-23] MEDS: PRILOSEC PO SCH (08:41)
[2019-06-23] MEDS: REGLAN PO SCH ×3 (08:41→16:53)
[2019-06-23] MEDS: ZOFRAN ODT PO SCH ×3 (08:41→16:53)
[2019-06-23] MEDS: CREON PO SCH ×3 (08:42→16:53)
--- NOTE | 2019-06-23 22:17 | PROGRESS NOTE ---
DATE: 06/23/2019 SUBJECTIVE: The patient could not get the blood transfusion due to antibodies. Still waiting to be transfused. REVIEW OF SYSTEMS: None reported. OBJECTIVE: Vital Signs: Stable. HEENT: Jaundice. Neck: Supple. PICC line on the left side. Belly is soft, nontender. No obvious deficits. INVESTIGATIONS: Hematocrit 22 to 26, potassium 3.4, bilirubin 11. LFTs were slowly coming down. ASSESSMENT: 1. Cholestatic jaundice. 2. Anemia, heme-positive stool, chronic atrial fibrillation, pancreatic cancer stage IV, deconditioning, right footdrop. PLAN OF CARE: 1. Waiting for blood transfusion. 2. Hold the TPN. Continue eating. Out of the bed with physical therapy. We will keep him here for next 3 days prior to the transfer to the rehab and will closely monitor. Also, initiated Palliative Care Consult. LEVEL OF DOCUMENTATION: 25 minutes. cc: Oziel Riley MD
[2019-06-24] MEDS: ELIQUIS PO SCH ×2 (09:30→21:07)
[2019-06-24] MEDS: CREON PO SCH ×3 (09:30→17:17)
[2019-06-24] MEDS: REGLAN PO SCH ×3 (09:30→17:16)
[2019-06-24] MEDS: CARDIZEM PO SCH ×3 (09:30→21:07)
[2019-06-24] MEDS: CLARITIN PO SCH (09:30)
[2019-06-24] MEDS: PRILOSEC PO SCH (09:30)
[2019-06-24] MEDS: ZOFRAN ODT PO SCH ×3 (09:30→17:16)
[2019-06-24] MEDS: WELLBUTRIN PO SCH (09:30)
[2019-06-24] MEDS: MIRALAX PO SCH (09:34)
[2019-06-24] MEDS: PERIACTIN PO SCH ×3 (09:35→17:16)
--- NOTE | 2019-06-24 10:02 | PROGRESS NOTE ---
DATE: 06/24/2019 SUBJECTIVE: The patient is doing well. Still has jaundice. No complaints. Palliative Care consult was initiated yesterday. PHYSICAL EXAMINATION: Temperature is 98 degrees, and his heart rate is 119, blood pressure is stable. He has no jaundice.Chest: Clear. Heart: Irregular heart sounds. Abdomen: Belly is soft, nontender. LABS: Hemoglobin 7, hematocrit 26, bilirubin is 11. ASSESSMENT AND PLAN: 1. Anemia, heme-positive stools. Waiting for transfusion. 2. Atrial fibrillation on Eliquis. 3. The patient is in good spirits. 4. Continue present treatment. Waiting for blood transfusion and follow up on the CMP. Physical therapy palliative care consult was initiated. LEVEL OF DOCUMENTATION: 25 minutes. cc: Oziel Riley MD
[2019-06-25] MEDS: PERIACTIN PO SCH ×3 (06:24→20:42)
[2019-06-25] MEDS: WELLBUTRIN PO SCH (09:56)
[2019-06-25] MEDS: REGLAN PO SCH ×3 (09:56→17:23)
[2019-06-25] MEDS: CREON PO SCH ×4 (09:57→17:23)
[2019-06-25] MEDS: ELIQUIS PO SCH ×2 (09:57→20:42)
[2019-06-25] MEDS: CLARITIN PO SCH (09:57)
[2019-06-25] MEDS: PRILOSEC PO SCH (09:57)
[2019-06-25] MEDS: ZOFRAN ODT PO SCH ×3 (09:57→17:23)
[2019-06-25] MEDS: CARDIZEM PO SCH ×3 (09:58→20:42)
[2019-06-25] MEDS: MIRALAX PO SCH (10:26)
--- NOTE | 2019-06-25 14:38 | HEMO/ONC CONSULTATION ---
DATE: 06/25/2019 REASON FOR CONSULTATION: Anemia and jaundice. HISTORY OF PRESENT ILLNESS: This is a 73-year-old male who suffers from stage III pancreatic cancer. He is status post Whipple procedure and currently lives in a shelter in [place]. He was recently in the hospital for this and was discharged to [facility]. He had a liver biopsy that was negative except for fatty liver. He denies any confusion. He is extremely weak. His jaundice is continuing to increase. He has some rectal bleeding. He is on Eliquis. Dr. Riley has admitted him for a 23 hour observation to receive blood transfusion. PAST MEDICAL HISTORY: 1. Stage III pancreatic cancer, status post Whipple procedure. 2. Type 2 diabetes. 3. Acid reflux disease. 4. Persistent atrial fibrillation. 5. Kidney stones. 6. Depression. 7. Osteoarthritis. 8. Right foot drop. PAST SURGICAL HISTORY: 1. Status post Whipple procedure. 2. Removal of PEG tube. 3. Cholecystectomy. 4. Colon resection with initial colostomy repair. 5. Ventral hernia repair. 6. Port-A-Cath of the left side. 7. PICC line on the left. SOCIAL HISTORY: Former alcoholism. DNR level 1. ALLERGIES: Iodinated contrast media. HOME MEDICATIONS: Wellbutrin, Creon, Reglan, loratadine, Zofran, Prilosec, Periactin, Eliquis, MiraLAX, and Cardizem. REVIEW OF SYSTEMS: Extremely weak, jaundice. Denies chest pain or shortness of breath. No neurological symptoms noted. PHYSICAL EXAMINATION: Vital Signs: Temperature 97.9 degrees, pulse rate 99, respiratory rate 19, blood pressure 112/77, O2 saturation 100% on room air. He is in 0/10 pain. General: No acute distress. HEENT: Sclera is icteric. Cardiovascular: Irregular heart rate. Respiratory: Lung beaulieu are clear to auscultation. Normal respiratory effort. Gastrointestinal: Abdomen is soft, nontender. LABORATORY: LDH 217, haptoglobin less than 10. WBC 6.82, hemoglobin 8.2, hematocrit 26.4, platelet count 330,000. Total bilirubin 11.19, AST 52, ALT 54, alkaline phosphatase 499. ASSESSMENT: 1. Symptomatic macrocytic anemia. Patient has been admitted to the hospital to receive 2 units of packed red blood cells. Monitor him for any infusional reactions. 2. Obstructive jaundice, but there is no clear obstruction by magnetic resonance cholangiopancreatography. We will continue to evaluate. 3. Deep venous thrombosis prophylaxis. Keep the patient on Eliquis. Allow him to get up with assistance. We will continue to monitor. Dictated by KORINA Hendricks for Tunde Carpenter MD Patient seen and examined. As above. Patient has a history of pancreatic cancer status post Whipple procedure and a few cycles of chemotherapy at [facility] in [place]. He has declined substantially and was recently in rehabilitation. He is supposed to continue chemotherapy but is unable to do so at this time. Now is admitted with severe anemia. No evidence of bleeding. Iron profile is adequate. Evaluation revealed severe reticulocytosis, elevated direct and indirect bilirubin, normal LDH, low haptoglobin and positive KAT. Discussed with blood bank and the report positivity for IgG and complement. I have advised him to obtain thermal amplitude and cold agglutinin titers. Await these results at this time. He is able to hold his H&H at this time. Hold off on transfusion for now. Plan for the management based on above tests. Tunde Carpenter MD cc: MD Oziel Santos MD [facility]ITAL[facility] Manuel
[2019-06-25 15:01] LABS: RETIC% 8.29 % (0.8-2.1); RETIC-HE 39.1 PG (28.2-36.6)
[2019-06-25 15:11] LABS: EOS 3 % (1-10); LARGE PLATELETS OCCASIONAL; LYMPHS 15 % (21-51); MONO 5 % (1-9); SEGS 73 % (42-75)
[2019-06-25 15:36] LABS: IRON SATURATION 46 %; TIBC 179 ug/dL; TOTAL IRON 83 ug/dL (53-167); UNBOUND IRON 96 ug/dL (112-346)
[2019-06-25 15:41] LABS: DIRECT BILIRUBIN 5.7 mg/dL (0.00-0.20)
[2019-06-25 15:45] LABS: FREE T4 1.49 ng/dL (0.93-1.70); TSH 4.52 uIUmL (0.27-4.20)
--- NOTE | 2019-06-25 21:55 | PROGRESS NOTE ---
DATE: 06/25/2019 SUBJECTIVE: The patient is doing better, eating well. Patient has cold agglutinin [place] antibody. LDH is normal. He has more cholestatic jaundice. I spoke to Dr. Carpenter about these antibodies. Rule out slow hemolysis. Haptoglobin is still pending. PHYSICAL EXAMINATION: Vital signs: Temperature is 98 degrees. Vitals are stable. General: Jaundice present. Chest: Clear. Heart: Irregular heart sounds. Abdomen: Belly is soft, nontender. ASSESSMENT AND PLAN: 1. Stage III pancreatic cancer. 2. Cholestatic jaundice. 3. Warm antibody, and follow up on these antibodies and haptoglobin. Hematology consult prior to the transfusion. We will check the CBC and CMP in the morning. Continue present treatment. I spoke to the daughter on the phone. We will hold on discharge until these antibodies and jaundice evaluation. Physical therapy assistance for ambulation. LEVEL OF DOCUMENTATION: 25 minutes. cc: Oziel Riley MD
[2019-06-26] MEDS: PERIACTIN PO SCH ×3 (06:19→17:47)
[2019-06-26 07:03] LABS: HEMATOCRIT 28.5 % (42.0-52.0); HEMOGLOBIN 8.8 g/dL (14.0-18.0); MCH 38.6 PG (27-31); MCHC 30.9 g/dL (33-37); MPV 8.5 FL (7.4-10.4); RBC 2.28 XMIL (4.7-6.1); RDW 14.6 % (11.5-14.5); WBC 9.72 X1000 (4.8-10.8)
[2019-06-26 07:57] LABS: AGAP 12; ALB/GLOB RATIO 0.7; ALBUMIN 2.9 g/dL (3.5-5.0); ALKALINE PHOSPHATASE 520 U/L (32-122); BUN 9 mg/dL (8-22); CALCIUM 9.1 mg/dL (8.8-10.2); CHLORIDE 101 mmol/L (98-107); COSMO 276; CREATININE 0.8 mg/dL (0.7-1.2); ESTIMATED GFR > 60; GLUCOSE 119 mg/dL (70-104); GOT 48 U/L (10-34); GPT 47 U/L (10-44); POTASSIUM 3.2 mmol/L (3.5-5.1); SODIUM 138 mmol/L (136-145); TCO2 25 mmol/L (25-35); TOTAL BILIRUBIN 8.55 mg/dL (0.20-1.00); TOTAL PROTEIN 7.2 g/dL (6.3-8.3)
[2019-06-26] MEDS: MIRALAX PO SCH (08:43)
[2019-06-26] MEDS: WELLBUTRIN PO SCH (08:43)
[2019-06-26] MEDS: CLARITIN PO SCH (08:43)
[2019-06-26] MEDS: PRILOSEC PO SCH (08:43)
[2019-06-26] MEDS: CREON PO SCH ×3 (08:43→17:47)
[2019-06-26] MEDS: ELIQUIS PO SCH ×2 (08:43→21:11)
[2019-06-26] MEDS: ZOFRAN ODT PO SCH ×3 (08:43→17:47)
[2019-06-26] MEDS: REGLAN PO SCH ×3 (08:43→17:47)
[2019-06-26] MEDS: CARDIZEM PO SCH ×3 (08:43→21:11)
[2019-06-26 08:49] LABS: C REACTIVE PROT QUANT 33.28 mg/L (0.00-5.00)
--- NOTE | 2019-06-26 12:39 | HEMO/ONC PROGRESS NOTE ---
DATE: 06/26/2019 SUBJECTIVE: The patient is lying in bed this morning. The patient seems to be doing better. He is feeling better and eating well. He denies any significant complaints or pain. He tells me he has walked a lap around the unit halls this morning. However, he needs a chair with arms in order to get out of bed and sit. He states he slept well. No significant events occurred overnight. OBJECTIVE: Vital Signs: Temperature 97.8 degrees, pulse rate 120, respiratory rate 18, blood pressure 112/68, O2 saturation 97% on room air. He is in 0/10 pain. General: This is a ill- appearing gentleman in no acute distress. Jaundice present. HEENT: Sclerae icteric. PERRLA. Oral mucosa is slightly dry. Cardiovascular: Irregular heart rate, tachycardic. Respiratory: Lungs are clear to auscultation. Abdomen: Soft, nontender. Extremities: No edema present. Neurological: Alert and oriented. LABORATORY: WBCs 9.72, hemoglobin 8.8, hematocrit 28.5, platelet count 367,000. ESR 46. Retic 8.29, haptoglobin less than 10. Potassium 3.2, creatinine 0.8. Iron 83, iron percent saturation 46, ferritin 608. Total bilirubin 8.55, direct bilirubin 5.7, AST 48, ALT 47, alkaline phosphatase 520. LDH 222. C-reactive protein 33.28. Albumin 2.9. B12 864, folate 14. TSH 4.52, free T4 1.49. Blood bank test identify warm autoantibody. KAT is IgG and complement positive. Indirect antibody is positive. ASSESSMENT AND PLAN: 1. Symptomatic anemia. There is no evidence of bleeding. Iron profile is adequate. Evaluation revealed severe reticulocytosis, elevated direct and indirect bilirubin, normal LDH, low haptoglobin, and positive KAT. The patient is also positive for IgG and complement. We are awaiting thermal amplitude and cold agglutinin titers. The patient is stable with his hemoglobin and hematocrit at this time. We will hold off on transfusion for now. Further management will be decided based on the above tests. 2. Stage 3 pancreatic cancer. The patient has a history of pancreatic cancer, status post Whipple procedure. He has had a few cycles of chemotherapy at [facility]. The patient has continued to decline substantially and was recently placed in rehabilitation. Due to his poor performance status, he is unable to continue chemotherapy at this time. 3. Cholestatic jaundice. Continuing to evaluate at this time. 4. Deep venous thrombosis prophylaxis. Keep the patient on Eliquis. Allow him to get up with assistance. Provide him a recliner or chair with arms so that he can sit up out of the bed. Dictated by KORINA Hendricks for Tunde Carpenter MD cc: MD Oziel Santos MD [facility]
[2019-06-26] MEDS ORDERED: KLOR-CON PO ONE (13:17)
--- NOTE | 2019-06-26 15:49 | PROGRESS NOTE ---
DATE: 06/26/2019 SUBJECTIVE: I appreciated Dr. Carpenter's effort to unravel these anemia and jaundice with positive antibodies, which is warm antibody and cold agglutinins. Haptoglobin is decreased. Retic count is high. His bilirubin was 18, mostly unconjugated bilirubinemia. His picture is complicated with cholestatic jaundice with elevated LFTs. Anyhow, he is eating well. He is walking well and blood transfusion on hold. OBJECTIVE: Temperature is 98 degrees, tachycardic. Vitals are stable. He has a jaundice noted. It is decreasing. Chest: Is clear. Heart: Sounds are irregular. Abdomen: Belly is soft, nontender. INVESTIGATIONS: CBC: White cell count 9.7, hematocrit 28, MCV 125, and the platelets 367,000. Sedimentation rate is 46. Retic count 39.1. LDH is normal. B12 864, folate is normal. Thyroid is normal. ASSESSMENT AND PLAN: 1. Anemia, jaundice. No obstruction. 2. Initially thought it is a cholestatic jaundice from fatty liver, worsening with Cordarone versus TPN load. 3. Suspicious for slow hemolysis. The patient is compensating well. Hold the transfusion. 4. 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 I am going to review the up-to-date and find the drugs he was exposed and follow up on SPEP. 5. Stage III pancreatic cancer, status post Whipple stable. 6. Hypokalemia. Replace the potassium. 7. Continue physical therapy. Dr. Carpenter discussed to hold on the transfusion and then will decide whether he needs a IV gammaglobulin versus steroids. 8. Type 2 diabetes diet control. Level of documentation is 25 minutes. cc: Oziel Riley MD [facility]
[2019-06-26] MEDS: ZOFRAN IV PRN (22:22)
[2019-06-26] MEDS: TYLENOL PO PRN (23:05)
[2019-06-27] MEDS: TYLENOL PO PRN (03:37)
[2019-06-27] MEDS: ZOFRAN IV PRN (03:37)
[2019-06-27] MEDS ORDERED: DILAUDID IV ONE (03:48)
[2019-06-27] MEDS ORDERED: REGLAN IV PRN (03:49)
[2019-06-27] MEDS ORDERED: D5 1/2 NS 1,000 ML IV SCH (04:00)
[2019-06-27] MEDS: PERIACTIN PO SCH ×3 (06:17→18:39)
--- NOTE | 2019-06-27 08:05 | Diag Imaging Result Doc PS360 ---
FLAT/UPRIGHT ABD/1 VIEW CHEST - 06/27/2019 INDICATION: Nausea and vomiting TECHNIQUE: COMPARISON: 05/24/2019 FINDINGS: Stable left chest port and left PICC line in good position. There has been improvement in the faint infiltrate in the right lung base. There is probably some faint infiltrate in the left lung base. No new infiltrates. Heart size is top normal. No pneumothorax or pleural effusion. IMPRESSION: Improvement from prior. Faint residual infiltrate in the left lung base, nonspecific. Electronically signed by Danish Benavidez 06/27/2019 8:03 AM
[2019-06-27] MEDS: REGLAN PO SCH ×2 (09:38→18:38)
[2019-06-27] MEDS: ZOFRAN ODT PO SCH ×2 (09:38→18:39)
[2019-06-27] MEDS: CREON PO SCH ×3 (09:52→18:39)
[2019-06-27] MEDS: MIRALAX PO SCH (09:52)
[2019-06-27] MEDS ORDERED: SODIUM CHLORIDE 0.9% INJ ONE (11:26)
[2019-06-27] MEDS ORDERED: PHENERGAN IV ONE (11:26)
[2019-06-27] MEDS: NS 1,000 ML IV SCH ×2 (11:38→21:59)
[2019-06-27] MEDS: DILAUDID IV PRN ×2 (11:38→22:05)
[2019-06-27] MEDS: CARDIZEM PO SCH ×3 (11:39→21:58)
[2019-06-27] MEDS: PRILOSEC PO SCH (11:40)
[2019-06-27] MEDS: CLARITIN PO SCH (11:40)
[2019-06-27] MEDS: ELIQUIS PO SCH ×2 (11:40→21:58)
[2019-06-27] MEDS: WELLBUTRIN PO SCH (11:40)
--- NOTE | 2019-06-27 13:03 | HEMO/ONC PROGRESS NOTE ---
DATE: 06/27/2019 SUBJECTIVE: Mr. Summers is lying in bed this morning. He has had more nausea today. Nurses state he is vomiting green emesis. His hip pain has increased. He is getting up and walking when he can. No significant events occurred overnight. OBJECTIVE: Vital Signs: Temperature 97.4 degrees, pulse rate 121, respiratory rate 14, blood pressure 139/86, O2 saturation 98% on room air. He is in 9/9 left hip pain. General: The patient states he is in pain today, but otherwise no acute distress. HEENT: Sclerae is icteric. PERRLA. Oral mucosa is dry. Cardiovascular: Irregular heart rate, tachycardic. Respiratory: Lungs are clear to auscultation. Abdomen: Soft, nontender. Extremities: No edema present. Neurological: Alert and oriented. Skin: Jaundiced, warm and dry otherwise. LABORATORY DATA: WBC 9.72, hemoglobin 8.8, hematocrit 28.5, platelet count 367,000. Potassium 3.2. No labs drawn today. ASSESSMENT AND PLAN: 1. Warm hemolytic anemia. We are starting the patient on intravenous immunoglobulin 1 g/kg for the next 2 days. This should help alleviate some of his symptoms and anemia. Monitor the patient for any infusional reactions or side effects while receiving intravenous immunoglobulin. There continues to be no evidence of bleeding. We will continue to monitor the patient closely. 2. Stage III pancreatic cancer. The patient has a history of pancreatic cancer, status post Whipple procedure. Due to poor performance status at this time, he is not a candidate to continue chemotherapy at this time.. We will follow up with him after he recovers from this. 3. Cholestatic jaundice. We are continuing to evaluate this. 4. Deep venous thrombosis prophylaxis. Keep the patient on Eliquis. Allow him to get out of bed with assistance. Dictated by KORINA Hendricks for Tunde Carpenter MD KAT positive for IgG and cold agglutinin. Further evaluation reveals negative cold agglutinin thermal amplitude. Treat like warm antibody hemolytic anemia. Not a good candidate for steroids. Start IVIG. Monitor closely. Tunde Carpenter MD cc: MD Oziel Santos MD [facility]
[2019-06-27] MEDS: GAMUNEX-C 10% IV SCH (14:09)
--- NOTE | 2019-06-27 14:52 | PROGRESS NOTE ---
DATE: 06/27/2019 SUBJECTIVE: The patient is doing better. I appreciated Dr. Carpenter's efforts to find out this hemolysis. Last night, he started having abdominal pain, nausea, vomiting. Given several doses of Reglan, Zofran Phenergan. Asking some pain, Dilaudid. The patient is resting today. PHYSICAL EXAMINATION: Temperature is 98 degrees, pulse 82, blood pressure is stable. Slight jaundice noted. Chest is clear. Irregular heart sounds. PICC line on the left side. Belly is soft, nontender. LABS: No labs were drawn. ASSESSMENT AND PLAN: 1. Warm antibody with slow hemolysis, with low haptoglobin, increased reticulocyte count, LDH is normal. Continue intravenous immunoglobulin 17 g intravenous daily. 2. Abdominal pain, nausea, vomiting. We will hold. 3. IV fluids 125 an hour. Repeat the labs in the morning. 4. Stage III pancreatic cancer, status post Whipple, stable. LEVEL OF DOCUMENTATION: 25 minutes. cc: Oziel Riley MD
[2019-06-28] MEDS: NS 1,000 ML IV SCH ×4 (01:54→22:04)
[2019-06-28] MEDS: PERIACTIN PO SCH ×3 (06:08→16:03)
[2019-06-28 07:25] LABS: BASO# 0.04 X1000 (0.0-0.2); BASO% 0.2 % (0.0-0.8); EOS# 0.07 X1000 (0.0-0.7); EOS% 0.4 % (0.0-10.0); HEMATOCRIT 25.3 % (42.0-52.0); HEMOGLOBIN 7.9 g/dL (14.0-18.0); IMM GRAN# 0.04 X1000 (0.0-0.04); IMM GRAN% 0.2 % (0.0-0.5); INR 1.44; LYMPH# 1.22 X1000 (1.2-3.4); LYMPH% 7.6 % (20.5-51.1); MCH 39.3 PG (27-31); MCHC 31.2 g/dL (33-37); MCV 125.9 FL (81-99); MONO# 0.95 X1000 (0.11-0.59); MONO% 5.9 % (1.7-9.3); MPV 8.7 FL (7.4-10.4); NEUT% 85.7 % (42.2-75.2); PLT 349 X1000 (130-400); PROTIME 17.8 Seconds (11.0-16.0); RBC 2.01 XMIL (4.7-6.1); RDW 15.6 % (11.5-14.5); WBC 16.12 X1000 (4.8-10.8)
[2019-06-28 07:48] LABS: ALB/GLOB RATIO 0.4; ALBUMIN 2.4 g/dL (3.5-5.0); CALCIUM 8.7 mg/dL (8.8-10.2); CREATININE 1.2 mg/dL (0.7-1.2); POTASSIUM 3.9 mmol/L (3.5-5.1); TOTAL BILIRUBIN 10.59 mg/dL (0.20-1.00); TOTAL PROTEIN 7.9 g/dL (6.3-8.3)
[2019-06-28] MEDS: CREON PO SCH ×3 (09:03→16:03)
[2019-06-28] MEDS: WELLBUTRIN PO SCH (09:04)
[2019-06-28] MEDS: ZOFRAN ODT PO SCH ×3 (09:04→16:03)
[2019-06-28] MEDS: CLARITIN PO SCH (09:05)
[2019-06-28] MEDS: CARDIZEM PO SCH ×3 (09:05→22:05)
[2019-06-28] MEDS: MIRALAX PO SCH (09:05)
[2019-06-28] MEDS: PRILOSEC PO SCH (09:05)
[2019-06-28] MEDS: ELIQUIS PO SCH ×2 (09:05→22:05)
[2019-06-28] MEDS: REGLAN PO SCH ×3 (09:06→16:03)
[2019-06-28] MEDS: GAMUNEX-C 10% IV SCH (11:13)
--- NOTE | 2019-06-28 13:50 | HEMO/ONC PROGRESS NOTE ---
DATE: 06/28/2019 SUBJECTIVE: Mr. Summers is awake lying in bed this morning. His breakfast is bedside. He is not quite woken up enough to start breakfast, but he states that he feels much better today. He is not having any nausea or pain today. He has no complaints. He had a good night's sleep. He tolerated his first dose of IVIG without complication. OBJECTIVE: Vital Signs: Temperature 98.6 degrees, pulse rate 111, respiratory rate 14, blood pressure 116/68, and O2 saturation 97% on room air. He is in 0/10 pain. General: The patient remains very jaundiced. Otherwise, he is in no acute distress. HEENT: Sclerae is icteric. PERRLA. Oral mucosa is slightly dry. Cardiovascular: Irregular heart rate. Tachycardic rhythm. Respiratory: Lung sounds are clear to auscultation. Abdomen: Soft and nontender. No masses felt. Extremities: No edema present. Neurological: Alert and oriented x3. Skin: Jaundiced. Warm, dry and intact. No petechiae, ecchymoses or rashes noted. LABORATORY: WBCs 16.12, hemoglobin 7.9, hematocrit 25.3, and platelet count 349,000. Calcium 8.7, total bilirubin 10.59, AST 52, ALT 38, alkaline phosphatase 442, and BUN 2.4. KAT positive for IgG and cold agglutinin. Negative cold agglutinin thermal amplitude. ASSESSMENT AND PLAN: 1. Warm antibody hemolytic anemia. The patient has had his 1st dose of IVIG yesterday. He will receive a second dose today. This type of anemia is not a good candidate for steroids. Monitor the patient for any infusional reactions or side effects while receiving the IVIG. 2. Stage III pancreatic cancer. The patient has a history of pancreatic cancer, status post Whipple procedure. The patient has had several doses of chemotherapy. He would like to get stronger and resume his chemotherapy. We will continue to follow and assist him as an outpatient. 3. Cholestatic jaundice. This is continuing to be evaluated for medical management. 4. Deep venous thrombosis prophylaxis. Keep the patient on Eliquis. Allow him to get out of bed with assistance. Continue to let the patient walk the halls as he feels able to. Dictated by KORINA Hendricks for Tunde Carpenter MD cc: MD Oziel Santos MD [facility]
--- NOTE | 2019-06-28 21:49 | PROGRESS NOTE ---
DATE: 06/28/2019 SUBJECTIVE: The patient is a little better. No nausea, vomiting, or abdominal pain. OBJECTIVE: Vital Signs: Temperature is 98 degrees. Vitals are stable. HEENT: Jaundice. Chest: Clear. Heart: Irregular heart sounds. Abdomen: Belly is soft, nontender. Neurologic: No obvious deficits. INVESTIGATIONS: White cell count 16, hematocrit 25, platelets 345,000. PT 17. INR 1.4. SMA 7 is normal. Bilirubin 10.59. SPEP was negative. Cold agglutinins were negative. ASSESSMENT AND PLAN: 1. Nausea and vomiting, better. 2. Stage 3 pancreatic cancer, stable. 3. Anemia. 4. Jaundice. Slow hemolysis. Warm antibody. Immunoglobulin for two days. 5. Out of the bed with physical therapy. 6. Currently receiving intravenous fluids. We will do the laboratory workup in the morning and will follow up the trend. The level of documentation is 25 minutes. cc: Oziel Riley MD
[2019-06-29] MEDS: NS 1,000 ML IV SCH ×3 (03:04→19:03)
[2019-06-29] MEDS: PERIACTIN PO SCH ×3 (06:33→16:01)
[2019-06-29 07:46] LABS: BASO# 0.07 X1000 (0.0-0.2); BASO% 0.7 % (0.0-0.8); HEMATOCRIT 24.1 % (42.0-52.0); HEMOGLOBIN 7.5 g/dL (14.0-18.0); IMM GRAN# 0.03 X1000 (0.0-0.04); IMM GRAN% 0.3 % (0.0-0.5); LYMPH# 1.32 X1000 (1.2-3.4); LYMPH% 13.6 % (20.5-51.1); MCH 39.3 PG (27-31); MCHC 31.1 g/dL (33-37); MCV 126.2 FL (81-99); MONO# 0.81 X1000 (0.11-0.59); MONO% 8.3 % (1.7-9.3); MPV 8.8 FL (7.4-10.4); NEUT% 76.1 % (42.2-75.2); PLT 352 X1000 (130-400); RBC 1.91 XMIL (4.7-6.1); RDW 15.5 % (11.5-14.5); WBC 9.73 X1000 (4.8-10.8)
[2019-06-29 08:04] LABS: AGAP 10; ALB/GLOB RATIO 0.4; ALBUMIN 2.3 g/dL (3.5-5.0); ALKALINE PHOSPHATASE 401 U/L (32-122); BUN 15 mg/dL (8-22); CALCIUM 8.4 mg/dL (8.8-10.2); CHLORIDE 107 mmol/L (98-107); COSMO 281; CREATININE 0.8 mg/dL (0.7-1.2); ESTIMATED GFR > 60; GLUCOSE 112 mg/dL (70-104); GOT 49 U/L (10-34); GPT 35 U/L (10-44); POTASSIUM 3.3 mmol/L (3.5-5.1); SODIUM 140 mmol/L (136-145); TCO2 23 mmol/L (25-35); TOTAL BILIRUBIN 10.13 mg/dL (0.20-1.00); TOTAL PROTEIN 8.3 g/dL (6.3-8.3)
[2019-06-29] MEDS ORDERED: POTASSIUM CHLORIDE 40 MEQ/SWI 40 MEQ/100 ML IVPB IV ONE (08:21)
[2019-06-29 08:28] LABS: RETIC% 7.5 % (0.8-2.1); RETIC-HE 36.3 PG (28.2-36.6)
[2019-06-29] MEDS: REGLAN PO SCH ×3 (09:19→16:01)
[2019-06-29] MEDS: ELIQUIS PO SCH ×2 (09:19→20:56)
[2019-06-29] MEDS: PRILOSEC PO SCH (09:19)
[2019-06-29] MEDS: ZOFRAN ODT PO SCH ×3 (09:20→16:01)
[2019-06-29] MEDS: MIRALAX PO SCH (09:20)
[2019-06-29] MEDS: CREON PO SCH ×3 (09:20→16:02)
[2019-06-29] MEDS: WELLBUTRIN PO SCH (09:20)
[2019-06-29] MEDS: CLARITIN PO SCH (09:20)
[2019-06-29] MEDS: CARDIZEM PO SCH ×3 (09:20→20:56)
[2019-06-29] MEDS: GAMUNEX-C 10% IV SCH (11:09)
--- NOTE | 2019-06-29 22:17 | PROGRESS NOTE ---
DATE: 06/29/2019 SUBJECTIVE: This morning the patient has decrease in nausea, vomiting. He is actually eating better. He denies having abdominal pain. The patient is undergoing IV gammaglobulin for hemolysis by Dr. Carpenter. OBJECTIVE: Vital signs: Temperature is 97 degrees, tachycardic. Vitals are stable. General: He is still anemic and jaundiced. Chest: Clear. Cardiovascular: Irregular heart sounds. Abdomen: Belly is soft, nontender. Extremities: Right foot drop the same. INVESTIGATIONS: Today, white cell count 9.7, hematocrit 24, MCV 126, platelets 352,000. Retic count 7.5. Sodium 140, potassium 3.3, bilirubin 10. LFTs are running high. Cold agglutinins negative. ASSESSMENT AND PLAN: 1. Stage III pancreatic cancer. 2. Atrial fibrillation. 3. Warm antibody with hemolysis. 4. Obstructive cholestatic jaundice. 5. Gastroparesis. PLAN OF CARE: Today, replace the potassium. Decreased IV fluids and continue to monitor hemolysis. I advised the patient to take small meals more often with Creon capsules. We will continue to monitor the trend of the hemolysis and jaundice. Out of the bed with physical therapy. LEVEL OF DOCUMENTATION: Was 25 minutes. cc: Oziel Riley MD
[2019-06-30] MEDS: NS 1,000 ML IV SCH (01:05)
[2019-06-30] MEDS ORDERED: ZOFRAN ONE ×2 (09:35)
[2019-06-30 09:38] LABS: BASO% 0.8 % (0.0-0.8); EOS# 0.04 X1000 (0.0-0.7); EOS% 0.3 % (0.0-10.0); HEMATOCRIT 25.4 % (42.0-52.0); IMM GRAN# 0.04 X1000 (0.0-0.04); IMM GRAN% 0.3 % (0.0-0.5); LYMPH# 1.36 X1000 (1.2-3.4); LYMPH% 11.3 % (20.5-51.1); MCH 38.8 PG (27-31); MCHC 31.5 g/dL (33-37); MCV 123.3 FL (81-99); MONO% 8.3 % (1.7-9.3); MPV 8.9 FL (7.4-10.4); NEUT# 9.54 X1000 (1.4-6.5); PLT 435 X1000 (130-400); RBC 2.06 XMIL (4.7-6.1); RDW 15.6 % (11.5-14.5); RETIC% 7.05 % (0.8-2.1); RETIC-HE 36.1 PG (28.2-36.6); WBC 12.08 X1000 (4.8-10.8)
[2019-06-30] MEDS: PERIACTIN PO SCH ×3 (09:52→17:48)
[2019-06-30] MEDS: REGLAN PO SCH ×3 (09:53→17:48)
[2019-06-30] MEDS: ZOFRAN ODT PO SCH ×3 (09:53→17:48)
[2019-06-30] MEDS: CLARITIN PO SCH (09:54)
[2019-06-30] MEDS: CARDIZEM PO SCH ×3 (09:54→20:20)
[2019-06-30] MEDS: WELLBUTRIN PO SCH (09:54)
[2019-06-30] MEDS: PRILOSEC PO SCH (09:54)
[2019-06-30] MEDS: ELIQUIS PO SCH ×2 (09:54→20:20)
[2019-06-30] MEDS: CREON PO SCH ×3 (09:55→17:48)
[2019-06-30 10:08] LABS: AGAP 12; ALB/GLOB RATIO 0.3; ALBUMIN 2.2 g/dL (3.5-5.0); ALKALINE PHOSPHATASE 390 U/L (32-122); BUN 14 mg/dL (8-22); CALCIUM 8.2 mg/dL (8.8-10.2); CHLORIDE 103 mmol/L (98-107); COSMO 272; CREATININE 0.7 mg/dL (0.7-1.2); ESTIMATED GFR > 60; GLUCOSE 123 mg/dL (70-104); GOT 72 U/L (10-34); GPT 36 U/L (10-44); POTASSIUM 3.1 mmol/L (3.5-5.1); SODIUM 135 mmol/L (136-145); TCO2 20 mmol/L (25-35); TOTAL BILIRUBIN 8.67 mg/dL (0.20-1.00); TOTAL PROTEIN 9.6 g/dL (6.3-8.3)
[2019-06-30 10:24] LABS: EOS 2 % (1-10); HYPOCHROM 1+; LYMPHS 14 % (21-51); MONO 14 % (1-9); SEGS 70 % (42-75)
[2019-06-30] MEDS: MIRALAX PO SCH (10:29)
--- NOTE | 2019-06-30 16:44 | HEMO/ONC PROGRESS NOTE ---
DATE: 06/30/2019 SUBJECTIVE: Mr. Summers is feeling well today. He continues to deny any pain. His nausea and vomiting has decreased. He states he tolerated his IV IG treatments very well. He had no acute events since I have seen him last. OBJECTIVE: Vital Signs: Temperature 97.8 degrees, pulse rate 124, respiratory rate 18, blood pressure 104/63, O2 saturation 97% on room air. He is in 0/10 pain. General: Patient is in no acute distress, ill-appearing. HEENT: Sclerae is icteric. PERRLA. Oral mucosa slightly dry. Cardiovascular: Irregular rate and rhythm. Tachycardic. Respiratory: Lung sounds are clear to auscultation. Abdomen: Soft and nontender. Extremities: No lower extremity edema noted. Neurological: Alert and oriented x3. Skin: Jaundiced, warm, dry, and intact. No petechiae, ecchymosis, or rashes noted. LABORATORY: WBCs 12.08, hemoglobin 8.0, hematocrit 25.4, platelet count 435,000. Reticulocyte count 7.05. Sodium 135, potassium 3.1, calcium 8.2, total bilirubin 8.67, AST 72, ALT 36, alkaline phosphatase 390. ASSESSMENT AND PLAN: 1. Warm antibody hemolytic anemia. The patient is status post 2 doses of IV IG. He tolerated well. His hemoglobin and hematocrit are improving. We will continue to monitor. 2. Stage III pancreatic cancer, status post Whipple. The patient currently has poor performance status. We will continue to follow and assist him as he wishes outpatient. 3. Cholestatic jaundice. The patient is continuing to be evaluated by medical management. 4. Deep venous thrombosis prophylaxis. Keep the patient on Eliquis. Allow him to get out of bed with assistance. Dictated by KORINA Hendricks for Tunde Carpenter MD Patient seen and examined. H&H is stable. He is status post IVIG 2. Maybe we can give him a dose of rituximab before his discharge. Ideally we would like to give this weekly 4 but since he is going to rehabilitation, he may not be able to continue this while at rehabilitation. We will pick back up with therapy after his discharge from rehabilitation. Tunde Carpenter MD cc: MD Oziel Santos MD [facility]
[2019-06-30] MEDS ORDERED: POTASSIUM CHLORIDE 40 MEQ/SWI 40 MEQ/100 ML IVPB IV ONE (19:32)
--- NOTE | 2019-06-30 21:56 | PROGRESS NOTE ---
DATE: 06/30/2019 SUBJECTIVE: The patient is a little bit nauseous, eating well. IV fluids were decreased. Able to walk. REVIEW OF SYSTEMS: None reported. OBJECTIVE: On examination, temperature is 98.4 degrees. Tachycardic. Vital signs are stable. He has some jaundice noted. Chest is clear. Irregular heart sounds. Belly is soft, nontender. Good bowel sounds. No obvious deficits. LABORATORY DATA: White cell count 12, hematocrit 25.4, platelets 435,000. Reticulocyte count still high. Sodium 135, potassium 3.1, total bilirubin 8.6. SPEP was negative. Cold agglutinins negative. ASSESSMENT AND PLAN: 1. 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 So far, possible drug-induced. It does not appear he has chronic lymphocytic leukemia or lupus disease. Repeat the labs in the morning as well as direct bilirubin. Decrease intravenous fluids. The patient did finish the intravenous gammaglobulin treatment. Continue to see the trend. 2. Hypokalemia. Replace the potassium. 3. Encourage the patient to ambulate. We will follow up. Level of documentation 25 minutes. cc: Oziel Riley MD
[2019-07-01] MEDS: NS 1,000 ML IV SCH ×2 (00:41→22:53)
[2019-07-01] MEDS: PERIACTIN PO SCH ×3 (06:00→16:06)
[2019-07-01 08:10] LABS: BASO# 0.12 X1000 (0.0-0.2); BASO% 0.8 % (0.0-0.8); EOS# 0.03 X1000 (0.0-0.7); EOS% 0.2 % (0.0-10.0); HEMATOCRIT 21.4 % (42.0-52.0); HEMOGLOBIN 7.3 g/dL (14.0-18.0); IMM GRAN# 0.07 X1000 (0.0-0.04); IMM GRAN% 0.5 % (0.0-0.5); LYMPH% 13.9 % (20.5-51.1); MCH 40.6 PG (27-31); MCHC 34.1 g/dL (33-37); MCV 118.9 FL (81-99); MONO# 1.44 X1000 (0.11-0.59); MONO% 9.5 % (1.7-9.3); NEUT# 11.33 X1000 (1.4-6.5); NEUT% 75.1 % (42.2-75.2); PLT 444 X1000 (130-400); RDW 15.5 % (11.5-14.5); WBC 15.09 X1000 (4.8-10.8)
[2019-07-01] MEDS ORDERED: POTASSIUM CHLORIDE 40 MEQ/SWI 40 MEQ/100 ML IVPB IV ONE (08:19)
[2019-07-01 08:32] LABS: AGAP 11; ALB/GLOB RATIO 0.3; ALBUMIN 2.2 g/dL (3.5-5.0); ALKALINE PHOSPHATASE 477 U/L (32-122); BUN 15 mg/dL (8-22); CALCIUM 8.5 mg/dL (8.8-10.2); CHLORIDE 102 mmol/L (98-107); COSMO 269; CREATININE 0.9 mg/dL (0.7-1.2); ESTIMATED GFR > 60; GLUCOSE 126 mg/dL (70-104); GOT 103 U/L (10-34); GPT 48 U/L (10-44); POTASSIUM 3.4 mmol/L (3.5-5.1); SODIUM 133 mmol/L (136-145); TCO2 20 mmol/L (25-35); TOTAL BILIRUBIN 13.06 mg/dL (0.20-1.00); TOTAL PROTEIN 8.5 g/dL (6.3-8.3)
[2019-07-01] MEDS: CLARITIN PO SCH (08:51)
[2019-07-01] MEDS: REGLAN PO SCH ×3 (08:51→16:06)
[2019-07-01] MEDS: CARDIZEM PO SCH ×3 (08:51→20:58)
[2019-07-01] MEDS: ZOFRAN ODT PO SCH ×3 (08:51→16:06)
[2019-07-01] MEDS: PRILOSEC PO SCH (08:51)
[2019-07-01] MEDS: CREON PO SCH ×3 (08:52→18:20)
[2019-07-01] MEDS: WELLBUTRIN PO SCH (08:52)
[2019-07-01] MEDS: ELIQUIS PO SCH ×2 (08:53→20:58)
[2019-07-01] MEDS: FOLIC ACID 5 MG in NS 50 ML IV SCH (09:34)
[2019-07-01] MEDS: MIRALAX PO SCH (11:48)
[2019-07-01] MEDS ORDERED: NS INJ ONE (12:00)
[2019-07-01] MEDS ORDERED: BENADRYL INJ ONE (12:00)
[2019-07-01] MEDS ORDERED: NS IV ONE ×2 (12:30→13:30)
[2019-07-01] MEDS ORDERED: PEPCID IV ONE (12:30)
[2019-07-01] MEDS ORDERED: TYLENOL PO ONE (12:45)
[2019-07-01] MEDS ORDERED: DECADRON 20 MG in NS 50 ML IV ONE (13:00)
--- NOTE | 2019-07-01 13:13 | HEMO/ONC PROGRESS NOTE ---
DATE: 07/01/2019 SUBJECTIVE: The patient's status remains stable. He denies any pain. He still remains jaundiced. Appetite is good. Has some waxing and waning nausea. No acute events overnight. OBJECTIVE: Vital Signs: Temperature 97.4 degrees, pulse rate 129, respiratory rate 17, blood pressure 106/66, O2 saturation 97% on room air. He is in 0/10 pain. General: This is an ill- appearing gentleman with jaundice, in no acute distress. HEENT: Sclerae remain anicteric. PERRLA. Oral mucosa is normal. Cardiovascular: Irregular, tachycardic rate and rhythm. Respiratory: Lung sounds are clear to auscultation. Gastrointestinal: Abdomen is soft, nontender, nondistended. Extremities: No lower extremity edema noted. Neurological: Alert and oriented x3. Skin: Jaundiced. Warm, dry, and intact. No petechiae, ecchymosis, or rashes noted. LABORATORY DATA: WBCs 15.09, hemoglobin 7.3, hematocrit 21.4, platelet count 444,000. ANC 11.3. Sodium 133, potassium 3.4, creatinine 0.9, calcium 8.5. Total bilirubin 13.6, direct bilirubin 9.30. ASSESSMENT AND PLAN: 1. Warm antibody hemolytic anemia. The patient is status post 2 doses of intravenous immunoglobulin. His hemoglobin and hematocrit are stable, but they have decreased today. We will continue to monitor closely. 2. Stage III pancreatic cancer, status post Whipple. We will continue to follow, and we will follow up with him after discharge. We are going to start the patient on rituximab. Ideally, we would like to give this once a week x4 weeks, but we understand that he is going to rehabilitation. I would like to get 1 dose in him today, and then we will complete his regimen as an outpatient when he gets out of rehabilitation. 3. Cholestatic jaundice. The patient is continuing to be evaluated by medical management. 4. Deep venous thrombosis prophylaxis. Keep the patient on Eliquis. Allow him to get out of bed as he wishes. Continue encouraging him to walk the hallways. Dictated by KORINA Hendricks for Tunde Carpenter MD Patient seen and examined. Status post IVIG 2 days. Proceed with rituximab 1 dose prior to discharge. He will follow up in the clinic for further management of autoimmune hemolytic anemia. His indirect bilirubin levels have decreased suggesting some improvement in hemolysis. Direct bilirubin continues to be elevated and is related to hepatic damage, suspect to be drug induced by Dr. Riley continue current management. Tunde Carpenter MD cc: MD Oziel Santos MD [facility]
[2019-07-01] MEDS ORDERED: RITUXAN IV ONE (13:30)
--- NOTE | 2019-07-01 22:17 | PROGRESS NOTE ---
DATE: 07/01/2019 SUBJECTIVE: The patient has no nausea or vomiting. Unfortunately has more jaundice and hematocrit dropped to 21 and potassium 3.4. Bilirubin has gone to 13.6. Direct is 9.3. ASSESSMENT: 1. Cholestatic jaundice/warm antibody hemolytic anemia. Etiology is not clear. 2. Hypokalemia. 3. Stage III pancreatic cancer. 4. Chronic atrial fibrillation. PLAN OF CARE: 1. I appreciated Dr. Carpenter, started on Rituxan. 2. Replace the potassium. 3. Palliative Care consult initiated. The patient was not better after IV gammaglobulin, and we will repeat the labs in the morning. LEVEL OF DOCUMENTATION: 25 minutes. cc: Oziel Riley MD [facility]
[2019-07-02] MEDS: PERIACTIN PO SCH ×3 (06:12→17:51)
[2019-07-02] MEDS: FOLIC ACID 5 MG in NS 50 ML IV SCH (08:30)
[2019-07-02] MEDS: ELIQUIS PO SCH ×2 (08:31→20:13)
[2019-07-02] MEDS: PRILOSEC PO SCH (08:31)
[2019-07-02] MEDS: REGLAN PO SCH ×3 (08:31→17:51)
[2019-07-02] MEDS: CARDIZEM PO SCH ×3 (08:31→20:13)
[2019-07-02] MEDS: WELLBUTRIN PO SCH (08:31)
[2019-07-02] MEDS: CLARITIN PO SCH (08:31)
[2019-07-02] MEDS: ZOFRAN ODT PO SCH ×3 (08:31→17:51)
[2019-07-02] MEDS: CREON PO SCH ×4 (08:32→17:50)
[2019-07-02] MEDS: MIRALAX PO SCH (08:32)
[2019-07-02 09:26] LABS: HEMATOCRIT 23.3 % (42.0-52.0); HEMOGLOBIN 8.1 g/dL (14.0-18.0); MCHC 34.8 g/dL (33-37); MCV 120.7 FL (81-99); MPV 9.6 FL (7.4-10.4); RBC 1.93 XMIL (4.7-6.1); RDW 16.7 % (11.5-14.5); WBC 13.72 X1000 (4.8-10.8)
[2019-07-02 09:34] LABS: AGAP 14; ALB/GLOB RATIO 0.3; ALBUMIN 2.3 g/dL (3.5-5.0); ALKALINE PHOSPHATASE 404 U/L (32-122); BUN 17 mg/dL (8-22); CALCIUM 8.5 mg/dL (8.8-10.2); CHLORIDE 104 mmol/L (98-107); COSMO 274; CREATININE 0.9 mg/dL (0.7-1.2); ESTIMATED GFR > 60; GLUCOSE 166 mg/dL (70-104); GOT 70 U/L (10-34); GPT 46 U/L (10-44); SODIUM 134 mmol/L (136-145); TCO2 16 mmol/L (25-35); TOTAL BILIRUBIN 9.91 mg/dL (0.20-1.00); TOTAL PROTEIN 9.3 g/dL (6.3-8.3)
--- NOTE | 2019-07-02 13:24 | HEMO/ONC PROGRESS NOTE ---
DATE: 07/02/2019 SUBJECTIVE: The patient is awake and alert this morning and states he continues to have no pain. He feels very well. He has a good appetite. He has no complaints and there were no significant events overnight. OBJECTIVE: Vital Signs: Temperature 97.6 degrees, pulse rate 122, respiratory rate 17, blood pressure 117/79, O2 saturation 99% on room air. He is in 0/10 pain. General: The patient appears ill with jaundice, but in no acute distress. HEENT: Sclerae is icteric. PERRLA. Oral mucosa is normal. Cardiovascular: Irregular, tachycardic rate and rhythm. Respiratory: Lung sounds are clear to auscultation. Abdomen: Soft, nontender, nondistended. Extremities: No lower extremity edema noted. Neurological: Alert and oriented x3. Skin: Jaundiced. LABORATORY DATA: WBC 13.72, hemoglobin 8.1, hematocrit 23.3, platelet count 469,000. Total bilirubin 9.9, AST 70, ALT 46, alkaline phosphatase 404. ASSESSMENT/PLAN: 1. Warm antibody hemolytic anemia. Patient is status 2 doses of intravenous IVIG. His hemoglobin and hematocrit have remained stable. We hope to see it start to increase soon. 2. Stage III pancreatic cancer, status post Whipple. We will continue to follow the patient and follow up with him after discharge. I understand that the patient is requesting to go home. He understands he will follow up in the office next Friday as we want to do rituximab once a week x4 weeks. The patient had his 1st dose yesterday. He denies any complications or side effects. The patient did not have any reactions. 3. Cholestatic jaundice. Etiology remains unclear. He is continuing to be evaluated. 4. Deep venous thrombosis prophylaxis. The patient is on Eliquis. He continues to get out of bed as necessary. Encouraged him to continue to walk the laura. Dictated by KORINA Hendricks for Tunde Carpenter MD Patient seen and examined. As above. Patient has received IVIG and a dose of rituximab for autoimmune hemolytic anemia. H&H is stable. Indirect bilirubin levels are trending down. We will continue rituximab weekly 4 outpatient. Further management DIRECT hyperbilirubinemia per Dr. Riley. Tunde Carpenter MD cc: MD Oziel Santos MD [facility]
[2019-07-02] MEDS: NS 1,000 ML IV SCH ×2 (19:26→21:51)
--- NOTE | 2019-07-02 21:55 | PROGRESS NOTE ---
DATE: 07/02/2019 SUBJECTIVE: The patient is anxious to go home. Waiting for lab results. He is eating well. His jaundice is fluctuating, is very confusing. The patient did receive a toxin. OBJECTIVE: Temperature is 97 degrees. Vital signs are stable. On physical exam has jaundice, cachectic. No change. INVESTIGATIONS: White cell count 13.72, hematocrit 23, platelets 469,000. SMA 7: Bilirubin is 9.9. ASSESSMENT AND PLAN: Cholestatic jaundice with warm antibody hemolytic anemia. Had already toxin, failed gammaglobulin treatment. Etiology is not clear. Continue intravenous folic acid. See the trend over the next 4 days. He is due for another toxin on Friday. Physical Therapy consult. We will check the labs, daily CBC and CMP. I spoke to the , and she wants to know the effect of the medicine. We will hold the disposition today. Level of documentation is 25 minutes. cc: Oziel Riley MD
[2019-07-03] MEDS: PERIACTIN PO SCH ×3 (06:03→16:32)
[2019-07-03] MEDS: REGLAN PO SCH ×3 (08:00→16:32)
[2019-07-03] MEDS: ZOFRAN ODT PO SCH ×3 (08:00→16:32)
[2019-07-03] MEDS: CLARITIN PO SCH (08:00)
[2019-07-03] MEDS: PRILOSEC PO SCH (08:00)
[2019-07-03] MEDS: ELIQUIS PO SCH ×2 (08:00→19:59)
[2019-07-03] MEDS: WELLBUTRIN PO SCH (08:00)
[2019-07-03] MEDS: CARDIZEM PO SCH ×3 (08:00→19:59)
[2019-07-03] MEDS: CREON PO SCH ×4 (08:02→16:34)
[2019-07-03] MEDS: MIRALAX PO SCH (08:02)
[2019-07-03 08:41] LABS: BASO# 0.01 X1000 (0.0-0.2); BASO% 0.1 % (0.0-0.8); EOS# 0.02 X1000 (0.0-0.7); EOS% 0.1 % (0.0-10.0); HEMATOCRIT 25.9 % (42.0-52.0); HEMOGLOBIN 8.3 g/dL (14.0-18.0); IMM GRAN# 0.14 X1000 (0.0-0.04); IMM GRAN% 0.8 % (0.0-0.5); LYMPH# 2.42 X1000 (1.2-3.4); LYMPH% 14.4 % (20.5-51.1); MCH 40.3 PG (27-31); MCV 125.7 FL (81-99); MONO# 1.29 X1000 (0.11-0.59); MONO% 7.7 % (1.7-9.3); MPV 9.4 FL (7.4-10.4); NEUT# 12.92 X1000 (1.4-6.5); NEUT% 76.9 % (42.2-75.2); PLT 501 X1000 (130-400); RBC 2.06 XMIL (4.7-6.1); RDW 19.8 % (11.5-14.5)
[2019-07-03 08:44] LABS: AGAP 12; ALB/GLOB RATIO 0.4; ALBUMIN 2.5 g/dL (3.5-5.0); ALKALINE PHOSPHATASE 382 U/L (32-122); BUN 18 mg/dL (8-22); CALCIUM 8.4 mg/dL (8.8-10.2); CHLORIDE 104 mmol/L (98-107); COSMO 275; ESTIMATED GFR > 60; GLUCOSE 118 mg/dL (70-104); GOT 62 U/L (10-34); GPT 49 U/L (10-44); POTASSIUM 3.6 mmol/L (3.5-5.1); SODIUM 136 mmol/L (136-145); TCO2 20 mmol/L (25-35); TOTAL BILIRUBIN 9.85 mg/dL (0.20-1.00); TOTAL PROTEIN 8.1 g/dL (6.3-8.3)
[2019-07-03 09:17] LABS: BANDS 2 % (0-1); LYMPHS 12 % (21-51); MONO 10 % (1-9); SEGS 74 % (42-75)
[2019-07-03 09:18] LABS: ANISOCYTOSIS 1+; METAMYELOCYTES 2 %
[2019-07-03] MEDS: FOLIC ACID 5 MG in NS 50 ML IV SCH (10:02)
--- NOTE | 2019-07-03 12:03 | PROGRESS NOTE ---
DATE: 07/03/2019 SUBJECTIVE: The patient had confusion last night, pulled the PICC line. He is out of the bed. He is in good spirits. PHYSICAL EXAMINATION: Vital signs: Temperature is 97 degrees, tachycardic, vitals are stable. Skin: Still jaundiced, anemic. Chest: Clear. Heart: Irregular heart sounds. Neurologic: No obvious deficits except right footdrop. LABORATORY DATA: CBC: White cell count 16, hematocrit 25.9, platelets 501,000. SMA-7 is normal. Total bilirubin 9.85. ASSESSMENT AND PLAN: Cholestatic jaundice/hemolytic anemia combination, status post Rituxan, we will see the trend. Out of the bed with Physical Therapy. PICC line was out. We can use the port on the left side for access. We will hold the discharge until see the trend. Appreciated Dr. Carpenter's followup. LEVEL OF DOCUMENTATION: 25 minutes. cc: Oziel Riley MD
[2019-07-04] MEDS: NS 1,000 ML IV SCH (04:01)
[2019-07-04] MEDS: PERIACTIN PO SCH ×3 (06:09→16:29)
[2019-07-04 09:01] LABS: BASO# 0.01 X1000 (0.0-0.2); BASO% 0.1 % (0.0-0.8); EOS# 0.03 X1000 (0.0-0.7); EOS% 0.2 % (0.0-10.0); HEMOGLOBIN 8.3 g/dL (14.0-18.0); IMM GRAN% 1.4 % (0.0-0.5); LYMPH% 16.2 % (20.5-51.1); MCH 40.7 PG (27-31); MCHC 31.9 g/dL (33-37); MCV 127.5 FL (81-99); MONO# 1.35 X1000 (0.11-0.59); MONO% 9.5 % (1.7-9.3); NEUT# 10.32 X1000 (1.4-6.5); NEUT% 72.6 % (42.2-75.2); PLT 451 X1000 (130-400); RBC 2.04 XMIL (4.7-6.1); RDW 21.8 % (11.5-14.5); WBC 14.21 X1000 (4.8-10.8)
[2019-07-04 09:06] LABS: AGAP 12; ALB/GLOB RATIO 0.4; ALBUMIN 2.2 g/dL (3.5-5.0); ALKALINE PHOSPHATASE 430 U/L (32-122); BUN 14 mg/dL (8-22); CALCIUM 8.2 mg/dL (8.8-10.2); CHLORIDE 105 mmol/L (98-107); COSMO 274; CREATININE 0.8 mg/dL (0.7-1.2); ESTIMATED GFR > 60; GLUCOSE 129 mg/dL (70-104); GOT 83 U/L (10-34); GPT 56 U/L (10-44); SODIUM 136 mmol/L (136-145); TCO2 19 mmol/L (25-35); TOTAL BILIRUBIN 11.45 mg/dL (0.20-1.00)
[2019-07-04] MEDS: FOLIC ACID 5 MG in NS 50 ML IV SCH (09:19)
[2019-07-04] MEDS: WELLBUTRIN PO SCH (09:20)
[2019-07-04] MEDS: ZOFRAN ODT PO SCH ×3 (09:20→16:28)
[2019-07-04] MEDS: REGLAN PO SCH ×3 (09:20→16:29)
[2019-07-04] MEDS: PRILOSEC PO SCH (09:20)
[2019-07-04] MEDS: ELIQUIS PO SCH ×2 (09:20→20:28)
[2019-07-04] MEDS: CARDIZEM PO SCH ×3 (09:20→20:28)
[2019-07-04] MEDS: CREON PO SCH ×3 (09:21→16:54)
[2019-07-04] MEDS: MIRALAX PO SCH (09:21)
[2019-07-04] MEDS: CLARITIN PO SCH (09:23)
[2019-07-04 10:22] LABS: ANISOCYTOSIS 2+; BANDS 2 % (0-1); LYMPHS 8 % (21-51); MONO 4 % (1-9); SEGS 86 % (42-75)
[2019-07-04] MEDS: POTASSIUM CHLORIDE 20 MEQ/SWI 20 MEQ/100 ML IVPB IV SCH ×2 (10:36→13:11)
--- NOTE | 2019-07-04 11:14 | PROGRESS NOTE ---
DATE: 07/04/2019 SUBJECTIVE: The patient continues to have jaundice. Waiting to see the response with Rituxan. He is out of the bed, walking with assistance, eating well. No nausea, vomiting. Dr. Carpenter has seen the patient. PHYSICAL EXAMINATION: Vital Signs: Temperature is 97 degrees, tachycardic. Vitals are stable. HEENT: Jaundice. Anemic. Chest: Bilateral air entry. Heart: Irregular heart sounds. PICC line was out. Abdomen: Belly is soft, nontender. Extremities: Stable footdrop on the right side. LABORATORY DATA: White cell count 14, hematocrit 26, platelets 451,000. Sodium 136, potassium 3.0, chloride 105, BUN 14, creatinine 0.8, glucose 129, calcium 8.2. Bilirubin is up again at 11.42. ASSESSMENT AND PLAN: 1. Cholestatic jaundice with hemolytic anemia. See the response. 2. Chronic anemia, stable. Continue intravenous folic acid. 3. Chronic atrial fibrillation, stable. 4. Out of the bed with Physical Therapy. Will repeat the labs in the morning. If he is stable, will discharge home with outpatient Rituxan treatment. Will discuss with Dr. Carpenter. Continue present treatment. Living will DO NOT RESUSCITATE. LEVEL OF DOCUMENTATION: 25 minutes. cc: Oziel Riley MD
[2019-07-05] MEDS: NS 1,000 ML IV SCH ×2 (02:33→17:23)
[2019-07-05] MEDS: PERIACTIN PO SCH ×4 (05:54→17:31)
[2019-07-05] MEDS: CLARITIN PO SCH (08:32)
[2019-07-05] MEDS: ZOFRAN ODT PO SCH ×3 (08:32→17:31)
[2019-07-05] MEDS: ELIQUIS PO SCH ×2 (08:32→21:01)
[2019-07-05] MEDS: CARDIZEM PO SCH ×3 (08:32→21:01)
[2019-07-05] MEDS: CREON PO SCH ×4 (08:32→17:30)
[2019-07-05] MEDS: REGLAN PO SCH ×3 (08:33→17:31)
[2019-07-05] MEDS: WELLBUTRIN PO SCH (08:33)
[2019-07-05] MEDS: FOLIC ACID 5 MG in NS 50 ML IV SCH (08:33)
[2019-07-05] MEDS: PRILOSEC PO SCH (08:33)
[2019-07-05] MEDS: MIRALAX PO SCH (08:33)
[2019-07-05 09:48] LABS: AGAP 12; ALB/GLOB RATIO 0.4; ALBUMIN 2.3 g/dL (3.5-5.0); ALKALINE PHOSPHATASE 430 U/L (32-122); BUN 11 mg/dL (8-22); CALCIUM 8.2 mg/dL (8.8-10.2); CHLORIDE 103 mmol/L (98-107); COSMO 271; CREATININE 0.7 mg/dL (0.7-1.2); ESTIMATED GFR > 60; GLUCOSE 119 mg/dL (70-104); GOT 70 U/L (10-34); GPT 54 U/L (10-44); POTASSIUM 2.9 mmol/L (3.5-5.1); SODIUM 135 mmol/L (136-145); TCO2 20 mmol/L (25-35); TOTAL BILIRUBIN 10.49 mg/dL (0.20-1.00); TOTAL PROTEIN 7.7 g/dL (6.3-8.3)
[2019-07-05 10:39] LABS: RETIC% 15.8 % (0.8-2.1); RETIC-HE 40.5 PG (28.2-36.6)
[2019-07-05 11:18] LABS: BASO# 0.03 X1000 (0.0-0.2); BASO% 0.3 % (0.0-0.8); EOS# 0.12 X1000 (0.0-0.7); EOS% 1.1 % (0.0-10.0); HEMATOCRIT 27.9 % (42.0-52.0); HEMOGLOBIN 8.6 g/dL (14.0-18.0); IMM GRAN# 0.14 X1000 (0.0-0.04); IMM GRAN% 1.3 % (0.0-0.5); LYMPH# 1.77 X1000 (1.2-3.4); LYMPH% 16.5 % (20.5-51.1); MCH 39.4 PG (27-31); MCHC 30.8 g/dL (33-37); MONO# 0.88 X1000 (0.11-0.59); MONO% 8.2 % (1.7-9.3); MPV 9.1 FL (7.4-10.4); NEUT# 7.77 X1000 (1.4-6.5); NEUT% 72.6 % (42.2-75.2); PLT 405 X1000 (130-400); RBC 2.18 XMIL (4.7-6.1); RDW 21.9 % (11.5-14.5); WBC 10.71 X1000 (4.8-10.8)
[2019-07-05 11:24] LABS: ANISOCYTOSIS 4+; EOS 1 % (1-10); LYMPHS 15 % (21-51); MONO 8 % (1-9); NRBC 1 % (0-0); SEGS 76 % (42-75)
[2019-07-05 11:25] LABS: HYPOCHROM 2+; POLYCHROM 1+
[2019-07-05] MEDS: POTASSIUM CHLORIDE 60 MEQ in NS 500 ML IV SCH ×2 (12:46→21:01)
[2019-07-05] MEDS ORDERED: CALMOSEPTINE OINTMENT TOP PRN (17:28)
--- NOTE | 2019-07-05 21:19 | PROGRESS NOTE ---
DATE: 07/05/2019 SUBJECTIVE: The patient is doing better. Still has jaundice and potassium is low and this morning the labs were still pending. OBJECTIVE: Vital signs: Temperature is 97.8 degrees, tachycardic. Vitals are stable. On 2 L nasal cannula, 99%. He had jaundice still present. Chest: Clear. Heart: Irregular heart sounds. Abdomen: Belly is soft, nontender. INVESTIGATIONS: CBC: White cell count 10, hematocrit 27.9, platelets 405,000. Retic count is increasing. Sodium 135, potassium 2.9, bilirubin is 10, direct is 6.9. That translate unconjugated about 4.2. Increased LFTs. ASSESSMENT AND PLAN: 1. Cholestatic jaundice/warm antibody hemolytic anemia. 2. Stage III pancreatic cancer. 3. Deconditioning, right footdrop. 4. Hypokalemia. PLAN: Replace the potassium x2, off the PICC line and we will discuss with Dr. Carpenter about the plan. Increase to ambulation. Discussed the in the evening rounds and followup. LEVEL OF DOCUMENTATION: [25] cc: Oziel Riley MD [facility]
[2019-07-06] MEDS: NS 1,000 ML IV SCH (03:39)
[2019-07-06] MEDS: PERIACTIN PO SCH ×3 (06:12→16:36)
[2019-07-06] MEDS: CREON PO SCH ×3 (08:24→17:45)
[2019-07-06] MEDS: MIRALAX PO SCH ×3 (08:25→08:30)
[2019-07-06] MEDS: REGLAN PO SCH ×3 (08:26→16:36)
[2019-07-06] MEDS: ZOFRAN ODT PO SCH ×3 (08:26→17:45)
[2019-07-06] MEDS: ELIQUIS PO SCH ×2 (08:26→20:53)
[2019-07-06] MEDS: CLARITIN PO SCH (08:26)
[2019-07-06] MEDS: PRILOSEC PO SCH (08:26)
[2019-07-06] MEDS: CARDIZEM PO SCH ×3 (08:26→20:53)
[2019-07-06] MEDS: WELLBUTRIN PO SCH (08:43)
[2019-07-06] MEDS: FOLIC ACID 5 MG in NS 50 ML IV SCH (08:43)
--- NOTE | 2019-07-06 16:18 | HEMO/ONC PROGRESS NOTE ---
DATE: 07/06/2019 SUBJECTIVE: The patient states he is doing better. He continues to deny any pain. He states he is eating well. He feels well. He is ready to go home. No significant events have occurred since we have seen him last. OBJECTIVE: Vital Signs: Temperature 97.8 degrees, pulse rate 122, respiratory rate 20, blood pressure 120/75, O2 saturation 98% on room air. He is in 0/10 pain. PHYSICAL EXAMINATION: General: This is an ill-appearing gentleman that is jaundiced, in no acute distress. HEENT: Sclerae icteric. Oral mucosa normal. Respiratory: Clear to auscultation. Normal respiratory effort. Cardiovascular: Normal S1, S2. Heart rate and rhythm is irregular. Gastrointestinal: Abdomen is soft and nontender. Extremities: No lower extremity edema noted. Neurological: Alert and oriented x3. No focal motor deficits noted. LABORATORY DATA: No labs were done today. Yesterday's direct bilirubin was 6.9, which is decreasing. ASSESSMENT AND PLAN: 1. Warm antibody hemolytic anemia/cholestatic jaundice. The patient had his 1st dose of Rituxan approximately a week ago. He should be receiving his 2nd dose tomorrow. We will attempt to do that either in the hospital or as outpatient if the patient gets discharged today. We are hoping his hemoglobin will start to increase soon, it has held stable. 2. Stage III pancreatic cancer status post Whipple. We will follow up with the patient as an outpatient regarding his pancreatic cancer. 3. Deconditioning, right footdrop. Aware. 4. Deep venous thrombosis prophylaxis. The patient is on Eliquis. He continues to get out of bed, sit in a chair and walk the halls as necessary. Dictated by KORINA Hendricks for Tunde Carpenter MD cc: MD Oziel Santos MD
[2019-07-06 16:51] LABS: AGAP 12; ALB/GLOB RATIO 0.5; ALBUMIN 2.5 g/dL (3.5-5.0); ALKALINE PHOSPHATASE 396 U/L (32-122); BUN 9 mg/dL (8-22); CALCIUM 8.3 mg/dL (8.8-10.2); CHLORIDE 104 mmol/L (98-107); COSMO 275; CREATININE 0.7 mg/dL (0.7-1.2); ESTIMATED GFR > 60; GLUCOSE 150 mg/dL (70-104); GOT 73 U/L (10-34); GPT 57 U/L (10-44); POTASSIUM 3.4 mmol/L (3.5-5.1); SODIUM 137 mmol/L (136-145); TCO2 21 mmol/L (25-35); TOTAL BILIRUBIN 8.68 mg/dL (0.20-1.00); TOTAL PROTEIN 7.5 g/dL (6.3-8.3)
[2019-07-06] MEDS: POTASSIUM CHLORIDE 60 MEQ in NS 500 ML IV SCH (21:25)
--- NOTE | 2019-07-06 21:36 | PROGRESS NOTE ---
DATE: 07/06/2019 SUBJECTIVE: The patient is doing better. The jaundice picture is baffling. I spoke to Dr. Carpenter as well as the family. He is going to receive another dose of Rituxan tomorrow. He is getting slow hemolysis. OBJECTIVE: Temperature is 97 degrees, pulse 107, blood pressure is 111/61. HEENT: Pale, jaundice. Neck: Supple. Chest: Clear. Irregular heart sounds. Belly is soft, nontender. Good bowel sounds. INVESTIGATIONS: CBC: White cell count 10, hematocrit 27, platelets 405,000 today. Sodium 137, potassium 3.4, bilirubin 8.6. LFTs are coming down. ASSESSMENT AND PLAN: 1. Anemia, obstructive jaundice, slow hemolysis. Waiting for Rituxan. 2. Stage III pancreatic cancer. Stable. 3. Right footdrop. Stable. 4. Hypokalemia. Replace the potassium. 5. We will continue to monitor. The patient is getting Rituxan tomorrow and based on that, further recommendations will be followed. LEVEL OF DOCUMENTATION: 25 minutes. cc: Oziel Riley MD
[2019-07-07] MEDS: POTASSIUM CHLORIDE 60 MEQ in NS 500 ML IV SCH (04:31)
[2019-07-07] MEDS: PERIACTIN PO SCH ×3 (06:36→18:16)
[2019-07-07] MEDS: NS 1,000 ML IV SCH (06:38)
[2019-07-07] MEDS ORDERED: RITUXAN IV ONE ×4 (07:50)
[2019-07-07] MEDS ORDERED: NS IV ONE ×4 (07:50)
[2019-07-07] MEDS ORDERED: BENADRYL IV ONE (08:27)
[2019-07-07] MEDS ORDERED: SODIUM CHLORIDE 0.9% INJ ONE ×2 (08:28→13:23)
[2019-07-07] MEDS ORDERED: PEPCID IV ONE (08:28)
[2019-07-07] MEDS: FOLIC ACID 5 MG in NS 50 ML IV SCH (09:07)
[2019-07-07] MEDS: PRILOSEC PO SCH (09:07)
[2019-07-07] MEDS: CLARITIN PO SCH (09:07)
[2019-07-07] MEDS: CARDIZEM PO SCH ×3 (09:07→23:20)
[2019-07-07] MEDS: REGLAN PO SCH ×3 (09:07→18:17)
[2019-07-07] MEDS: WELLBUTRIN PO SCH (09:08)
[2019-07-07] MEDS: ELIQUIS PO SCH ×2 (09:08→23:20)
[2019-07-07] MEDS: ZOFRAN ODT PO SCH ×3 (09:08→18:18)
[2019-07-07] MEDS: CREON PO SCH ×3 (09:09→18:16)
[2019-07-07] MEDS: MIRALAX PO SCH (09:09)
--- NOTE | 2019-07-07 13:04 | HEMO/ONC PROGRESS NOTE ---
DATE: 07/07/2019 SUBJECTIVE: Mr. Summers was asleep this morning when I came in. He awoke easily to my voice and touch. He continues to deny any pain. He feels well. The patient will stay in the hospital until Friday and will receive his chemotherapy tomorrow. No significant events occurred overnight. The patient continues to have some jaundice. Overall, he is improving. OBJECTIVE: Vital Signs: Temperature 97.7 degrees, pulse rate 127, respiratory rate 21, blood pressure 119/72, O2 saturation 93% on room air. He is in 0/10 pain. General: This is an ill- appearing gentleman who is jaundiced, in no acute distress. HEENT: Sclerae icteric. Oral mucosa is normal. Respiratory: Lungs are clear to auscultation. Normal respiratory effort. Cardiovascular: Normal S1, S2. Heart rate and rhythm is irregular. Gastrointestinal: Abdomen is soft, nontender. Extremities: No lower extremity edema noted. Neurological: Alert and oriented x3. No focal motor deficits noted. LABORATORY DATA: No labs were done today. ASSESSMENT AND PLAN: 1. Warm antibody hemolytic anemia/cholestatic jaundice. The patient will have his second dose of Rituxan tomorrow with appropriate premedications. The patient will stay in the hospital one more day to receive his Rituxan inpatient. It does take time for the Rituxan to start to show a difference in his hemoglobin and hematocrit. 2. Stage III pancreatic cancer, status post Whipple procedure. We will continue to follow up with the patient outpatient regarding his pancreatic cancer. 3. Deconditioning, right footdrop. Aware. 4. Deep venous thrombosis prophylaxis. The patient remains on Eliquis. Continue to allow him out of bed and walk the halls as necessary. Dictated by KORINA Hendricks for Tunde Carpenter MD cc: MD Oziel Santos MD [facility]
--- NOTE | 2019-07-07 21:12 | PROGRESS NOTE ---
DATE: 07/07/2019 SUBJECTIVE: The patient is in good spirits. Even is getting up. PHYSICAL EXAMINATION: Temperature is 98 degrees, tachycardic. Vitals are stable. Left jaundice.Chest: Clear. Heart: Irregular heart sounds. Neurological: No neurological deficits. INVESTIGATIONS: No investigations done today. ASSESSMENT AND PLAN: 1. We are waiting for a Rituxan treatment. 2. Obstructive jaundice/cholestatic jaundice with hemolysis. 3. Chronic atrial fibrillation on Eliquis. 4. Depression is stable. 5. Continue Rituxan and follow up on the labs in the morning. LEVEL OF DOCUMENTATION: 25 minutes. cc: Oziel Riley MD
[2019-07-08] MEDS: NS 1,000 ML IV SCH (04:18)
[2019-07-08] MEDS: PERIACTIN PO SCH ×3 (07:34→18:11)
[2019-07-08] MEDS ORDERED: SODIUM CHLORIDE 0.9% 10 ML ONE (07:58)
[2019-07-08 08:24] LABS: BASO# 0.05 X1000 (0.0-0.2); BASO% 0.5 % (0.0-0.8); EOS# 0.13 X1000 (0.0-0.7); EOS% 1.4 % (0.0-10.0); HEMATOCRIT 28.6 % (42.0-52.0); HEMOGLOBIN 9.1 g/dL (14.0-18.0); IMM GRAN# 0.05 X1000 (0.0-0.04); IMM GRAN% 0.5 % (0.0-0.5); LYMPH# 1.16 X1000 (1.2-3.4); LYMPH% 12.2 % (20.5-51.1); MCH 40.3 PG (27-31); MCHC 31.8 g/dL (33-37); MCV 126.5 FL (81-99); MONO# 0.94 X1000 (0.11-0.59); MONO% 9.9 % (1.7-9.3); MPV 9.3 FL (7.4-10.4); NEUT# 7.16 X1000 (1.4-6.5); NEUT% 75.5 % (42.2-75.2); PLT 372 X1000 (130-400); RBC 2.26 XMIL (4.7-6.1); RDW 20.2 % (11.5-14.5); WBC 9.49 X1000 (4.8-10.8)
[2019-07-08] MEDS ORDERED: BENADRYL IV ONE (09:00)
[2019-07-08] MEDS ORDERED: NS IV ONE ×2 (09:00→12:00)
[2019-07-08] MEDS ORDERED: RITUXAN IV ONE ×2 (09:00→12:00)
[2019-07-08] MEDS ORDERED: PEPCID IV ONE (09:00)
[2019-07-08 09:11] LABS: AGAP 13; ALB/GLOB RATIO 0.5; ALBUMIN 2.6 g/dL (3.5-5.0); ALKALINE PHOSPHATASE 457 U/L (32-122); BUN 7 mg/dL (8-22); CALCIUM 8.2 mg/dL (8.8-10.2); CHLORIDE 103 mmol/L (98-107); COSMO 274; CREATININE 0.6 mg/dL (0.7-1.2); ESTIMATED GFR > 60; GLUCOSE 111 mg/dL (70-104); GOT 90 U/L (10-34); GPT 61 U/L (10-44); POTASSIUM 3.4 mmol/L (3.5-5.1); SODIUM 138 mmol/L (136-145); TCO2 22 mmol/L (25-35); TOTAL BILIRUBIN 8.26 mg/dL (0.20-1.00); TOTAL PROTEIN 7.6 g/dL (6.3-8.3)
--- NOTE | 2019-07-08 10:00 | HEMO/ONC PROGRESS NOTE ---
DATE: 07/08/2019 SUBJECTIVE: The patient is feeling very well this morning. He feels strong enough to go home. He understands he is receiving his next cycle of chemotherapy today. He will be staying in the hospital until tomorrow. He states he is stronger. He notices his jaundice is improving. He denies any pain. He denies any ill feelings. The patient had a good night's sleep with no acute events overnight. OBJECTIVE: Vital Signs: Temperature 98.1 degrees, pulse rate 115, respiratory rate 20, blood pressure 118/73, O2 saturation 97% on room air. He is in 0/10 pain. PHYSICAL EXAMINATION: General: The patient is in no acute distress. HEENT: Sclerae is icteric. Oral mucosa is normal. Respiratory: Lungs are clear to auscultation. Normal respiratory effort. Cardiovascular: Normal S1, S2. Heart rate and rhythm is irregular Gastrointestinal: Abdomen is soft, nontender. Extremities: No lower extremity edema noted. Neurological: Alert and oriented x3. No focal motor deficits noted. LABORATORY DATA: WBCs 9.49, hemoglobin 9.1, hematocrit 28.6, platelet count 372,000. Potassium 3.4, creatinine 0.6, calcium 8.2, total bilirubin 8.26, alkaline phosphatase 457, AST 90, ALT 60, albumin 2.6. ASSESSMENT AND PLAN: 1. Warm antibody hemolytic anemia/cholestatic jaundice. The patient will receive his second dose of rituximab today with appropriate premedication. The patient will stay in the hospital and he will be monitored for any infusional reactions and side effects. 2. Allergy prophylaxis. The patient will receive Tylenol, Benadryl, Decadron and Pepcid prior to his infusions for any potential allergic reactions. The patient will be monitored for any allergic reactions and side effects while he is receiving his infusion. 3. Stage III pancreatic cancer, status post Whipple procedure. The patient will be discharged on Friday. We will follow up with him in the office 1 to 2 weeks. 4. Deconditioning and right foot drop, aware. The patient has been encouraged to drink protein shakes and eat adequate amount of calories. 5. Deep venous thrombosis prophylaxis. The patient has remained on maintenance doses of Eliquis twice a day. He is also getting up out of bed and walking the halls per his wishes. Dictated by KORINA Hendricks for Tunde Carpenter MD cc: MD Oziel Santos MD
[2019-07-08] MEDS: CREON PO SCH ×3 (10:54→18:11)
[2019-07-08] MEDS: WELLBUTRIN PO SCH (10:54)
[2019-07-08] MEDS: REGLAN PO SCH ×3 (10:54→18:11)
[2019-07-08] MEDS: CARDIZEM PO SCH ×3 (10:54→21:46)
[2019-07-08] MEDS: ZOFRAN ODT PO SCH ×3 (10:54→18:11)
[2019-07-08] MEDS: ELIQUIS PO SCH ×2 (10:55→21:46)
[2019-07-08] MEDS: FOLIC ACID 5 MG in NS 50 ML IV SCH (10:55)
[2019-07-08] MEDS: MIRALAX PO SCH (10:55)
[2019-07-08] MEDS: CLARITIN PO SCH (10:55)
[2019-07-08] MEDS: PRILOSEC PO SCH (10:55)
[2019-07-08] MEDS ORDERED: TYLENOL PO ONE (11:30)
[2019-07-08] MEDS ORDERED: PEPCID ONE (13:41)
--- NOTE | 2019-07-08 21:24 | PROGRESS NOTE ---
DATE: 07/08/2019 SUBJECTIVE: The patient is in good spirits. No complaints. Urine is clearing up. Patient waiting to get Rituxan today. REVIEW OF SYSTEMS: None reported. PHYSICAL EXAMINATION: Temperature is 97 degrees, pulse 106, blood pressure 121/66, 97%.HEENT: Jaundice, anemia. Neck: Supple. Chest: Bilateral air entry. Irregular heart sounds. Belly is soft, nontender. INVESTIGATIONS: CBC: White cell count 9.49, hematocrit 28.6, platelets 372,000. Sodium 138, potassium 3.4, chloride 103, BUN 7, creatinine 0.6, calcium 8.2, bilirubin 8.2. LFTs remain the same. ASSESSMENT: 1. Stage 3 pancreatic cancer. 2. Cholestatic jaundice superimposing with warm antibody hemolysis. 3. Anemia, multifactorial. 4. Chronic atrial fibrillation. PLAN: Rituxan. Will follow up on Labs, and after that we hopefully can discharge over the weekend. LEVEL OF DOCUMENTATION: 25 minutes. cc: Oziel Riley MD MTDD
[2019-07-09] MEDS: NS 1,000 ML IV SCH (04:30)
[2019-07-09] MEDS: PERIACTIN PO SCH ×3 (06:25→16:35)
[2019-07-09 08:09] LABS: BASO# 0.05 X1000 (0.0-0.2); BASO% 0.5 % (0.0-0.8); HEMATOCRIT 28.2 % (42.0-52.0); HEMOGLOBIN 9.5 g/dL (14.0-18.0); LYMPH# 1.22 X1000 (1.2-3.4); LYMPH% 12.2 % (20.5-51.1); MCH 41.7 PG (27-31); MCHC 33.7 g/dL (33-37); MCV 123.7 FL (81-99); MONO# 0.86 X1000 (0.11-0.59); MONO% 8.6 % (1.7-9.3); MPV 8.9 FL (7.4-10.4); PLT 343 X1000 (130-400); RBC 2.28 XMIL (4.7-6.1); RDW 19.9 % (11.5-14.5); WBC 9.99 X1000 (4.8-10.8)
[2019-07-09 08:29] LABS: AGAP 10; ALB/GLOB RATIO 0.4; ALBUMIN 2.3 g/dL (3.5-5.0); ALKALINE PHOSPHATASE 413 U/L (32-122); BUN 6 mg/dL (8-22); CHLORIDE 105 mmol/L (98-107); COSMO 274; CREATININE 0.6 mg/dL (0.7-1.2); ESTIMATED GFR > 60; GLUCOSE 103 mg/dL (70-104); GOT 77 U/L (10-34); GPT 57 U/L (10-44); POTASSIUM 3.3 mmol/L (3.5-5.1); SODIUM 138 mmol/L (136-145); TCO2 23 mmol/L (25-35); TOTAL PROTEIN 7.7 g/dL (6.3-8.3)
[2019-07-09] MEDS: FOLIC ACID 5 MG in NS 50 ML IV SCH (08:47)
[2019-07-09] MEDS: PRILOSEC PO SCH (08:47)
[2019-07-09] MEDS: ELIQUIS PO SCH ×2 (08:48→21:17)
[2019-07-09] MEDS: CREON PO SCH ×3 (08:48→16:36)
[2019-07-09] MEDS: ZOFRAN ODT PO SCH ×3 (08:48→16:35)
[2019-07-09] MEDS: REGLAN PO SCH ×3 (08:48→16:35)
[2019-07-09] MEDS: CARDIZEM PO SCH ×3 (08:48→21:17)
[2019-07-09] MEDS: MIRALAX PO SCH (08:48)
[2019-07-09] MEDS: CLARITIN PO SCH (08:48)
[2019-07-09] MEDS: WELLBUTRIN PO SCH (08:48)
--- NOTE | 2019-07-09 09:16 | HEMO/ONC PROGRESS NOTE ---
DATE: 07/09/2019 SUBJECTIVE: The patient is very welcoming this morning. He had his chemotherapy infused yesterday. He denies any side effects or complications. He has no complaints. He continues to deny any pain. His jaundice is improving though still present. The patient had a good night's sleep. He should be discharged home today. OBJECTIVE: Vital Signs: Temperature 98.1 degrees, pulse rate 112, respiratory rate 23, blood pressure 115/72, O2 saturation 98% on room air. He is in 0/10 pain. PHYSICAL EXAMINATION: General: He is in no acute distress. HEENT: Sclerae is anicteric. Oral mucosa is normal. PERRLA. Cardiovascular: Normal S1, S2. Heart rate and rhythm is irregular and tachycardic. Respiratory: Lung sounds are clear to auscultation. Normal respiratory effort. Gastrointestinal: Abdomen is soft, nontender. Extremities: No lower extremity edema noted. Neurological: Alert and oriented x3. No focal motor deficits noted. Skin: Jaundiced. Warm, dry, and intact. LABORATORY DATA: WBCs 9.99, hemoglobin 9.5, hematocrit 28.2, platelet count 343,000. Potassium 3.3, creatinine 0.6, calcium 8.0. Total bilirubin 7.5, AST 77, ALT 57, alkaline phosphatase 413, albumin 2.3. ASSESSMENT AND PLAN: 1. Warm antibody hemolytic anemia. Patient has received his 2nd weekly dose of rituximab. He tolerated it very well. He denied any side effects. We will follow up with the patient in 1 week in the office for his 3rd dose. 2. Stage III pancreatic cancer, status post Whipple procedure. The patient will be discharged hopefully today or tomorrow. We will follow up with him in the office next week to continue treatment. 3. Deconditioning and right footdrop. The patient is encouraged to drink protein shakes and maintain his weight with adequate amount of calories. PT and home health care after discharge. 4. Deep venous thrombosis prophylaxis. The patient has remained on maintenance doses of Eliquis twice a day. He is also getting up out of bed and walking. 5. Cholestatic jaundice: per Dr. Riley. Dictated by KORINA Hendricks for Tunde Carpenter MD cc: MD Oziel Santos MD [facility]ICAL CENTERJose Manuel
[2019-07-09 09:53] LABS: BANDS 2 % (0-1); EOS 6 % (1-10); LYMPHS 12 % (21-51); SEGS 76 % (42-75)
[2019-07-09] MEDS: POTASSIUM CHLORIDE 20 MEQ/SWI 20 MEQ/100 ML IVPB IV SCH ×2 (09:57→13:04)
--- NOTE | 2019-07-09 21:22 | PROGRESS NOTE ---
DATE: 07/09/2019 SUBJECTIVE: The patient continues to improve and he is in good spirits. I appreciate Dr. Carpenter's efforts. OBJECTIVE: Temp is 98 degrees, pulse 99. Vitals are stable. Jaundice, slightly anemic.Chest: Clear. Heart: Regular heart sounds. No neurological deficits. LABS: CBC: White cell count 9.9, hematocrit 28, platelets 343,000. Sodium 138, potassium 3.3, chloride 105, and bilirubin 7.5. ASSESSMENT AND PLAN: 1. Obstructive jaundice with cholestatic picture complicated by warm antibody slight hemolytic anemia status post Rituxan improving. 2. Stage III pancreatic cancer, stable. 3. Deconditioning. 4. Right footdrop. 5. Chronic atrial fibrillation. 6. Hypokalemia. Replace the potassium. 7. Continue IV folic acid, Creon capsule. Patient is eating well. I spoke to the about the disposition versus the rehab versus going home with outpatient home health and portable DNR was placed level 1 and based on the disposition, the patient will be discharged over the weekend. Continue present treatment. LEVEL OF DOCUMENTATION: 35 minutes. cc: Oziel Riley MD
[2019-07-10] MEDS: NS 1,000 ML IV SCH (02:47)
[2019-07-10] MEDS: PERIACTIN PO SCH ×2 (06:23→06:25)
[2019-07-10] MEDS: ELIQUIS PO SCH (10:29)
[2019-07-10] MEDS: WELLBUTRIN PO SCH (10:29)
[2019-07-10] MEDS: PRILOSEC PO SCH (10:29)
[2019-07-10] MEDS: FOLIC ACID 5 MG in NS 50 ML IV SCH (10:30)
[2019-07-10] MEDS: REGLAN PO SCH (10:30)
[2019-07-10] MEDS: CARDIZEM PO SCH (10:30)
[2019-07-10] MEDS: ZOFRAN ODT PO SCH (10:30)
[2019-07-10] MEDS: MIRALAX PO SCH (10:30)
[2019-07-10] MEDS: CLARITIN PO SCH (10:30)
[2019-07-10] MEDS: CREON PO SCH (10:35)
[2019-07-10 12:25] VITALS: BP 99/68
--- NOTE | 2019-07-12 08:55 | DISCHARGE SUMMARY ---
ADMISSION DATE: 06/24/2019 DISCHARGE DATE: 07/10/2019 DISCHARGING DIAGNOSIS: Anemia, cholestatic jaundice complicated by warm antibody hemolytic anemia, Lida test positive, idiopathic. SECONDARY DIAGNOSES: 1. Right footdrop due to chemotherapy. 2. Deconditioning. 3. Stage III pancreatic cancer, status post Whipple procedure. 4. History of kidney stones. 5. Cachexia due to pancreatic cancer. 6. Chronic atrial fibrillation. 7. History of kidney stone disease. 8. Reactive depression. CONSULTS: Dr. Carpenter. PROCEDURES: 1. IV immunoglobulin treatment x3. 2. IV Rituxan treatment x2. BRIEF HISTORY: Please see the H and P that was done on 06/22/2019. In brief, he is a 73-year-old white gentleman, basically admitted to the hospital with profound anemia, hemoglobin 7 and hematocrit 21, associated with jaundice 18. The patient has prior cholestatic jaundice based on the liver biopsy. There was no clear-cut obstruction. The picture was confusing. It was thought to be related to medications from amiodarone and TPN. He had a significant fatty liver. There is no tumor burden in the liver. Now, the last MRCP was negative for obstructive pathology. Despite stopping all the medicines, he continues to have anemia and worsening of jaundice. HOSPITAL COURSE: Initial plan was starting blood transfusion. Blood bank reported the patient has cold agglutinins and warm antibody IgG, Lida positive. Hematology consult was obtained by Dr. Carpenter. We looked up the etiology. At this time, there was no inkling of having lupus disease, CLL, presumed to be drug-induced from NSAIDs, and a repeat Lida test was negative. He has a low haptoglobin. Urine was dark and significant elevation of reticulocyte count. His picture is combination of cholestatic jaundice and also hemolysis from warm antibody. The patient was given IV fluids, folic acid, IV gammaglobulin without any significant improvement. The patient was started on Rituxan x2 doses and subsequently he had reticulocyte count very well and hematocrit 28, bilirubin was 7.5. Dr. Carpenter is going to monitor. The patient has been eating very well. During this hospital course, he pulled the PICC line out, and we can use his port on the left side of the chest. Family has agreed upon to take him home with outpatient [facility] health care. LABORATORY DATA: The laboratory data is as follows: CBC showed white cell count 9.8, hematocrit 28, platelets 343,000. Sodium 138, potassium 3.3, chloride 105, BUN 6, creatinine 0.6, total bilirubin 7.5. Elevated LFTs. DISCHARGE INSTRUCTIONS/MEDICATIONS: Wellbutrin 150 daily, Creon 2 tablets t.i.d., Reglan 10 t.i.d., Tylenol for p.r.n. pain, Loratadine 10 daily, Zofran as needed, Prilosec 20 daily, Periactin 4 mg b.i.d. with meals, Eliquis 2.5 p.o. b.i.d., diltiazem 30 p.o. t.i.d. or 120 mg daily, MiraLAX 17 grams daily, folic acid, B12 at 1 tablet daily, and outpatient home health care with comfort care. Follow up in Dr. Carpenter's office this coming . cc: MD Tunde Davis MD
== END 2019-07-10 14:59 | disposition home health service (06) | DRG 809 ==
LOC: DIRADM → 3N 10:54
PROVIDERS: ADMIT Internal Medicine; ATTEND Internal Medicine

== ENCOUNTER 2019-07-15 11:10 | Inpatient (IN) ==
[2019-07-15 12:47] LABS: BASO# 0.04 X1000 (0.0-0.2); BASO% 0.2 % (0.0-0.8); EOS# 0.05 X1000 (0.0-0.7); EOS% 0.3 % (0.0-10.0); HEMATOCRIT 21.1 % (42.0-52.0); HEMOGLOBIN 7.7 g/dL (14.0-18.0); IMM GRAN# 0.03 X1000 (0.0-0.04); IMM GRAN% 0.2 % (0.0-0.5); LYMPH# 1.53 X1000 (1.2-3.4); LYMPH% 9.4 % (20.5-51.1); MCH 44.8 PG (27-31); MCHC 36.5 g/dL (33-37); MCV 122.7 FL (81-99); MONO% 6.7 % (1.7-9.3); MPV 8.8 FL (7.4-10.4); NEUT# 13.57 X1000 (1.4-6.5); NEUT% 83.2 % (42.2-75.2); PLT 370 X1000 (130-400); RBC 1.72 XMIL (4.7-6.1); RDW 20.4 % (11.5-14.5); RETIC% 11.92 % (0.8-2.1); RETIC-HE 48.1 PG (28.2-36.6); WBC 16.32 X1000 (4.8-10.8)
[2019-07-15 12:53] LABS: INR 1.71; PROTIME 20.4 Seconds (11.0-16.0)
[2019-07-15 12:54] LABS: PTT 43.4 Seconds (22.3-41.8)
[2019-07-15 13:10] LABS: AGAP 10; ALB/GLOB RATIO 0.5; ALBUMIN 2.3 g/dL (3.5-5.0); ALKALINE PHOSPHATASE 424 U/L (32-122); BUN 15 mg/dL (8-22); CALCIUM 8.9 mg/dL (8.8-10.2); CHLORIDE 100 mmol/L (98-107); COSMO 269; CREATININE 0.8 mg/dL (0.7-1.2); ESTIMATED GFR > 60; GLUCOSE 91 mg/dL (70-104); GOT 107 U/L (10-34); GPT 64 U/L (10-44); LDH 353 U/L (135-225); POTASSIUM 2.8 mmol/L (3.5-5.1); SODIUM 134 mmol/L (136-145); TCO2 24 mmol/L (25-35); TOTAL PROTEIN 7.3 g/dL (6.3-8.3)
[2019-07-15 13:21] LABS: DIRECT BILIRUBIN > 10.00 mg/dL (0.00-0.20); TOTAL BILIRUBIN 24.77 mg/dL (0.20-1.00)
[2019-07-15] MEDS: FOLIC ACID 5 MG in NS 50 ML IV SCH (15:36)
[2019-07-15] MEDS: POTASSIUM CHLORIDE 20 MEQ/SWI 20 MEQ/100 ML IVPB IV SCH ×2 (15:54→18:54)
[2019-07-15] MEDS: NS 1,000 ML IV SCH ×2 (15:54→22:20)
[2019-07-15] MEDS ORDERED: PERIACTIN PO SCH (16:00)
[2019-07-15] MEDS ORDERED: REGLAN PO SCH (17:00)
[2019-07-15] MEDS ORDERED: ZOFRAN ODT PO SCH (17:00)
[2019-07-15] MEDS: CARDIZEM PO SCH (17:56)
[2019-07-15] MEDS: CREON PO SCH (18:55)
--- NOTE | 2019-07-15 22:15 | HISTORY AND PHYSICAL ---
CHIEF COMPLAINT: Direct admission from Dr. Carpenter's office, recently discharged with severe anemia and severe jaundice. HISTORY OF PRESENT ILLNESS: He is a 74-year-old white gentleman who has been suffering from stage III pancreatic cancer after Whipple procedure complicated by gastroparesis and cholestatic jaundice and superimposing with autoimmune hemolytic anemia with warm antibody. The patient was treated with steroids, IV gammaglobulin, Rituxan with some improvement, discharged last week. At the time of discharge, hematocrit 28, jaundice was 8. He has low haptoglobin increasing with LDH. He was doing well until yesterday. He went to Dr. Carpenter's office for chemotherapy, and he was found to have severe jaundice. Dr. Carpenter did blood workup and revealed hemoglobin is 7, bilirubin is 25, and LDH was high, direct bilirubin more than 10. Potassium is 2.8. He was dehydrated. Family was at bedside. As a result, he was hospitalized again. PAST MEDICAL HISTORY: Stage III pancreatic cancer, status post Whipple procedure, type 2 diabetes, acid reflux disease, gastroparesis, resolving, persistent atrial fibrillation, kidney stones, reactive depression, osteoarthritis, right footdrop. PAST SURGICAL HISTORY: Status post Whipple procedure, removal of J-tube, removal of PICC line on the left side, Port-A-Cath on the left side, ventral hernia repair, colon resection with colostomy repair. ALLERGIES: Reported to iodinated contrast. MEDICATIONS: Recently given Rituxan, Wellbutrin 150 daily, Creon capsule 2 tablets t.i.d., Reglan 10 mg t.i.d., Loratadine 10 daily, Zofran 8 mg t.i.d., Prilosec 20 daily, Periactin 4 mg t.i.d., Eliquis 2.5 b.i.d., Cardizem 120 daily. SOCIAL HISTORY: Has been for 52 years, one daughter, retired, lives in [place]. Stopped drinking alcohol. Living will, has a DNR. FAMILY HISTORY: Noncontributory. REVIEW OF SYSTEMS: Patient was sleeping. Family was at bedside. Extremely weak. PHYSICAL EXAMINATION: VITAL SIGNS: Temperature is 97 degrees, tachycardic. Vitals are stable 99%. GENERAL: Anemic, jaundiced. HEART: Irregular heart sounds. LUNGS: Bilateral air entry. ABDOMEN: Soft, nontender. NEUROLOGIC: No focal deficits. INVESTIGATIONS: White cell count 16, hemoglobin 7.7, hematocrit 21, platelet count 370,000, reticulocyte count 48, PT 28, INR 1.7. Sodium 134, potassium 2.8, bilirubin 24, direct bilirubin more than 10, elevated LFTs. LDH was high. ASSESSMENT AND PLAN: 1. A 74-year-old white male with stage III pancreatic cancer status post Whipple's on hold, complicated by cholestatic jaundice due to possible drug-induced amiodarone versus TPN, and biopsy was negative and now with warm antibody hemolytic anemia with hemolysis. Plan is IV fluids 80 mL an hour, IV folic acid. 2. Autoimmune hemolytic anemia. I did review the literature. This could be paraneoplastic syndrome for pancreatic cancer. There was 1 report mentioned in [employer] journal in November 2018. Usually it is related to lymphoma, lupus or drug-induced. At this time, no etiology has been revealed, and he was not responding with gammaglobulin or Rituxan. 3. As part of the hemolysis, we will do the reticulocyte count, haptoglobin, LDH and follow up on the labs. 4. Chronic atrial fibrillation, pancreatic cancer, Eliquis for stroke prevention as well as deep venous thrombosis prevention. 5. Reactive depression on Wellbutrin. 6. Palliative care consult with a Do Not Resuscitate. Dr. Carpenter consult and follow up on CA19-9. cc: Oziel Riley MD [facility]
[2019-07-15] MEDS: ZOFRAN ODT PO SCH (22:17)
[2019-07-15] MEDS: PERIACTIN PO SCH (22:18)
[2019-07-15] MEDS: ELIQUIS PO SCH (22:18)
[2019-07-15] MEDS: REGLAN PO SCH (22:18)
[2019-07-16] MEDS: PERIACTIN PO SCH ×3 (06:41→21:29)
[2019-07-16] MEDS: PRILOSEC PO SCH (06:41)
[2019-07-16] MEDS: REGLAN PO SCH ×3 (06:41→21:29)
[2019-07-16] MEDS: ZOFRAN ODT PO SCH ×3 (06:41→21:29)
[2019-07-16 08:32] LABS: BASO# 0.04 X1000 (0.0-0.2); BASO% 0.3 % (0.0-0.8); EOS# 0.09 X1000 (0.0-0.7); EOS% 0.6 % (0.0-10.0); HEMATOCRIT 21.4 % (42.0-52.0); HEMOGLOBIN 7.3 g/dL (14.0-18.0); IMM GRAN# 0.04 X1000 (0.0-0.04); IMM GRAN% 0.3 % (0.0-0.5); LYMPH# 1.09 X1000 (1.2-3.4); LYMPH% 7.8 % (20.5-51.1); MCH 44.5 PG (27-31); MCHC 34.1 g/dL (33-37); MCV 130.5 FL (81-99); MONO# 0.87 X1000 (0.11-0.59); MONO% 6.2 % (1.7-9.3); MPV 9.2 FL (7.4-10.4); NEUT# 11.88 X1000 (1.4-6.5); NEUT% 84.8 % (42.2-75.2); PLT 341 X1000 (130-400); RBC 1.64 XMIL (4.7-6.1); RDW 22.6 % (11.5-14.5); WBC 14.01 X1000 (4.8-10.8)
[2019-07-16 08:36] LABS: RETIC% 13.23 % (0.8-2.1); RETIC-HE 42.6 PG (28.2-36.6)
[2019-07-16 09:01] LABS: AGAP 11; ALB/GLOB RATIO 0.5; ALBUMIN 2.4 g/dL (3.5-5.0); ALKALINE PHOSPHATASE 382 U/L (32-122); BUN 9 mg/dL (8-22); CALCIUM 8.5 mg/dL (8.8-10.2); CHLORIDE 105 mmol/L (98-107); COSMO 279; CREATININE 0.7 mg/dL (0.7-1.2); ESTIMATED GFR > 60; GLUCOSE 107 mg/dL (70-104); GOT 85 U/L (10-34); GPT 57 U/L (10-44); POTASSIUM 2.8 mmol/L (3.5-5.1); SODIUM 140 mmol/L (136-145); TCO2 24 mmol/L (25-35); TOTAL BILIRUBIN 27.25 mg/dL (0.20-1.00)
[2019-07-16 09:02] LABS: BANDS 2 % (0-1); LYMPHS 2 % (21-51); NRBC 1 % (0-0); SEGS 96 % (42-75)
[2019-07-16 09:03] LABS: ANISOCYTOSIS 2+; HYPOCHROM 1+
[2019-07-16] MEDS: CARDIZEM PO SCH ×3 (09:31→16:26)
[2019-07-16] MEDS: WELLBUTRIN XL PO SCH (09:31)
[2019-07-16] MEDS: CREON PO SCH ×3 (09:31→16:24)
[2019-07-16] MEDS: ELIQUIS PO SCH ×2 (09:31→21:29)
[2019-07-16] MEDS: MIRALAX PO SCH (09:31)
[2019-07-16] MEDS: CLARITIN PO SCH (09:31)
[2019-07-16] MEDS ORDERED: SOLU-MEDROL IV ONE (10:39)
--- NOTE | 2019-07-16 13:04 | Diag Imaging Result Doc PS360 ---
EXAM: CT ABD/PELVIS W/IV CONT ONLY HISTORY: Abdominal pain TECHNIQUE: CT abdomen and pelvis with intravenous contrast, but without oral contrast. COMPARISON: 05/03/2019 FINDINGS: There are small bilateral pleural effusions. The one on the right measures 2.7 cm posteriorly and inferiorly in the midline where is the one on the left measures 2.3 cm. There are infiltrates and atelectasis in the lower lungs. The gallbladder has been removed. Trace fluid about the liver. There is periportal edema. No focal hepatic abnormality. No splenomegaly. The pancreas is atrophic. Normal adrenal glands. There are nonobstructing renal stones. No hydronephrosis. Prominent atherosclerosis. There is a 2.7 cm bulge in the distal aorta. No bowel obstruction. There are many colonic diverticula. There continues to be thickening to the wall of the ascending colon. No adjacent free air. No abscess. There apparently has been a gastric bypass procedure. The urinary bladder is distended and normal. The prostate is not enlarged. There is an anterior abdominal wall mesh. Degenerative changes in the lumbar spine. IMPRESSION: 1.Development of basilar infiltrates with atelectasis and small pleural effusions 2.Persistent ascending colitis 3.Cholecystectomy and periportal edema with fatty infiltration of the liver 4.Nonobstructing renal stones 5.Distal aortic bulge with prominent atherosclerosis This exam was performed using automated exposure control, adjustment of mA or kV according to patient size, and/or use of iterative reconstruction technique. Electronically signed by Federico Holm 07/16/2019 1:02 PM
--- NOTE | 2019-07-16 13:05 | Diag Imaging Result Doc PS360 ---
EXAM: CHEST-2 VIEWS HISTORY: hypoxia TECHNIQUE: Two views COMPARISON: 06/27/2019 FINDINGS: Development of small pleural effusions with basilar infiltrates and atelectasis. No change in the left-sided portacatheter. No pneumothorax. IMPRESSION: Lower lobe pneumonia and atelectasis Electronically signed by Federico Holm 07/16/2019 1:03 PM
[2019-07-16] MEDS ORDERED: MAGNESIUM SULFATE 2 GM/S.W.I. 2 GM/50 ML IVPB IV ONE (13:47)
[2019-07-16] MEDS: FOLIC ACID 5 MG in NS 50 ML IV SCH (14:08)
[2019-07-16] MEDS: NS 1,000 ML IV SCH ×3 (14:24→20:51)
[2019-07-16] MEDS: POTASSIUM CHLORIDE 60 MEQ in NS 500 ML IV SCH ×3 (16:17→21:30)
--- NOTE | 2019-07-16 21:10 | PROGRESS NOTE ---
DATE: 07/16/2019 SUBJECTIVE: The patient is awake, severely jaundice, with good spirits. REVIEW OF SYSTEMS: None reported. Appreciate Dr. Carpenter's consult. OBJECTIVE: Temperature is 98 degrees, pulse 105. Vitals are stable. Severely jaundiced.Neck: Supple. Chest: Bilateral air entry. Irregular heart sounds. Belly is soft, nontender. No obvious deficits. INVESTIGATIONS: White cell count 14, hematocrit 21.4, platelet count 341,000. Reticulocyte count is high. Haptoglobin is low. LDH is high. Potassium 2.8. Bilirubin 27. Increased LFTs. Chest x-ray was stable. ASSESSMENT: 1. Stage 3 pancreatic cancer/cholestatic jaundice/autoimmune hemolytic anemia. This could be paraneoplastic from pancreatic cancer. 2. Depression. 3. Right foot drop. PLAN OF CARE: 1. IV fluids, IV folic acid. Replace the potassium for 2.8. 2. Continue to monitor CBC, CMP, and CA-19-9. The patient did receive Rituxan x2. At this time, the picture is baffling. I also ordered CA-19-9. Follow up on CT scan of the abdomen and pelvis, and will follow up. LEVEL OF DOCUMENTATION: 25 minutes. cc: Oziel Riley MD
[2019-07-17] MEDS: ZOFRAN ODT PO SCH ×3 (06:18→21:12)
[2019-07-17] MEDS: PERIACTIN PO SCH ×3 (06:18→21:12)
[2019-07-17] MEDS: PRILOSEC PO SCH (06:18)
[2019-07-17] MEDS: REGLAN PO SCH ×3 (06:18→21:12)
[2019-07-17 07:09] LABS: BASO# 0.02 X1000 (0.0-0.2); BASO% 0.1 % (0.0-0.8); EOS# 0.04 X1000 (0.0-0.7); EOS% 0.3 % (0.0-10.0); HEMATOCRIT 21.3 % (42.0-52.0); HEMOGLOBIN 7.8 g/dL (14.0-18.0); IMM GRAN# 0.04 X1000 (0.0-0.04); IMM GRAN% 0.3 % (0.0-0.5); LYMPH# 1.33 X1000 (1.2-3.4); LYMPH% 8.8 % (20.5-51.1); MCH 46.7 PG (27-31); MCHC 36.6 g/dL (33-37); MCV 127.5 FL (81-99); MONO# 0.84 X1000 (0.11-0.59); MONO% 5.5 % (1.7-9.3); MPV 9.5 FL (7.4-10.4); NEUT# 12.91 X1000 (1.4-6.5); PLT 326 X1000 (130-400); RBC 1.67 XMIL (4.7-6.1); WBC 15.18 X1000 (4.8-10.8)
[2019-07-17 07:53] LABS: BANDS 2 % (0-1); LYMPHS 6 % (21-51); MONO 6 % (1-9); SEGS 86 % (42-75)
[2019-07-17 08:04] LABS: AGAP 12; ALB/GLOB RATIO 0.5; ALBUMIN 2.6 g/dL (3.5-5.0); ALKALINE PHOSPHATASE 362 U/L (32-122); BUN 8 mg/dL (8-22); CALCIUM 8.7 mg/dL (8.8-10.2); CHLORIDE 109 mmol/L (98-107); COSMO 280; CREATININE 0.6 mg/dL (0.7-1.2); ESTIMATED GFR > 60; GLUCOSE 101 mg/dL (70-104); GOT 66 U/L (10-34); GPT 55 U/L (10-44); POTASSIUM 3.6 mmol/L (3.5-5.1); SODIUM 141 mmol/L (136-145); TCO2 20 mmol/L (25-35); TOTAL BILIRUBIN 24.28 mg/dL (0.20-1.00); TOTAL PROTEIN 7.5 g/dL (6.3-8.3)
[2019-07-17] MEDS: NS 1,000 ML IV SCH ×3 (08:47→21:12)
[2019-07-17] MEDS: CLARITIN PO SCH (08:47)
[2019-07-17] MEDS: WELLBUTRIN XL PO SCH (08:47)
[2019-07-17] MEDS: ELIQUIS PO SCH ×2 (08:47→21:12)
[2019-07-17] MEDS: CARDIZEM PO SCH ×3 (08:47→17:42)
[2019-07-17] MEDS: MIRALAX PO SCH (08:48)
[2019-07-17] MEDS: CREON PO SCH ×3 (08:49→17:42)
--- NOTE | 2019-07-17 11:42 | PROGRESS NOTE ---
DATE: 07/17/2019 SUBJECTIVE: The patient has had some pain in the right lower quadrant area. He was able to eat oatmeal and applesauce this morning and he remains quite jaundiced. He has had no vomiting. Had 2 soft bowel movements in the past 24 hours. OBJECTIVE: Vital signs: Afebrile, pulse 97, respirations 18, blood pressure 114/56, O2 saturation on room air 99%. General: Frail, elderly appearing white male, quite jaundiced. Cardiovascular: Regular rate and rhythm. Lungs: Distant breath sounds diffusely. No definite crackles identified. Abdomen: Soft. Active bowel sounds. No major tenderness. No rebound or guarding. Extremities: No calf tenderness, cords or edema. Neurologic: Patient is alert and oriented x3. Moves all extremities well. No focal deficits appreciated. IMAGING: Chest x-ray yesterday revealed possible left pneumonia and atelectasis. CT of the abdomen and pelvis revealed basilar infiltrates and atelectasis with small pleural effusions, persistent ascending colitis, prior cholecystectomy with periportal edema and fatty infiltration of the liver noted, nonobstructive renal stones, distal aortic bulge with prominent atherosclerosis. LABORATORY DATA: White count 72070, hemoglobin 7.8 which is fairly stable, platelets 326,000. Sodium 141, potassium normal now after repletion at 3.6, chloride 109, CO2 20, BUN 8, creatinine 0.6, glucose 101, calcium 8.7. Total bilirubin 24.28, AST 66, ALT 55, alkaline phosphatase 326. LDH yesterday 333, total protein 7.5, albumin 2.6. Haptoglobin yesterday less than 10. ASSESSMENT: 1. Stage III pancreatic cancer with cholestatic jaundice and severe autoimmune hemolytic anemia. 2. Depression. 3. Right footdrop. 4. Possible pneumonia on the left. 5. Paroxysmal atrial fibrillation. PLAN: At this time, he is receiving folate and IV hydration. He is on his Creon and oral Reglan and oral PPI. He is on MiraLAX daily for bowel movements. He received some steroids yesterday. He is on his diltiazem due to history of atrial fibrillation. Continue supportive measures and follow his labs with transfusions as required. Dr. Carpenter is seeing the patient as well, and Palliative Care has been consulted. cc: MD Oziel Trinidad MD
[2019-07-17] MEDS: LEVAQUIN 250 MG/D5W 250 MG/50 ML IVPB IV SCH (13:47)
[2019-07-17] MEDS: FOLIC ACID 5 MG in NS 50 ML IV SCH (13:48)
[2019-07-18] MEDS: REGLAN PO SCH ×4 (05:55→21:23)
[2019-07-18] MEDS: PERIACTIN PO SCH ×4 (05:55→21:24)
[2019-07-18] MEDS: PRILOSEC PO SCH ×2 (05:55→06:41)
[2019-07-18] MEDS: ZOFRAN ODT PO SCH ×4 (05:55→21:24)
--- NOTE | 2019-07-18 07:12 | Diag Imaging Result Doc PS360 ---
EXAM: CHEST-PORTABLE 07/18/2019 HISTORY: lt infiltrate TECHNIQUE: AP portable at 0557 COMMENT: There is ill-defined opacity in both lungs particularly in the lower lobes and worse on the right than the left. This was also present on 07/16/2019 but appears slightly worse in the right lower lobe. IMPRESSION: Pulmonary edema and/or pneumonia. Electronically signed by Lorenzo Concepcion 07/18/2019 7:09 AM
[2019-07-18 08:27] LABS: BASO# 0.06 X1000 (0.0-0.2); BASO% 0.5 % (0.0-0.8); EOS# 0.13 X1000 (0.0-0.7); HEMATOCRIT 23.7 % (42.0-52.0); HEMOGLOBIN 7.9 g/dL (14.0-18.0); IMM GRAN# 0.08 X1000 (0.0-0.04); IMM GRAN% 0.6 % (0.0-0.5); LYMPH# 1.43 X1000 (1.2-3.4); MCH 44.4 PG (27-31); MCHC 33.3 g/dL (33-37); MCV 133.1 FL (81-99); MONO# 0.75 X1000 (0.11-0.59); MONO% 5.8 % (1.7-9.3); MPV 9.2 FL (7.4-10.4); NEUT# 10.51 X1000 (1.4-6.5); NEUT% 81.1 % (42.2-75.2); PLT 378 X1000 (130-400); RBC 1.78 XMIL (4.7-6.1); RDW 23.5 % (11.5-14.5); WBC 12.96 X1000 (4.8-10.8)
[2019-07-18 08:28] LABS: AGAP 12; ALB/GLOB RATIO 0.5; ALBUMIN 2.3 g/dL (3.5-5.0); ALKALINE PHOSPHATASE 354 U/L (32-122); BUN 7 mg/dL (8-22); CALCIUM 7.8 mg/dL (8.8-10.2); CHLORIDE 103 mmol/L (98-107); COSMO 272; CREATININE 0.7 mg/dL (0.7-1.2); ESTIMATED GFR > 60; GLUCOSE 99 mg/dL (70-104); GOT 57 U/L (10-34); GPT 47 U/L (10-44); SODIUM 137 mmol/L (136-145); TCO2 22 mmol/L (25-35); TOTAL BILIRUBIN 17.96 mg/dL (0.20-1.00)
[2019-07-18] MEDS: ELIQUIS PO SCH ×2 (08:44→21:23)
[2019-07-18] MEDS: CLARITIN PO SCH (08:44)
[2019-07-18] MEDS: CARDIZEM PO SCH ×3 (08:44→21:23)
[2019-07-18] MEDS: CREON PO SCH ×3 (08:44→17:39)
[2019-07-18] MEDS: WELLBUTRIN XL PO SCH (08:45)
[2019-07-18] MEDS: MIRALAX PO SCH (08:49)
[2019-07-18] MEDS ORDERED: ZOFRAN ONE (08:50)
[2019-07-18 09:23] LABS: ANISOCYTOSIS 2+; HYPOCHROM 1+; LYMPHS 8 % (21-51); MONO 4 % (1-9); SEGS 88 % (42-75)
[2019-07-18 09:24] LABS: POIKILOCYTOSIS 1+
[2019-07-18] MEDS: NS 1,000 ML IV SCH ×2 (11:15→16:10)
[2019-07-18] MEDS: LEVAQUIN 250 MG/D5W 250 MG/50 ML IVPB IV SCH (11:15)
--- NOTE | 2019-07-18 11:39 | PROGRESS NOTE ---
DATE: 07/18/2019 SUBJECTIVE: The patient remains stable. Jaundice is quite prevalent, but total bilirubin has declined somewhat. OBJECTIVE: Vital signs: Afebrile, pulse 123, respirations 24, blood pressure 129/63, O2 saturation room air 97%. Cardiovascular: Irregularly irregular, mild tachycardia. Lungs: Distant breath sounds. Minimal crackles at the bases. Abdomen: Soft, nontender, nondistended. Extremities: No calf tenderness, cords or edema. Skin: Jaundice quite prevalent. Neurologic: Cranial nerves are intact. He moves all extremities well. Intake and output: I's and O's show 1440 in and 2150 out. He is eating 75 to 100 percent of his meals. LAB DATA: Today shows sodium 137, potassium 3.0, chloride 103, CO2 22, BUN 7, creatinine 0.7, glucose 99, calcium 7.8, total bilirubin 17.9, down from 27 two days ago. AST 57, ALT 47, alkaline phosphatase 254, all those declining slightly. Albumin 2.3. White count 12.9, hemoglobin 7.9, platelets 378,000. Chest x-ray reveals some pulmonary edema and/or pneumonia, right slightly greater than left. ASSESSMENT: 1. Stage III pancreatic cancer with cholestatic jaundice and severe autoimmune hemolytic anemia. 2. Pneumonia. 3. Mild fluid overload. 4. Depression. 5. Right foot drop, chronic. 6. Atrial fibrillation. PLAN: We will decrease IV fluids slightly. Continue IV Levaquin. Continue folic acid. Increase Cardizem to 30 mg q.i.d. Continue his Eliquis. Continue MiraLAX and supportive treatment. cc: MD Oziel Trinidad MD
[2019-07-18] MEDS: POTASSIUM CHLORIDE 20 MEQ/SWI 20 MEQ/100 ML IVPB IV SCH ×2 (12:57→16:31)
[2019-07-18] MEDS: FOLIC ACID 5 MG in NS 50 ML IV SCH (15:41)
[2019-07-19] MEDS: CARDIZEM PO SCH ×4 (05:09→20:31)
[2019-07-19] MEDS: PERIACTIN PO SCH ×3 (07:02→20:31)
[2019-07-19] MEDS: ZOFRAN ODT PO SCH ×3 (07:03→20:31)
[2019-07-19] MEDS: REGLAN PO SCH ×3 (07:03→20:31)
[2019-07-19] MEDS: PRILOSEC PO SCH (07:03)
[2019-07-19 09:17] LABS: BASO# 0.05 X1000 (0.0-0.2); BASO% 0.4 % (0.0-0.8); EOS# 0.14 X1000 (0.0-0.7); EOS% 1.2 % (0.0-10.0); HEMATOCRIT 20.7 % (42.0-52.0); HEMOGLOBIN 7.7 g/dL (14.0-18.0); IMM GRAN# 0.09 X1000 (0.0-0.04); IMM GRAN% 0.8 % (0.0-0.5); LYMPH# 1.46 X1000 (1.2-3.4); LYMPH% 12.5 % (20.5-51.1); MCH 48.1 PG (27-31); MCHC 37.2 g/dL (33-37); MCV 129.4 FL (81-99); MONO# 0.75 X1000 (0.11-0.59); MONO% 6.4 % (1.7-9.3); MPV 9.2 FL (7.4-10.4); NEUT# 9.15 X1000 (1.4-6.5); NEUT% 78.7 % (42.2-75.2); PLT 372 X1000 (130-400); RDW 21.9 % (11.5-14.5); WBC 11.64 X1000 (4.8-10.8)
[2019-07-19 09:36] LABS: EOS 2 % (1-10); LYMPHS 14 % (21-51); MONO 8 % (1-9); NRBC 1 % (0-0); SEGS 76 % (42-75)
[2019-07-19 09:41] LABS: AGAP 12; ALB/GLOB RATIO 0.5; ALBUMIN 2.3 g/dL (3.5-5.0); ALKALINE PHOSPHATASE 319 U/L (32-122); BUN 8 mg/dL (8-22); CHLORIDE 103 mmol/L (98-107); COSMO 274; CREATININE 0.5 mg/dL (0.7-1.2); ESTIMATED GFR > 60; GLUCOSE 107 mg/dL (70-104); GOT 68 U/L (10-34); GPT 46 U/L (10-44); MAGNESIUM 1.6 mg/dL (1.5-2.7); SODIUM 138 mmol/L (136-145); TCO2 23 mmol/L (25-35); TOTAL PROTEIN 6.7 g/dL (6.3-8.3)
[2019-07-19] MEDS: POTASSIUM CHLORIDE 60 MEQ in NS 500 ML IV SCH ×2 (10:00→16:24)
[2019-07-19] MEDS: ELIQUIS PO SCH ×2 (10:00→20:31)
[2019-07-19] MEDS: CREON PO SCH ×3 (10:00→16:25)
[2019-07-19] MEDS: CLARITIN PO SCH (10:00)
[2019-07-19] MEDS: WELLBUTRIN XL PO SCH (10:01)
[2019-07-19] MEDS: MIRALAX PO SCH (10:01)
[2019-07-19] MEDS: NS 1,000 ML IV SCH (13:09)
[2019-07-19] MEDS: LEVAQUIN 250 MG/D5W 250 MG/50 ML IVPB IV SCH (13:11)
[2019-07-19] MEDS: FOLIC ACID 5 MG in NS 50 ML IV SCH (14:24)
--- NOTE | 2019-07-19 19:59 | PROGRESS NOTE ---
DATE: 07/19/2019 SUBJECTIVE: A 74-year-old white gentleman admitted to the hospital with a significant jaundice with cholestatic with hemolytic anemia, warm antibody. He has significant elevation of reticulocyte count, LDH and decreased hemoglobin. Over the weekend, he developed shortness of breath. Fluids were stopped and his breathing status improved. The patient has been in good spirits. Potassium consistently getting low. REVIEW OF SYSTEMS: None reported. PHYSICAL EXAMINATION: Vital signs: Temperature is 98 degrees. Tachycardic. Vitals are stable. HEENT: Severely jaundiced, anemic. Heart: Irregular heart sounds. Lungs: Bilateral air entry. Abdomen: Belly is soft, scaphoid. Extremities: No peripheral edema. LABS: White cell count 11.6, hematocrit 20, platelets 372,000. Haptoglobin is negative. Sodium 138, potassium 3.0, BUN 8, creatinine 0.8, calcium 8.0, total bilirubin 16. LFTs were elevated. CA-19-9 is also elevated to 358. ASSESSMENT AND PLAN: 1. Mild pulmonary edema, improved. Stopping the fluids. 2. Chronic atrial fibrillation on Cardizem 30 mg q.6h, Eliquis 2.5 p.o. b.i.d. 3. Stage III pancreatic cancer. Elevated CA-19-9. 4. Cholestatic jaundice with autoimmune hemolytic anemia. Positive Lida test. Elevated LDH includes retic count. I also ordered urine for hemosiderin. Continue on IV folic acid. We will check with Dr. Carpenter. 5. Hypokalemia. Replace with potassium. 6. Malnutrition on Periactin 4 mg t.i.d. 7. Gastroparesis on Reglan. 8. Constipation on MiraLAX. 9. Reactive depression on Wellbutrin. 10. Continue to monitor daily CBC and CMP. Living will, Do Not Resuscitate 1. LEVEL OF DOCUMENTATION: 25 minutes. cc: Oziel Riley MD
[2019-07-20] MEDS: ZOFRAN ODT PO SCH ×4 (01:14→20:51)
[2019-07-20] MEDS: REGLAN PO SCH ×5 (01:14→23:17)
[2019-07-20] MEDS: PERIACTIN PO SCH ×5 (01:14→23:16)
[2019-07-20] MEDS: CARDIZEM PO SCH ×4 (01:23→20:51)
[2019-07-20] MEDS: PRILOSEC PO SCH (08:08)
[2019-07-20 08:39] LABS: HEMATOCRIT 22.3 % (42.0-52.0); HEMOGLOBIN 7.4 g/dL (14.0-18.0); MCH 45.1 PG (27-31); MCHC 33.2 g/dL (33-37); MPV 9.2 FL (7.4-10.4); PLT 398 X1000 (130-400); RBC 1.64 XMIL (4.7-6.1); RDW 23.5 % (11.5-14.5); WBC 12.08 X1000 (4.8-10.8)
[2019-07-20] MEDS: CREON PO SCH ×3 (08:42→17:34)
[2019-07-20] MEDS: CLARITIN PO SCH (08:43)
[2019-07-20] MEDS: ELIQUIS PO SCH ×2 (08:43→20:51)
[2019-07-20] MEDS: WELLBUTRIN XL PO SCH (08:43)
[2019-07-20 09:20] LABS: AGAP 12; ALB/GLOB RATIO 0.5; ALBUMIN 2.5 g/dL (3.5-5.0); ALKALINE PHOSPHATASE 346 U/L (32-122); BUN 7 mg/dL (8-22); CALCIUM 8.4 mg/dL (8.8-10.2); CHLORIDE 103 mmol/L (98-107); COSMO 273; CREATININE 0.6 mg/dL (0.7-1.2); ESTIMATED GFR > 60; GLUCOSE 116 mg/dL (70-104); GOT 68 U/L (10-34); GPT 49 U/L (10-44); POTASSIUM 3.3 mmol/L (3.5-5.1); SODIUM 137 mmol/L (136-145); TCO2 22 mmol/L (25-35); TOTAL BILIRUBIN 15.99 mg/dL (0.20-1.00); TOTAL PROTEIN 7.2 g/dL (6.3-8.3)
[2019-07-20 09:27] LABS: ANISOCYTOSIS 3+; EOS 2 % (1-10); HYPOCHROM 1+; LYMPHS 16 % (21-51); MONO 2 % (1-9); SEGS 80 % (42-75)
[2019-07-20] MEDS: LEVAQUIN 250 MG/D5W 250 MG/50 ML IVPB IV SCH (13:06)
[2019-07-20] MEDS: FOLIC ACID 5 MG in NS 50 ML IV SCH ×2 (13:07→14:39)
[2019-07-20] MEDS: MIRALAX PO SCH (13:56)
[2019-07-20] MEDS: POTASSIUM CHLORIDE 60 MEQ in NS 500 ML IV SCH ×2 (14:39→23:16)
[2019-07-20 15:39] LABS: LYMPH% 12.1 % (20.5-51.1); MONO% 5.8 % (1.7-9.3); NEUT% 79.4 % (42.2-75.2)
[2019-07-20 15:40] LABS: BASO# 0.06 X1000 (0.0-0.2); BASO% 0.5 % (0.0-0.8); EOS# 0.26 X1000 (0.0-0.7); EOS% 2.2 % (0.0-10.0); LYMPH# 1.41 X1000 (1.2-3.4); MONO# 0.68 X1000 (0.11-0.59); NEUT# 9.22 X1000 (1.4-6.5)
--- NOTE | 2019-07-20 21:34 | PROGRESS NOTE ---
DATE: 07/20/2019 SUBJECTIVE: The patient continues to have jaundice and anemia. The picture was baffling and I spoke to Dr. Monzon. He did not see a lot of hemolysis picture in the peripheral smear and I ordered urine hemosiderin, it is pending. He continues to have low potassiums. CA-19-9 is elevated. PHYSICAL EXAMINATION: Temperature is 97 degrees. Vitals are stable. Had jaundice, slightly pale. Heart: Irregular heart sounds. Abdomen: Belly is soft, nontender. No obvious deficits. INVESTIGATIONS: CBC: White cell count 12, hematocrit 22 platelets 398,000. Potassium 3.3, total bilirubin 15.9. ASSESSMENT AND PLAN: 1. Cholestatic jaundice/autoimmune hemolytic anemia. Continue on IV folic acid. 2. Continue follow the pattern elevation of CA-19-9. CT findings reassuring. 3. Chronic atrial fibrillation, stable. 4. Out of the bed with physical therapy. 5. Will discuss with Dr. Carpenter and I spoke to Dr. Monzon. This picture is kind of baffling. It could be paraneoplastic from pancreatic cancer. 6. Hypokalemia. Replace the potassium and follow up. LEVEL OF DOCUMENTATION: 1. 25 minutes. cc: Oziel Riley MD
[2019-07-20] MEDS: NS 1,000 ML IV SCH (23:17)
[2019-07-21] MEDS: ZOFRAN ODT PO SCH ×4 (01:55→22:26)
[2019-07-21] MEDS: PERIACTIN PO SCH ×3 (06:30→22:26)
[2019-07-21] MEDS: REGLAN PO SCH ×3 (06:30→22:26)
[2019-07-21] MEDS: CARDIZEM PO SCH ×4 (06:31→22:26)
[2019-07-21] MEDS: PRILOSEC PO SCH (06:31)
[2019-07-21 07:44] LABS: BASO# 0.06 X1000 (0.0-0.2); BASO% 0.6 % (0.0-0.8); EOS# 0.24 X1000 (0.0-0.7); EOS% 2.2 % (0.0-10.0); HEMATOCRIT 23.8 % (42.0-52.0); HEMOGLOBIN 7.5 g/dL (14.0-18.0); IMM GRAN# 0.15 X1000 (0.0-0.04); IMM GRAN% 1.4 % (0.0-0.5); LYMPH# 1.25 X1000 (1.2-3.4); LYMPH% 11.6 % (20.5-51.1); MCH 43.4 PG (27-31); MCHC 31.5 g/dL (33-37); MONO% 7.4 % (1.7-9.3); MPV 9.2 FL (7.4-10.4); NEUT# 8.28 X1000 (1.4-6.5); NEUT% 76.8 % (42.2-75.2); PLT 423 X1000 (130-400); RBC 1.73 XMIL (4.7-6.1); RDW 23.4 % (11.5-14.5); WBC 10.78 X1000 (4.8-10.8)
[2019-07-21 07:45] LABS: MCV > 134.0 FL (81-99)
[2019-07-21 08:10] LABS: AGAP 11; ALB/GLOB RATIO 0.6; ALBUMIN 2.5 g/dL (3.5-5.0); ALKALINE PHOSPHATASE 324 U/L (32-122); BUN 8 mg/dL (8-22); CALCIUM 8.5 mg/dL (8.8-10.2); CHLORIDE 104 mmol/L (98-107); COSMO 274; CREATININE 0.7 mg/dL (0.7-1.2); ESTIMATED GFR > 60; GLUCOSE 124 mg/dL (70-104); GOT 66 U/L (10-34); GPT 45 U/L (10-44); POTASSIUM 3.9 mmol/L (3.5-5.1); SODIUM 137 mmol/L (136-145); TCO2 22 mmol/L (25-35); TOTAL BILIRUBIN 14.73 mg/dL (0.20-1.00); TOTAL PROTEIN 6.8 g/dL (6.3-8.3)
[2019-07-21] MEDS: CLARITIN PO SCH (08:27)
[2019-07-21] MEDS: ELIQUIS PO SCH ×2 (08:28→22:00)
[2019-07-21] MEDS: WELLBUTRIN XL PO SCH (08:28)
[2019-07-21] MEDS: CREON PO SCH ×3 (08:28→17:24)
[2019-07-21] MEDS: LEVAQUIN 250 MG/D5W 250 MG/50 ML IVPB IV SCH (11:27)
[2019-07-21] MEDS: MIRALAX PO SCH (11:27)
[2019-07-21] MEDS: FOLIC ACID 5 MG in NS 50 ML IV SCH (15:11)
--- NOTE | 2019-07-21 16:29 | HEMO/ONC CONSULTATION ---
DATE: 07/21/2019 REASON FOR CONSULTATION: This is a known patient of ours for the treatment of hemolytic anemia and jaundice. HISTORY OF PRESENT ILLNESS: This is a 74-year-old male who has been suffering from stage III pancreatic cancer after Whipple procedure. It has been complicated by gastroparesis and cholestatic jaundice and superimposing with autoimmune hemolytic anemia with warm antibody. The patient was treated with steroids, IV gammaglobulin, and Rituxan with some improvement. He was recently hospitalized and discharged at the end of June. The patient came to our office on 07/15/2019 with intent to treat with rituximab. However, we found his bilirubin level at 25.5 to be significantly elevated for treatment. We therefore called Dr. Riley and had him admitted for further management and evaluation. The patient was also severely anemic and he stated that he did not feel very well. Since being in the hospital the patient has improved. His bilirubin has decreased and his jaundice has reduced slightly. PAST MEDICAL HISTORY: 1. Stage III pancreatic cancer, status post Whipple procedure. 2. Type 2 diabetes. 3. Acid reflux disease. 4. Persistent atrial fibrillation. 5. Kidney stones. 6. Depression. 7. Osteoarthritis. 8. Right foot drop. PAST SURGICAL HISTORY: 1. Status post Whipple procedure. 2. Removal of PEG tube. 3. Cholecystectomy. 4. Colon resection with initial colostomy repair. 5. Ventral hernia repair. 6. Port-A-Cath placement to the left side. 7. PICC line on the left side. SOCIAL HISTORY: Former alcoholism. DNR level 1. ALLERGIES: Iodinated contrast media. HOME MEDICATIONS: Wellbutrin, Creon, Reglan, loratadine, Zofran, Prilosec, Periactin, Eliquis, Cardizem. He is currently on Rituxan in the clinic. REVIEW OF SYSTEMS: The patient is extremely weak. He states he cannot walk. He is very jaundiced. Denies any other complaints. VITAL SIGNS: Temperature 98.1 degrees, pulse rate 112, respiratory rate 24, blood pressure 117/71, O2 saturation 100% on room air. He is in 0/10 pain. PHYSICAL EXAMINATION: General: The patient is sitting in his bed. He is in no acute distress. He appears comfortable. HEENT: Sclera is anicteric. PERRLA. Oral mucosa is normal. Cardiovascular: Irregular heart rate. Normal S1, S2. Respiratory: Lung sounds are clear to auscultation. Normal respiratory effort. Gastrointestinal: Abdomen is soft, nontender, nondistended. Extremities: No evidence of lower extremity edema. LABORATORY: WBCs 10.78, hemoglobin 7.5, hematocrit 23.8, platelet count 423,000. Sodium 137, potassium 3.9, creatinine 0.7, total bilirubin 14.73, direct bilirubin greater than 10, alkaline phosphatase 324. ASSESSMENT AND PLAN: 1. Cholestatic jaundice: per Dr. Riley. 2. Autoimmune hemolytic anemia. The patient will receive IV Rituxan 3/4th dose, tomorrow in the hospital. 2. Stage III pancreatic cancer, status post Whipple procedure. We will continue to follow up with the patient in the clinic when he gets out of the hospital. We are continuing to monitor his CA-19-9. 3. Chronic atrial fibrillation. Aware. This is stable. 4. Deep venous thrombosis prophylaxis. The patient wants to get out of bed, although he states he is too weak to walk at this time. He is on maintenance dose of Eliquis twice a day. Dictated by KORINA Hendricks for Tunde Carpenter MD cc: MD Oziel Santos MD [facility]
[2019-07-21] MEDS: NS 1,000 ML IV SCH (18:27)
--- NOTE | 2019-07-21 21:50 | PROGRESS NOTE ---
DATE: 07/21/2019 SUBJECTIVE: The patient is doing better. Jaundice is still high. I spoke to Dr. Corley. Peripheral smear is not very consistent with significant hemolysis. Nevertheless, he still has a jaundice picture which was still baffling. OBJECTIVE: Vital signs: Temperature is 98 degrees. Vitals are stable. HEENT: Jaundice, anemic. Chest: Clear. Heart: Irregular heart sounds. The rest of the exam is benign. LABS: Lida test is positive. CBC: White cell count 10, hematocrit 23, MCV is more than 134, platelet count 423,000. SMA-7 is normal. Potassium is finally 3.9. Bilirubin is 14.73 and urine hemosiderin is pending. ASSESSMENT AND PLAN: 1. Stage III pancreatic cancer. 2. Elevated CA19-9. 3. Cholestatic jaundice/hemolytic anemia. Could be paraneoplastic, not responding with intravenous gammaglobulin and Rituxan. There is no significant splenomegaly. 4. Elevated MCV. Continue intravenous folic acid. 5. Out of the bed with physical therapy today. 6. Palliative Care consult. 7. Do Not Resuscitate level 1. 8. Discussed with the on the telephone based on Dr. Carpenter's comments and whether he needs a palliative care. We will see his progress. LEVEL OF DOCUMENTATION: 25 minutes. cc: Oziel Riley MD
[2019-07-21 22:00] LABS: RETIC% 19.98 % (0.8-2.1); RETIC-HE 42.1 PG (28.2-36.6)
[2019-07-22] MEDS: CARDIZEM PO SCH ×4 (02:22→20:54)
[2019-07-22] MEDS: ZOFRAN ODT PO SCH ×4 (06:47→22:09)
[2019-07-22] MEDS: REGLAN PO SCH ×4 (06:47→22:09)
[2019-07-22] MEDS: PERIACTIN PO SCH ×4 (06:47→22:09)
[2019-07-22] MEDS: PRILOSEC PO SCH (06:48)
[2019-07-22] MEDS: NS 1,000 ML IV SCH ×2 (07:59→19:00)
[2019-07-22] MEDS: CREON PO SCH ×3 (08:06→17:18)
[2019-07-22] MEDS: WELLBUTRIN XL PO SCH (08:07)
[2019-07-22] MEDS: CLARITIN PO SCH (08:07)
[2019-07-22] MEDS: ELIQUIS PO SCH ×2 (08:07→20:54)
[2019-07-22] MEDS ORDERED: BENADRYL IV ONE ×2 (09:00→11:00)
[2019-07-22] MEDS ORDERED: TYLENOL PO ONE ×2 (09:00→11:00)
[2019-07-22] MEDS ORDERED: PEPCID IV ONE (09:00)
[2019-07-22] MEDS ORDERED: SODIUM CHLORIDE 0.9% INJ ONE (09:00)
[2019-07-22 09:02] LABS: AGAP 11; ALB/GLOB RATIO 0.5; ALBUMIN 2.3 g/dL (3.5-5.0); ALKALINE PHOSPHATASE 314 U/L (32-122); BASO# 0.05 X1000 (0.0-0.2); BASO% 0.4 % (0.0-0.8); BUN 8 mg/dL (8-22); CALCIUM 7.8 mg/dL (8.8-10.2); CHLORIDE 103 mmol/L (98-107); COSMO 271; CREATININE 0.6 mg/dL (0.7-1.2); EOS# 0.26 X1000 (0.0-0.7); EOS% 2.2 % (0.0-10.0); ESTIMATED GFR > 60; GLUCOSE 115 mg/dL (70-104); GOT 68 U/L (10-34); GPT 45 U/L (10-44); HEMATOCRIT 20.7 % (42.0-52.0); HEMOGLOBIN 6.9 g/dL (14.0-18.0); IMM GRAN# 0.12 X1000 (0.0-0.04); LYMPH# 1.36 X1000 (1.2-3.4); LYMPH% 11.5 % (20.5-51.1); MCH 44.8 PG (27-31); MCHC 33.3 g/dL (33-37); MCV 134.4 FL (81-99); MONO# 1.06 X1000 (0.11-0.59); MPV 9.2 FL (7.4-10.4); NEUT# 8.99 X1000 (1.4-6.5); NEUT% 75.9 % (42.2-75.2); PLT 450 X1000 (130-400); POTASSIUM 3.3 mmol/L (3.5-5.1); RBC 1.54 XMIL (4.7-6.1); RDW 21.1 % (11.5-14.5); SODIUM 136 mmol/L (136-145); TCO2 22 mmol/L (25-35); TOTAL PROTEIN 6.7 g/dL (6.3-8.3); WBC 11.84 X1000 (4.8-10.8)
[2019-07-22] MEDS ORDERED: NS 500 ML IV ONE (10:22)
[2019-07-22] MEDS: LEVAQUIN 250 MG/D5W 250 MG/50 ML IVPB IV SCH (10:45)
[2019-07-22] MEDS ORDERED: PEPCID ONE (13:18)
--- NOTE | 2019-07-22 13:21 | HEMO/ONC PROGRESS NOTE ---
DATE: 07/22/2019 SUBJECTIVE: Mr. Summers is feeling rather well this morning. He continues to deny any pain or complaints. His jaundice looks improved. He is aware that he is getting his dose of Rituxan today. He had a good night's sleep. His appetite remains well. He had no acute events. OBJECTIVE: Vital Signs: Temperature 97.8 degrees, pulse rate 109, respiratory rate 23, blood pressure 95/52, O2 saturation 100% on room air. He is in 0/10 pain. General: The patient is in no acute distress. HEENT: Sclerae is icteric. PERRLA. Oral mucosa is normal. Cardiovascular: Irregular heart rate. Respiratory: Lung sounds are clear to auscultation. Normal respiratory effort. Gastrointestinal: Abdomen is soft, nontender, nondistended. Extremities: No evidence of lower extremity edema. Skin: Significant jaundice. LABORATORY DATA: WBCs 11.84, hemoglobin 6.9, hematocrit 20.7, platelet count 450,000. Reticulocyte count 19.98. Sodium 136, potassium 3.3, creatinine 0.6, calcium 7.8. Total bilirubin 12.5, AST 68, ALT 45, alkaline phosphatase 314, albumin 2.3. ASSESSMENT AND PLAN: 1. Cholestatic jaundice. Continue management per Dr. Riley. 2. Autoimmune hemolytic anemia. The patient will be receiving Rituxan at 75% of the dose today. This will be his third out of fourth dose. The patient's hemoglobin has significantly dropped today. We will transfuse 1 unit of packed red blood cells after the patient receives Rituxan today. 3. Allergy prophylaxis. The patient will have Tylenol, Benadryl, and Pepcid prior to his infusion. He will be monitored for any infusional reactions and side effects. 4. Stage III pancreatic cancer, status post Whipple procedure. We will follow up with the patient regarding his pancreatic cancer when he is out of the hospital. We are aware of his CA19-9. 5. Chronic atrial fibrillation. Aware. This is stable. 6. Deep venous thrombosis prophylaxis. The patient has sequential compression devices on. He is also on maintenance Eliquis twice a day. He wants to work with Physical Therapy to get out of bed more. Dictated by KORINA Hendricks for Tunde Carpenter MD Patient seen and examined. Discussed with Dr. Riley. Will give Rituxan today. Also start small dose of steroids for cholestatic jaundice and to help his hemolytic anemia. Tunde Carpenter MD cc: MD Oziel Santos MD [facility] CENTERJose Manuel
[2019-07-22] MEDS: RITUXAN IV ONE ×2 (13:54→13:56)
[2019-07-22] MEDS: NS IV ONE ×2 (13:54→13:56)
[2019-07-22] MEDS: FOLIC ACID 5 MG in NS 50 ML IV SCH (14:24)
[2019-07-22] MEDS: MIRALAX PO SCH (14:57)
[2019-07-22] MEDS: POTASSIUM CHLORIDE 60 MEQ in NS 500 ML IV SCH (18:25)
[2019-07-23] MEDS: POTASSIUM CHLORIDE 60 MEQ in NS 500 ML IV SCH (01:47)
[2019-07-23] MEDS: CARDIZEM PO SCH ×4 (01:51→21:11)
--- NOTE | 2019-07-23 04:14 | PROGRESS NOTE ---
DATE: 07/22/2019 SUBJECTIVE: Patient continues to have jaundice and anemia, a combination of hemolysis, along with cholestatic picture. Picture was baffling. We had a long discussion with Jayden at bedside. PHYSICAL EXAMINATION: Vital signs: Temperature is 98 degrees. Vitals are stable. General: Anemic, jaundiced. Chest: Clear. Heart: Irregular heart sounds. Abdomen: Belly is soft and nontender. Neurologic: No significant deficits. INVESTIGATIONS: White cell count 11, hematocrit 20, platelets 450,000. Sodium 136, potassium 3.3, bilirubin is 12.5. Antibody was positive. Urine hemosiderin is negative. ASSESSMENT: 1. Cholestatic jaundice, due to fatty liver. 2. Stage [address] scan was negative. 3. Elevated CA19-9. 4. Atrial fibrillation, stable. 5. Right foot drop, stable. PLAN: 1. Out of the bed with physical therapy. 2. Continue intravenous folic acid. 3. Dr. Carpenter is planning to do steroids versus Rituxan, and will follow up his recommendations. 4. Living Will, Do Not Resuscitate 1. LEVEL OF DOCUMENTATION: 25 minutes. cc: Oziel Riley MD
[2019-07-23] MEDS: PRILOSEC PO SCH (06:20)
[2019-07-23] MEDS: PERIACTIN PO SCH ×3 (06:20→21:11)
[2019-07-23] MEDS: ZOFRAN ODT PO SCH ×3 (06:20→21:10)
[2019-07-23] MEDS: REGLAN PO SCH ×3 (06:20→21:11)
[2019-07-23] MEDS: CREON PO SCH ×3 (07:57→21:12)
[2019-07-23] MEDS ORDERED: POTASSIUM CHLORIDE 80 MEQ in NS 500 ML IV ONE (08:44)
[2019-07-23] MEDS: MIRALAX PO SCH (10:18)
[2019-07-23] MEDS: CLARITIN PO SCH (10:18)
[2019-07-23] MEDS: WELLBUTRIN XL PO SCH (10:19)
[2019-07-23] MEDS: NS 1,000 ML IV SCH (10:19)
[2019-07-23] MEDS: ELIQUIS PO SCH ×2 (10:19→21:10)
[2019-07-23 10:45] LABS: BASO# 0.11 X1000 (0.0-0.2); EOS# 0.27 X1000 (0.0-0.7); EOS% 2.4 % (0.0-10.0); HEMATOCRIT 21.4 % (42.0-52.0); IMM GRAN# 0.15 X1000 (0.0-0.04); IMM GRAN% 1.3 % (0.0-0.5); LYMPH# 1.48 X1000 (1.2-3.4); LYMPH% 13.1 % (20.5-51.1); MCH 45.2 PG (27-31); MCHC 32.7 g/dL (33-37); MPV 8.9 FL (7.4-10.4); NEUT# 8.41 X1000 (1.4-6.5); NEUT% 74.2 % (42.2-75.2); PLT 487 X1000 (130-400); RBC 1.55 XMIL (4.7-6.1); WBC 11.32 X1000 (4.8-10.8)
[2019-07-23 10:53] LABS: ANISOCYTOSIS 1+; BASO 2 % (0-1); HYPOCHROM 1+; LYMPHS 8 % (21-51); MONO 6 % (1-9); SEGS 84 % (42-75)
--- NOTE | 2019-07-23 11:31 | HEMO/ONC PROGRESS NOTE ---
DATE: 07/23/2019 SUBJECTIVE: Mr. Summers is sitting up, awake and alert this morning and in a pleasant mood. He is eating his breakfast. He feels very good today. He continues to deny any pain or complaints with his disease process. He states his Rituxan dosing yesterday went very well. He denied any complications, nausea or illness during or after his infusion. His appetite remains well. He states he had a good night's sleep. He had no acute events overnight. OBJECTIVE: Vital Signs: Temperature 98 degrees, pulse rate 102, respiratory rate 13, blood pressure 105/57, O2 saturation 99% on room air. He is in 0/10 pain. PHYSICAL EXAMINATION: General: The patient is in no acute distress. He is in pleasant spirits. HEENT: Sclerae is icteric. PERRLA. Oral mucosa is normal. Cardiovascular: Irregular heart rate. Respiratory: Lung sounds are clear to auscultation. Normal respiratory effort. Abdomen: Soft, nontender, nondistended. Neurological: Alert and oriented x3. No focal motor deficits noted. Extremities: No lower extremity edema noted. The patient did point out that his right great toe is hurting him when Physical Therapy gets him up to walk. Skin: Continues to be jaundiced. LABORATORY DATA: WBCs 11.32, hemoglobin 7.0, hematocrit 21.4, platelet count 487,000. ASSESSMENT AND PLAN: 1. Cholestatic jaundice. Continue management per Dr. Riley. He has started the patient on some steroids for his jaundice. That may help his hemolytic anemia as well. He is on a proton pump inhibitor as well for prophylaxis. 2. Autoimmune hemolytic anemia. The patient received his 3rd dose of Rituxan yesterday. He is continuing to hemolyze. We are attempting to match a unit of blood as close as possible for the patient in order to transfuse 1 unit. Although it is not possible to completely match the patient perfectly, he will do fine with one that is the closest match. 3. Allergy prophylaxis. The patient will receive Tylenol and Benadryl prior to his blood transfusion. He should be monitored for any infusional reactions and side effects while he is receiving his infusion. 4. Stage III pancreatic cancer, status post Whipple procedure. We will follow up with the patient regarding his pancreatic cancer once he is out of the hospital. We are aware of his rising CA-19-9. 5. Chronic atrial fibrillation. Aware. This is stable. 6. Deep venous thrombosis prophylaxis. The patient has on SCDs. He is also on maintenance Eliquis twice a day. Continue working with Physical Therapy to get him out of bed. Dictated by KORINA Hendricks for Tunde Carpenter MD H/H slightly lower than admission. Ok to hold transfusion today. Transfuse 1 unit of PRBC if needed of least incompatible blood since blood bank is having difficulty with cross matching. Tolerated rituxan yesterday well. Continue Prednisone. Tunde Carpenter MD cc: MD Oziel Santos MD MTDJose Manuel
[2019-07-23] MEDS: LEVAQUIN 250 MG/D5W 250 MG/50 ML IVPB IV SCH (12:35)
[2019-07-23] MEDS: FOLIC ACID 5 MG in NS 50 ML IV SCH (15:39)
--- NOTE | 2019-07-23 21:01 | PROGRESS NOTE ---
DATE: 07/23/2019 SUBJECTIVE: I had a long discussion with family. The patient is in good spirits. He is getting out of the bed. He is extremely jaundiced. Urine is still dark but slowly clearing. No itching. REVIEW OF SYSTEMS: None reported. EXAMINATION: Temp is 97.4 degrees, tachycardic. Vitals are stable. He had jaundice, anemic.Chest: Bilateral air entry. Port on the left side of the chest. Heart: Irregular heart sounds. Belly: Soft, nontender. Extremities: Right foot drop the same. He has some pain in the tip of the right great toe from the nail. INVESTIGATIONS: CBC: White cell count 11.3, hematocrit 21.4, platelet count 487,000. ASSESSMENT AND PLAN: 1. Stage III pancreatic cancer negative disease in the CT scan. 2. Elevated CA 19-9 to 55. 3. Cholestatic jaundice. 4. 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 5. Chronic atrial fibrillation. 6. Deconditioning. 7. Right footdrop. 8. Kidney stones. 9. Reactive depression. PLAN OF CARE: 1. Dr. Carpenter consulted and is planning to do transfusion as needed. 2. IV folic acid. 3. The patient was given Rituxan and IV steroids for warm antibody hemolytic anemia. 4. Continue Eliquis and Cardizem for atrial fibrillation. 5. Out of the bed with physical therapy. 6. Replacement with pancreatic enzymes. She is tolerating the diet very well, so far no signs of infection noted. Consider DC Levaquin over the weekend. Incentive spirometry. 7. Palliative Care consult with DNR. 8. Continue to monitor his progress for the weekend. LEVEL OF DOCUMENTATION: 25 minutes. cc: Oziel Riley MD MTDD
[2019-07-24] MEDS: CARDIZEM PO SCH ×4 (05:22→21:34)
[2019-07-24] MEDS: PERIACTIN PO SCH ×3 (06:43→21:33)
[2019-07-24] MEDS: ZOFRAN ODT PO SCH ×3 (06:43→21:33)
[2019-07-24] MEDS: PRILOSEC PO SCH (06:43)
[2019-07-24] MEDS: REGLAN PO SCH ×3 (06:43→21:34)
[2019-07-24] MEDS: CREON PO SCH ×3 (08:39→16:25)
[2019-07-24] MEDS: WELLBUTRIN XL PO SCH (08:40)
[2019-07-24] MEDS: ELIQUIS PO SCH ×2 (08:40→21:34)
[2019-07-24] MEDS: CLARITIN PO SCH (08:40)
[2019-07-24] MEDS: MIRALAX PO SCH (08:41)
[2019-07-24] MEDS: SOLU-MEDROL IV SCH (08:41)
[2019-07-24] MEDS: LEVAQUIN 250 MG/D5W 250 MG/50 ML IVPB IV SCH (11:31)
[2019-07-24] MEDS: CREON PO PRN (11:32)
[2019-07-24] MEDS: FOLIC ACID 5 MG in NS 50 ML IV SCH (13:15)
[2019-07-24] MEDS ORDERED: LANOXIN PO ONE (13:53)
--- NOTE | 2019-07-24 14:24 | PROGRESS NOTE ---
DATE: 07/24/2019 SUBJECTIVE: The patient denies having any acute complaints and feels well this morning. OBJECTIVE: Vital Signs: Temperature 97.9 degrees, pulse 122 per minute, respiratory rate 16 per minute, blood pressure 117/69, pulse oximetry 100% on room air. General: Patient is alert and oriented x3. He does not appear to be in any acute distress, but does appear to be very cachectic. Cardiovascular System: First and second heart sounds are audible with regular tachycardia. Respiratory System: Bilateral lung air entry is moderately decreased, but there are no rales or rhonchi present on auscultation. Gastrointestinal System: Abdomen is soft and nondistended. Normal bowel sounds are present. DIAGNOSTIC DATA: CBC done yesterday showed WBC count of 11.32 with hemoglobin of 7.0 and hematocrit 21.4. In comparison, his hemoglobin and hematocrit were 6.9 and 20.7 the day before. Comprehensive metabolic panel from 07/22/2019 showed improvement of total bilirubin from more than 24 to 12.50. AST and ALT remain slightly elevated at 68 and 45 respectively. Alkaline phosphatase is also elevated at 314, but has been stable. Potassium levels are slightly low at 3.3. IMPRESSION: 1. Stage III pancreatic cancer, status post Whipple's procedure with cholestatic jaundice. 2. Autoimmune hemolytic anemia. 3. Chronic atrial fibrillation with rapid ventricular response. PLAN: The patient will continue with current care including levofloxacin 250 mg IV every 24 hours and generalized supportive care. He is getting apixaban 2.5 mg twice daily for thromboembolism prophylaxis and diltiazem 30 mg orally every 6 hours for blood pressure and atrial fibrillation rate control. His blood pressure has been borderline and he is still in RVR, because of which I am going to start him on digoxin, but would continue diltiazem 30 mg every 6 hours orally. I am going to obtain an EKG today and repeat labs including CBC and CMP in the morning tomorrow. Dr. Carpenter is following the case. Further recommendations will be given as per hospital course. cc: MD Oziel Zacarias MD
[2019-07-24 14:45] LABS: BASO# 0.02 X1000 (0.0-0.2); BASO% 0.3 % (0.0-0.8); HEMATOCRIT 23.4 % (42.0-52.0); HEMOGLOBIN 7.7 g/dL (14.0-18.0); IMM GRAN# 0.07 X1000 (0.0-0.04); IMM GRAN% 1.1 % (0.0-0.5); LYMPH# 0.23 X1000 (1.2-3.4); LYMPH% 3.7 % (20.5-51.1); MCH 44.5 PG (27-31); MCHC 32.9 g/dL (33-37); MONO# 0.04 X1000 (0.11-0.59); MONO% 0.7 % (1.7-9.3); MPV 8.7 FL (7.4-10.4); NEUT# 5.79 X1000 (1.4-6.5); NEUT% 94.2 % (42.2-75.2); PLT 467 X1000 (130-400); RBC 1.73 XMIL (4.7-6.1); RDW 19.7 % (11.5-14.5); WBC 6.15 X1000 (4.8-10.8)
[2019-07-24 14:59] LABS: ANISOCYTOSIS 2+; EOS 1 % (1-10); LARGE PLATELETS OCCASIONAL; LYMPHS 4 % (21-51); SEGS 95 % (42-75)
[2019-07-24 15:00] LABS: STOMATOCYTES OCCASIONAL
--- NOTE | 2019-07-24 16:46 | EKG Report ---
Test Performed on : 07/24/2019 2:19:27 PM Test Reason : AFIB WITH RVR Blood Pressure : / mmHG Vent. Rate : 119 BPM Atrial Rate : 122 BPM P-R Int : 000 ms QRS Dur : 090 ms QT Int : 344 ms P-R-T Axes : 000 -03 174 degrees QTc Int : 483 ms Atrial fibrillation. with rapid ventricular response. Inferior-posterior infarct (cited on or before 20-FEB-2019) ST & T wave abnormality, consider lateral ischemia ACUTE AR / STEMI Consider right ventricular involvement in acute inferior infarct Abnormal ECG When compared with ECG of 02-JUN-2019 09:30, Significant changes have occurred Confirmed by Christa Huber MD ([id number]) on 07/26/2019 5:29:19 PM
[2019-07-24] MEDS: NS 1,000 ML IV SCH (21:38)
[2019-07-25] MEDS: CARDIZEM PO SCH ×4 (06:46→20:07)
[2019-07-25] MEDS: ZOFRAN ODT PO SCH ×4 (06:50→21:07)
[2019-07-25] MEDS: PERIACTIN PO SCH ×4 (06:50→21:07)
[2019-07-25] MEDS: PRILOSEC PO SCH (06:50)
[2019-07-25] MEDS: REGLAN PO SCH ×4 (06:50→21:07)
[2019-07-25 07:55] LABS: BASO# 0.01 X1000 (0.0-0.2); BASO% 0.1 % (0.0-0.8); EOS# 0.01 X1000 (0.0-0.7); EOS% 0.1 % (0.0-10.0); HEMOGLOBIN 8.1 g/dL (14.0-18.0); IMM GRAN# 0.08 X1000 (0.0-0.04); IMM GRAN% 0.5 % (0.0-0.5); LYMPH# 1.25 X1000 (1.2-3.4); LYMPH% 8.1 % (20.5-51.1); MCH 45.8 PG (27-31); MCHC 35.2 g/dL (33-37); MCV 129.9 FL (81-99); MONO% 7.7 % (1.7-9.3); NEUT# 12.95 X1000 (1.4-6.5); NEUT% 83.5 % (42.2-75.2); PLT 480 X1000 (130-400); RBC 1.77 XMIL (4.7-6.1)
[2019-07-25 08:11] LABS: AGAP 13; ALB/GLOB RATIO 0.6; ALBUMIN 2.6 g/dL (3.5-5.0); ALKALINE PHOSPHATASE 341 U/L (32-122); BUN 9 mg/dL (8-22); CALCIUM 8.8 mg/dL (8.8-10.2); CHLORIDE 100 mmol/L (98-107); COSMO 272; CREATININE 0.6 mg/dL (0.7-1.2); ESTIMATED GFR > 60; GLUCOSE 125 mg/dL (70-104); GOT 68 U/L (10-34); GPT 51 U/L (10-44); POTASSIUM 3.6 mmol/L (3.5-5.1); SODIUM 136 mmol/L (136-145); TCO2 23 mmol/L (25-35); TOTAL BILIRUBIN 10.01 mg/dL (0.20-1.00); TOTAL PROTEIN 7.1 g/dL (6.3-8.3)
[2019-07-25] MEDS: WELLBUTRIN XL PO SCH (08:25)
[2019-07-25] MEDS: CREON PO SCH ×3 (08:25→17:06)
[2019-07-25] MEDS: ELIQUIS PO SCH ×2 (08:25→20:07)
[2019-07-25] MEDS: CLARITIN PO SCH (08:25)
[2019-07-25] MEDS: SOLU-MEDROL IV SCH (08:25)
[2019-07-25] MEDS: MIRALAX PO SCH (08:29)
[2019-07-25] MEDS: LEVAQUIN 250 MG/D5W 250 MG/50 ML IVPB IV SCH (11:27)
--- NOTE | 2019-07-25 13:02 | PROGRESS NOTE ---
DATE: 07/25/2019 SUBJECTIVE: The patient denies having any acute complaints this morning and feels well. OBJECTIVE: Vital Signs: Temperature 97.3 degrees, pulse 105 per minute, respiratory rate 22 per minute, blood pressure 112/64, pulse oximetry 100% on 2 L of oxygen via nasal cannula. General: Patient is alert and oriented x3. He does not appear to be in any acute distress. Cardiovascular System: First and second heart sounds are audible with tachycardia present. Respiratory System: Bilateral lung air entry is slightly decreased but there are no rales or rhonchi present on auscultation. Gastrointestinal System: Abdomen is soft and nondistended. Normal bowel sounds are present. Integumentary: The patient appears to be significantly icteric. Diagnostic Data: CBC shows WBC count of 15.50, hemoglobin 8.1, hematocrit 22.0, and platelet count 480,000. In comparison, hemoglobin and hematocrit were 7.7 and 23.4 yesterday. Comprehensive metabolic panel done this morning showed improved bilirubin from 12.5 yesterday to 10.01 today. His AST and ALT remain slightly elevated at 68 and 51 respectively. His alkaline phosphate also remains elevated at 341. In comparison, his alkaline phosphatase was 314 yesterday. IMPRESSION: 1. Stage III pancreatic cancer, status post Whipple's procedure, with cholestatic jaundice. 2. Autoimmune hemolytic anemia. 3. Chronic atrial fibrillation with rapid ventricular response. PLAN: The patient will continue with the IV levofloxacin along with general supportive care. He is currently being followed by Dr. Carpenter from oncology service. His blood counts are slightly getting better, which is encouraging. His bilirubin is also improving. He has been having atrial fibrillation with rapid ventricular response for which he will continue with diltiazem 30 mg orally every 6 hours and I have also initiated him on digoxin 0.125 mg every other day. Furthermore, he will continue with apixaban 2.5 mg twice daily for venous thromboembolism prophylaxis. We will repeat labs in the morning and will follow hospital course. cc: MD Oziel Zacarias MD
[2019-07-25] MEDS: FOLIC ACID 5 MG in NS 50 ML IV SCH (14:47)
[2019-07-25] MEDS: NS 1,000 ML IV SCH (19:23)
[2019-07-26] MEDS: CARDIZEM PO SCH ×4 (02:45→20:50)
[2019-07-26] MEDS: NS 1,000 ML IV SCH (06:22)
[2019-07-26] MEDS: PRILOSEC PO SCH (06:23)
[2019-07-26] MEDS: PERIACTIN PO SCH ×3 (06:23→20:52)
[2019-07-26] MEDS: REGLAN PO SCH ×3 (06:23→20:52)
[2019-07-26] MEDS: ZOFRAN ODT PO SCH ×3 (06:23→20:52)
[2019-07-26 07:28] LABS: BASO# 0.01 X1000 (0.0-0.2); BASO% 0.1 % (0.0-0.8); HEMATOCRIT 22.8 % (42.0-52.0); HEMOGLOBIN 7.8 g/dL (14.0-18.0); IMM GRAN# 0.07 X1000 (0.0-0.04); IMM GRAN% 0.4 % (0.0-0.5); LYMPH# 1.87 X1000 (1.2-3.4); LYMPH% 9.9 % (20.5-51.1); MCH 46.2 PG (27-31); MCHC 34.2 g/dL (33-37); MCV 134.9 FL (81-99); MONO# 1.42 X1000 (0.11-0.59); MONO% 7.5 % (1.7-9.3); MPV 8.9 FL (7.4-10.4); NEUT# 15.56 X1000 (1.4-6.5); NEUT% 82.1 % (42.2-75.2); PLT 489 X1000 (130-400); RBC 1.69 XMIL (4.7-6.1); RDW 19.1 % (11.5-14.5); WBC 18.93 X1000 (4.8-10.8)
[2019-07-26 07:46] LABS: AGAP 12; ALB/GLOB RATIO 0.5; ALBUMIN 2.3 g/dL (3.5-5.0); ALKALINE PHOSPHATASE 353 U/L (32-122); BUN 9 mg/dL (8-22); CALCIUM 8.7 mg/dL (8.8-10.2); CHLORIDE 104 mmol/L (98-107); COSMO 279; CREATININE 0.6 mg/dL (0.7-1.2); ESTIMATED GFR > 60; GLUCOSE 116 mg/dL (70-104); GOT 75 U/L (10-34); GPT 56 U/L (10-44); POTASSIUM 3.6 mmol/L (3.5-5.1); SODIUM 140 mmol/L (136-145); TCO2 24 mmol/L (25-35); TOTAL BILIRUBIN 8.57 mg/dL (0.20-1.00)
[2019-07-26 08:07] LABS: ANISOCYTOSIS 1+; HYPOCHROM 1+; LYMPHS 4 % (21-51); MONO 4 % (1-9); SEGS 92 % (42-75)
[2019-07-26] MEDS: CREON PO SCH ×3 (08:19→20:52)
[2019-07-26] MEDS: LANOXIN PO SCH (08:21)
[2019-07-26] MEDS: ELIQUIS PO SCH ×2 (08:22→20:52)
[2019-07-26] MEDS: CLARITIN PO SCH (08:22)
[2019-07-26] MEDS: SOLU-MEDROL IV SCH (08:22)
[2019-07-26] MEDS: WELLBUTRIN XL PO SCH (08:22)
--- NOTE | 2019-07-26 09:43 | HEMO/ONC PROGRESS NOTE ---
DATE: 07/26/2019 SUBJECTIVE: Mr. Summers remains in a pleasant mood this morning. He states he is feeling very well. He is not quite sure why he is still in the hospital. His labs have improved. He has no pain. He feels very well. He has been walking. No acute events occurred over the weekend. OBJECTIVE: Vital Signs: Temperature 97.6 degrees, pulse rate 112, respiratory rate 16, blood pressure 116/58, O2 saturation 100% on nasal cannula at 2 L. General: The patient is in no acute distress. Pleasant demeanor. HEENT: Sclera is icteric. PERRLA. Oral mucosa is normal. Cardiovascular: Irregular heart rate and rhythm. The patient is tachycardic. Respiratory: Lung sounds are clear to auscultation. Normal respiratory effort. Abdomen: Soft, nontender, nondistended. Neurological: Alert and oriented x3. No focal motor deficits noted. Extremities: No lower extremity edema noted. Skin: Color continues to be jaundiced, but significant improvement from the time of admission. LABORATORY DATA: WBC 18.93, hemoglobin 7.8, hematocrit 22.8, platelet count 489,000. Total bilirubin 8.57, AST 75, ALT 56, alkaline phosphatase 353, albumin 2.3. ASSESSMENT AND PLAN: 1. Stage III pancreatic cancer, status post Whipple with cholestatic jaundice. The patient has an elevated CA19-9. He has been started on some steroids by Dr. Riley. He is also on a proton pump inhibitor for prophylaxis. The patient is doing well in this regard. His bilirubin is decreasing nicely. 2. Autoimmune hemolytic anemia. The patient has received 3 doses of Rituxan without any complications. He will receive his fourth dose on in the clinic or in the hospital. He does continue to hemolyze. His hemoglobin and hematocrit are improving some. 3. Chronic atrial fibrillation. This has been stable. He continues on cardiac medications as well as Eliquis twice a day. 4. Deep venous thrombosis prophylaxis. The patient has on sequential compression devices. He is working with Physical Therapy to get out of bed. He is on Eliquis twice a day. Dictated by KORINA Hendricks for Tunde Carpenter MD Bilirubin treding down. H/H has improved midly. Continue rituxan weekly and prednisone. Tunde Carpenter MD cc: MD Oziel Santos MD [facility]
[2019-07-26] MEDS: MIRALAX PO SCH (12:39)
[2019-07-26] MEDS: LEVAQUIN 250 MG/D5W 250 MG/50 ML IVPB IV SCH (12:41)
[2019-07-26] MEDS: FOLIC ACID 5 MG in NS 50 ML IV SCH (13:31)
[2019-07-26] MEDS: CREON PO PRN (16:54)
--- NOTE | 2019-07-26 22:04 | PROGRESS NOTE ---
DATE: 07/26/2019 SUBJECTIVE: The patient is slowly improving. He had Rituxan and was started on IV steroids. OBJECTIVE: Vital Signs: Temperature 98.3 degrees. Vitals are stable. heent: Slightly jaundiced. Chest: Clear. Heart: Heart sounds are irregular. Abdomen: Belly is soft, nontender. Neurologic: No neurological deficits. LABS: White cell count 18.93, hematocrit 22, platelets 489,000. Bilirubin is 8.5, total bilirubin 5.3. ASSESSMENT AND PLAN: 1. Cholestatic jaundice due to fatty infiltrate. 2. Autoimmune hemolytic anemia. 3. Chronic atrial fibrillation. 4. Deconditioning. PLAN: 1. DC IV Levaquin. 2. Continue IV steroids. 3. IV folic acid. 4. Continue to monitor CBC and BMP with steroids and toxin before he is discharged. 5. Living will, DNR. LEVEL OF DOCUMENTATION: 25 minutes. cc: Oziel Riley MD
[2019-07-27] MEDS: CARDIZEM PO SCH ×4 (04:09→21:05)
[2019-07-27] MEDS: PERIACTIN PO SCH ×4 (06:52→21:05)
[2019-07-27] MEDS: REGLAN PO SCH ×4 (06:52→21:05)
[2019-07-27] MEDS: ZOFRAN ODT PO SCH ×4 (06:53→21:05)
[2019-07-27] MEDS: PRILOSEC PO SCH (06:59)
[2019-07-27 07:48] LABS: HEMATOCRIT 24.7 % (42.0-52.0); HEMOGLOBIN 8.1 g/dL (14.0-18.0); MCH 43.5 PG (27-31); MCHC 32.8 g/dL (33-37); MCV 132.8 FL (81-99); MPV 8.9 FL (7.4-10.4); PLT 463 X1000 (130-400); RBC 1.86 XMIL (4.7-6.1); WBC 17.28 X1000 (4.8-10.8)
[2019-07-27 08:05] LABS: ANISOCYTOSIS 1+; HYPOCHROM 1+; LYMPHS 10 % (21-51); MONO 4 % (1-9); NRBC 1 % (0-0); SEGS 86 % (42-75)
[2019-07-27 08:15] LABS: AGAP 9; ALB/GLOB RATIO 0.6; ALBUMIN 2.6 g/dL (3.5-5.0); ALKALINE PHOSPHATASE 349 U/L (32-122); BUN 10 mg/dL (8-22); CALCIUM 8.3 mg/dL (8.8-10.2); CHLORIDE 102 mmol/L (98-107); COSMO 276; CREATININE 0.5 mg/dL (0.7-1.2); ESTIMATED GFR > 60; GLUCOSE 118 mg/dL (70-104); GOT 57 U/L (10-34); GPT 56 U/L (10-44); SODIUM 138 mmol/L (136-145); TCO2 27 mmol/L (25-35); TOTAL BILIRUBIN 8.22 mg/dL (0.20-1.00); TOTAL PROTEIN 6.7 g/dL (6.3-8.3)
[2019-07-27] MEDS: POTASSIUM CHLORIDE 60 MEQ in NS 500 ML IV SCH ×2 (09:16→17:14)
[2019-07-27] MEDS: CREON PO SCH ×3 (09:17→17:15)
[2019-07-27] MEDS: CLARITIN PO SCH (09:18)
[2019-07-27] MEDS: WELLBUTRIN XL PO SCH (09:19)
[2019-07-27] MEDS: ELIQUIS PO SCH ×2 (09:19→21:05)
[2019-07-27] MEDS: SOLU-MEDROL IV SCH (09:19)
[2019-07-27] MEDS: MIRALAX PO SCH (09:27)
[2019-07-27] MEDS: NS 1,000 ML IV SCH ×2 (13:02)
[2019-07-27] MEDS: FOLIC ACID 5 MG in NS 50 ML IV SCH (13:42)
--- NOTE | 2019-07-27 22:29 | PROGRESS NOTE ---
DATE: 07/27/2019 SUBJECTIVE: The patient is in good shape and he is walking with physical therapy. He is not offering any complaints. OBJECTIVE: On exam, temperature is 98 degrees, pulse is 94. Vitals are stable. He is still having jaundice, slightly anemic, did not receive any blood transfusion. HEENT exam within normal limits. Pale and jaundiced. Chest is clear. Irregular heart sounds. Belly is soft, nontender. Right footdrop is stable. LABORATORY DATA: White cell count 17, hematocrit 24, platelets 463,000. Sodium 138, potassium 3.0, BUN 10, creatinine 0.5, glucose 118, bilirubin 8.2. ASSESSMENT AND PLAN: 1. Chronic atrial fibrillation, stable on Cardizem, Eliquis and digoxin. 2. Reactive depression, on bupropion. 3. Poor appetite, on Periactin. 4. Hemolytic anemia, on intravenous folic acid. 5. Cholestatic jaundice. Intravenous steroids. 6. Hypokalemia. Replace the potassium. 7. Continue Do Not Resuscitate/Allow Natural level 1. We will continue to see the progress until Friday, and discuss the disposition. Level of documentation 25 minutes. cc: Oziel Riley MD
[2019-07-28] MEDS: CARDIZEM PO SCH ×4 (04:53→21:47)
[2019-07-28] MEDS: ZOFRAN ODT PO SCH ×3 (06:48→21:46)
[2019-07-28] MEDS: PERIACTIN PO SCH ×3 (06:48→21:46)
[2019-07-28] MEDS: PRILOSEC PO SCH (06:48)
[2019-07-28] MEDS: REGLAN PO SCH ×3 (06:48→21:46)
[2019-07-28 08:16] LABS: HEMATOCRIT 25.7 % (42.0-52.0); HEMOGLOBIN 8.1 g/dL (14.0-18.0); IMM GRAN# 0.04 X1000 (0.0-0.04); IMM GRAN% 0.3 % (0.0-0.5); LYMPH# 1.35 X1000 (1.2-3.4); LYMPH% 8.6 % (20.5-51.1); MCH 42.6 PG (27-31); MCHC 31.5 g/dL (33-37); MONO# 1.27 X1000 (0.11-0.59); MPV 8.8 FL (7.4-10.4); NEUT# 13.12 X1000 (1.4-6.5); NEUT% 83.1 % (42.2-75.2); PLT 451 X1000 (130-400); RDW 18.4 % (11.5-14.5); WBC 15.78 X1000 (4.8-10.8)
[2019-07-28 08:50] LABS: AGAP 11; ALB/GLOB RATIO 0.7; ALBUMIN 2.7 g/dL (3.5-5.0); ALKALINE PHOSPHATASE 348 U/L (32-122); BUN 9 mg/dL (8-22); CALCIUM 8.5 mg/dL (8.8-10.2); CHLORIDE 101 mmol/L (98-107); COSMO 275; CREATININE 0.6 mg/dL (0.7-1.2); ESTIMATED GFR > 60; GLUCOSE 150 mg/dL (70-104); GOT 54 U/L (10-34); GPT 54 U/L (10-44); POTASSIUM 3.7 mmol/L (3.5-5.1); SODIUM 137 mmol/L (136-145); TCO2 25 mmol/L (25-35); TOTAL BILIRUBIN 7.81 mg/dL (0.20-1.00); TOTAL PROTEIN 6.7 g/dL (6.3-8.3)
[2019-07-28] MEDS: CREON PO SCH ×3 (09:10→17:50)
[2019-07-28] MEDS: LANOXIN PO SCH (09:11)
[2019-07-28] MEDS: CLARITIN PO SCH (09:12)
[2019-07-28] MEDS: ELIQUIS PO SCH ×2 (09:12→21:46)
[2019-07-28] MEDS: SOLU-MEDROL IV SCH (09:13)
[2019-07-28] MEDS: WELLBUTRIN XL PO SCH (09:13)
[2019-07-28] MEDS: MIRALAX PO SCH (09:17)
--- NOTE | 2019-07-28 11:11 | HEMO/ONC PROGRESS NOTE ---
DATE: 07/28/2019 SUBJECTIVE: Mr. Summers is in a very pleasant mood this morning. He states he continues to feel well. He continues to deny having any pain. He is looking forward to possibly going home later this week. He is looking forward to his fourth dose of Rituxan tomorrow. The patient has no complaints, had no acute events overnight. OBJECTIVE: Vital Signs: Temperature 97.9 degrees, pulse rate 118, respiratory rate 16, blood pressure 126/71, and O2 saturation 100% on room air. He is in 0/10 pain. General: On physical exam, the patient is in pleasant spirits, in no acute distress. HEENT: Sclerae are icteric. PERRLA. Oral mucosa is normal. Cardiovascular: Irregular heart rate and rhythm. The patient remains tachycardic. Respiratory: Lung sounds are clear to auscultation. Normal respiratory effort. Abdomen: Soft, nontender, nondistended. Neurological: Alert and oriented x3. No focal motor deficits noted. Extremities: No lower extremity edema noted. Skin: Color continues to be jaundiced. LABORATORY DATA: WBCs 15.78, hemoglobin 8.1, hematocrit 25.7, platelet count 451,000. ANC 1.35. Creatinine 0.6, bilirubin 7.81, alkaline phosphatase 348, albumin 2.7. ASSESSMENT AND PLAN: 1. Stage III pancreatic cancer, status post Whipple. 2. Cholestatic jaundice: The patient is currently on intravenous steroids for the jaundice, as well as proton pump inhibitor for gastric prophylaxis. He is doing well in that regards. His bilirubin continues to decrease. 2. Autoimmune hemolytic anemia. Tomorrow the patient will receive his fourth dose of Rituxan in the hospital with the appropriate premedications. He has been notified. He is aware of expectations and possible side effects. He has not had side effects with any prior doses. We will monitor him closely. H/H slowly improving. 3. Chronic atrial fibrillation. This has been stable. He continues on Cardizem, Eliquis, and digoxin as instructed. 4. Deep venous thrombosis prophylaxis. The patient has on sequential compression devices. He is working with physical therapy to get up and out of bed. He remains on Eliquis twice a day. 5. Deconditioning. The patient states he feels very weak. He is getting up and trying to walk the halls and increase his stamina. He states he does not like the protein shakes. We are going to try a different protein modulator today. Dictated by KORINA Hendricks for Tunde Carpenter MD cc: MD Oziel Santos MD MTDD
[2019-07-28] MEDS: FOLIC ACID 5 MG in NS 50 ML IV SCH (13:38)
[2019-07-28] MEDS: NS 1,000 ML IV SCH (15:26)
--- NOTE | 2019-07-28 20:19 | PROGRESS NOTE ---
DATE: 07/28/2019 SUBJECTIVE: The patient is good spirits. This afternoon he started having loose stools. Potassium still low. PHYSICAL EXAMINATION: Vital Signs: Temperature is 97. Vitals are stable. HEENT: Jaundiced, anemic. Chest: Clear. Cardiovascular: Irregular heart sounds. Abdomen: Belly is soft, nontender. Neurologic: No neurological deficits. INVESTIGATIONS: White cell count 15, hematocrit 25.7, platelets 451. SMA 7 is normal. Bilirubin 7.8. LFTs were coming down. ASSESSMENT AND PLAN: 1. Cholestatic jaundice. 2. Autoimmune hemolytic anemia, improving with IV steroids. 3. Diarrhea. Discontinue MiraLAX and check the stool for white blood cells, C S, Clostridium difficile. 4. He was on antibiotics and Levaquin, which we stopped 2 days ago. The rest of his problems are pretty stable. Out of the bed with physical therapy. Continue to monitor. I appreciate Dr. Carpenter's input. LEVEL OF DOCUMENTATION: Twenty-five minutes. cc: Oziel Riley MD
[2019-07-29] MEDS: CARDIZEM PO SCH ×4 (03:47→23:56)
[2019-07-29] MEDS: ZOFRAN ODT PO SCH ×3 (06:19→23:57)
[2019-07-29] MEDS: REGLAN PO SCH ×3 (06:19→23:56)
[2019-07-29] MEDS: PERIACTIN PO SCH ×3 (06:19→23:59)
[2019-07-29] MEDS: PRILOSEC PO SCH (06:19)
[2019-07-29 08:27] LABS: BASO# 0.01 X1000 (0.0-0.2); BASO% 0.1 % (0.0-0.8); EOS# 0.01 X1000 (0.0-0.7); EOS% 0.1 % (0.0-10.0); HEMATOCRIT 25.4 % (42.0-52.0); LYMPH# 1.54 X1000 (1.2-3.4); LYMPH% 11.5 % (20.5-51.1); MCH 47.6 PG (27-31); MCHC 31.9 g/dL (33-37); MCV 134.4 FL (81-99); MONO# 0.99 X1000 (0.11-0.59); MONO% 7.9 % (1.7-9.3); MPV 9.3 FL (7.4-10.4); NEUT# 10.84 X1000 (1.4-6.5); NEUT% 80.9 % (42.2-75.2); PLT 360 X1000 (130-400); RBC 1.89 XMIL (4.7-6.1); RDW 17.7 % (11.5-14.5); WBC 13.39 X1000 (4.8-10.8)
[2019-07-29 08:39] LABS: AGAP 11; ALB/GLOB RATIO 0.7; ALBUMIN 2.7 g/dL (3.5-5.0); ALKALINE PHOSPHATASE 306 U/L (32-122); BUN 12 mg/dL (8-22); CALCIUM 8.6 mg/dL (8.8-10.2); CHLORIDE 103 mmol/L (98-107); COSMO 281; CREATININE 0.5 mg/dL (0.7-1.2); ESTIMATED GFR > 60; GLUCOSE 160 mg/dL (70-104); GOT 38 U/L (10-34); GPT 51 U/L (10-44); POTASSIUM 3.2 mmol/L (3.5-5.1); SODIUM 139 mmol/L (136-145); TCO2 25 mmol/L (25-35); TOTAL BILIRUBIN 6.89 mg/dL (0.20-1.00); TOTAL PROTEIN 6.5 g/dL (6.3-8.3)
[2019-07-29] MEDS: SOLU-MEDROL IV SCH (08:54)
[2019-07-29] MEDS: WELLBUTRIN XL PO SCH (08:54)
[2019-07-29] MEDS: CLARITIN PO SCH (08:54)
[2019-07-29] MEDS: ELIQUIS PO SCH ×2 (08:54→23:57)
[2019-07-29] MEDS: CREON PO SCH ×3 (08:55→17:54)
[2019-07-29] MEDS: FOLIC ACID 5 MG in NS 50 ML IV SCH ×2 (11:19→14:19)
[2019-07-29] MEDS ORDERED: TYLENOL PO ONE (12:30)
[2019-07-29] MEDS ORDERED: SODIUM CHLORIDE 0.9% INJ ONE (13:00)
[2019-07-29] MEDS ORDERED: BENADRYL IV ONE (13:00)
[2019-07-29] MEDS ORDERED: PEPCID IV ONE (13:00)
[2019-07-29] MEDS: NS 1,000 ML IV SCH (13:20)
[2019-07-29] MEDS ORDERED: NS IV ONE (13:30)
[2019-07-29] MEDS ORDERED: RITUXAN IV ONE (13:30)
[2019-07-29] MEDS: CREON PO PRN (14:52)
--- NOTE | 2019-07-29 17:00 | HEMO/ONC PROGRESS NOTE ---
DATE: 07/29/2019 SUBJECTIVE: Mr. Summers is feeling very well this morning. He stated that he started having a diarrhea after lunch yesterday, had several episodes. It has begun to resolve at this time. He was checked for C-diff and it was negative. So far this morning he has not had any diarrhea. The patient will be receiving Rituxan today. He continues to not have any complaints. He is in a pleasant mood. OBJECTIVE: Vital Signs: Temperature 97.8 degrees, pulse rate 100, respiratory rate 20, blood pressure 127/76, O2 saturation 100% on room air. He is in 0/10 pain. PHYSICAL EXAMINATION: General: The patient is in pleasant spirits, in no acute distress. HEENT: Sclerae is icteric. PERRLA. Oral mucosa is normal. Cardiovascular: Irregular rate and rhythm. Heart rate tachycardic. Respiratory: Lung sounds are clear to auscultation. Normal respiratory effort. Abdomen: Soft, nontender, nondistended. Neurological: Alert and oriented x3. No focal motor deficits. Extremities: No lower extremity edema noted. Skin: Jaundice is greatly improved. LABORATORY: WBCs 13.39, hemoglobin 9.0, hematocrit 25.4, platelet count 360,000. Sodium 139, potassium 3.2, total bilirubin 6.89, alkaline phosphatase 306, albumin 2.7. ASSESSMENT AND PLAN: 1. Stage III pancreatic cancer, status post Whipple. 2. Cholestatic jaundice: Etiology unclear. The patient is currently remains on IV steroids. His bilirubin is decreasing. 2. Autoimmune hemolytic anemia. The patient has started his 4th dose of Rituxan today in the hospital. He had appropriate premedication. The patient has not had any side effects or adverse reactions with prior dosages. He is monitor closely for any infusional reactions and side effects while receiving his infusions. 3. Allergy prophylaxis. The patient received Tylenol, Benadryl and Pepcid prior to his infusion. He will be monitored for any infusional reactions and side effects. 4. Chronic atrial fibrillation. This remained stable. The patient continues on Cardizem, Eliquis, and digoxin as instructed. His heart rate is irregular. 5. Deep venous thrombosis prophylaxis. The patient has on sequential compression devices. He is continuing to get up and get stronger and works with physical therapy. He remains on Eliquis twice a day. 6. Deconditioning. The patient states he is feeling better since he is getting up and working with physical therapy. He needs to continue to get up and walk as much as he can, as well as continue protein intake. The patient states he does like the liqui maritza. Continue to provide him that as many times as he would like per day to increase his protein amount. Dictated by KORINA Hendricks for Tunde Carpenter MD cc: MD Oziel Santos MD MTDD
--- NOTE | 2019-07-29 19:53 | PROGRESS NOTE ---
DATE: 07/29/2019 SUBJECTIVE: The patient is doing much better. Decreased jaundice levels on steroids and had diarrhea. A follow-up C difficile was negative. PHYSICAL EXAMINATION: Temperature is 97 degrees. Vitals are stable.HEENT: Within normal limits. Neck: Supple. Chest: Bilateral air entry. Heart: Regular heart sounds. Abdomen: Belly is soft, nontender. Neurological: No obvious deficits. INVESTIGATIONS: CBC: White cell count 13, hematocrit 25, platelets 360,000. Sodium 139, potassium 3.2, and bilirubin 6.89. LFTs were coming down. ASSESSMENT AND PLAN: 1. Cholestatic jaundice. Autoimmune hemolytic anemia, improving with IV steroids post Cytoxan therapy. 2. Continue IV folic acid. 3. Diarrhea. Stop the Levaquin as well as the MiraLAX. Out of the bed with physical therapy. Will discuss with the family about disposition tomorrow. Will be transitioning into low dose of prednisone if he continues to improve. LEVEL OF DOCUMENTATION: 25 minutes. cc: Oziel Riley MD
[2019-07-29] MEDS: POTASSIUM CHLORIDE 60 MEQ in NS 500 ML IV SCH (23:51)
[2019-07-30] MEDS: POTASSIUM CHLORIDE 60 MEQ in NS 500 ML IV SCH (04:21)
[2019-07-30] MEDS: CARDIZEM PO SCH ×2 (04:34→08:28)
[2019-07-30] MEDS: PRILOSEC PO SCH (07:38)
[2019-07-30] MEDS: PERIACTIN PO SCH (07:38)
[2019-07-30] MEDS: REGLAN PO SCH (07:38)
[2019-07-30] MEDS: ZOFRAN ODT PO SCH (07:38)
[2019-07-30 07:49] VITALS: BP 129/64
[2019-07-30 08:16] LABS: EOS# 0.03 X1000 (0.0-0.7); EOS% 0.2 % (0.0-10.0); HEMATOCRIT 30.6 % (42.0-52.0); HEMOGLOBIN 9.5 g/dL (14.0-18.0); IMM GRAN# 0.04 X1000 (0.0-0.04); IMM GRAN% 0.3 % (0.0-0.5); LYMPH% 12.2 % (20.5-51.1); MCH 40.8 PG (27-31); MCV 131.3 FL (81-99); MONO# 0.97 X1000 (0.11-0.59); MONO% 7.4 % (1.7-9.3); MPV 8.7 FL (7.4-10.4); NEUT# 10.44 X1000 (1.4-6.5); NEUT% 79.9 % (42.2-75.2); PLT 414 X1000 (130-400); RBC 2.33 XMIL (4.7-6.1); RDW 17.3 % (11.5-14.5); WBC 13.08 X1000 (4.8-10.8)
[2019-07-30 08:19] LABS: AGAP 9; ALB/GLOB RATIO 0.7; ALBUMIN 2.8 g/dL (3.5-5.0); ALKALINE PHOSPHATASE 302 U/L (32-122); BUN 12 mg/dL (8-22); CALCIUM 8.5 mg/dL (8.8-10.2); CHLORIDE 105 mmol/L (98-107); COSMO 282; CREATININE 0.6 mg/dL (0.7-1.2); ESTIMATED GFR > 60; GLUCOSE 141 mg/dL (70-104); GOT 40 U/L (10-34); GPT 52 U/L (10-44); SODIUM 140 mmol/L (136-145); TCO2 26 mmol/L (25-35); TOTAL BILIRUBIN 6.38 mg/dL (0.20-1.00); TOTAL PROTEIN 6.7 g/dL (6.3-8.3)
[2019-07-30] MEDS: CREON PO SCH (08:27)
[2019-07-30] MEDS: WELLBUTRIN XL PO SCH (08:27)
[2019-07-30] MEDS: SOLU-MEDROL IV SCH (08:28)
[2019-07-30] MEDS: CLARITIN PO SCH (08:28)
[2019-07-30] MEDS: LANOXIN PO SCH (08:28)
[2019-07-30] MEDS: ELIQUIS PO SCH (08:28)
--- NOTE | 2019-07-31 21:07 | DISCHARGE SUMMARY ---
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 SECONDARY DIAGNOSES: 1. Second stage III pancreatic cancer - CA-[id number] of 350. 2. Chronic atrial fibrillation. 3. Deconditioning. 4. Reactive depression. 5. Right foot drop. 6. History of kidney stones. 7. Osteoarthritis. 8. Port on the left side. CONSULTS: Dr. Carpenter, Palliative Care. PROCEDURES: IV Rituxan therapy and IV prednisone. BRIEF HISTORY: Please see the H and P that was done on 07/15/2019. In brief, he is a 74-year-old white gentleman basically admitted to the hospital directly from Dr. Carpenter's office from the previous admission discharge for jaundice due to cholestatic/autoimmune hemolytic anemia. Apparently, when he left from the hospital, his bilirubin was 6, and on his office labs, it had gone up jonelle high to 27. HOSPITAL COURSE: He was given IV fluids and IV folic acid. We did retest the hemolytic anemia picture, which is he continues to have low haptoglobin, high reticulocyte count, high LDH. Urine hemosiderin was negative. The picture is a combination of a prehepatic and hepatic picture. On previous testing there was no evidence of obstructive pathology. The cholestatic picture is most likely due to fatty infiltration, exacerbated by amiodarone and TPN. The patient is tolerating his diet very well. He continues to have low potassium, for which he was given several doses of potassium. Dr. Carpenter did IV steroids and IV Rituxan. The jaundice level came down to 6.8. He also developed mild diarrhea, which has resolved after stopping the Levaquin and MiraLAX. He continues to be weak. Physical therapy was given. The patient has been in good spirits. LABORATORY DATA: White cell count 13, hematocrit 30.6, platelets 414. Sodium 140, potassium 4, chloride 105. BUN 12, creatinine 0.6, calcium 8.5, bilirubin 6.3. LFTs were down. C difficile toxin was negative. DISPOSITION: 1. The patient has a living will/DO NOT RESUSCITATE. 2. Palliative Care consult was obtained. 3. The flu vaccine was given 03/12/2019. Pneumococcal vaccine 13 was given 03/04/2019. Tetanus was given 03/07/2018. 4. Wellbutrin 150 daily,Creon 1 tablet p.o. t.i.d., Reglan 10 t.i.d., Loratadine 10 daily, Zofran as needed for nausea, Prilosec 20 daily, Periactin 4 mg t.i.d., Eliquis 2.5 p.o. b.i.d., Cardizem 30 mg t.i.d., prednisone 10 mg daily. 5. Follow up with my office as well as with Dr. Carpenter. 6. Outpatient comfort. Home health/hospice. cc: MD Tunde Davis MD
== END 2019-07-30 12:12 | disposition hospice, home (50) | DRG 808 ==
LOC: DIRADM 11:10 → 3N 12:16
PROVIDERS: ADMIT Internal Medicine; ATTEND Internal Medicine